=== PATIENT | female | born 1940 | race Caucasian/White ===

== ENCOUNTER 2021-09-18 11:56 | Inpatient (IN) | payer MEDICARE, OTHER ==
[~2021-09-18] VITALS: Ht 162.6 cm; Wt 77.2 kg
[~2021-09-18 11:56] MED LIST: ACET-2267 PO; ACETAMINOPHEN 325 MG TABLET PO PRN; ALBU1.25 INH; ALPRAZolam 0.25 MG (XANAX) TAB PO PRN; ASPI-1238 PO; ATOR40TA70 PO; BENZ200C51 PO; BISACODYL 10 MG SUPP (DULCOLAX) PR PRN; BUDE0.5A7 NEB; BUDE10.2 IH; BUPR150T9 PO; CALC-823 PO; CALCIUM CARBONATE 500 MG (TUMS) TAB.CHEW PO PRN; CLOP75TA28 PO; DIPH25CA48 PO; DOCUSATE SODIUM 100 MG (COLACE) CAP PO PRN; ESCI20TA39 PO; FAMO20TA5 PO; FERR325T18 PO; FLEET ENEMA ADULT 1 EA BTL PR PRN; FLUO20CA42 PO; FLUT1BLS3 IH; FLUT9.9S NS; FLUT9.9S NSEACH; FURO-124 PO; HYDR-3730 PO; HYDR25TA4 PO; IPRA3AMP31 IH; LACTULOSE SYRUP 10GM/15ML (ENULOSE) 30ML UDC PO PRN; LEVO1CAP PO; LIDO15CR TP; LOPERAMIDE 2 MG (IMODIUM) TABLET PO PRN; LOSA100T57 PO; MELATONIN 3 MG TABLET PO PRN; MONT-40 PO; MONT10TA21 PO; MULT-974 PO; OMEP40CA6 PO; ONDANSETRON 4 MG (ZOFRAN) ORAL DISSOLVE TAB PO PRN; POTA10CA43 PO; POTA10TA37 PO; RT-ALBUINH IH; diphenhydrAMINE 25 MG TAB (BENADRYL) PO PRN
[2021-09-18 12:00] VITALS: BP 143/67
[2021-09-18] MEDS: polyethylene glycoL POWDER 17 GM (MIRALAX) PACK PO SCH ×2 (12:09→20:33)
[2021-09-18] MEDS: DOCUSATE SODIUM 100 MG (COLACE) CAP PO SCH ×2 (12:09→20:30)
[2021-09-18] MEDS: SENNA W/DOCUSATE (SENOKOT S) TABLET PO SCH ×2 (12:09→20:30)
--- NOTE | 2021-09-18 12:47 | ST Dysphagia Evaluation ---
Speech Evaluation-General Medical Diagnosis Stroke Onset Date: Sep 18, 2021 Therapy Diagnosis Therapy Diagnosis: Suspected Oropharyngeal Dysphagia Precautions Precautions: Fall, Aspiration Precautions/Isolations: Standard Precautions Referral Referring Physician: Dr. Jackelin Mckeon Reason for Referral: Evaluation/Treatment Medical History Current History The patient is an 81 year old female with a past medical history of arthritis, COPD, GERD, HTN, CKD, hip replacement, and depression, who presented to the acute rehabilitation unit at [facility] following a left pontine stroke. Reviewed History: Yes Speech PLF/Current-Dysphagia Prior Level of Function The patient reported consumption of a regular consistency diet with thin liquids prior to her recent hospitalization. The patient denied s/s of suspected aspiration with her prior diet consistency and reported tolerance. Subjective The patient recently arrived to the acute rehabilitation unit and is seated upright in her recliner upon entrance to her room. The patient is alert, awake and greeted the clinician appropriately. The patient's is intermittently at bedside, entering and leaving the room to complete specific tasks. The patient is agreeable to participation in the clinical bedside swallowing evaluation. Since her hospitalization, the patient stated she does experience s/s of suspected aspiration with PO consistencies, specifically coughing following the swallow. The patient stated the coughing and throat clearing can occur following the swallow with thin liquids or solid consistencies. Per patient, "I just nibble on things and take one drink at a time. I use my tongue to stop the drink so it isn't very big." The patient reported she is currently receiving a regular diet with thin liquids and does not experience difficulty swallowing medication (pills). The patient stated while she is receiving a regular diet with thin liquids, she mostly attempts "smoothies." Upon admission, the prior RN contacted the assigned RN and reported a concern for aspiration. The patient is currently receiving 2L supplemental oxygen via nasal cannula. Per patient, she uses oxygen at night and intermittently throughout the day as needed during exertion. Cognitive Status Patient Orientation: Person, Place, Time, Situation, Normal For Age Oral Motor Skills Dentition: Natural Current Food Consistancy: Regular, Thin Liquids Ability to Follow Directions: Excellent Oral Expression Ability: No Impairment Voice Voice Phonatory-Based Quality: Normal Voice Pitch: Normal Voice Loudness: Normal Face Facial Symmetry: Asymmetrical (Right facial droop.) Oral-Facial Assessment Oral-Facial Dentition: Normal Labial Seal Description: Reduced ROM, Droops Right Puff Cheeks: Reduced Strength (Right.) Lingual Protrusion: Normal Lingual ROM: Normal Lingual Strength: Normal Volitional Dry Swallow: Yes Voluntary Cough: Yes Can Clear Throat Volitionally: Yes Productive Cough: Yes Productive Throat Clear: Yes Dysphagia Evaluation Consistencies Presented: Thin Liquid, Mechanical Soft, Lynndyl Thick Liquid, Pureed Pharyngeal Phase: Clears Throat Funct. Velo/Pharyngeal Symptom: Clears Throat Dietary Recommendations: Mechanical Soft (Dysphagia two.) Liquid Recommendations: Lynndyl Consistancy (Mildly-thick.) Recommendations: - Dysphagia two consistency diet with NECTAR-THICK (mildly) liquids, as tolerated. - Fully upright and alert for PO intake. - Meal set-up and feeding assistance, as needed (secondary to right-sided weakness). - Small, single bites and sips. - Frequent and excellent oral care to reduce the transfer of oral bacteria to t he lungs should aspiration of secretions occur. - Monitor for s/s of suspected aspiration with PO intake. If demonstrated, place the patient NPO and contact speech pathology. - Completion of a modified barium swallow evaluation to definitively rule out the presence of aspiration with PO consistencies (ordered, scheduled for , 09/20/21 at 1245). The results, recommendations and plan of care was discussed with the RN. The RN and the speech pathologist agree with the plan of care and the RN assists with all scheduling needs. Swallowing Precautions: Small Bites and Sips, Sitting 90 Degrees 30 Post Intake, Right Tongue Sweep Dysphagia Evaluation Summary The patient was presented with three teaspoons of water, eight straw sips of water, three teaspoons of nectar-thick liquid, five cup edge drinks of nectar- thick liquid, eight teaspoons of puree, and a bolus of soft solid. The clinician presented all consistencies by patient request (secondary to right sided weakness). The patient displayed difficulty drawing the material from the straw due to the weak right labial seal, however, was successful. Prolonged mastication and anterior to posterior transfer were appreciated. Anterior spillage or right pocketing of material was not present. The patient displayed a subtle and delayed throat clear following straw sips of thin liquid. The throat clearing behavior was eliminated with nectar-thick liquids and soft solids. The patient displayed a delayed throat clearing behavior following one of eight teaspoons of puree. The patient's vocal quality remained clear throughout the evaluation. To note, the patient stated she clears her throat "constantly" throughout the day. The throat clear behavior was present during periods of conversation, in isolation of PO trials. Speech Short Term Goals Short Term Goals Short Term Goals 1. The patient and staff will demonstrate safe swallowing practices and strategies with 90% accuracy. Speech Steam Box Hand Goals Fdc Goals 1. The patient will tolerate the least restricted diet without s/s of suspected aspiration with 90% accuracy. Speech-Plan Treatment Plan Speech Therapy Treatment Plan: Continue Plan of Care Treatment Duration: Oct 02, 2021 Frequency: 3 times per week (Three to five times per week.) Estimated Hrs Per Day: .5 hour per day Rehab Potential: Fair Pt/Family Agrees to Plan: Yes Safety Risks/Education Teaching Recipient: Patient Teaching Methods: Discussion Response to Teaching: Verbalize Understanding Education Topics Provided: Results, Recommendations, Safe Swallowing Practices Time Speech Therapy Time In: 11:53 Speech Therapy Time Out: 12:40 Total Billed Time: 47 Billed Treatment Time 1, HAI LEARY [facility] 12:47
--- NOTE | 2021-09-18 13:10 | PM&R Post Admission Assessment ---
PM&R HP Date of Visit: Sep 18, 2021 Time of Visit: 13:10 History of Present Illness CC: CVA HPI: 81 yr old clinic patient of Dr. Lamar. She presents from [facility] with a left pontine stroke with right sided weakness and dysarthria. She did have an exacerbation of COPD while she was at [facility]. She was previously on nebulizer treatments, steroids and oxygen. Also has a history of hypertension, CAD, and chronic kidney disease. Previously independent with ADLs, now moderate with transfers only walking 2-3 feet with a four wheeled walker. She will go home with her spouse at discharge. When I assessed her she was having wheezing and difficulty breathing so I completed a septic work-up including chest x-ray which revealed no infiltrates but restarted nebulized treatments and initiated oxygenation supplemental and will monitor patient closely in the meantime. Dr. Galvez will be consulted for elevated BNP. Past Vohyhuh-Alfpyr-Bgvigw Hx Past Med/Social Hx: Reviewed Nursing Past Med/Soc Hx, Reviewed and Corrections made Patient Social History Marrital Status: Employed/Student: retired Alcohol Use: Denies Use Smoking Status: Former Smoker Immunizations Up To Date Date of Pneumonia Vaccine: Aug 04, 2013 Date of Influenza Vaccine: May 04, 2021 Past Medical History Respiratory: COPD Cardiac: High Cholesterol, Hypertension Neurological: Stroke HIV/AIDS: No Female Reproductive Disorders: Denies Genitourinary: Bladder Infection Gastrointestinal: Gastroesophageal Reflux Musculoskeletal: Arthritis, Chronic Back Pain Loss of Vision: Bilateral Hearing Impairment: Denies Psychosocial: Depression Adverse Reaction to Blood Tellez: No PM&R Allergy/Meds/Data Review Allergies Coded Allergies: No Known Drug Allergies (Unverified , 11/08/15) Home Medications Scheduled Albuterol Sulfate (Albuterol Sulfate), 1.25 MG INH QID, (Reported) Aspirin (Aspirin EC), 81 MG PO DAILY, (Reported) Atorvastatin Calcium (Atorvastatin Calcium), 40 MG PO HS, (Reported) Budesonide (Pulmicort), 0.5 MG NEB BID, (Reported) Bupropion HCl (Wellbutrin Sr), 150 MG PO DAILY, (Reported) Clopidogrel Bisulfate (Clopidogrel), 75 MG PO DAILY, (Reported) Escitalopram Oxalate (Escitalopram Oxalate), 20 MG PO DAILY, (Reported) Famotidine (Famotidine), 20 MG PO BID, (Reported) Ferrous Sulfate (Ferrous Sulfate), 325 MG PO BID, (Reported) Fluticasone Propionate (Flonase Allergy Relief), 2 SPRAY NSEACH DAILY, ( Reported) Fluticasone/Umeclidin/Vilanter (Trelegy Ellipta 100-62.5-25), 1 EACH IH DAILY, (Reported) Hydrochlorothiazide (Hydrochlorothiazide), 25 MG PO DAILY, (Reported) Losartan Potassium (Losartan Potassium), 50 MG PO HS, (Reported) Montelukast Sodium (Montelukast Sodium), 10 MG PO DAILY, (Reported) Potassium Chloride (Potassium Chloride), 20 MEQ PO BID WITH MEALS, (Reported) Scheduled PRN Acetaminophen (Tylenol Extra Strength), 500 MG PO Q4H PRN for PAIN-MILD (1-4), (Reported) Albuterol Sulfate (Proair Hfa), 2 PUFF IH Q4H PRN for SHORTNESS OF BREATH, (Reported) Benzonatate (Benzonatate), 200 MG PO TID PRN for COUGH, (Reported) Ipratropium/Albuterol Sulfate (Iprat-Albut 0.5-3(2.5) mg/3 ml), 3 ML IH Q6H PRN for SHORTNESS OF BREATH, (Reported) Lidocaine (Anecream5), 1 APPLIC TP Q8H PRN for PAIN-BREAKTHROUGH, (Reported) Discontinued Medications Budesonide/Formoterol Fumarate (Symbicort 160-4.5 Mcg Inhaler), 2 PUFF IH BID, (Reported) Discontinued Reason: No Longer Taking Calcium Carbonate (Calcium), 500 MG PO DAILY, (Reported) Discontinued Reason: No Longer Taking Diphenhydramine HCl (Diphenhydramine HCl), 25 MG PO DAILY, (Reported) Discontinued Reason: No Longer Taking Fluoxetine HCl (Prozac), 20 MG PO BID, (Reported) Discontinued Reason: No Longer Taking Fluticasone Propionate (Flonase Allergy Relief), 2 SPRAYS NS DAILY, (Reported) Discontinued Reason: No Longer Taking Furosemide (Lasix), 20 MG PO DAILY, (Reported) Discontinued Reason: No Longer Taking Hydrocodone/Acetaminophen (Lortab 7.5-325 mg Tablet), 1 TAB PO EVERY 4-6 HRS PRN for PAIN Discontinued Reason: No Longer Taking Ipratropium/Albuterol Sulfate (Iprat-Albut 0.5-3(2.5) mg/3 ml), 3 ML IH Q4H PRN for SHORTNESS OF BREATH, (Reported) Discontinued Reason: No Longer Taking Levomefolate/Algal Oil (Deplin-Algal Oil 15 mg Capsule), 1 EACH PO DAILY PRN for PAIN, (Reported) Discontinued Reason: No Longer Taking Losartan Potassium (Losartan Potassium), 50 MG PO HS, (Reported) Discontinued Reason: No Longer Taking Montelukast Sodium (Singulair), 10 MG PO DAILY, (Reported) Discontinued Reason: No Longer Taking Multivitamin (Multi-Vitamin Daily), 1 EACH PO DAILY, (Reported) Discontinued Reason: No Longer Taking Omeprazole (Omeprazole), 40 MG PO BID, (Reported) Discontinued Reason: No Longer Taking Potassium Chloride (Potassium Chloride), 20 MEQ PO BID, (Reported) Discontinued Reason: No Longer Taking Current Medications Current Medications Reviewed Review of Systems Constitutional: see HPI, dizziness, malaise, weakness EENTM: no symptoms reported Respiratory: dyspnea on exertion, short of breath, wheezing Cardiovascular: no symptoms reported Gastrointestinal: no symptoms reported Genitourinary: no symptoms reported Musculoskeletal: back pain, joint pain Skin: no symptoms reported Psychiatric/Neurological: Anxiety, Emotional Problems All Other Systems Reviewed Negative Unless Noted: Yes Physical Exam Physical Exam Vital Signs Vital Signs - First Documented 09/18/21 12:00 Temp 36.8 Pulse 80 Resp 20 B/P (MAP) 143/67 (92) Pulse Ox 95 O2 Delivery Nasal Cannula O2 Flow Rate 2.00 Capillary Refill : Height, Weight, BMI Height: 5'5.00" Weight: 153lbs. 0.0oz. [id number]; 25.46 BMI Method: General Appearance: WD/WN, Anxious, Chronically ill, Mild Distress Eyes: Bilateral Eye Normal Inspection, Bilateral Eye PERRL HEENT: PERRL/EOMI, Normal ENT Inspection, Pharynx Normal Neck: Full Range of Motion, Normal Inspection, Non Tender, Supple, Carotid Bruit Respiratory: Chest Non Tender, No Respiratory Distress, Accessory Muscle Use, Crackles, Decreased Breath Sounds, Wheezing Cardiovascular: Regular Rate, Rhythm, No Edema, No Gallop, No JVD, No Murmur, Normal Peripheral Pulses Gastrointestinal: Normal Bowel Sounds, No Organomegaly, No Pulsatile Mass, Non Tender, Soft Back: Normal Inspection, No CVA Tenderness, No Vertebral Tenderness Extremity: Normal Capillary Refill, Normal Inspection, Normal Range of Motion, Non Tender, No Calf Tenderness, No Pedal Edema Neurologic/Psychiatric: Alert, Oriented x3, Normal Mood/Affect, plant scientist II-XII Norm as Tested, Abnormal Gait, Facial Droop (Right-sided), Motor Weakness (Right- sided) Skin: Normal Color, Warm/Dry Lymphatic: No Adenopathy PM&R Medical Assessment & Plan REHAB/MEDICAL ASSESSMENT AND PLAN: REHAB IMPAIRMENT GROUP: CVA ETIOLOGIC DIAGNOSIS: CVA The comorbidities that impact the patients function and/or functional outcome by: COPD requiring oxygen supplementation nebulized treatments for an acute exacerbation upon admission, elevated BNP, peripheral vascular disease, severe weakness REHAB PLAN: The patient is being admitted to our comprehensive inpatient rehabilitation facility and can tolerate the intensity of service consisting of at least: 180 minutes of therapy a day, 5 out of 7 days a week Rehab treatment will consist of: PT and OT will focus on regaining function with use of assistive devices in order to regain independence in order to return home with spouse The patient/family has a good understanding of our discharge process and will benefit from an interdisciplinary inpatient rehabilitation program. The patient has potential to make improvement and is in need of at least two of the following multidisciplinary therapies including but not limited to physical, occupational, speech, and prosthetics and orthotics. Additionally the patient will need services from respiratory, nutritional services, wound care, psychology, etc. (Customize this to each patient). Given the patients complex condition and risk of further medical complications, rehabilitation services cannot be safely or effectively provided at a lower level of care such as a retirement facility. BARRIERS TO DISCHARGE: Severe COPD with hypoxemia ESTIMATED LOS: 10 days DISPOSITION: Home with spouse RELEVANT CHANGES SINCE PREADMISSION SCREENING: I have compared the patients medical and functional status at the time of the preadmission screening and there are: No changes PROGNOSIS: Fair REHABILITATION GOALS: 1. PT and OT will focus on regaining function with use of assistive devices in order to regain independence in order to return home with spouse All the above goals were reviewed with the patient and he/she is in agreement. By signing this document, I acknowledge that I have personally performed a full physical examination on this patient within 24 hours of admission to this inpatient rehabilitation facility and have determined the patient to be able to tolerate the above course of treatment at an intensive level for a reasonable period of time. I will be completing a detailed individualized Plan of Care for this patient by day #4 of the patients stay based upon the Preadmission Screen, the Post-Admission Evaluation, and the therapy evaluations. Admission Dx/Comorbidities: (1) CVA (cerebral vascular accident) ICD Codes: I63.9 - Cerebral infarction, unspecified (2) Elevated brain natriuretic peptide (BNP) level Assessment & Plan: Her BNP level is mildly elevated. We are waiting to receive a copy of the echocardiogram report from the outside hospital. For the time being, I would just treat her hypertension. Her chest x-ray did not show any obvious evidence of pulmonary edema. ICD Codes: R79.89 - Other specified abnormal findings of blood chemistry (3) Chronic obstructive pulmonary disease Assessment & Plan: This is likely the cause of her chronic dyspnea. ICD Codes: J44.9 - Chronic obstructive pulmonary disease, unspecified (4) Primary hypertension Assessment & Plan: Resume previous antihypertensive medications. ICD Codes: I10 - Essential (primary) hypertension (5) Mixed hyperlipidemia Assessment & Plan: Continue statin medication. ICD Codes: E78.2 - Mixed hyperlipidemia Assessment/Plan Assessment and Plan Assess & Plan/Chief Complaint Assessment: CVA Right-sided facial droop Right-sided weakness Acute exacerbation of COPD Hypoxemia 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 Peripheral vascular disease Obesity BMI 29 Plan: Inpatient rehab protocol Cardiology consult Nebulizers Oxygen supplementation FLORES LUGO DO Sep 18, 2021 13:09
--- NOTE | 2021-09-18 13:52 | Physical Therapy Evaluation ---
PT Evaluation-General Medical Diagnosis Admission Date Sep 18, 2021 at 11:56 Medical Diagnosis: CVA Onset Date: Sep 13, 2021 Therapy Diagnosis Therapy Diagnosis: impaired mobility, strength, endurance, balance Height/Weight Height (Feet): 5 Height (Inches): 5.00 Weight (Pounds): 153 Weight (Ounces): 0.0 Precautions Precautions/Isolations: Aspiration, Fall Prevention, Standard Precautions, Pressure Ulcer Referral Physician: Jackelin Mckeon DO Reason for Referral: Evaluation/Treatment Medical History Pertinent Medical History: Arthritis, COPD, Fractures, HTN Additional Medical History CKD ,neuropathy, hip replacement, depression Reviewed History: Yes Social History Current Living Status: Spouse Entry Into Home: Ramp Prior Prior Level of Function SCALE: Activities may be completed with or without assistive devices. 6-Xftxkkrwvk-bxrrxjc completes the activity by him/herself with no assistance from a helper. 5-Set-up or Clean-up Assistance-helper sets up or cleans up; patient completes activity. [place] assists only prior to or following the activity. 4-Supervision or Touching Assistance-helper provides verbal cues and/or touching/steadying and/or contact guard assistance as patient completes activity. Assistance may be provided throughout the activity or intermittently. 3-Partial/Moderate Assistance-helper does LESS THAN HALF the effort. [place] lifts, holds or supports trunk or limbs, but provides less than half the effort. 2-Substantial/Maximal Assistance-helper does MORE THAN HALF the effort. Vass lifts or holds trunk or limbs and provides more than half the effort. 5-Lwzpdoely-xdpfbg does ALL the effort. Patient does none of the effort to complete the activity. Or, the assistance of 2 or more helpers is required for the patient to complete the activity. If activity was not attempted, code reason: 7-Patient Refused. 9-Not Applicable-not attempted and the patient did not perform the activity b efore the current illness, exacerbation or injury. 10-Not Attempted due to Environmental Limitations-(lack of equipment, weather restraints, etc.). 88-Not Attempted due to Medical Conditions or Safety Concerns. Bed Mobility: 6 Transfers (B,C,W/C): 6 Gait: 6 Indoor Mobility (Ambulation): Independent Prior Device Use: SPC PT Evaluation-Current Subjective Patient in recliner pre tx, agrees to PT, has no complaints of pain. Will be co-treating with OT for part of tx due to poor patient mobility, strength, endurance, balance, coordinate UE and LE during activity, safety and reduce risk of falls. Pt/Family Goals to be independent at home Objective Patient Orientation: Person, Place, Situation ROM/Strength ROM Lower Extremities WNL Strength Lower Extremities LLE (hip flexion 3+/5, knee flexion 4-/5, knee extension 4-/5, dorsiflexion 3/5), RLE (hip flexion 3/5, knee flexion 3+/5, knee extension 3+/5, dorsiflexion 2/5) Sensory Hearing: Functional Sensation Right Lower Extremit: Intact Sensation Left Lower Extremity: Intact Transfers Roll Left & Right (QC): 3 Sit to Lying (QC): 3 Lying to Sitting/Side of Bed(Q: 3 Sit to Stand (QC): 3 Chair/Ytq-tw-Kootc Xfer(QC): 2 Toilet Transfer (QC): 2 Car Transfer (QC): 2 Patient performs rolling with mod assist, supine <-> sit mod assist, transfers max assist, car transfer max assist. Patient needs cues for positioning and safety. At the end of tx patient needed to use the toilet and was dependent for pants. Gait Does the Patient Walk?: Yes Mode of Locomotion: Wheelchair Anticipated Mode of Locomotion: Both Walk 10 feet (QC): 88 Walk 50 ft with 2 Turns(QC): 88 Walk 150 ft (QC): 88 Walking 10ft/uneven surface-QC: 88 Distance: 3' Gait Assistive Device: Parallel Bars Comments/Gait Description Patient can ambulate 3' in the parallel bars with mod assist, needs some assist with placing her right foot, she has trouble advancing her right foot, has foot drop on the right side Wheelchair Training Does the Pt Use a Wheelchair?: Yes Distance: 120'x2 Wheel 50 ft with 2 turns (QC): 3 Wheel 150 ft (QC): 88 Type of Wheelchair: Manual Patient can propel a manual WC 120' with min assist, she uses her left arm and leg Stairs 1 Step (curb) (QC): 88 4 Steps (QC): 88 12 Steps (QC): 88 Balance Sitting Static: Fair Sitting Dynamic: Fair Standing Static: Poor Standing Dynamic: Poor Picking up an Object (QC): 88 Treatment PT performed bed mobility and transfers, ambulation, WC mobility, toilet transfer, OT performed toileting, UE positioning and safety during activity, assist with balance and safety during standing and weight shifting. Patient also performed sitting weight shifting onto right arm and standing weight shifting from leg to leg in the parallel bars. Assessment/Needs Patient in recliner post tx with nurse call, phone, tray, all needs met. Patient has impaired mobility, strength, endurance, balance. She needs significant assist with sit to stand and transfers. Rehab Potential: Fair PT Short Term Goals Short Term Goals Time Frame: Sep 25, 2021 Roll Left & Right: 3 (Fer) Sit to lyin (Fer) Lying to sitting on side of be: 3 (Uriah) Sit to stand: 3 (Fer) Chair/dca-ff-ugeau transfer: 3 (modA) Walk 10 feet: 3 (Fer) PT Nut Blanker Operator Goals Nut Blanker Operator Goals PT Correction Goals Time Frame: Oct 09, 2021 Roll Left & Right (QC): 4 Sit to Lying (QC): 4 Lying-Sitting on Side/Bed(QC): 4 Sit to Stand (QC): 4 Chair/Vrz-ek-Ebnzd Xfer(QC): 3 Toilet Transfer (QC): 3 Car Transfer (QC): 3 Does the Patient Walk: Yes Walk 10 feet (QC): 3 Walk 50ft with 2 Turns (QC): 3 Walk 150 ft (QC): 88 Walking 10ft on Uneven Surface: 3 1 Step (curb) (QC): 3 4 Steps (QC): 88 12 Steps (QC): 88 Picking up an Object (QC): 3 Wheel 50 feet with 2 turns (QC: 4 Wheel 150 feet: 4 PT Plan Problem List Problem List: Activity Tolerance, Functional Strength, Safety, Balance, Gait, Transfer, Bed Mobility, ROM Treatment/Plan Treatment Plan: Continue Plan of Care Treatment Plan: Bed Mobility, Education, Functional Activity Nik, Functional Strength, Group Therapy, Gait, Safety, Therapeutic Exercise, Transfers Treatment Duration: Oct 09, 2021 Frequency: At least 5 of 7 days/Wk (IRF) Estimated Hrs Per Day: 1.5 hours per day Patient and/or Family Agrees t: Yes Safety Risks/Education Patient Education: Gait Training, Transfer Techniques, Correct Positioning, W/C Management, Safety Issues Teaching Recipient: Patient Teaching Methods: Demonstration, Discussion Response to Teaching: Reinforcement Needed Discharge Recommendations Plan Patient will perform bed mobility and transfer training, balance and endurance training, functional strengthening, stair training, gait training, and education, to improve functional mobility and independence at home. Therapy Discharge Recommendati: Scheduled Assistance, Home & Family, Post Acute PT Time/GCodes Time In: 1240 Time Out: 1400 Total Billed Treatment Time: 70 Total Billed Treatment 1 visit EVM 10' FA 60' PT eval from [id number], OT eval from [id number], co-treat [id number] FRANKY HOFF PT Sep 18, 2021 13:52
--- NOTE | 2021-09-18 13:54 | Occupational Therapy Eval ---
OT Evaluation-General/PLF Medical Diagnosis Admission Date Sep 18, 2021 at 11:56 Medical Diagnosis: CVA Onset Date: Sep 13, 2021 Therapy Diagnosis Therapy Diagnosis: reduced adl status, balance, cognition, rom, strength, coordination Height/Weight Height (Feet): 5 Height (Inches): 5.00 Weight (Pounds): 153 Weight (Ounces): 0.0 Precautions Precautions/Isolations: Aspiration, Fall Prevention, Standard Precautions, Pressure Ulcer Referral Physician: Linda Referral Reason: Evaluation/Treatment Medical History Pertinent Medical History: Arthritis, COPD, GERD, HTN Additional Medical History CKD ,neuropathy, hip replacement, depression Current History Pt presents to ARU following CVA ([place]). Pt reports living with her spouse in a single story home. She was indep with adls but required extra time to complete. Spouse performs all IADLs except pt completes the laundry. She uses a cane at baseline. Spouse had a recent THR ~8 weeks ago and will only be able to provide SBA. Reviewed History: Yes Social History Home: Single Level Current Living Status: Spouse Entry Into Home: Ramp ADL-Prior Level of Function SCALE: Activities may be completed with or without assistive devices. 0-Mfmsajbbqg-ucoaccb completes the activity by him/herself with no assistance from a helper. 5-Set-up or Clean-up Assistance-helper sets up or cleans up; patient completes activity. [place] assists only prior to or following the activity. 4-Supervision or Touching Assistance-helper provides verbal cues and/or touching/steadying and/or contact guard assistance as patient completes activity. Assistance may be provided throughout the activity or intermittently. 3-Partial/Moderate Assistance-helper does LESS THAN HALF the effort. [place] lifts, holds or supports trunk or limbs, but provides less than half the effort. 2-Substantial/Maximal Assistance-helper does MORE THAN HALF the effort. [place] lifts or holds trunk or limbs and provides more than half the effort. 6-Lnlqhbpny-hovmeh does ALL the effort. Patient does none of the effort to complete the activity. Or, the assistance of 2 or more helpers is required for the patient to complete the activity. If activity was not attempted, code reason: 7-Patient Refused. 9-Not Applicable-not attempted and the patient did not perform the activity before the current illness, exacerbation or injury. 10-Not Attempted due to Environmental Limitations-(lack of equipment, weather restraints, etc.). 88-Not Attempted due to Medical Conditions or Safety Concerns. Self Care: Independent Functional Cognition: Unknown DME/Equipment: Bath Chair, Shower OT Current Status Subjective Denies pain. Agreeable to co-treat with PT due to need of 2 skilled clinicians to progress indep with mobility and adls. Appearance Pt left sitting in chair, spouse in the room. Current Glasses/Contacts: Yes Hearing Aids: No Dentures/Partials: No Hand Dominance: Right Upper Extremity ROM Impaired RUE: Shoulder: ~45 degrees AROM, ~90 degrees with assist of LUE, ~120 degrees PROM Elbow: ~20-100 degrees Wrist: WFL Finger opposition: Impaired, cues to look and attend to what she is doing L shoulder impaired: ~140 degrees shoulder flexion ADL-Treatment Eating (QC): 3 Oral Hygiene (QC): 3 Shower/Bathe Self (QC): 7 Upper Body Dressing (QC): 7 Lower Body Dressing (QC): 1 On/Off Footwear (QC): 1 Toileting Hygiene (QC): 1 Pt seated in chair at therapy arrival. Reports that she required assist x2-3 to get dressed this am. Dependent to don bilateral socks. Extra effort/time to perform cross over method. Cues for one handed technique. Pt with significant wheezing/SOB with exertion. Extra time to recover. Oxygen remains >92%. Mod a to stand, Max A to pivot with therapist standing in front and blocking R knee due to unpredictable buckling. Assist x2 to stand and perform clothing management pre/post toileting. Oral care performed at w/c level. R hand utilized as indep stabilizer during task post cues/education. Pt brushed teeth with use of L hand. Education on incorporating RUE into functional tasks as much as possible. Pt would require assist to grasp, manipulate and bring toothbrush to mouth if performed with dominant hand. Other Treatments Pt participated in standing activity in parallel bars. Focus on weight shifting/bearing through LE's. Assist to position and grasp bar with RUE. R knee blocked by PT due to buckling. Pt able to take a few steps with significant amount of assistance. Assist to transition RLE. Foot drop also notable in R foot. While seated EOM, pt performed functional reaching and crossing midline with LUE with goal to promote increased weight bearing through RUE. Fair sitting balance on edge of mat. Education OT Patient Education: Correct positioning, Disease process, Energy conservation, Modified ADL techniques, Purpose of tx/functional activities, Reviewed precautions, Rehab process, Safety issues, Transfer techniques, W/C management Teaching Recipient: Patient Teaching Methods: Demonstration, Discussion Response to Teaching: Verbalize Understanding, Reinforcement Needed OT Short Term Goals Short Term Goals Time Frame: Sep 28, 2021 Eatin Oral hygiene: 4 Toileting hygiene: 2 Shower/bathe self: 2 Upper body dressin Lower body dressin Putting on/taking off footwear: 2 OT Clinical Academic Allergist Goals Group Home Goals Time Frame: Oct 16, 2021 Eating (QC): 5 Oral Hygiene (QC): 5 Toileting Hygiene (QC): 3 (min) Shower/Bathe Self (QC): 3 (min) Upper Body Dressing (QC): 4 Lower Body Dressing (QC): 3 (min) On/Off Footwear (QC): 3 (min) 1=Demonstrate adherence to instructed precautions during ADL tasks. 2=Patient will verbalize/demonstrate understanding of assistive devices/modifications for ADL. 3=Patient will improve strength/tolerance for activity to enable patient to perform ADL's. OT Education/Plan Problem List/Assessment Assessment: Decreased Activ Tolerance, Decreased Safety Aware, Decreased UE Strength, Dependent Transfers, Impaired Bed Mobility, Impaired Cognition, Impaired Coordination, Impaired Funct Balance, Impaired I ADL's, Impaired Self- Care Skills, Restricted Funct UE ROM Discharge Recommendations Plan/Recommendations: Continue POC Therapy Discharge Recommendati: Post Acute OT (anticipate HH pending progress) Treatment Plan/Plan of Care Treatment,Training & Education: Yes Patient would benefit from OT for education, treatment and training to promote independence in ADL's, mobility, safety and/or upper extremity function for ADL's. Plan of Care: ADL Retraining, Functional Mobility, Group Exercise/Act as Ind, UE Funct Exercise/Act, UE Neuromus Re-Ed/Coord, W/C Management Training Treatment Duration: Oct 16, 2021 Frequency: At least 5 of 7 days/Wk (IRF) Estimated Hrs Per Day: 1.5 hours per day Rehab Potential: Fair Time/GCodes Start Time: 12:50 Stop Time: 14:00 Total Time Billed (hr/min): 70 Billed Treatment Time 1 visit EVH (10 min) ADL (20 min) FA x3 (40 min) Fe Card OT Sep 18, 2021 13:54
[2021-09-18] MEDS: RT-ALBUTEROL SULF 2.5 MG/3 ML PRE-MIX VIAL INH SCH ×2 (14:21→19:08)
[2021-09-18 14:25] LABS: BASOPHILS % (AUTO) 0 % (0-10); EOSINOPHILS % (AUTO) 0 % (0-10); HEMATOCRIT 45 % (35-52); HEMOGLOBIN 14.1 g/dL (11.5-16.0); LYMPHOCYTES # (AUTO) 0.3 10^3/uL (1.0-4.0); LYMPHOCYTES % (AUTO) 2 % (12-44); MEAN CORPUSCULAR HEMOGLOBIN 29 pg (25-34); MEAN CORPUSCULAR HGB CONC 31 g/dL (32-36); MEAN CORPUSCULAR VOLUME 94 fL (80-99); MEAN PLATELET VOLUME 9.7 fL (9.0-12.2); MONOCYTES # (AUTO) 0.4 10^3/uL (0.0-1.0); MONOCYTES % (AUTO) 3 % (0-12); NEUTROPHILS # (AUTO) 11.1 10^3/uL (1.8-7.8); NEUTROPHILS % (AUTO) 93 % (42-75); PLATELET COUNT 305 10^3/uL (130-400); WHITE BLOOD COUNT 11.9 10^3/uL (4.3-11.0)
[2021-09-18 14:29] LABS: ABG BASE EXCESS 2.7 MMOL/L (-2.5-2.5); ABG OXYGEN SATURATION 90 % (94-100); ABG PCO2 42 MMHG (35-45); ABG PH 7.42 (7.37-7.43); ABG PO2 53 MMHG (79-93); ABG TCO2 28.2 MMOL/L (21.0-31.0)
[2021-09-18 14:30] LABS: ALLENS TEST YES-POS; INSPIRED O2 RA; PATIENT TEMP 36.8; VENTILATOR NO
[2021-09-18 14:36] LABS: ALBUMIN 3.9 GM/DL (3.2-4.5)
[2021-09-18 14:37] LABS: POTASSIUM 4.3 MMOL/L (3.6-5.0)
[2021-09-18 14:38] LABS: CALCIUM 9.1 MG/DL (8.5-10.1)
[2021-09-18 14:39] LABS: TOTAL PROTEIN 6.9 GM/DL (6.4-8.2)
[2021-09-18 14:41] LABS: BILIRUBIN,TOTAL 0.4 MG/DL (0.1-1.0)
[2021-09-18 14:43] LABS: CREATININE SERUM 0.8 MG/DL (0.60-1.30)
--- NOTE | 2021-09-18 15:17 | Diagnostic Imaging Report ---
EXAMINATION: Portable erect AP chest at 2:26 p.m. INDICATION: Cough. COMPARISON: There are no prior studies available for comparison. FINDINGS: The heart size is at the upper limits of normal. There is a small area of increased density near the apex of the heart. I suspect this is secondary to minimal scar formation as opposed to a parenchymal nodule. If previous exams are available, they would be helpful for comparison. If there are no prior studies, then CT of the chest would be recommended for further evaluation of this finding. The lungs are clear. There is no evidence for failure, pneumonia, or for a pleural effusion. There is a roughly 10 cm air-fluid level overlying the lower thoracic spine. I suspect this is a large hiatal hernia. The mediastinum is not widened. The osseous structures are intact. IMPRESSION: 1. There is no acute cardiopulmonary abnormality identified. 2. The small area of increased density near the apex of the heart may well be due to chronic pulmonary disease as opposed to a small parenchymal nodule. Recommendations as above. 3. There does appear to be a sizable hiatal hernia. Dictated by: Dictated on workstation # [id number]
[2021-09-18 15:27] LABS: ATYPICAL LYMPHOCYTES 2 %; BAND NEUTROPHILS 1 %; LYMPHOCYTES % (MANUAL) 3 %; MONOCYTES % (MANUAL) 4 %; NEUTROPHILS % (MANUAL) 90 %; RBC MORPH NORMAL
[2021-09-18] MEDS ORDERED: RT-ALBUTEROL/IPRATROPIUM 3 ML (DUONEB) VIAL IH PRN (16:45)
[2021-09-18] MEDS ORDERED: LIDOCAINE TP PRN (16:45)
[2021-09-18] MEDS ORDERED: NON-FORMULARY MEDICATION 1 EA EA (Benzonatate 200 MG) PO PRN (16:45)
[2021-09-18] MEDS ORDERED: BENZONATATE 100 MG (TESSALON) CAPSULE PO PRN (17:15)
[2021-09-18] MEDS ORDERED: LIDOCAINE 4% CREAM 5 GM (LMX) TOP PRN (17:15)
[2021-09-18] MEDS: KCL 20 MEQ TAB (K-DUR) PO SCH (17:22)
[2021-09-18] MEDS ORDERED: LIDOCAINE TOPICAL 4% 50 ML BTL TP PRN (17:30)
[2021-09-18] MEDS ORDERED: NON-FORMULARY MEDICATION 1 EA EA (Potassium Chloride 20 MEQ) PO SCH (18:00)
--- NOTE | 2021-09-18 18:53 | Consultation-Cardiology ---
HPI-Cardiology Cardiology Consultation: Date of Consultation 09/18/2021 Date of Admission 09/18/2021 Attending Physician Jackelin Mckeon DO Admitting Physician Marco A Lamar DO Consulting Physician MITCHELL AMEZQUITA JR, MD HPI: Time Seen by a Provider: 18:48 Chief Complaint: Reason for consultation: Elevated BNP level. I had the pleasure of seeing Lu on the inpatient rehabilitation unit at [facility] in [place], [place] this evening. She was recently admitted to an outside hospital with right-sided weakness. She was diagnosed with an acute cerebrovascular accident. After her acute stay, she was transferred to our inpatient rehabilitation facility. During her admission blood work, a BNP level was measured and found to be mildly elevated. As such, a cardiology consultation was requested. The patient states she has chronic dyspnea on exertion which she relates is due to her underlying chronic obstructive pulmonary disease although she never smoked. She does report asthma as a child. She denies any history of coronary artery disease. She denies chest discomfor t, paroxysmal nocturnal dyspnea, orthopnea, palpitations, lightheadedness, or syncope. She does have chronic, intermittent ankle edema which is worse when she has been sitting in a chair for a long time. Certain portions of this document may have been dictated utilizing voice recognition technology. Inherent to this technology, typographical and grammatical errors may exist. As much as I am diligent to identify and correct these mistakes, some errors may remain in the document. Review of Systems-Cardiology Review of Systems Other comments Review of 10 organ systems is as per the history of present illness, otherwise negative. YNJ-Ubefxi-Oqnejb Hx Patient Social History Smoking Status: Never a Smoker Have you traveled recently?: No Alcohol Use?: No Pt feels they are or have been: No Immunizations Up To Date Date of Pneumonia Vaccine: Aug 04, 2013 Date of Influenza Vaccine: May 04, 2021 Past Medical History PMH As described under Assessment. Family Medical History Family Medical History: The patient does not know of any family history of premature coronary artery disease in first-degree relatives. Allergies and Home Medications Allergies Coded Allergies: No Known Drug Allergies (Unverified , 11/08/15) Patient Home Medication List Home Medication List Reviewed: Yes Acetaminophen (Tylenol Extra Strength) 500 Mg Tablet, 500 MG PO Q4H PRN for PAIN-MILD (1-4), (Reported) Entered as Reported by: SAGAR TREVIÑO on 11/08/151109 Last Action: Held Albuterol Sulfate (Proair Hfa) 1 Puff Puff, 2 PUFF IH Q4H PRN for SHORTNESS OF BREATH, (Reported) Entered as Reported by: MILAGRO GRANADO on 09/18/211039 Last Action: Held Albuterol Sulfate (Albuterol Sulfate) 1.25 Mg/3 Ml Vial.neb, 1.25 MG INH QID, (Reported) Entered as Reported by: MILAGRO GRANADO on 09/18/211039 Last Action: Held Aspirin (Aspirin EC) 81 Mg Tablet.dr, 81 MG PO DAILY, (Reported) Entered as Reported by: MILAGRO GRANADO on 09/18/211039 Last Action: Continued Atorvastatin Calcium (Atorvastatin Calcium) 40 Mg Tablet, 40 MG PO HS, (Reported) Entered as Reported by: MILAGRO GRANADO on 09/18/211039 Last Action: Continued Benzonatate (Benzonatate) 200 Mg Capsule, 200 MG PO TID PRN for COUGH, (Reported) Entered as Reported by: MILAGRO GRANADO on 09/18/211039 Last Action: Converted Budesonide (Pulmicort) 0.5 Mg/2 Ml Ampul.neb, 0.5 MG NEB BID, (Reported) Entered as Reported by: MILAGRO GRANADO on 09/18/211039 Last Action: Continued Bupropion HCl (Wellbutrin Sr) 150 Mg Tablet.er, 150 MG PO DAILY, (Reported) Entered as Reported by: SAGAR TREVIÑO on 11/08/151109 Last Action: Continued Clopidogrel Bisulfate (Clopidogrel) 75 Mg Tablet, 75 MG PO DAILY, (Reported) Entered as Reported by: MILAGRO GRANADO on 09/18/211039 Last Action: Continued Escitalopram Oxalate (Escitalopram Oxalate) 20 Mg Tablet, 20 MG PO DAILY, (Reported) Entered as Reported by: MILAGRO GRANADO on 09/18/211039 Last Action: Converted Famotidine (Famotidine) 20 Mg Tablet, 20 MG PO BID, (Reported) Entered as Reported by: MILAGRO GRANADO on 09/18/211039 Last Action: Continued Ferrous Sulfate (Ferrous Sulfate) 325 Mg Tablet, 325 MG PO BID, (Reported) Entered as Reported by: MILAGOR GRANADO on 09/18/211039 Last Action: Continued Fluticasone Propionate (Flonase Allergy Relief) 9.9 Ml [place].susp, 2 SPRAY NSEA CH DAILY, (Reported) Entered as Reported by: MILAGRO GRANADO on 09/18/211039 Last Action: Converted Fluticasone/Umeclidin/Vilanter (Trelegy Ellipta 100-62.5-25) 1 Each Blst.w.dev, 1 EACH IH DAILY, (Reported) Entered as Reported by: MILAGRO GRANADO on 09/18/211039 Last Action: Converted Hydrochlorothiazide (Hydrochlorothiazide) 25 Mg Tablet, 25 MG PO DAILY, (Reported) Entered as Reported by: MILAGRO GRANADO on 09/18/211039 Last Action: Continued Ipratropium/Albuterol Sulfate (Iprat-Albut 0.5-3(2.5) mg/3 ml) 3 Ml Ampul.neb, 3 ML IH Q6H PRN for SHORTNESS OF BREATH, (Reported) Entered as Reported by: MILAGRO GRANADO on 09/18/211039 Last Action: Continued Lidocaine (Anecream5) 15 Gm Cream..g., 1 APPLIC TP Q8H PRN for PAIN- BREAKTHROUGH, (Reported) Entered as Reported by: MILAGRO GRANADO on 09/18/211039 Last Action: Converted Losartan Potassium (Losartan Potassium) 100 Mg Tablet, 50 MG PO HS, (Reported) Entered as Reported by: MILAGRO GRANADO on 09/18/211039 Last Action: Continued Montelukast Sodium (Montelukast Sodium) 10 Mg Tablet, 10 MG PO DAILY, (Reported) Entered as Reported by: MILAGRO GRANADO on 09/18/211039 Last Action: Continued Potassium Chloride (Potassium Chloride) 10 Meq Tab.er.prt, 20 MEQ PO BID WITH MEALS, (Reported) Entered as Reported by: MILAGRO GRANADO on 09/18/211039 Last Action: Converted Discontinued Medications Budesonide/Formoterol Fumarate (Symbicort 160-4.5 Mcg Inhaler) 10.2 Gm Hfa.aer.ad, 2 PUFF IH BID, (Reported) Discontinued Reason: No Longer Taking Entered as Reported by: SAGAR TREVIÑO on 11/08/151109 Last Action: Discontinued Calcium Carbonate (Calcium) 500 Mg Tablet, 500 MG PO DAILY, (Reported) Discontinued Reason: No Longer Taking Entered as Reported by: SAGAR TREVIÑO on 11/08/151109 Last Action: Discontinued Diphenhydramine HCl (Diphenhydramine HCl) 25 Mg Capsule, 25 MG PO DAILY, (Reported) Discontinued Reason: No Longer Taking Entered as Reported by: SAGAR TREVIÑO on 11/08/151109 Last Action: Discontinued Fluoxetine HCl (Prozac) 20 Mg Capsule, 20 MG PO BID, (Reported) Discontinued Reason: No Longer Taking Entered as Reported by: SAGAR TREVIÑO on 11/08/151109 Last Action: Discontinued Fluticasone Propionate (Flonase Allergy Relief) 9.9 Ml [place].susp, 2 SPRAYS NS DAILY, (Reported) Discontinued Reason: No Longer Taking Entered as Reported by: SAGAR TREVIÑO on 11/08/151109 Last Action: Discontinued Furosemide (Lasix) 40 Mg Tablet, 20 MG PO DAILY, (Reported) Discontinued Reason: No Longer Taking Entered as Reported by: SAGAR TREVIÑO on 11/08/151109 Last Action: Discontinued Hydrocodone/Acetaminophen (Lortab 7.5-325 mg Tablet) 1 Each Tablet, 1 TAB PO EVERY 4-6 HRS PRN for PAIN Discontinued Reason: No Longer Taking Prescribed by: CLAUDIA JORGENSEN on 11/15/15 0919 Last Action: Discontinued Ipratropium/Albuterol Sulfate (Iprat-Albut 0.5-3(2.5) mg/3 ml) 3 Ml Ampul.neb, 3 ML IH Q4H PRN for SHORTNESS OF BREATH, (Reported) Discontinued Reason: No Longer Taking Entered as Reported by: SAGAR TREVIÑO on 11/08/151109 Last Action: Discontinued Levomefolate/Algal Oil (Deplin-Algal Oil 15 mg Capsule) 1 Each Capsule, 1 EACH PO DAILY PRN for PAIN, (Reported) Discontinued Reason: No Longer Taking Entered as Reported by: SAGAR TREVIÑO on 11/08/151109 Last Action: Discontinued Losartan Potassium (Losartan Potassium) 100 Mg Tablet, 50 MG PO HS, (Reported) Discontinued Reason: No Longer Taking Entered as Reported by: SAGAR TREVIÑO on 11/08/151109 Last Action: Discontinued Montelukast Sodium (Singulair) 10 Mg Tablet, 10 MG PO DAILY, (Reported) Discontinued Reason: No Longer Taking Entered as Reported by: SAGAR TREVIÑO on 11/08/151109 Last Action: Discontinued Multivitamin (Multi-Vitamin Daily) 1 Each Tablet, 1 EACH PO DAILY, (Reported) Discontinued Reason: No Longer Taking Entered as Reported by: SAGAR TREVIÑO on 11/08/151109 Last Action: Discontinued Omeprazole (Omeprazole) 40 Mg Capsule.dr, 40 MG PO BID, (Reported) Discontinued Reason: No Longer Taking Entered as Reported by: SAGAR TREVIÑO on 11/08/151109 Last Action: Discontinued Potassium Chloride (Potassium Chloride) 10 Meq Capsule.er, 20 MEQ PO BID, (Reported) Discontinued Reason: No Longer Taking Entered as Reported by: SAGAR TREVIÑO on 11/08/151109 Last Action: Discontinued Exam Vital Signs Vital Signs Date Time Temp Pulse Resp B/P (MAP) Pulse Ox O2 Delivery O2 Flow Rate FiO2 09/18/21 14:27 92 Nasal Cannula 2.00 09/18/21 12:00 36.8 80 20 143/67 (92) Physical Exam General: Alert. No acute distress. Well nourished and appears stated age. Eye: Extraocular movements are intact. Conjunctivae are clear. There are no xanthelasma. HENT: Normocephalic. Atraumatic. Carotid pulsations 2/2 without bruits. Mild right facial droop. Neck: Jugular venous pressure does not appear elevated. No thyromegaly appreciated. Respiratory: Lungs have diffuse inspiratory wheezes. Respirations are non- labored. Breath sounds are equal. Symmetrical chest wall expansion. Cardiovascular: Normal rate. Regular rhythm. No murmur. No gallop. Point of maximal impulse is not appear displaced. Good pulses equal in all extremities. 1+ bilateral pretibial edema. Gastrointestinal: Soft. Normal bowel sounds. Skin: Skin turgor is normal. There is no pallor. Musculoskeletal: No kyphosis or scoliosis appreciated. Neurologic: Alert and oriented to person, place, time. Cranial nerves 3-12 appear grossly intact other than slight facial droop. The patient has decreased strength in the right arm and right leg but normal on the left. Psychiatric: Cooperative. Appropriate mood & affect. Labs Laboratory Tests Test 09/18/21 14:18 09/18/21 14:19 Range/Units White Blood Count 11.9 H 4.3-11.0 10^3/uL Red Blood Count 4.81 3.80-5.11 10^6/uL Hemoglobin 14.1 11.5-16.0 g/dL Hematocrit 45 35-52 % Mean Corpuscular Volume 94 80-99 fL Mean Corpuscular Hemoglobin 29 25-34 pg Mean Corpuscular Hemoglobin Concent 31 L 32-36 g/dL Red Cell Distribution Width 12.7 10.0-14.5 % Platelet Count 305 130-400 10^3/uL Mean Platelet Volume 9.7 9.0-12.2 fL Immature Granulocyte % (Auto) 1 % Neutrophils (%) (Auto) 93 H 42-75 % Lymphocytes (%) (Auto) 2 L 12-44 % Monocytes (%) (Auto) 3 0-12 % Eosinophils (%) (Auto) 0 0-10 % Basophils (%) (Auto) 0 0-10 % Neutrophils # (Auto) 11.1 H 1.8-7.8 10^3/uL Lymphocytes # (Auto) 0.3 L 1.0-4.0 10^3/uL Monocytes # (Auto) 0.4 0.0-1.0 10^3/uL Eosinophils # (Auto) 0.0 0.0-0.3 10^3/uL Basophils # (Auto) 0.0 0.0-0.1 10^3/uL Immature Granulocyte # (Auto) 0.2 H 0.0-0.1 10^3/uL Neutrophils % (Manual) 90 % Lymphocytes % (Manual) 3 % Monocytes % (Manual) 4 % Band Neutrophils 1 % Atypical Lymphocytes 2 % Blood Morphology Comment NORMAL Sodium Level 139 135-145 MMOL/L Potassium Level 4.3 3.6-5.0 MMOL/L Chloride Level 102 98-107 MMOL/L Carbon Dioxide Level 28 21-32 MMOL/L Anion Gap 9 5-14 MMOL/L Blood Urea Nitrogen 28 H 7-18 MG/DL Creatinine 0.80 0.60-1.30 MG/DL Estimat Glomerular Filtration Rate 74 BUN/Creatinine Ratio 35 Glucose Level 101 70-105 MG/DL Calcium Level 9.1 8.5-10.1 MG/DL Corrected Calcium 9.2 8.5-10.1 MG/DL Total Bilirubin 0.4 0.1-1.0 MG/DL Aspartate Amino Transf (AST/SGOT) 23 5-34 U/L Alanine Aminotransferase (ALT/SGPT) 23 0-55 U/L Alkaline Phosphatase 63 40-136 U/L B-Type Natriuretic Peptide 150.3 H <100.0 PG/ML Total Protein 6.9 6.4-8.2 GM/DL Albumin 3.9 3.2-4.5 GM/DL Procalcitonin 0.02 <0.10 NG/ML Blood Gas Puncture Site R RAD Blood Gas Patient Temperature 36.8 Arterial Blood pH 7.42 7.37-7.43 Arterial Blood Partial Pressure CO2 42 35-45 MMHG Arterial Blood Partial Pressure O2 53 L 79-93 MMHG Arterial Blood HCO3 27 23-27 MMOL/L Arterial Blood Total CO2 28.2 21.0-31.0 MMOL/L Arterial Blood Oxygen Saturation 90 L 94-100 % Arterial Blood Base Excess 2.7 H -2.5-2.5 MMOL/L Caden Test YES-POS Blood Gas Ventilator Setting NO Blood Gas Inspired Oxygen RA ECG Impression ECG Comment Sinus rhythm with left bundle branch block. Diagnosis/Problems Diagnosis/Problems (1) Elevated brain natriuretic peptide (BNP) level Assessment & Plan: Her BNP level is mildly elevated. We are waiting to receive a copy of the echocardiogram report from the outside hospital. For the time being, I would just treat her hypertension. Her chest x-ray did not show any obvious evidence of pulmonary edema. (2) Chronic obstructive pulmonary disease Assessment & Plan: This is likely the cause of her chronic dyspnea. (3) Primary hypertension Assessment & Plan: Resume previous antihypertensive medications. (4) Mixed hyperlipidemia Assessment & Plan: Continue statin medication. MITCHELL AMEZQUITA JR, MD Sep 18, 2021 18:53
[2021-09-18 20:00] VITALS: BP 161/74
[2021-09-18] MEDS: FERROUS SULF 325 MG (IRON) TAB PO SCH (20:30)
[2021-09-18] MEDS: FAMOTIDINE 20 MG (PEPCID) TABLET PO SCH (20:30)
[2021-09-18] MEDS: LOSARTAN 100 MG (COZAAR) TABLET PO SCH (20:30)
[2021-09-18] MEDS: RT--FLUTICASONE/SALMETEROL 232-14 (AIRDUO RespiCLICK) IH SCH (21:35)
[2021-09-18] MEDS: RT-BUDESONIDE NEBS 0.5 MG/2ML (PULMICORT) AMP INH SCH (21:36)
[2021-09-19] MEDS ORDERED: CATHETER FLUSH 10 ML SYR IV PRN (00:15)
[2021-09-19 05:41] LABS: BASOPHILS % (AUTO) 0 % (0-10); EOSINOPHILS % (AUTO) 0 % (0-10); HEMATOCRIT 42 % (35-52); HEMOGLOBIN 13.1 g/dL (11.5-16.0); LYMPHOCYTES % (AUTO) 9 % (12-44); MEAN CORPUSCULAR HEMOGLOBIN 30 pg (25-34); MEAN CORPUSCULAR HGB CONC 32 g/dL (32-36); MEAN CORPUSCULAR VOLUME 94 fL (80-99); MEAN PLATELET VOLUME 9.5 fL (9.0-12.2); MONOCYTES # (AUTO) 1.1 10^3/uL (0.0-1.0); MONOCYTES % (AUTO) 10 % (0-12); NEUTROPHILS # (AUTO) 8.3 10^3/uL (1.8-7.8); NEUTROPHILS % (AUTO) 79 % (42-75); PLATELET COUNT 232 10^3/uL (130-400); WHITE BLOOD COUNT 10.4 10^3/uL (4.3-11.0)
[2021-09-19] MEDS: CATHETER FLUSH 10 ML SYR IV SCH ×3 (05:53→20:18)
[2021-09-19 06:16] LABS: ALBUMIN 3.3 GM/DL (3.2-4.5); BILIRUBIN,TOTAL 0.4 MG/DL (0.1-1.0); CALCIUM 8.6 MG/DL (8.5-10.1); CREATININE SERUM 0.86 MG/DL (0.60-1.30)
--- NOTE | 2021-09-19 07:00 | PM&R Progress Note ---
Subjective HPI/CC On Admission Date Seen by Provider: Sep 19, 2021 Time Seen by Provider: 09:00 Subjective/Events-last exam 09/19/2021: Pt is doing pretty well Having a lot of loose stools so we will hold laxatives Transferring fair [facility]ocardiogram from [facility] in chart for Dr. 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 Dysphasia tolerating the mechanical soft and nectar thick liquids Review of Systems General: Fatigue, Malaise Pulmonary: Dyspnea, Cough Neurological: Weakness, Incoordination, Change in speech Objective Exam Vital Signs Vital Signs Date Time Temp Pulse Resp B/P (MAP) Pulse Ox O2 Delivery O2 Flow Rate FiO2 09/19/21 21:09 96 Nasal Cannula 2.00 09/19/21 20:02 36.5 75 18 118/58 (78) Capillary Refill : General Appearance: No Apparent Distress, WD/WN, Anxious, Chronically ill HEENT: PERRL/EOMI, Normal ENT Inspection, Pharynx Normal Neck: Full Range of Motion, Normal Inspection, Non Tender, Supple, Carotid Bruit Respiratory: Chest Non Tender, Lungs Clear, Normal Breath Sounds, No Accessory Muscle Use, No Respiratory Distress, Accessory Muscle Use Cardiovascular: Regular Rate, Rhythm, No Edema, No Gallop, No JVD, No Murmur, Normal Peripheral Pulses Gastrointestinal: Normal Bowel Sounds, No Organomegaly, No Pulsatile Mass, Non Tender, Soft Back: Normal Inspection, No CVA Tenderness, No Vertebral Tenderness Extremity: Normal Capillary Refill, Normal Inspection, Normal Range of Motion, Non Tender, No Calf Tenderness, No Pedal Edema Neurologic/Psychiatric: Alert, Oriented x3, Normal Mood/Affect, telex operator II-XII Norm as Tested, Abnormal Gait, Facial Droop (Right-sided), Motor Weakness (Right- sided) Skin: Normal Color, Warm/Dry Lymphatic: No Adenopathy Results/Procedures Lab Laboratory Tests 09/19/21 05:33 Patient resulted labs reviewed. FIM Transfers Therapy Code Descriptions/Definitions Functional [place] Measure: 0=Not Assessed/NA 4=Minimal Assistance 1=Total Assistance 5=Supervision or Setup 2=Maximal Assistance 6=Modified [place] 3=Moderate Assistance 7=Complete IndependenceSCALE: Activities may be completed with or without assistive devices. 1-Pzqtniqkyy-mgxyoph completes the activity by him/herself with no assistance from a helper. 5-Set-up or Clean-up Assistance-helper sets up or cleans up; patient completes activity. [place] assists only prior to or following the activity. 4-Supervision or Touching Assistance-helper provides verbal cues and/or touching/steadying and/or contact guard assistance as patient completes act ivity. Assistance may be provided throughout the activity or intermittently. 3-Partial/Moderate Assistance-helper does LESS THAN HALF the effort. [place] lifts, holds or supports trunk or limbs, but provides less than half the effort. 2-Substantial/Maximal Assistance-helper does MORE THAN HALF the effort. [place] lifts or holds trunk or limbs and provides more than half the effort. 7-Dnezpsjjk-kphxfr does ALL the effort. Patient does none of the effort to complete the activity. Or, the assistance of 2 or more helpers is required for the patient to complete the activity. If activity was not attempted, code reason: 7-Patient Refused. 9-Not Applicable-not attempted and the patient did not perform the activity before the current illness, exacerbation or injury. 10-Not Attempted due to Environmental Limitations-(lack of equipment, weather restraints, etc.). 88-Not Attempted due to Medical Conditions or Safety Concerns. Roll Left to Right (QC): 3 Sit to Lying (QC): 3 Sit to Stand (QC): 3 Chair/Oty-bq-Sylcv Xfer(QC): 2 Car Transfer (QC): 2 Gait Training Does the Patient Walk?: Yes Walk 10 feet (QC): 88 Walk 50 ft with 2 Turns(QC): 88 Walk 150 ft (QC): 88 Walking 10ft/uneven surface-QC: 88 Gait Assistive Device: Parallel Bars Wheelchair Training Does the Pt Use a Wheelchair?: Yes Distance: 120'x2 Wheel 50 ft with 2 turns (QC): 3 Wheel 150 ft (QC): 88 Type of Wheelchair: Manual Stair Training 1 Step (curb) (QC): 88 4 Steps (QC): 88 12 Steps (QC): 88 Balance Picking up an Object (QC): 88 ADL-Treatment Eating (QC): 3 Oral Hygiene (QC): 3 Shower/Bathe Self (QC): 7 Upper Body Dressing (QC): 7 Lower Body Dressing (QC): 1 On/Off Footwear (QC): 1 Toileting Hygiene (QC): 1 Assessment/Plan Assessment and Plan Assess & Plan/Chief Complaint Assessment: CVA Right-sided facial droop Right-sided weakness Acute exacerbation of COPD Hypoxemia 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 Peripheral vascular disease Obesity BMI 29 Plan: Inpatient rehab protocol Cardiology consult Nebulizers Oxygen supplementation 09/19/2021: Oxygen supplementation Nebulizers Supportive care (1) CVA (cerebral vascular accident) (2) Elevated brain natriuretic peptide (BNP) level Assessment & Plan: Her BNP level is mildly elevated. We are waiting to receive a copy of the echocardiogram report from the outside hospital. For the time being, I would just treat her hypertension. Her chest x-ray did not show any obvious evidence of pulmonary edema. (3) Chronic obstructive pulmonary disease Assessment & Plan: This is likely the cause of her chronic dyspnea. (4) Primary hypertension Assessment & Plan: Resume previous antihypertensive medications. (5) Mixed hyperlipidemia Assessment & Plan: Continue statin medication. FLORES LUGO DO Sep 19, 2021 07:00
[2021-09-19] MEDS: RT-ALBUTEROL SULF 2.5 MG/3 ML PRE-MIX VIAL INH SCH ×4 (07:04→21:09)
[2021-09-19] MEDS: RT-BUDESONIDE NEBS 0.5 MG/2ML (PULMICORT) AMP INH SCH ×2 (07:04→21:09)
[2021-09-19] MEDS: RT--FLUTICASONE/SALMETEROL 232-14 (AIRDUO RespiCLICK) IH SCH (07:04)
[2021-09-19] MEDS: UMECLIDINIUM BROMIDE (INCRUSE ELLIPTA) 7'S IH SCH (07:04)
--- NOTE | 2021-09-19 07:14 | Individualized Plan of Care ---
Individualized Plan of Care Rehab Nursing IPOC Order Admission Date Sep 18, 2021 at 11:56 Current Orders Orders Admission Order(Inpt,Obs,Sdc) (09/18/21 08:53) Vital Signs: Per Unit Policy ( (09/18/21 08:53) Nolan Smith (09/18/21 08:53) Sequential Compression Device (09/18/21 08:53) Quality Review Trainer-Inpt Rehab Con (09/18/21 08:53) Rehab Nursing Orders-Ipoc (09/18/21 08:53) Physical Therapy Rehab Orders (09/18/21 08:53) Occupational Therapy Rehab Ord (09/18/21 08:53) Speech Therapy Rehab Orders (09/18/21 08:53) Cbc With Automated Diff (09/19/21 06:00) Comprehensive Metabolic Panel (09/19/21 06:00) Precautions (Aru) (09/18/21 08:53) Weekly Weight WEEK (09/18/21 08:53) Rehab-Intensity Of Therapy (09/18/21 08:53) Initiate Admission Nursing Pro .admission (09/18/21 08:53) Alprazolam Tablet (Xanax Tablet) (09/18/21 09:00) Calcium Carbonate Chew Tablet (Antacid C (09/18/21 09:00) Diphenhydramine Tablet (Benadryl Tablet) (09/18/21 09:00) Docusate Sodium Capsule (Colace Capsule) (09/18/21 09:00) Docusate Sodium Capsule (Colace Capsule) (09/18/21 09:00) Bisacodyl Suppository (Dulcolax Supposit (09/18/21 09:00) Lactulose Oral Solution (Enulose Oral So (09/18/21 09:00) Na Phos/Na Biphos Enema (Fleet Enema Tank (09/18/21 09:00) Guaifenesin/Codeine Syrup (Robitussin Ac (09/18/21 09:00) Loperamide Tablet (Imodium Tablet) (09/18/21 09:00) Melatonin Tablet (Melatonin Tablet) (09/18/21 09:00) Polyethylene Glycol Powder Pkt (Miralax (09/18/21 09:00) Ondansetron Oral Dissolve Tab (Zofran (09/18/21 09:00) Senna S Tablet (Senokot S Tablet) (09/18/21 09:00) Acetaminophen Tablet/Caplet (Tylenol T (09/18/21 09:00) Code/Resuscitation (09/18/21 08:53) Sequential Compression Device ONCE (09/18/21 08:53) Initiate Admission Nursing Pro .admission (09/18/21 08:53) Admission Arrival Bed Request (09/18/21 11:51) Follow-Up Appointment (09/18/21 12:02) Modified Barium Swallow (09/18/21 12:14) Patient Visit (09/18/21 ) Dysphagia Therapy (09/18/21 ) Dysphagia Evaluation Std (09/18/21 ) Modified Barium Swallow (09/20/21 12:45) Dys2 Mechanically Altered (09/18/21 Lunch) Albuterol Pre-Mix Nebs (Rt) (Proventil (09/18/21 13:15) Svn Small Volume Nebulizer (09/18/21 13:07) Chest 1 View, Ap/Pa Only (09/18/21 13:07) Cbc With Automated Diff (09/18/21 13:07) Comprehensive Metabolic Panel (09/18/21 13:07) Procalcitonin (Pct) (09/18/21 13:07) Arterial Blood Gas (09/18/21 14:19) Arterial Blood Draw - Obtain (09/18/21 13:07) Bnp Gaurav (09/18/21 13:07) Modified Barium Swallow (09/20/21 12:14) Manual Differential (09/18/21 14:18) Oxygen-Administer 07,19 (09/18/21 14:34) Oxygen Delivery Set Up (09/18/21 14:34) Arterial Blood Draw - Obtain (09/18/21 ) Patient Visit (09/18/21 ) Pt Eval Moderate Complexity (09/18/21 ) Functional Activities, Ea 15 (09/18/21 ) Iv Heplock-Insert (Order) (09/18/21 16:38) Consult Cardiology (09/18/21 16:38) Ekg Tracing (09/18/21 16:38) Aspirin Enteric Coated Tablet (Ecotrin T (09/19/21 09:00) Atorvastatin Tablet (Lipitor Tablet) (09/18/21 21:00) Budesonide Inhalation Solution (Pulmicor (09/18/21 21:00) Bupropion Sr 12 Hr Tablet (Wellbutrin Sr (09/19/21 09:00) Clopidogrel Tablet (Plavix Tablet) (09/19/21 09:00) Famotidine Tablet (Pepcid Tablet) (09/18/21 21:00) Ferrous Sulfate Tablet (Feosol Tablet) (09/18/21 21:00) Hydrochlorothiazide Cap/Tablet (Hctz Cap (09/19/21 09:00) Albuterol/Ipra Inhalation Soln (Duoneb I (09/18/21 16:45) Losartan Tablet (Cozaar Tablet) (09/18/21 21:00) Montelukast Tablet (Singulair Tablet) (09/19/21 09:00) (Nf) Benzonatate (09/18/21 16:45) (Nf) Escitalopram Oxalate (09/19/21 09:00) (Nf) Fluticasone Propionate (Flonase All (09/19/21 09:00) (Nf) Fluticasone/Umeclidin/Vilanter (Zhou (09/19/21 09:00) (Nf) Lidocaine (Anecream5) (09/18/21 16:45) (Nf) Potassium Chloride (09/18/21 18:00) Svn Small Volume Nebulizer (09/18/21 16:39) Potassium Chloride (Tablet) (K Dur Table (09/18/21 18:00) Fluticasone Nasal [place] (Flonase Nasal S (09/19/21 09:00) Benzonatate Capsule (Tessalon Perles) (09/18/21 17:15) Citalopram Tablet (Celexa Tablet) (09/19/21 09:00) Umeclidinium [place] Inhaler (Incruse El (09/19/21 08:00) Fluticasone/Salmeterol 232-14 (Airduo Re (09/19/21 08:00) Lidocaine 4% Topical (Xylocaine Topical (09/18/21 17:30) Sodium Chloride Flush (Catheter Flush Sy (09/19/21 00:15) Sodium Chloride Flush (Catheter Flush Sy (09/19/21 06:00) Patient Visit (09/19/21 ) Speech Sound Lang Comp (09/19/21 ) Treat. Speech/Lang/Voice (09/19/21 ) Patient Visit (09/19/21 ) Functional Activities, Ea 15 (09/19/21 ) Spironolactone Tablet (Aldactone Tablet) (09/20/21 09:00) Spironolactone Tablet (Aldactone Tablet) (09/19/21 16:30) Basic Metabolic Panel (09/20/21 05:00) Rehab Nursing Orders: Ongoing Assess. of Cognitive Status, Ongoing Assess. of Function Status, Bladder Management, Bladder Scan, Bladder Training, Bowel Management, Bowel Training, Disease Management & Educaiton, DVT Prophylaxis, Fall Prevention, Fluid/Electrolyte/Nutrition Mgmt, Infection Prevention, Medication Management & Education, Management of Risks & Complications, Management of Skin Intergrity, Nutrition Management, Pain Management, Patient/Family Support, Safety Management, Swallow Precautions Intensity of Therapy to be met Patient to be seen: Min.3h per day/5 of 7d PT IPOC Problem List: Activity Tolerance, Functional Strength, Safety, Balance, Gait, Transfer, Bed Mobility, ROM Treatment Plan: Continue Plan of Care Bed Mobility, Education, Functional Activity Nik, Functional Strength, Group Therapy, Gait, Safety, Therapeutic Exercise, Transfers Treatment Duration: Oct 09, 2021 Frequency: At least 5 of 7 days/Wk (IRF) Estimated Hrs Per Day: 1.5 hours per day OT IPOC Problems: Decreased Activ Tolerance, Decreased Safety Aware, Decreased UE Strength, Dependent Transfers, Impaired Bed Mobility, Impaired Cognition, Impaired Coordination, Impaired Funct Balance, Impaired I ADL's, Impaired Self- Care Skills, Restricted Funct UE ROM OT Treatment, Training and Edu: Yes Plan of Care: ADL Retraining, Functional Mobility, Group Exercise/Act as Ind, UE Funct Exercise/Act, UE Neuromus Re-Ed/Coord, W/C Management Training Treatment Duration: Oct 16, 2021 Frequency: At least 5 of 7 days/Wk (IRF) Estimated Hrs Per Day: 1.[address] IPOC Speech Therapy Treatment Plan: Continue Plan of Care Treatment Duration: Oct 02, 2021 Frequency: 3 times per week (Three to five times per week.) Estimated Hrs Per Day: .5 hour per day Quality Review Trainer/Case Mgmt Quality Review Trainer/Case Managemen: Discharge Planning Dietitian/Pet Walker Dietitian/Pet Walker to monitor nutritional status and make changes and/or recommendations as needed and work with speech pathology on dietary upgrades as the occur. Physician IPOC Medical Issues being managed closely and that require the 24 hour availability of a physician: Recent CVA with significant residual with dysphagia and aspiration risk with hypoxia and new oxygen supplementation requirement will be at high risk for decompensation and respiratory compromise Medical Issues: Bowel/Bladder Function, DVT Prophylaxis, Falls Precautions, Fluid/Electrolyte/Nutrition Balance, Infection Protection, Pain Management, Swallowing Precautions Brief Synthesis of Preadmission Screen, Post-Admission Evaluation, and Therapy Evaluations: PT and OT will focus on regaining of function with use of assistive devices to regain enough independence to return home speech therapy will work on swallowing dysphagia and aspiration risk Medical Prognosis: Good Anticipated Length of Stay: 14 days FLORES LUGO DO Sep 19, 2021 07:14
[2021-09-19 07:19] VITALS: BP 166/77
[2021-09-19] MEDS: FERROUS SULF 325 MG (IRON) TAB PO SCH ×2 (07:56→20:16)
[2021-09-19] MEDS: KCL 20 MEQ TAB (K-DUR) PO SCH ×2 (07:57→17:45)
[2021-09-19] MEDS: MONTELUKAST 10 MG (SINGULAIR) TAB PO SCH (07:57)
[2021-09-19] MEDS: DOCUSATE SODIUM 100 MG (COLACE) CAP PO SCH ×2 (07:57→20:48)
[2021-09-19] MEDS: ASPIRIN E.C. 81 MG (ECOTRIN) TAB PO SCH (07:57)
[2021-09-19] MEDS: CLOPIDOGREL 75 MG (PLAVIX) TABLET PO SCH (07:57)
[2021-09-19] MEDS: FLUTICASONE NASAL SPRAY (FLONASE) 16 GM BTL NS SCH (08:00)
[2021-09-19] MEDS ORDERED: NON-FORMULARY MEDICATION 1 EA EA (Escitalopram Oxalate 20 MG) PO SCH (09:00)
[2021-09-19] MEDS ORDERED: NON-FORMULARY MEDICATION 1 EA EA (Fluticasone/Umeclidin/Vilanter (Trelegy Ellipta 100-62.5 IH SCH (09:00)
[2021-09-19] MEDS ORDERED: NON-FORMULARY MEDICATION 1 EA EA (Fluticasone Propionate (Flonase Allergy Relief) 2 SPRAY) NSEACH SCH (09:00)
--- NOTE | 2021-09-19 09:38 | ST Cognitive Linguistic Eval ---
Speech Evaluation-General Medical Diagnosis Stroke Onset Date: Sep 18, 2021 Therapy Diagnosis Therapy Diagnosis: Mild Cognitive Linguistic Impairment, Moderate Dysarthria Precautions Precautions: Fall, Aspiration Precautions/Isolations: Standard Precautions Referral Referring Physician: Dr. Jackelin Mckeon Reason for Referral: Evaluation/Treatment Medical History Pertinent Medical History: Arthritis, COPD, GERD, HTN Current History The patient is an 81 year old female with a past medical history of arthritis, COPD, GERD, HTN, CKD, hip replacement, and depression, who presented to the acute rehabilitation unit at [facility] following a left pontine stroke. Reviewed History: Yes Social History Current Living Status: Spouse Speech PLF-Current Status Prior Level of Function The patient denied the presence of dysarthria prior to hospitalization. Additionally, the patient does not report a prior or recent concern with her language or cognition. Subjective The patient was seated upright in her recliner upon entrance by the clinician. The patient greeted the clinician appropriately and was agreeable to participation in the cognitive linguistic assessment. Language Eval: Auditory Comprehends Simple Yes/No Ques: Functional Indent/Objects Multiple Concepcion: Functional Ident/Pics in Multiple Concepcion: Functional Follows 1-Step Commands: Functional Follows Complex Directions: Mild Follows General Conversations: Functional Language Eval: Verbal Language Completes Spontaneous Greeting: Functional Produces Auto, Serial Info: Functional Imitates Simple Words/Phrases: Functional Word Finding: Functional Requests Basic Needs: Functional States Basic Personal Info: Functional Language Evaluation: Reading Follows Simple Written Direct: Functional Cognitive Patient Orientation The patient was independently oriented to self, location, month, day of week, date, and year. 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 Objective Formal/Standardized Tests [facility] Mental Status ([facility] [place]) Results The patient demonstrated a result of +23/26 on the UMS correlating to a normal neurocognitive function. Oral Motor/Speech Production The patient displayed moderate dysarthria, most consistent with a flaccid-type, characterized by imprecise articulation. The imprecise articulation is due to the visualized right facial droop and labial weakness. The patient remains 100% intelligible in known and unknown contexts. Apraxia of speech was not present. Impression The patient demonstrated cognitive linguistic skills within normal limits. The patient demonstrated an error with subtraction of two digits and the repetition of four digits in reverse. The patient was unable to complete clock drawing due to right handed weakness. Speech Patient Assess Expression of Ideas/Wants: Exhibits (3) Understanding Verbal Content: Usually Understands (3) Brief Interview-Mental Status: Yes Repetition of Three Words: Three (3) Temporal Orientation: Year: Correct (3) Temporal Orientation: Month: Accurate within 5 days(2) Temporal Orientation: Day: Correct (1) Recall : Wear to say "Sock": Yes, no cue required (2) Recall : Color: Yes, no cue required (2) Recall : Bed: Yes,after cueing (1) Memory/Recall Ability: Current season, That he or she is in a hsp/hsp unit Speech Short Term Goals Short Term Goals Short Term Goals 1. The patient and staff will demonstrate safe swallowing practices and strategies with 90% accuracy. 2. The patient will demonstrate and recall intelligibility strategies with 90% accuracy with mild clinician cueing. Speech Longterm Goals Filer Finish Goals 1. The patient will tolerate the least restricted diet without s/s of suspected aspiration with 90% accuracy. 2. The patient will demonstrate increased cognitive linguistic skills for safe return to the least restrictive environment. Speech-Plan Treatment Plan Speech Therapy Treatment Plan: Concurrent Therapy Treatment Duration: Oct 02, 2021 Frequency: 3 times per week (Three to five times per week.) Estimated Hrs Per Day: .5 hour per day Rehab Potential: Fair Safety Risks/Education Teaching Recipient: Patient Teaching Methods: Discussion Response to Teaching: Verbalize Understanding Education Topics Provided: Plan of Care, Goals of Speech Pathology Time Speech Therapy Time In: 08:30 Speech Therapy Time Out: 09:00 Total Billed Time: 30 Billed Treatment Time 1, DEB DEE ELIZABETH ST Sep 19, 2021 09:38
--- NOTE | 2021-09-19 09:42 | Physical Therapy Daily Note ---
PT Daily Note-Current Subjective Pt sitting in recliner upon arrival. Pt agrees to PT/OT co-treat. Pain Location: No Pain Reported Mental Status Patient Orientation: Person, Place Attachments: Oxygen (2L), IV Transfers SCALE: Activities may be completed with or without assistive devices. 0-Kbwimbdvpc-sfbbnnv completes the activity by him/herself with no assistance from a helper. 5-Set-up or Clean-up Assistance-helper sets up or cleans up; patient completes activity. [place] assists only prior to or following the activity. 4-Supervision or Touching Assistance-helper provides verbal cues and/or touching/steadying and/or contact guard assistance as patient completes activity. Assistance may be provided throughout the activity or intermittently. 3-Partial/Moderate Assistance-helper does LESS THAN HALF the effort. [place] lifts, holds or supports trunk or limbs, but provides less than half the effort. 2-Substantial/Maximal Assistance-helper does MORE THAN HALF the effort. [place] lifts or holds trunk or limbs and provides more than half the effort. 6-Jjtfhhsin-drckun does ALL the effort. Patient does none of the effort to complete the activity. Or, the assistance of 2 or more helpers is required for the patient to complete the activity. If activity was not attempted, code reason: 7-Patient Refused. 9-Not Applicable-not attempted and the patient did not perform the activity before the current illness, exacerbation or injury. 10-Not Attempted due to Environmental Limitations-(lack of equipment, weather restraints, etc.). 88-Not Attempted due to Medical Conditions or Safety Concerns. Sit to Stand (QC): 2 Mod A x2 for transfers Weight Bearing Full Weight Bearing Full Weight Bearing Treatments Skill of 2 clinicians are needed where a Value Engineer could not perform tasks due to poor patient mobility, strength, endurance, balance, coordinate UE and LE during activity, safety and reduce risk of falls. Therapists TF from recliner to shower chair at Mod A x2 then pt brushes teeth and showers with assistance. Pt is assisted with drying and dressing (see OT note for ADLs) before TF back to recliner at Mod A x2. All needs met, call light in hand. Assessment Current Status: Fair Progress Pt fatigues easily and needs assistance kristopher. with tasks using R UE & LE. PT Short Term Goals Short Term Goals Time Frame: Sep 25, 2021 Roll Left & Right: 3 (Fer) Sit to lyin (Fer) Lying to sitting on side of be: 3 (Uriah) Sit to stand: 3 (Fer) Chair/nuw-bd-fuvsr transfer: 3 (modA) Walk 10 feet: 3 (Fer) PT Long-Term Goals Long-Term Goals PT Slicing Machine Operator Goals Time Frame: Oct 09, 2021 Roll Left & Right (QC): 4 Sit to Lying (QC): 4 Lying-Sitting on Side/Bed(QC): 4 Sit to Stand (QC): 4 Chair/Saa-xx-Bgdek Xfer(QC): 3 Toilet Transfer (QC): 3 Car Transfer (QC): 3 Does the Patient Walk: Yes Walk 10 feet (QC): 3 Walk 50ft with 2 Turns (QC): 3 Walk 150 ft (QC): 88 Walking 10ft on Uneven Surface: 3 1 Step (curb) (QC): 3 4 Steps (QC): 88 12 Steps (QC): 88 Picking up an Object (QC): 3 Wheel 50 feet with 2 turns (QC: 4 Wheel 150 feet: 4 PT Plan Problem List Problem List: Activity Tolerance, Functional Strength, Safety, Transfer Treatment/Plan Treatment Plan: Continue Plan of Care Treatment Plan: Bed Mobility, Education, Functional Activity Nik, Functional Strength, Group Therapy, Gait, Safety, Therapeutic Exercise, Transfers Treatment Duration: Oct 09, 2021 Frequency: At least 5 of 7 days/Wk (IRF) Estimated Hrs Per Day: 1.5 hours per day Patient and/or Family Agrees t: Yes Safety Risks/Education Patient Education: Transfer Techniques, Correct Positioning Teaching Recipient: Patient Teaching Methods: Discussion Response to Teaching: Verbalize Understanding Time/GCodes Time In: 915 Time Out: 1015 Total Billed Treatment Time: 60 Total Billed Treatment Co-treat w/OT for 60m 1, FA x4 (60m) ROBBIN SALAZAR PTA Sep 19, 2021 09:42
[2021-09-19] MEDS: polyethylene glycoL POWDER 17 GM (MIRALAX) PACK PO SCH ×2 (09:56→20:48)
[2021-09-19] MEDS: SENNA W/DOCUSATE (SENOKOT S) TABLET PO SCH ×2 (09:57→20:48)
--- NOTE | 2021-09-19 10:24 | Occupational Ther Daily Note ---
OT Current Status-Daily Note Subjective Pt alert, sitting in recliner. Pt agrees to therapy. Pt states that one of her toes hurt, but does feel better than it used too. Co-treat with PT ([id number]), skills of 2 clinicians required to decrease fall risk, increase functional mobility/transfers, B UE/LE AROM and functional tasks. PT focusing on tra nsfers/mobility and B LE AROM while OT focusing on ADLs, B UE AROM and functional tasks. Mental Status/Objective Patient Orientation: Person, Place, Time, Situation Attachments: IV, Oxygen (2L) ADL-Treatment Pt agrees to shower. Mod A x2 for all transfers and lower body dressing. Pt transferred to shower chair with cutout to complete shower with mod A, assist given for buttocks, lower legs/feet and L UE. Pt sat at sink and completed oral care by self after set up using L UE. Set up for eating. Mod A for upper body dressing. Dependent for lower body dressing and footwear. Per nrsg, pt dependent for toileting. After therapy, pt sitting in recliner with call light/phone in reach. All needs met in room. Therapy Code Descriptions/Definitions Functional [place] Measure: 0=Not Assessed/NA 4=Minimal Assistance 1=Total Assistance 5=Supervision or Setup 2=Maximal Assistance 6=Modified [place] 3=Moderate Assistance 7=Complete IndependenceSCALE: Activities may be completed with or without assistive devices. 6-Refuicqgnc-redzqfx completes the activity by him/herself with no assistance from a helper. 5-Set-up or Clean-up Assistance-helper sets up or cleans up; patient completes activity. [place] assists only prior to or following the activity. 4-Supervision or Touching Assistance-helper provides verbal cues and/or touching/steadying and/or contact guard assistance as patient completes activity. Assistance may be provided throughout the activity or intermittently. 3-Partial/Moderate Assistance-helper does LESS THAN HALF the effort. [place] lifts, holds or supports trunk or limbs, but provides less than half the effort. 2-Substantial/Maximal Assistance-helper does MORE THAN HALF the effort. [place] l ifts or holds trunk or limbs and provides more than half the effort. 6-Papofuehg-tigbdx does ALL the effort. Patient does none of the effort to complete the activity. Or, the assistance of 2 or more helpers is required for the patient to complete the activity. If activity was not attempted, code reason: 7-Patient Refused. 9-Not Applicable-not attempted and the patient did not perform the activity before the current illness, exacerbation or injury. 10-Not Attempted due to Environmental Limitations-(lack of equipment, weather restraints, etc.). 88-Not Attempted due to Medical Conditions or Safety Concerns. Eating (QC): 5 Oral Hygiene (QC): 5 Shower/Bathe Self (QC): 2 (modA) Upper Body Dressing (QC): 3 (mod A) Lower Body Dressing (QC): 1 On/Off Footwear: 1 Toileting Hygiene (QC): 1 Toilet Transfer (QC): 1 OT Short Term Goals Short Term Goals Time Frame: Sep 28, 2021 Eatin Oral hygiene: 4 Toileting hygiene: 2 Shower/bathe self: 2 Upper body dressin Lower body dressin Putting on/taking off footwear: 2 OT Machine Hoop Maker Goals Machine Hoop Maker Goals Time Frame: Oct 16, 2021 Eating (QC): 5 Oral Hygiene (QC): 5 Toileting Hygiene (QC): 3 (min) Shower/Bathe Self (QC): 3 (min) Upper Body Dressing (QC): 4 Lower Body Dressing (QC): 3 (min) On/Off Footwear (QC): 3 (min) 1=Demonstrate adherence to instructed precautions during ADL tasks. 2=Patient will verbalize/demonstrate understanding of assistive devices/modifications for ADL. 3=Patient will improve strength/tolerance for activity to enable patient to perform ADL's. OT Education/Plan Problem List/Assessment Assessment: Decreased Activ Tolerance, Decreased UE Strength, Dependent Transfers, Impaired Bed Mobility, Impaired Funct Balance, Impaired Self-Care Skills, Restricted Funct UE ROM Discharge Recommendations Plan/Recommendations: Continue POC Treatment Plan/Plan of Care Patient would benefit from OT for education, treatment and training to promote independence in ADL's, mobility, safety and/or upper extremity function for ADL's. Plan of Care: ADL Retraining, Functional Mobility, Group Exercise/Act as Ind, UE Funct Exercise/Act, UE Neuromus Re-Ed/Coord, W/C Management Training Treatment Duration: Oct 16, 2021 Frequency: At least 5 of 7 days/Wk (IRF) Estimated Hrs Per Day: 1.5 hours per day Rehab Potential: Fair Time/GCodes Start Time: 09:15 Stop Time: 10:15 Total Time Billed (hr/min): 60 Billed Treatment Time 1 visit-ADL (60 min) co-treat with PT [id number] JUSTIN ROGERS Sep 19, 2021 10:24
[2021-09-19] MEDS: buPROPion SR 150 MG (WELLBUTRIN SR) TAB PO SCH (10:43)
--- NOTE | 2021-09-19 14:32 | Therapy Group Daily Note ---
Therapy Daily Group Note Patient Education Topic Other List Below (environmental safety) Exercises LE Seated Exercise, UE Exercise Session Ratio (pt:therapist): 3:1 Goal of Session: Education on ARU Expectations, Home Safety Strategies, UE/LE Strengthing Goal Met for this Session: Yes Pt Benefit of Group: Contributions to Others, F/U Use of Strategies @Home, Increased Functional Safety, Increased Functional Strength, Improved Cognition, Recognition of Peers, Socialization Other/Notes Pt transported via w/c to [facility] for OT/PT group. Group consisted of introductions (name,place living, positive things that came from COVID pandemic), socialization, B UE/LE seated exercise and educational topics about ARU, environmental/home safety. Pt able to introduce self appropriately and actively listening to peers. Discussion about grocery flower picker or delivery in community. Environmental safety Bingo completed with word scramble to work on cognition and problem solving skills. Pt using good dynamic sitting balance during reaching and grasping throughout activities. After session, pt lying in bed with call light/phone in reach. All needs met in room. Start Time: 13:00 Stop Time: 14:00 Total Billed Treatment Time: 60 Total Billed Treatment 1-GRP JUSTIN ROGERS Sep 19, 2021 14:32
[2021-09-19] MEDS ORDERED: SPIRONOLACTONE 25 MG (ALDACTONE) TAB PO NR (16:30)
--- NOTE | 2021-09-19 16:31 | Cardiology Progress Note ---
Progress Note-Cardiology Events since last exam Date Seen by Provider: Sep 19, 2021 Time Seen by Provider: 16:28 Events since last exam I am following her due to elevated BNP level. She states as though her breathing is slightly better today but still fairly short of breath. She just feels weak and tired all over. She denies chest pain, palpitations, or syncope. She has mild ankle edema. Certain portions of this document may have been dictated utilizing voice recognition technology. Inherent to this technology, typographical and grammatical errors may exist. As much as I am diligent to identify and correct these mistakes, some errors may remain in the document. Vitals Last set of Vitals Signs Vital Signs 09/19/21 09/19/21 07:19 15:09 Temp 36.2 Pulse 66 Resp 20 B/P (MAP) 166/77 (106) Pulse Ox 97 O2 Delivery Nasal Cannula O2 Flow Rate 2.00 Labs Labs Laboratory Tests 09/19/21 05:33 Exam Vital Signs Vital Signs Date Time Temp Pulse Resp B/P (MAP) Pulse Ox O2 Delivery O2 Flow Rate FiO2 09/19/21 15:09 97 Nasal Cannula 2.00 09/19/21 07:19 36.2 66 20 166/77 (106) Physical Exam General: Alert. No acute distress. Eye: No xanthelasma. HENT: Normocephalic. Neck: Jugular venous pressure does not appear elevated. Respiratory: Lungs have diffuse scattered inspiratory wheezes, slightly improved from yesterday. Respirations are non-labored. Breath sounds are equal. Symmetrical chest wall expansion. Cardiovascular: Normal rate. Regular rhythm. 2/6 systolic ejection murmur. No gallop. Trace bilateral pretibial edema. Gastrointestinal: Soft. Normal bowel sounds. Skin: Warm. Dry. Neurologic: Alert and oriented to person, place, time. Cranial nerves 3-11 grossly intact. Psychiatric: Cooperative. Appropriate mood & affect. Labs Laboratory Tests Test 09/19/21 05:33 Range/Units White Blood Count 10.4 4.3-11.0 10^3/uL Red Blood Count 4.40 3.80-5.11 10^6/uL Hemoglobin 13.1 11.5-16.0 g/dL Hematocrit 42 35-52 % Mean Corpuscular Volume 94 80-99 fL Mean Corpuscular Hemoglobin 30 25-34 pg Mean Corpuscular Hemoglobin Concent 32 32-36 g/dL Red Cell Distribution Width 12.5 10.0-14.5 % Platelet Count 232 130-400 10^3/uL Mean Platelet Volume 9.5 9.0-12.2 fL Immature Granulocyte % (Auto) 1 % Neutrophils (%) (Auto) 79 H 42-75 % Lymphocytes (%) (Auto) 9 L 12-44 % Monocytes (%) (Auto) 10 0-12 % Eosinophils (%) (Auto) 0 0-10 % Basophils (%) (Auto) 0 0-10 % Neutrophils # (Auto) 8.3 H 1.8-7.8 10^3/uL Lymphocytes # (Auto) 1.0 1.0-4.0 10^3/uL Monocytes # (Auto) 1.1 H 0.0-1.0 10^3/uL Eosinophils # (Auto) 0.0 0.0-0.3 10^3/uL Basophils # (Auto) 0.0 0.0-0.1 10^3/uL Immature Granulocyte # (Auto) 0.1 0.0-0.1 10^3/uL Sodium Level 140 135-145 MMOL/L Potassium Level 4.0 3.6-5.0 MMOL/L Chloride Level 104 98-107 MMOL/L Carbon Dioxide Level 27 21-32 MMOL/L Anion Gap 9 5-14 MMOL/L Blood Urea Nitrogen 27 H 7-18 MG/DL Creatinine 0.86 0.60-1.30 MG/DL Estimat Glomerular Filtration Rate 68 BUN/Creatinine Ratio 31 Glucose Level 86 70-105 MG/DL Calcium Level 8.6 8.5-10.1 MG/DL Corrected Calcium 9.2 8.5-10.1 MG/DL Total Bilirubin 0.4 0.1-1.0 MG/DL Aspartate Amino Transf (AST/SGOT) 24 5-34 U/L Alanine Aminotransferase (ALT/SGPT) 22 0-55 U/L Alkaline Phosphatase 58 40-136 U/L Total Protein 6.0 L 6.4-8.2 GM/DL Albumin 3.3 3.2-4.5 GM/DL Diagnosis/Problems Diagnosis/Problems (1) Chronic systolic heart failure Status: Chronic Assessment & Plan: She may have some slight component of chronic heart failure with reduced ejection fraction contributing to her shortness of breath. She is on losartan. I will add spironolactone. I do not think she is a good candidate for beta-jcarlos due to her severe obstructive airways disease with ongoing wheezing. (2) Cardiomyopathy Assessment & Plan: Exact etiology unclear and I do not know if this is a new finding in this patient. She was placed on valsartan at the outside facility. As above, I will add spironolactone. Her ejection fraction is above the cutoff for recommending a prophylactic defibrillator. She will need to have her guideline directed medical therapy maximized following discharge. (3) Elevated brain natriuretic peptide (BNP) level Assessment & Plan: Her BNP level is mildly elevated. Her echocardiogram from the outside facility shows moderate left ventricular systolic dysfunction with an estimated ejection fraction of 40-45% with no significant valvular disease. Her pulmonary artery pressure was 30-35 mmHg. This echo was performed on 09/16. However, her chest x-ray from our hospital does not show any significant pulmonary edema. We will proceed as above. (4) Primary hypertension Assessment & Plan: Her blood pressures are intermittently elevated. I will be adding spironolactone as above. If her blood pressure remains elevated, then I would maximize her losartan as opposed to adding other agents. (5) Mixed hyperlipidemia Assessment & Plan: Continue statin medication. (6) Chronic obstructive pulmonary disease Assessment & Plan: I suspect this is the primary cause of her chronic dyspnea. MITCHELL AMEZQUITA JR, MD Sep 19, 2021 16:31
[2021-09-19 20:02] VITALS: BP 118/58
[2021-09-19] MEDS: FAMOTIDINE 20 MG (PEPCID) TABLET PO SCH (20:16)
[2021-09-19] MEDS: LOSARTAN 100 MG (COZAAR) TABLET PO SCH (20:16)
[2021-09-20] MEDS: CATHETER FLUSH 10 ML SYR IV SCH ×3 (06:13→20:37)
[2021-09-20 06:26] LABS: POTASSIUM 4.1 MMOL/L (3.6-5.0)
[2021-09-20 06:27] LABS: CALCIUM 8.4 MG/DL (8.5-10.1)
[2021-09-20 06:32] LABS: CREATININE SERUM 0.76 MG/DL (0.60-1.30)
--- NOTE | 2021-09-20 07:20 | Occupational Ther Daily Note ---
OT Current Status-Daily Note Subjective Pt alert, sitting in recliner. Pt agrees to therapy. No c/o pain. Mental Status/Objective Patient Orientation: Person, Place, Time, Situation Attachments: IV ADL-Treatment Pt stated that she had already toileted prior to BURRELL entering room. Pt requests to use hospital gown today due to decreased mobility and dependent toilet transfers. Pt set up with eating, increased time to eat due to swallowing difficulties. Mod A for SPT. Sitting at sink to complete oral care verbal cues for one handed technique. Therapy Code Descriptions/Definitions Functional [place] Measure: 0=Not Assessed/NA 4=Minimal Assistance 1=Total Assistance 5=Supervision or Setup 2=Maximal Assistance 6=Modified [place] 3=Moderate Assistance 7=Complete IndependenceSCALE: Activities may be completed with or without assistive devices. 2-Jerxtbjdeu-sbwiwrs completes the activity by him/herself with no assistance from a helper. 5-Set-up or Clean-up Assistance-helper sets up or cleans up; patient completes activity. [place] assists only prior to or following the activity. 4-Supervision or Touching Assistance-helper provides verbal cues and/or touching/steadying and/or contact guard assistance as patient completes activity. Assistance may be provided throughout the activity or intermittently. 3-Partial/Moderate Assistance-helper does LESS THAN HALF the effort. [place] lifts, holds or supports trunk or limbs, but provides less than half the effort. 2-Substantial/Maximal Assistance-helper does MORE THAN HALF the effort. [place] lifts or holds trunk or limbs and provides more than half the effort. 2-Ewfxkfjyf-sxzchj does ALL the effort. Patient does none of the effort to complete the activity. Or, the assistance of 2 or more helpers is required for the patient to complete the activity. If activity was not attempted, code reason: 7-Patient Refused. 9-Not Applicable-not attempted and the patient did not perform the activity before the current illness, exacerbation or injury. 10-Not Attempted due to Environmental Limitations-(lack of equipment, weather restraints, etc.). 88-Not Attempted due to Medical Conditions or Safety Concerns. Eating (QC): 5 Oral Hygiene (QC): 4 Other Treatment Pt demonstrates fair R elbow flex/ext and finger flex/ext. Good R shldr elevation/depression. After therapy, pt sitting in recliner with call light/phone in reach. All needs met in room. OT Short Term Goals Short Term Goals Time Frame: Sep 28, 2021 Eatin Oral hygiene: 4 Toileting hygiene: 2 Shower/bathe self: 2 Upper body dressin Lower body dressin Putting on/taking off footwear: 2 OT Alf Goals Alf Goals Time Frame: Oct 16, 2021 Eating (QC): 5 Oral Hygiene (QC): 5 Toileting Hygiene (QC): 3 (min) Shower/Bathe Self (QC): 3 (min) Upper Body Dressing (QC): 4 Lower Body Dressing (QC): 3 (min) On/Off Footwear (QC): 3 (min) 1=Demonstrate adherence to instructed precautions during ADL tasks. 2=Patient will verbalize/demonstrate understanding of assistive devic es/modifications for ADL. 3=Patient will improve strength/tolerance for activity to enable patient to perform ADL's. OT Education/Plan Problem List/Assessment Assessment: Decreased Activ Tolerance, Decreased UE Strength, Impaired Self- Care Skills, Restricted Funct UE ROM Discharge Recommendations Plan/Recommendations: Continue POC Treatment Plan/Plan of Care Patient would benefit from OT for education, treatment and training to promote independence in ADL's, mobility, safety and/or upper extremity function for ADL's. Plan of Care: ADL Retraining, Functional Mobility, Group Exercise/Act as Ind, UE Funct Exercise/Act, UE Neuromus Re-Ed/Coord, W/C Management Training Treatment Duration: Oct 16, 2021 Frequency: At least 5 of 7 days/Wk (IRF) Estimated Hrs Per Day: 1.5 hours per day Rehab Potential: Fair Time/GCodes Start Time: 07:00 Stop Time: 08:00 Total Time Billed (hr/min): 60 Billed Treatment Time 1 visit-ADL 3 (45 min) NM 1 (15 min) JUSTIN ROGERS Sep 20, 2021 07:20
[2021-09-20] MEDS: UMECLIDINIUM BROMIDE (INCRUSE ELLIPTA) 7'S IH SCH (07:26)
[2021-09-20] MEDS: RT-BUDESONIDE NEBS 0.5 MG/2ML (PULMICORT) AMP INH SCH ×2 (07:26→18:59)
[2021-09-20] MEDS: RT--FLUTICASONE/SALMETEROL 232-14 (AIRDUO RespiCLICK) IH SCH ×2 (07:26→19:02)
[2021-09-20] MEDS: RT-ALBUTEROL SULF 2.5 MG/3 ML PRE-MIX VIAL INH SCH ×4 (07:26→18:54)
[2021-09-20 08:00] VITALS: BP 137/66
[2021-09-20] MEDS: KCL 20 MEQ TAB (K-DUR) PO SCH ×2 (08:13→18:25)
[2021-09-20] MEDS: FERROUS SULF 325 MG (IRON) TAB PO SCH ×2 (08:13→20:36)
[2021-09-20] MEDS: ASPIRIN E.C. 81 MG (ECOTRIN) TAB PO SCH (08:13)
[2021-09-20] MEDS: SPIRONOLACTONE 25 MG (ALDACTONE) TAB PO SCH (08:13)
[2021-09-20] MEDS: CLOPIDOGREL 75 MG (PLAVIX) TABLET PO SCH (08:13)
[2021-09-20] MEDS: MONTELUKAST 10 MG (SINGULAIR) TAB PO SCH (08:13)
[2021-09-20] MEDS: buPROPion SR 150 MG (WELLBUTRIN SR) TAB PO SCH (08:13)
[2021-09-20] MEDS: FLUTICASONE NASAL SPRAY (FLONASE) 16 GM BTL NS SCH (08:14)
--- NOTE | 2021-09-20 09:53 | Physical Therapy Daily Note ---
PT Daily Note-Current Subjective Patient in recliner pre tx, agrees to PT, has no pain, states she is very tired. Appearance Patient in recliner post tx with nurse call, phone, tray, all needs met. Mental Status Patient Orientation: Person, Place, Situation Transfers SCALE: Activities may be completed with or without assistive devices. 8-Mcucpnqnar-mevhkrh completes the activity by him/herself with no assistance from a helper. 5-Set-up or Clean-up Assistance-helper sets up or cleans up; patient completes activity. [place] assists only prior to or following the activity. 4-Supervision or Touching Assistance-helper provides verbal cues and/or touching/steadying and/or contact guard assistance as patient completes activity. Assistance may be provided throughout the activity or intermittently. 3-Partial/Moderate Assistance-helper does LESS THAN HALF the effort. [place] lifts, holds or supports trunk or limbs, but provides less than half the effort. 2-Substantial/Maximal Assistance-helper does MORE THAN HALF the effort. [place] lifts or holds trunk or limbs and provides more than half the effort. 5-Iknivxbxz-oqqwit does ALL the effort. Patient does none of the effort to complete the activity. Or, the assistance of 2 or more helpers is required for the patient to complete the activity. If activity was not attempted, code reason: 7-Patient Refused. 9-Not Applicable-not attempted and the patient did not perform the activity before the current illness, exacerbation or injury. 10-Not Attempted due to Environmental Limitations-(lack of equipment, weather restraints, etc.). 88-Not Attempted due to Medical Conditions or Safety Concerns. Sit to Stand (QC): 3 Chair/Lwd-wx-Ryfje Xfer(QC): 3 mod assist for sit to stand and transfers, cues for hand placement and positioning Weight Bearing Full Weight Bearing Full Weight Bearing Gait Training Distance: 5'x3 Wheelchair Training Does the Pt Use a Wheelchair?: Yes Wheel 50 ft with 2 turns (QC): 3 Type of Wheelchair: Manual 120'x2, min assist, using left arm and leg Exercises Seated Therapy Exercises: Ankle pumps, Long arc quads, Hip flexion, Hip abd/add (using ball and RTB) Seated Reps: 20 Patient also stood in the parallel bars, static standing for about 3 minutes Treatments transfers, ambulation, WC mobility, LE strengthening Assessment Current Status: Fair Progress improved transfers PT Short Term Goals Short Term Goals Time Frame: Sep 25, 2021 Roll Left & Right: 3 (Fer) Sit to lyin (Fer) Lying to sitting on side of be: 3 (Uriah) Sit to stand: 3 (Fer) Chair/vei-sd-ftklu transfer: 3 (modA) Walk 10 feet: 3 (Fer) PT Mcc Goals Firmware Engineer Goals PT Firmware Engineer Goals Time Frame: Oct 09, 2021 Roll Left & Right (QC): 4 Sit to Lying (QC): 4 Lying-Sitting on Side/Bed(QC): 4 Sit to Stand (QC): 4 Chair/Czx-jd-Otidm Xfer(QC): 3 Toilet Transfer (QC): 3 Car Transfer (QC): 3 Does the Patient Walk: Yes Walk 10 feet (QC): 3 Walk 50ft with 2 Turns (QC): 3 Walk 150 ft (QC): 88 Walking 10ft on Uneven Surface: 3 1 Step (curb) (QC): 3 4 Steps (QC): 88 12 Steps (QC): 88 Picking up an Object (QC): 3 Wheel 50 feet with 2 turns (QC: 4 Wheel 150 feet: 4 PT Plan Problem List Problem List: Activity Tolerance, Functional Strength, Safety, Balance, Gait, Transfer, Bed Mobility, ROM Treatment/Plan Treatment Plan: Continue Plan of Care Treatment Plan: Bed Mobility, Education, Functional Activity Nik, Functional Strength, Group Therapy, Gait, Safety, Therapeutic Exercise, Transfers Treatment Duration: Oct 09, 2021 Frequency: At least 5 of 7 days/Wk (IRF) Estimated Hrs Per Day: 1.5 hours per day Patient and/or Family Agrees t: Yes Safety Risks/Education Patient Education: Gait Training, Transfer Techniques, Correct Positioning, W/C Management, Safety Issues Teaching Recipient: Patient Teaching Methods: Demonstration, Discussion Response to Teaching: Reinforcement Needed Time/GCodes Time In: 0900 Time Out: 1000 Total Billed Treatment Time: 60 Total Billed Treatment 1 visit EX 15' FA 45' FRANKY HOFF PT Sep 20, 2021 09:53
[2021-09-20] MEDS: polyethylene glycoL POWDER 17 GM (MIRALAX) PACK PO SCH ×2 (09:54→20:38)
[2021-09-20] MEDS: SENNA W/DOCUSATE (SENOKOT S) TABLET PO SCH ×2 (09:55→20:37)
[2021-09-20] MEDS: DOCUSATE SODIUM 100 MG (COLACE) CAP PO SCH ×2 (09:55→20:38)
--- NOTE | 2021-09-20 12:19 | Occupational Ther Daily Note ---
OT Current Status-Daily Note Subjective Pt alert, sitting in recliner. Pt agrees to therapy. Pt c/o fatigue. Mental Status/Objective Patient Orientation: Person, Place, Time, Situation Attachments: IV, Oxygen ADL-Treatment Therapy Code Descriptions/Definitions Functional [place] Measure: 0=Not Assessed/NA 4=Minimal Assistance 1=Total Assistance 5=Supervision or Setup 2=Maximal Assistance 6=Modified [place] 3=Moderate Assistance 7=Complete IndependenceSCALE: Activities may be completed with or without assistive devices. 9-Ktayqyhyxr-fcscddk completes the activity by him/herself with no assistance from a helper. 5-Set-up or Clean-up Assistance-helper sets up or cleans up; patient completes activity. [place] assists only prior to or following the activity. 4-Supervision or Touching Assistance-helper provides verbal cues and/or touching/steadying and/or contact guard assistance as patient completes activity. Assistance may be provided throughout the activity or intermittently. 3-Partial/Moderate Assistance-helper does LESS THAN HALF the effort. [place] lifts, holds or supports trunk or limbs, but provides less than half the effort. 2-Substantial/Maximal Assistance-helper does MORE THAN HALF the effort. Lizella lifts or holds trunk or limbs and provides more than half the effort. 4-Mlfagjtmj-btyohh does ALL the effort. Patient does none of the effort to complete the activity. Or, the assistance of 2 or more helpers is required for the patient to complete the activity. If activity was not attempted, code reason: 7-Patient Refused. 9-Not Applicable-not attempted and the patient did not perform the activity before the current illness, exacerbation or injury. 10-Not Attempted due to Environmental Limitations-(lack of equipment, weather restraints, etc.). 88-Not Attempted due to Medical Conditions or Safety Concerns. Other Treatment Pt assisted with positioning self back in chair. Using dowel clemente, pt able to complete shldr pro/ret 10x and shldr int/ext rot 10x. Pt is demonstrating progress with AROM of R UE and is gaining strength with movement. After therapy, pt sitting in recliner with call light/phone in reach. All needs met in room. OT Short Term Goals Short Term Goals Time Frame: Sep 28, 2021 Eatin Oral hygiene: 4 Toileting hygiene: 2 Shower/bathe self: 2 Upper body dressin Lower body dressin Putting on/taking off footwear: 2 OT Group Home Goals Real Estate Closer Goals Time Frame: Oct 16, 2021 Eating (QC): 5 Oral Hygiene (QC): 5 Toileting Hygiene (QC): 3 (min) Shower/Bathe Self (QC): 3 (min) Upper Body Dressing (QC): 4 Lower Body Dressing (QC): 3 (min) On/Off Footwear (QC): 3 (min) 1=Demonstrate adherence to instructed precautions during ADL tasks. 2=Patient will verbalize/demonstrate understanding of assistive devices/modifications for ADL. 3=Patient will improve strength/tolerance for activity to enable patient to perform ADL's. OT Education/Plan Problem List/Assessment Assessment: Decreased Activ Tolerance, Decreased UE Strength, Impaired Self- Care Skills, Restricted Funct UE ROM Discharge Recommendations Plan/Recommendations: Continue POC Treatment Plan/Plan of Care Patient would benefit from OT for education, treatment and training to promote independence in ADL's, mobility, safety and/or upper extremity function for ADL's. Plan of Care: ADL Retraining, Functional Mobility, Group Exercise/Act as Ind, UE Funct Exercise/Act, UE Neuromus Re-Ed/Coord, W/C Management Training Treatment Duration: Oct 16, 2021 Frequency: At least 5 of 7 days/Wk (IRF) Estimated Hrs Per Day: 1.5 hours per day Rehab Potential: Fair Time/GCodes Start Time: 11:45 Stop Time: 12:00 Total Time Billed (hr/min): 15 Billed Treatment Time 1 visit-NM 1 (15 min) JUSTIN ROGERS Sep 20, 2021 12:19
--- NOTE | 2021-09-20 12:43 | Cardiology Progress Note ---
Progress Note-Cardiology Events since last exam Date Seen by Provider: Sep 20, 2021 Time Seen by Provider: 12:42 Events since last exam I am following her due to newly discovered cardiomyopathy without overt heart failure. She states her breathing feels better today. She denies chest pain, palpitations, or syncope. She has persistent, mild ankle edema. She states that if she needs to see her otm consultant following discharge, she would prefer to go to [place] because that is closer to her home. Certain portions of this document may have been dictated utilizing voice recognition technology. Inherent to this technology, typographical and grammatical errors may exist. As much as I am diligent to identify and correct these mistakes, some errors may remain in the document. Vitals Last set of Vitals Signs Vital Signs 09/20/21 09/20/21 08:00 09:00 Temp 36.2 Pulse 72 Resp 14 B/P (MAP) 137/66 (89) Pulse Ox 94 O2 Delivery Nasal Cannula O2 Flow Rate 3.00 Labs Labs Laboratory Tests 09/20/21 05:10 Exam Vital Signs Vital Signs Date Time Temp Pulse Resp B/P (MAP) Pulse Ox O2 Delivery O2 Flow Rate FiO2 09/20/21 09:00 Nasal Cannula 3.00 09/20/21 08:00 36.2 72 14 137/66 (89) 94 Physical Exam General: Alert. No acute distress. Eye: No xanthelasma. HENT: Normocephalic. Neck: Jugular venous pressure does not appear elevated. Respiratory: Lungs have diffuse inspiratory wheezes, slightly improved from previous days. Respirations are non-labored. Breath sounds are equal. Symmetrical chest wall expansion. Cardiovascular: Normal rate. Regular rhythm. Distant S1/S2. No murmur. No gallop. 1+ bilateral pretibial edema. Gastrointestinal: Soft. Normal bowel sounds. Skin: Warm. Dry. Neurologic: Alert and oriented to person, place, time. Cranial nerves 3-11 grossly intact. Psychiatric: Cooperative. Appropriate mood & affect. Labs Laboratory Tests Test 09/20/21 05:10 Range/Units Sodium Level 136 135-145 MMOL/L Potassium Level 4.1 3.6-5.0 MMOL/L Chloride Level 102 98-107 MMOL/L Carbon Dioxide Level 26 21-32 MMOL/L Anion Gap 8 5-14 MMOL/L Blood Urea Nitrogen 24 H 7-18 MG/DL Creatinine 0.76 0.60-1.30 MG/DL Estimat Glomerular Filtration Rate 79 BUN/Creatinine Ratio 32 Glucose Level 76 70-105 MG/DL Calcium Level 8.4 L 8.5-10.1 MG/DL Diagnosis/Problems Diagnosis/Problems (1) Chronic systolic heart failure Status: Chronic Assessment & Plan: She may have some slight component of chronic heart failure with reduced ejection fraction contributing to her shortness of breath. She is on losartan I added spironolactone. I do not think she is a good candidate for beta-jcarlos due to her severe obstructive airways disease with ongoing wheezing. She would like to follow-up with someone in [place] since this is closer to her home. I asked her to check with friends and family to see if they have any recommendations for a specific otm consultant. (2) Cardiomyopathy Assessment & Plan: She had an echocardiogram at an outside hospital that showed mild to moderate left ventricular systolic dysfunction with an ejection fraction of 40-45%. Exact etiology unclear and I do not know if this is a new finding in this patient. She was placed on losartan at the outside facility. As above, I added spironolactone. Her ejection fraction is above the cutoff for recommending a prophylactic defibrillator. She will need to have her guideline directed medical therapy maximized following discharge. (3) Primary hypertension Assessment & Plan: Her blood pressure improved since adding spironolactone. If her blood pressure remains elevated, then I would maximize her losartan as opposed to adding other agents. (4) Mixed hyperlipidemia Assessment & Plan: Continue statin medication. (5) Elevated brain natriuretic peptide (BNP) level Assessment & Plan: Her BNP level wasmildly elevated. Her echocardiogram from the outside facility showed mild-moderate left ventricular systolic dysfunction with an estimated ejection fraction of 40-45% with no significant valvular disease. Her pulmonary artery pressure was 30-35 mmHg. This echo was performed on 09/16. However, her chest x-ray from our hospital does not show any significant pulmonary edema. We will proceed as above. (6) Chronic obstructive pulmonary disease Assessment & Plan: I suspect this is the primary cause of her chronic dyspnea. MITCHELL AMEZQUITA JR, MD Sep 20, 2021 12:43
--- NOTE | 2021-09-20 13:40 | ST Mod Barium Swallow ---
Speech Evaluation-General Medical Diagnosis Stroke Onset Date: Sep 13, 2021 Therapy Diagnosis Therapy Diagnosis: Mild Oropharyngeal Dysphagia Precautions Precautions: Fall, Aspiration Precautions/Isolations: Standard Precautions Referral Referring Physician: Dr. Jackelin Mckeon Reason for Referral: Evaluation/Treatment Medical History Pertinent Medical History: Arthritis, COPD, Fractures, HTN Current History The patient is an 81 year old female with a past medical history of arthritis, COPD, GERD, HTN, CKD, hip replacement, and depression, who presented to the acute rehabilitation unit at [facility] following a left pontine stroke. Reviewed History: Yes Social History Current Living Status: Spouse Speech Mod Barium Swallow Prior Level of Function The patient reported consumption of a regular consistency diet with thin liquids prior to her recent hospitalization. The patient denied s/s of suspected aspi ration with her prior diet consistency and reported tolerance. Since her hospitalization, the patient stated she does experience s/s of suspected aspiration with PO consistencies, specifically coughing following the swallow. The patient stated the coughing and throat clearing can occur following the swallow with thin liquids or solid consistencies. Per patient, "I just nibble on things and take one drink at a time. I use my tongue to stop the drink so it isn't very big." The patient reported she is currently receiving a regular diet with thin liquids and does not experience difficulty swallowing medication (pills). The patient stated while she is receiving a regular diet with thin liquids, she mostly attempts "smoothies." Upon admission, the prior RN contacted the assigned RN and reported a concern for aspiration. Following the clinical bedside swallowing evaluation, the clinician recommended a dysphagia two consistency diet with nectar-thick liquids due to s/s of suspected aspiration with thin liquids during the assessment. Additionally, a modified barium swallow assessment was recommended to definitively rule out aspiration with thin liquids. Oral Motor Skills Dentition Natural Dentures: Full Lingual Protrusion: Normal Lingual ROM: Normal Lingual Strength: Normal Volitional Dry Swallow: Yes Voluntary Cough: Yes Textures-Lateral View Lateral View Food Presentation: Thin Liquid via Spoon, Thin Liquid via Straw, Coin Liquid via Spoon, Honey Liquid via Spoon, Pureed Solids, Mechanial Soft Solids Oral Phase Labial Closure: Right Side Bolus Formation Pooling L/R: No Impairment (WFL) Bolus Formation Placement: Mild Impairment Mastication Rotary Chew: Moderate Impairment A/P Lingual Propulsion: Mild Impairment Lingual Movement: No Impairment (WFL) Oral Phase Residue: Mild Impairment The patient was able to remove the bolus from the teaspoon and the straw efficiently, as the utensil was placed on the strong left labial side. Anterior bolus loss was not experienced with any consistency tested. Mildly prolonged mastication time was present with solid consistencies, however, complete bolus formation was achieved. Increased anterior to posterior transfer time of the bolus was appreciated. Premature spillage of thin liquid was present to the pyriform sinuses. Mild oral residue remained following the swallow. Pharyngeal Phase Swallow Response: Mild Impairment Base of Tongue: Mild Impairment Epiglottic Movement: No Impairment (WFL) Laryngeal Elevation: No Impairment (WFL) Vallecular Residue: Moderate Pharyngeal Wall Residue: No Impairment (WFL) Piriform Sinus Residue: No Impairment (WFL) Laryngeal Penetration: None Aspiration Observations: None The patient demonstrated onset of the pharyngeal swallow as bolus material reached the pyriform sinuses with thin liquids and the laryngeal surface of the epiglottis with nectar-thick liquids and honey-thick liquids. Adequate hyo- laryngeal elevation and excursion and laryngeal elevation were present resulting in complete epiglottic inversion. No laryngeal penetration or aspiration occurred with thin liquid, nectar-thick liquid, honey-thick liquid, puree, or solid consistencies prior to, during, or following the swallow. Mildly decreased base of tongue retraction was present. Intact pharyngeal contractions were present. Moderate vallecular residue remained following the swallow with puree consistencies. The residual material was cleared with a subsequent bolus. Adequate and complete clearance to the cricopharyngeal region was visualized. Performed-A/P View Not Applicable/Performed Summary/Impressions Oral Phase Impression: Mild Impairment The patient demonstrated a mild oropharyngeal swallowing impairment characterized by reduced lingual and labial coordination, a mildly delayed onset of the pharyngeal swallow, and decreased base of tongue retraction. Laryngeal penetration or aspiration did not occur prior to, during, or following the swallow with any consistency tested. Recommendations: - Dysphagia three consistency diet with thin liquids, as tolerated. - Fully upright and alert for PO intake. - Present food/liquid to the strong left side. - Assess the right buccal cavities for pocketing following PO intake. - Small, single bites and sips. - Crush medication and place in puree for administration. - Monitor for s/s of suspected aspiration with PO intake. If demonstrated, place the patient NPO and contact speech pathology. - Speech pathology to provide dysphagia services three to five times weekly or as appropriate. The results and recommendations were provided to the patient and the patient's immediately following the evaluation. The patient verbalized comprehension and denied questions. The patient's asked if the patient could have a cookie and the patient asked if she could have a piece of chocolate. The clinician agreed to the items stating the items needed to be in small bites, only, and the patient would need to alternate the consistencies on a 1:1 ratio. Speech Short Term Goals Short Term Goals Short Term Goals 1. The patient and staff will demonstrate safe swallowing practices and strategies with 90% accuracy. 2. The patient will demonstrate and recall intelligibility strategies with 90% accuracy with mild clinician cueing. Speech Medical Administrative Assistant Goals Senior Care Goals 1. The patient will tolerate the least restricted diet without s/s of suspected aspiration with 90% accuracy. 2. The patient will demonstrate increased cognitive linguistic skills for safe return to the least restrictive environment. Speech-Plan Treatment Plan Speech Therapy Treatment Plan: Continue Plan of Care Treatment Duration: Oct 09, 2021 Frequency: 3 times per week (Three to five times per week.) Estimated Hrs Per Day: .5 hour per day Rehab Potential: Fair Safety Risks/Education Teaching Recipient: Patient, Family Teaching Methods: Discussion Response to Teaching: Verbalize Understanding, Reinforcement Needed Education Topics Provided: Results and recommendations of MBS, Safe Swallowing Strategies Time Speech Therapy Time In: 12:45 Speech Therapy Time Out: 13:15 Total Billed Time: 30 Billed Treatment Time 1, MOD, DYST SAGAR Torres Sep 20, 2021 13:40
--- NOTE | 2021-09-20 14:05 | Physical Therapy Daily Note ---
PT Daily Note-Current Subjective Patient in recliner pre tx, agrees to PT, has no complaints of pain. Appearance Patient in recliner post tx with nurse call, phone, tray, all needs met. Mental Status Patient Orientation: Person, Place, Situation Attachments: Oxygen Transfers SCALE: Activities may be completed with or without assistive devices. 9-Fzgppvlonj-gfbfpnb completes the activity by him/herself with no assistance from a helper. 5-Set-up or Clean-up Assistance-helper sets up or cleans up; patient completes activity. [place] assists only prior to or following the activity. 4-Supervision or Touching Assistance-helper provides verbal cues and/or touching/steadying and/or contact guard assistance as patient completes activity. Assistance may be provided throughout the activity or intermittently. 3-Partial/Moderate Assistance-helper does LESS THAN HALF the effort. [place] lifts, holds or supports trunk or limbs, but provides less than half the effort. 2-Substantial/Maximal Assistance-helper does MORE THAN HALF the effort. [place] lifts or holds trunk or limbs and provides more than half the effort. 9-Xonoxvpfy-rulkaq does ALL the effort. Patient does none of the effort to complete the activity. Or, the assistance of 2 or more helpers is required for the patient to complete the activity. If activity was not attempted, code reason: 7-Patient Refused. 9-Not Applicable-not attempted and the patient did not perform the activity before the current illness, exacerbation or injury. 10-Not Attempted due to Environmental Limitations-(lack of equipment, weather restraints, etc.). 88-Not Attempted due to Medical Conditions or Safety Concerns. Weight Bearing Full Weight Bearing Full Weight Bearing Exercises Supine Ex: Ankle pumps, Quad Set, Glut sets, Heel Slides, Short Arc Quads, Straight leg raise, Hip abd/add Supine Reps: 20 (done in recliner with legs elevated like she was laying down) Treatments LE strengthening Assessment Current Status: Fair Progress some assist needed during ex on right leg PT Short Term Goals Short Term Goals Time Frame: Sep 25, 2021 Roll Left & Right: 3 (Fer) Sit to lyin (Fer) Lying to sitting on side of be: 3 (Uriah) Sit to stand: 3 (Fer) Chair/gna-qi-aygsy transfer: 3 (modA) Walk 10 feet: 3 (Fer) PT Correction Goals Correction Goals PT Correction Goals Time Frame: Oct 09, 2021 Roll Left & Right (QC): 4 Sit to Lying (QC): 4 Lying-Sitting on Side/Bed(QC): 4 Sit to Stand (QC): 4 Chair/Rlp-td-Spclx Xfer(QC): 3 Toilet Transfer (QC): 3 Car Transfer (QC): 3 Does the Patient Walk: Yes Walk 10 feet (QC): 3 Walk 50ft with 2 Turns (QC): 3 Walk 150 ft (QC): 88 Walking 10ft on Uneven Surface: 3 1 Step (curb) (QC): 3 4 Steps (QC): 88 12 Steps (QC): 88 Picking up an Object (QC): 3 Wheel 50 feet with 2 turns (QC: 4 Wheel 150 feet: 4 PT Plan Problem List Problem List: Activity Tolerance, Functional Strength, Safety, Balance, Gait, Transfer, Bed Mobility, ROM Treatment/Plan Treatment Plan: Continue Plan of Care Treatment Plan: Bed Mobility, Education, Functional Activity Nik, Functional Strength, Group Therapy, Gait, Safety, Therapeutic Exercise, Transfers Treatment Duration: Oct 09, 2021 Frequency: At least 5 of 7 days/Wk (IRF) Estimated Hrs Per Day: 1.5 hours per day Patient and/or Family Agrees t: Yes Safety Risks/Education Patient Education: Correct Positioning, Safety Issues Teaching Recipient: Patient Teaching Methods: Demonstration, Discussion Response to Teaching: Reinforcement Needed Time/GCodes Time In: 1345 Time Out: 1400 Total Billed Treatment Time: 15 Total Billed Treatment 1 visit EX FRANKY BALLARD PT Sep 20, 2021 14:05
--- NOTE | 2021-09-20 14:06 | Diagnostic Imaging Report ---
EXAMINATION: Modified barium swallow. INDICATION: Dysphagia. This study was performed in the presence of the Speech PathologistKeily. There are no prior exams available for comparison. FINDINGS: The patient was given barium in different substances to swallow. This included pudding, honey, nectar, thin barium through a straw, and barium on a cracker. The patient was able to swallow all of the materials without difficulty. There was no evidence for aspiration or penetration. IMPRESSION: The swallowing mechanism is within normal limits. There is no evidence for aspiration or penetration. Dictated by: Dictated on workstation # [id number]
[2021-09-20] MEDS: methylPREDNISolone 40 MG/ML (Solu-MEDROL) VIAL IV SCH ×2 (14:16→20:36)
[2021-09-20] MEDS: LACTOBACILLUS ACIDOPHILUS (PROBIOTIC) CAPSULE PO SCH ×2 (14:16→18:25)
[2021-09-20 20:14] VITALS: BP 122/68
[2021-09-20] MEDS: FAMOTIDINE 20 MG (PEPCID) TABLET PO SCH (20:37)
[2021-09-20] MEDS: LOSARTAN 100 MG (COZAAR) TABLET PO SCH (20:37)
--- NOTE | 2021-09-21 06:09 | PM&R Progress Note ---
Subjective HPI/CC On Admission Date Seen by Provider: Sep 21, 2021 Time Seen by Provider: 12:00 Subjective/Events-last exam 09/21/2021: This is a combined late entry note mistakenly missed creating note from 09/20/2021 so this will include 09/20 and 09/21 Patient was seen on 09/20/2021 and noted wheezing so initiated Solu-Medrol and nebulizer treatments Pt is doing a lot better Small amount of steroids given IV, has really cleared her lungs up Maintain on oxygen of 3L Checked meds and labs Feels like she is progressing 09/19/2021: Pt is doing pretty well Having a lot of loose stools so we will hold laxatives Transferring fair Echocardiogram from [facility] in chart for Dr. 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 Dysphasia tolerating the mechanical soft and nectar thick liquids Review of Systems General: Fatigue Pulmonary: Dyspnea Objective Exam Vital Signs Vital Signs Date Time Temp Pulse Resp B/P (MAP) Pulse Ox O2 Delivery O2 Flow Rate FiO2 09/21/21 20:11 Nasal Cannula 2.00 09/21/21 20:00 36.4 81 20 123/75 (91) 97 Capillary Refill : General Appearance: No Apparent Distress, WD/WN, Anxious, Chronically ill HEENT: PERRL/EOMI, Normal ENT Inspection, Pharynx Normal Neck: Full Range of Motion, Normal Inspection, Non Tender, Supple, Carotid Bruit Respiratory: Chest Non Tender, Lungs Clear, Normal Breath Sounds, No Accessory Muscle Use, No Respiratory Distress, Accessory Muscle Use Cardiovascular: Regular Rate, Rhythm, No Edema, No Gallop, No JVD, No Murmur, Normal Peripheral Pulses Gastrointestinal: Normal Bowel Sounds, No Organomegaly, No Pulsatile Mass, Non Tender, Soft Back: Normal Inspection, No CVA Tenderness, No Vertebral Tenderness Extremity: Normal Capillary Refill, Normal Inspection, Normal Range of Motion, Non Tender, No Calf Tenderness, No Pedal Edema Neurologic/Psychiatric: Alert, Oriented x3, Normal Mood/Affect, publishing editor II-XII Norm as Tested, Abnormal Gait, Facial Droop (Right-sided), Motor Weakness (Right- sided) Skin: Normal Color, Warm/Dry Lymphatic: No Adenopathy Results/Procedures Lab Patient resulted labs reviewed. FIM Transfers Therapy Code Descriptions/Definitions Functional [place] Measure: 0=Not Assessed/NA 4=Minimal Assistance 1=Total Assistance 5=Supervision or Setup 2=Maximal Assistance 6=Modified [place] 3=Moderate Assistance 7=Complete IndependenceSCALE: Activities may be completed with or without assistive devices. 1-Ofraxleboa-jpsxqjf completes the activity by him/herself with no assistance from a helper. 5-Set-up or Clean-up Assistance-helper sets up or cleans up; patient completes activity. [place] assists only prior to or following the activity. 4-Supervision or Touching Assistance-helper provides verbal cues and/or touching/steadying and/or contact guard assistance as patient completes activity. Assistance may be provided throughout the activity or intermittently. 3-Partial/Moderate Assistance-helper does LESS THAN HALF the effort. [place] lifts, holds or supports trunk or limbs, but provides less than half the effort. 2-Substantial/Maximal Assistance-helper does MORE THAN HALF the effort. [place] lifts or holds trunk or limbs and provides more than half the effort. 8-Mdcxqiqdt-ebtnru does ALL the effort. Patient does none of the effort to complete the activity. Or, the assistance of 2 or more helpers is required for the patient to complete the activity. If activity was not attempted, code reason: 7-Patient Refused. 9-Not Applicable-not attempted and the patient did not perform the activity before the current illness, exacerbation or injury. 10-Not Attempted due to Environmental Limitations-(lack of equipment, weather restraints, etc.). 88-Not Attempted due to Medical Conditions or Safety Concerns. Roll Left to Right (QC): 3 Sit to Lying (QC): 3 Sit to Stand (QC): 3 Chair/Gih-ju-Odssh Xfer(QC): 3 Car Transfer (QC): 2 Gait Training Does the Patient Walk?: Yes Distance: 5'x3 Walk 10 feet (QC): 88 Walk 50 ft with 2 Turns(QC): 88 Walk 150 ft (QC): 88 Walking 10ft/uneven surface-QC: 88 Gait Assistive Device: Parallel Bars Wheelchair Training Does the Pt Use a Wheelchair?: Yes Distance: 120'x2 Wheel 50 ft with 2 turns (QC): 3 Wheel 150 ft (QC): 88 Type of Wheelchair: Manual Stair Training 1 Step (curb) (QC): 88 4 Steps (QC): 88 12 Steps (QC): 88 Balance Picking up an Object (QC): 88 ADL-Treatment Eating (QC): 5 Oral Hygiene (QC): 4 Shower/Bathe Self (QC): 2 (modA) Upper Body Dressing (QC): 3 (mod A) Lower Body Dressing (QC): 1 On/Off Footwear (QC): 1 Toileting Hygiene (QC): 1 Toilet Transfer (QC): 1 Assessment/Plan Assessment and Plan Assess & Plan/Chief Complaint Assessment: CVA Right-sided facial droop Right-sided weakness Acute exacerbation of COPD placed on IV steroids on 09/20/2021 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 Peripheral vascular disease Obesity BMI 29 Plan: Inpatient rehab protocol Cardiology consult Nebulizers Oxygen supplementation 09/19/2021: Oxygen supplementation Nebulizers Supportive care 09/20/2021, 09/21/2021: Place patient on IV steroids 40 mg IV every 12 hours Patient much improved Continue breathing treatments (1) Chronic systolic heart failure Status: Chronic Assessment & Plan: She may have some slight component of chronic heart failure with reduced ejection fraction contributing to her shortness of breath. She is on losartan I added spironolactone. I do not think she is a good candidate for beta-jcarlos due to her severe obstructive airways disease with ongoing wheezing. She would like to follow-up with someone in [place] since this is closer to her home. I asked her to check with friends and family to see if they have any recommendations for a specific transport medic. (2) Cardiomyopathy Assessment & Plan: She had an echocardiogram at an outside hospital that showed mild to moderate left ventricular systolic dysfunction with an ejection fraction of 40-45%. Exact etiology unclear and I do not know if this is a new finding in this patient. She was placed on losartan at the outside facility. As above, I added spironolactone. Her ejection fraction is above the cutoff for recommending a prophylactic defibrillator. She will need to have her guideline directed medical therapy maximized following discharge. (3) Primary hypertension Assessment & Plan: Her blood pressure improved since adding spironolactone. If her blood pressure remains elevated, then I would maximize her losartan as opposed to adding other agents. (4) Mixed hyperlipidemia Assessment & Plan: Continue statin medication. (5) Elevated brain natriuretic peptide (BNP) level Assessment & Plan: Her BNP level wasmildly elevated. Her echocardiogram from the outside facility showed mild-moderate left ventricular systolic dysfunction with an estimated ejection fraction of 40-45% with no significant valvular disease. Her pulmonary artery pressure was 30-35 mmHg. This echo was performed on 09/16. However, her chest x-ray from our hospital does not show any significant pulmonary edema. We will proceed as above. (6) Chronic obstructive pulmonary disease Assessment & Plan: I suspect this is the primary cause of her chronic dyspnea. FLORES LUGO DO Sep 21, 2021 06:09
[2021-09-21] MEDS: CATHETER FLUSH 10 ML SYR IV SCH ×3 (06:23→20:06)
[2021-09-21 07:17] VITALS: BP 165/79
[2021-09-21] MEDS: RT-ALBUTEROL SULF 2.5 MG/3 ML PRE-MIX VIAL INH SCH ×3 (07:27→19:39)
[2021-09-21] MEDS: RT-BUDESONIDE NEBS 0.5 MG/2ML (PULMICORT) AMP INH SCH (07:27)
[2021-09-21] MEDS: UMECLIDINIUM BROMIDE (INCRUSE ELLIPTA) 7'S IH SCH (07:28)
[2021-09-21] MEDS: RT--FLUTICASONE/SALMETEROL 232-14 (AIRDUO RespiCLICK) IH SCH ×2 (07:28→19:40)
[2021-09-21] MEDS: KCL 20 MEQ TAB (K-DUR) PO SCH ×2 (08:29→17:24)
[2021-09-21] MEDS: buPROPion SR 150 MG (WELLBUTRIN SR) TAB PO SCH (08:29)
[2021-09-21] MEDS: LACTOBACILLUS ACIDOPHILUS (PROBIOTIC) CAPSULE PO SCH ×3 (08:29→17:24)
[2021-09-21] MEDS: CLOPIDOGREL 75 MG (PLAVIX) TABLET PO SCH (08:29)
[2021-09-21] MEDS: FERROUS SULF 325 MG (IRON) TAB PO SCH ×2 (08:29→20:06)
[2021-09-21] MEDS: ASPIRIN E.C. 81 MG (ECOTRIN) TAB PO SCH (08:29)
[2021-09-21] MEDS: SPIRONOLACTONE 25 MG (ALDACTONE) TAB PO SCH (08:29)
[2021-09-21] MEDS: MONTELUKAST 10 MG (SINGULAIR) TAB PO SCH (08:30)
[2021-09-21] MEDS: methylPREDNISolone 40 MG/ML (Solu-MEDROL) VIAL IV SCH ×2 (08:31→20:06)
[2021-09-21] MEDS: polyethylene glycoL POWDER 17 GM (MIRALAX) PACK PO SCH ×2 (08:31→19:53)
[2021-09-21] MEDS: FLUTICASONE NASAL SPRAY (FLONASE) 16 GM BTL NS SCH (08:31)
[2021-09-21] MEDS: DOCUSATE SODIUM 100 MG (COLACE) CAP PO SCH ×2 (08:32→19:53)
[2021-09-21] MEDS: SENNA W/DOCUSATE (SENOKOT S) TABLET PO SCH ×2 (08:32→19:54)
--- NOTE | 2021-09-21 08:39 | Occupational Ther Daily Note ---
OT Current Status-Daily Note Subjective Pt alert, sitting in recliner. Pt agrees to therapy. No c/o pain. Pt is progressing with all skills and B UE AROM. Mental Status/Objective Patient Orientation: Person, Place, Time, Situation Attachments: IV, Oxygen (Respiratory took off O2 during day, monitored O2 levels throughout treatment initially stayed at 90 and above. When fatigued O2 in high 80's, O2 placed.) ADL-Treatment Pt agrees to shower. Pt set up for meal. Pt improving on functional transfers, mod to min A. Mod A to transfer from w/c to shower bench. Pt able to bath all areas in sitting except buttocks then pt leans toward L side for assist to cleanse. Sitting at sink, pt completes oral care independently. Min A for transfer to toilet. Completes hygiene by self with SBA for safety. Assist x2 to manipulate clothing. Pt able to complete donning shirt with set up, assist to doff over head. Dependent with lower body and footwear. Therapy Code Descriptions/Definitions Functional [place] Measure: 0=Not Assessed/NA 4=Minimal Assistance 1=Total Assistance 5=Supervision or Setup 2=Maximal Assistance 6=Modified [place] 3=Moderate Assistance 7=Complete IndependenceSCALE: Activities may be completed with or without assistive devices. 5-Oagbjsmfdd-liuohej completes the activity by him/herself with no assistance from a helper. 5-Set-up or Clean-up Assistance-helper sets up or cleans up; patient completes activity. [place] assists only prior to or following the activity. 4-Supervision or Touching Assistance-helper provides verbal cues and/or touching/steadying and/or contact guard assistance as patient completes activity. Assistance may be provided throughout the activity or intermittently. 3-Partial/Moderate Assistance-helper does LESS THAN HALF the effort. [place] lifts, holds or supports trunk or limbs, but provides less than half the effort. 2-Substantial/Maximal Assistance-helper does MORE THAN HALF the effort. [place] lifts or holds trunk or limbs and provides more than half the effort. 0-Qriwhzgtp-gjrpjg does ALL the effort. Patient does none of the effort to complete the activity. Or, the assistance of 2 or more helpers is required for the patient to complete the activity. If activity was not attempted, code reason: 7-Patient Refused. 9-Not Applicable-not attempted and the patient did not perform the activity before the current illness, exacerbation or injury. 10-Not Attempted due to Environmental Limitations-(lack of equipment, weather restraints, etc.). 88-Not Attempted due to Medical Conditions or Safety Concerns. Eating (QC): 5 Oral Hygiene (QC): 6 Shower/Bathe Self (QC): 3 Upper Body Dressing (QC): 3 Lower Body Dressing (QC): 1 On/Off Footwear: 1 Toileting Hygiene (QC): 1 Toilet Transfer (QC): 3 Other Treatment Max A for bed mobility. Pt given hand/wrist stretches to decrease tone in R hand. Pt demonstrated understanding and completed 20x's. After therapy, pt lying in bed with call light/phone in reach. Nrsg present in room. OT Short Term Goals Short Term Goals Time Frame: Sep 28, 2021 Eatin Oral hygiene: 4 Toileting hygiene: 2 Shower/bathe self: 2 Upper body dressin Lower body dressin Putting on/taking off footwear: 2 OT Nursing Home Goals Bookkeeper Receptionist Goals Time Frame: Oct 16, 2021 Eating (QC): 5 Oral Hygiene (QC): 5 Toileting Hygiene (QC): 3 (min) Shower/Bathe Self (QC): 3 (min) Upper Body Dressing (QC): 4 Lower Body Dressing (QC): 3 (min) On/Off Footwear (QC): 3 (min) 1=Demonstrate adherence to instructed precautions during ADL tasks. 2=Patient will verbalize/demonstrate understanding of assistive devices/modifications for ADL. 3=Patient will improve strength/tolerance for activity to enable patient to perform ADL's. OT Education/Plan Problem List/Assessment Assessment: Decreased Activ Tolerance, Decreased UE Strength, Impaired Bed Mobility, Impaired Funct Balance, Impaired Self-Care Skills, Restricted Funct UE ROM Discharge Recommendations Plan/Recommendations: Continue POC Treatment Plan/Plan of Care Patient would benefit from OT for education, treatment and training to promote independence in ADL's, mobility, safety and/or upper extremity function for ADL's. Plan of Care: ADL Retraining, Functional Mobility, Group Exercise/Act as Ind, UE Funct Exercise/Act, UE Neuromus Re-Ed/Coord, W/C Management Training Treatment Duration: Oct 16, 2021 Frequency: At least 5 of 7 days/Wk (IRF) Estimated Hrs Per Day: 1.5 hours per day Rehab Potential: Fair Time/GCodes Start Time: 07:30 Stop Time: 08:45 Total Time Billed (hr/min): 75 Billed Treatment Time 1 visit-ADL 5 (75 min) JUSTIN ROGERS Sep 21, 2021 08:39
--- NOTE | 2021-09-21 09:17 | Speech Therapy Daily Note ---
Speech Daily Progress Note Subjective Date Seen by Provider: Sep 21, 2021 Time Seen by Provider: 08:45 The patient was seated upright in bed, awake and alert upon entrance. The patient greeted the clinician and was agreeable to participation in the dysphagia treatment session. Objective The patient and the clinician reviewed the recent modified barium swallow results and discussed the recommendations provided by the clinician. The patient denied additional questions for the clinician and confirmed comprehension of the material. The patient denied the presence of overt s/s of suspected aspiration with her previous dinner or breakfast. Per patient, "I clear my throat all the time so I don't feel that is it." The patient does display a habitual throat clear, displaying the behavior throughout the discussion and treatment session. The recommendations provided included: - Dysphagia three consistency diet with thin liquids, as tolerated. - Fully upright and alert for PO intake. - Small bites and sips, only. - Present food/liquid to the strong, left side. - Assess the right buccal areas for pocketing following PO intake. - Crush medication, as necessary, and place in puree for administration. - Monitor for s/s of suspected aspiration with PO intake. If demonstrated, contact speech pathology. Assessment Assessment Current Status: Good Progress Treatment Plan Continue Plan of Care Speech Short Term Goals Short Term Goals Short Term Goals 1. The patient and staff will demonstrate safe swallowing practices and strategies with 90% accuracy. 2. The patient will demonstrate and recall intelligibility strategies with 90% accuracy with mild clinician cueing. Speech Assault Amphibious Vehicle Officer Goals Assault Amphibious Vehicle Officer Goals 1. The patient will tolerate the least restricted diet without s/s of suspected aspiration with 90% accuracy. 2. The patient will demonstrate increased cognitive linguistic skills for safe return to the least restrictive environment. Speech-Plan Treatment Plan Speech Therapy Treatment Plan: Continue Plan of Care Treatment Duration: Oct 09, 2021 Frequency: 3 times per week (Three to five times per week.) Estimated Hrs Per Day: .5 hour per day Rehab Potential: Fair Safety Risks/Education Teaching Recipient: Patient Teaching Methods: Demonstration, Discussion Response to Teaching: Verbalize Understanding, Reinforcement Needed Education Topics Provided: Results and Recommendations, Swallowing Strategies Time Speech Therapy Time In: 08:45 Speech Therapy Time Out: 09:00 Total Billed Time: 15 Billed Treatment Time 1, HAI SAGAR Torres Sep 21, 2021 09:17
--- NOTE | 2021-09-21 10:00 | Physical Therapy Daily Note ---
PT Daily Note-Current Subjective Patient in bed pre tx, agrees to PT, has no complaints of pain. Appearance Patient in bed post tx with nurse call phone, tray, all needs met. Mental Status Patient Orientation: Person, Place, Situation Attachments: Oxygen Transfers SCALE: Activities may be completed with or without assistive devices. 2-Xeunhgfhjd-riynsrq completes the activity by him/herself with no assistance from a helper. 5-Set-up or Clean-up Assistance-helper sets up or cleans up; patient completes activity. [place] assists only prior to or following the activity. 4-Supervision or Touching Assistance-helper provides verbal cues and/or touching/steadying and/or contact guard assistance as patient completes activity. Assistance may be provided throughout the activity or intermittently. 3-Partial/Moderate Assistance-helper does LESS THAN HALF the effort. [place] lifts, holds or supports trunk or limbs, but provides less than half the effort. 2-Substantial/Maximal Assistance-helper does MORE THAN HALF the effort. [place] lifts or holds trunk or limbs and provides more than half the effort. 1-Hipqpnihn-uxjyvj does ALL the effort. Patient does none of the effort to complete the activity. Or, the assistance of 2 or more helpers is required for the patient to complete the activity. If activity was not attempted, code reason: 7-Patient Refused. 9-Not Applicable-not attempted and the patient did not perform the activity before the current illness, exacerbation or injury. 10-Not Attempted due to Environmental Limitations-(lack of equipment, weather restraints, etc.). 88-Not Attempted due to Medical Conditions or Safety Concerns. Roll Left & Right (QC): 3 Sit to Lying (QC): 3 Lying to Sitting/Side of Bed(Q: 3 Sit to Stand (QC): 3 Chair/Gul-gj-Hchpk Xfer(QC): 3 still mod assist for sit to stand and transfers but this has improved Weight Bearing Full Weight Bearing Full Weight Bearing Wheelchair Training Does the Pt Use a Wheelchair?: Yes Wheel 50 ft with 2 turns (QC): 3 Wheel 150 ft (QC): 3 Type of Wheelchair: Manual 150'x2 min assist, uses left arm and leg Exercises sit to charging plug placer parallel bars 3 sets of 5 NuStep Minutes: 15 NuStep Workload: 4 Treatments bed mobility and transfers, WC mobility, LE strengthening Assessment Current Status: Fair Progress slow progress but LE strength improving PT Short Term Goals Short Term Goals Time Frame: Sep 25, 2021 Roll Left & Right: 3 (Fer) Sit to lyin (Fer) Lying to sitting on side of be: 3 (Uriah) Sit to stand: 3 (Fer) Chair/qvv-wn-hpsup transfer: 3 (modA) Walk 10 feet: 3 (Fer) PT Usp Goals Usp Goals PT Usp Goals Time Frame: Oct 09, 2021 Roll Left & Right (QC): 4 Sit to Lying (QC): 4 Lying-Sitting on Side/Bed(QC): 4 Sit to Stand (QC): 4 Chair/Ojo-hd-Iwklj Xfer(QC): 3 Toilet Transfer (QC): 3 Car Transfer (QC): 3 Does the Patient Walk: Yes Walk 10 feet (QC): 3 Walk 50ft with 2 Turns (QC): 3 Walk 150 ft (QC): 88 Walking 10ft on Uneven Surface: 3 1 Step (curb) (QC): 3 4 Steps (QC): 88 12 Steps (QC): 88 Picking up an Object (QC): 3 Wheel 50 feet with 2 turns (QC: 4 Wheel 150 feet: 4 PT Plan Problem List Problem List: Activity Tolerance, Functional Strength, Safety, Balance, Gait, Transfer, Bed Mobility, ROM Treatment/Plan Treatment Plan: Continue Plan of Care Treatment Plan: Bed Mobility, Education, Functional Activity Nik, Functional Strength, Group Therapy, Gait, Safety, Therapeutic Exercise, Transfers Treatment Duration: Oct 09, 2021 Frequency: At least 5 of 7 days/Wk (IRF) Estimated Hrs Per Day: 1.5 hours per day Patient and/or Family Agrees t: Yes Safety Risks/Education Patient Education: Transfer Techniques, Correct Positioning, W/C Management, Safety Issues Teaching Recipient: Patient Teaching Methods: Demonstration, Discussion Response to Teaching: Reinforcement Needed Time/GCodes Time In: 0900 Time Out: 1000 Total Billed Treatment Time: 60 Total Billed Treatment 1 visit EX 30' FA 30' FRANKY HOFF PT Sep 21, 2021 10:00
[2021-09-21 10:18] VITALS: BP 165/79
--- NOTE | 2021-09-21 11:52 | Physical Therapy Daily Note ---
PT Daily Note-Current Subjective Patient on commode pre tx, she is done. Agrees to PT, has no complaints of pain. Appearance Patient in recliner post tx with nurse call, phone, tray, all needs met. Mental Status Patient Orientation: Person, Place, Situation Attachments: Oxygen Transfers SCALE: Activities may be completed with or without assistive devices. 4-Qcgwxoyyyc-jtdknxa completes the activity by him/herself with no assistance from a helper. 5-Set-up or Clean-up Assistance-helper sets up or cleans up; patient completes activity. [place] assists only prior to or following the activity. 4-Supervision or Touching Assistance-helper provides verbal cues and/or touching/steadying and/or contact guard assistance as patient completes acti vity. Assistance may be provided throughout the activity or intermittently. 3-Partial/Moderate Assistance-helper does LESS THAN HALF the effort. [place] lifts, holds or supports trunk or limbs, but provides less than half the effort. 2-Substantial/Maximal Assistance-helper does MORE THAN HALF the effort. [place] lifts or holds trunk or limbs and provides more than half the effort. 5-Oddhxaeqi-aqyolx does ALL the effort. Patient does none of the effort to complete the activity. Or, the assistance of 2 or more helpers is required for the patient to complete the activity. If activity was not attempted, code reason: 7-Patient Refused. 9-Not Applicable-not attempted and the patient did not perform the activity before the current illness, exacerbation or injury. 10-Not Attempted due to Environmental Limitations-(lack of equipment, weather restraints, etc.). 88-Not Attempted due to Medical Conditions or Safety Concerns. Sit to Stand (QC): 3 Chair/Ftw-iu-Lvswc Xfer(QC): 3 PT tech assisted with cleaning and pulling pants up after PT stands patient up with mod assist and then mod assist transfer to recliner. Weight Bearing Full Weight Bearing Full Weight Bearing Exercises Seated Therapy Exercises: Ankle pumps, Long arc quads, Hip flexion Seated Reps: 20 Treatments transfers, toileting, LE strengthening Assessment Current Status: Fair Progress slowly improving standing and transfers PT Short Term Goals Short Term Goals Time Frame: Sep 25, 2021 Roll Left & Right: 3 (Fer) Sit to lyin (Fer) Lying to sitting on side of be: 3 (Uriah) Sit to stand: 3 (Fer) Chair/jml-mk-avqgr transfer: 3 (modA) Walk 10 feet: 3 (Fer) PT Senior Care Goals Senior Care Goals PT Senior Care Goals Time Frame: Oct 09, 2021 Roll Left & Right (QC): 4 Sit to Lying (QC): 4 Lying-Sitting on Side/Bed(QC): 4 Sit to Stand (QC): 4 Chair/Eul-wp-Qnqff Xfer(QC): 3 Toilet Transfer (QC): 3 Car Transfer (QC): 3 Does the Patient Walk: Yes Walk 10 feet (QC): 3 Walk 50ft with 2 Turns (QC): 3 Walk 150 ft (QC): 88 Walking 10ft on Uneven Surface: 3 1 Step (curb) (QC): 3 4 Steps (QC): 88 12 Steps (QC): 88 Picking up an Object (QC): 3 Wheel 50 feet with 2 turns (QC: 4 Wheel 150 feet: 4 PT Plan Problem List Problem List: Activity Tolerance, Functional Strength, Safety, Balance, Gait, Transfer, Bed Mobility, ROM Treatment/Plan Treatment Plan: Continue Plan of Care Treatment Plan: Bed Mobility, Education, Functional Activity Nik, Functional Strength, Group Therapy, Gait, Safety, Therapeutic Exercise, Transfers Treatment Duration: Oct 09, 2021 Frequency: At least 5 of 7 days/Wk (IRF) Estimated Hrs Per Day: 1.5 hours per day Patient and/or Family Agrees t: Yes Safety Risks/Education Patient Education: Transfer Techniques, Correct Positioning, Safety Issues Teaching Recipient: Patient Teaching Methods: Demonstration, Discussion Response to Teaching: Reinforcement Needed Time/GCodes Time In: 1130 Time Out: 1145 Total Billed Treatment Time: 15 Total Billed Treatment 1 visit EX FRANKY BALLARD PT Sep 21, 2021 11:52
--- NOTE | 2021-09-21 12:10 | Speech Therapy Daily Note ---
Speech Daily Progress Note Subjective Date Seen by Provider: Sep 21, 2021 Time Seen by Provider: 10:00 The patient was lying in bed, alert and awake upon entrance. The patient greeted the clinician and was agreeable to participation in the cognitive linguistic treatment session. Objective - Oral Motor Exercises: The clinician discussed and introduced oral motor exercises to the patient. The patient demonstrated the oral motor exercises with high accuracy and direct clinician modeling. The two exercises performed with five repetitions of each were: 1.) Alternating pucker and retraction 2.) Cheek puff against resistance Assessment Assessment Current Status: Fair Progress Treatment Plan Continue Plan of Care Speech Short Term Goals Short Term Goals Short Term Goals 1. The patient and staff will demonstrate safe swallowing practices and strategies with 90% accuracy. 2. The patient will demonstrate and recall intelligibility strategies with 90% accuracy with mild clinician cueing. Speech Prison Goals Prison Goals 1. The patient will tolerate the least restricted diet without s/s of suspected aspiration with 90% accuracy. 2. The patient will demonstrate increased cognitive linguistic skills for safe return to the least restrictive environment. Speech-Plan Treatment Plan Speech Therapy Treatment Plan: Continue Plan of Care Treatment Duration: Oct 09, 2021 Frequency: 3 times per week (Three to five times per week.) Estimated Hrs Per Day: .5 hour per day Rehab Potential: Fair Safety Risks/Education Teaching Recipient: Patient Teaching Methods: Demonstration, Discussion Response to Teaching: Verbalize Understanding, Return Demonstration, Reinforcement Needed Education Topics Provided: Oral Motor Exercises Time Speech Therapy Time In: 10:00 Speech Therapy Time Out: 10:15 Total Billed Time: 15 Billed Treatment Time Patrizia OLVINDEBI SAGAR RANDOLPH Sep 21, 2021 12:10
[2021-09-21 20:00] VITALS: BP 123/75
[2021-09-21] MEDS: LOSARTAN 100 MG (COZAAR) TABLET PO SCH (20:06)
[2021-09-21] MEDS: FAMOTIDINE 20 MG (PEPCID) TABLET PO SCH (20:06)
[2021-09-22] MEDS: CATHETER FLUSH 10 ML SYR IV SCH ×3 (05:26→21:30)
--- NOTE | 2021-09-22 06:41 | PM&R Progress Note ---
Subjective HPI/CC On Admission Date Seen by Provider: Sep 22, 2021 Time Seen by Provider: 12:30 Subjective/Events-last exam 09/22/2021: Patient doing well Wheezes only subtle at the end expiratory phase Feels like she is breathing better No falls No pain Regaining function pretty well 09/21/2021: This is a combined late entry note mistakenly missed creating note from 09/20/2021 so this will include 09/20 and 09/21 Patient was seen on 09/20/2021 and noted wheezing so initiated Solu-Medrol and nebulizer treatments Pt is doing a lot better Small amount of steroids given IV, has really cleared her lungs up Maintain on oxygen of 3L Checked meds and labs Feels like she is progressing 09/19/2021: Pt is doing pretty well Having a lot of loose stools so we will hold laxatives Transferring fair Echocardiogram from [facility] in chart for Dr. 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 Dysphasia tolerating the mechanical soft and nectar thick liquids Review of Systems General: Fatigue Objective Exam Vital Signs Vital Signs Date Time Temp Pulse Resp B/P (MAP) Pulse Ox O2 Delivery O2 Flow Rate FiO2 09/22/21 22:12 97 Nasal Cannula 2.00 09/22/21 20:00 36.4 77 18 127/72 (90) Capillary Refill : General Appearance: No Apparent Distress, WD/WN, Anxious, Chronically ill HEENT: PERRL/EOMI, Normal ENT Inspection, Pharynx Normal Neck: Full Range of Motion, Normal Inspection, Non Tender, Supple, Carotid Bruit Respiratory: Chest Non Tender, Lungs Clear, Normal Breath Sounds, No Accessory Muscle Use, No Respiratory Distress, Accessory Muscle Use Cardiovascular: Regular Rate, Rhythm, No Edema, No Gallop, No JVD, No Murmur, Normal Peripheral Pulses Gastrointestinal: Normal Bowel Sounds, No Organomegaly, No Pulsatile Mass, Non Tender, Soft Back: Normal Inspection, No CVA Tenderness, No Vertebral Tenderness Extremity: Normal Capillary Refill, Normal Inspection, Normal Range of Motion, Non Tender, No Calf Tenderness, No Pedal Edema Neurologic/Psychiatric: Alert, Oriented x3, Normal Mood/Affect, 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 FIM Transfers Therapy Code Descriptions/Definitions Functional Rich Measure: 0=Not Assessed/NA 4=Minimal Assistance 1=Total Assistance 5=Supervision or Setup 2=Maximal Assistance 6=Modified Rich 3=Moderate Assistance 7=Complete IndependenceSCALE: Activities may be completed with or without assistive devices. 7-Vkmlpnooyx-amulajv completes the activity by him/herself with no assistance from a helper. 5-Set-up or Clean-up Assistance-helper sets up or cleans up; patient completes activity. [place] assists only prior to or following the activity. 4-Supervision or Touching Assistance-helper provides verbal cues and/or touching/steadying and/or contact guard assistance as patient completes activity. Assistance may be provided throughout the activity or intermittently. 3-Partial/Moderate Assistance-helper does LESS THAN HALF the effort. [place] lifts, holds or supports trunk or limbs, but provides less than half the effort. 2-Substantial/Maximal Assistance-helper does MORE THAN HALF the effort. [place] lifts or holds trunk or limbs and provides more than half the effort. 1-Rcmoqhcsi-tagtin does ALL the effort. Patient does none of the effort to complete the activity. Or, the assistance of 2 or more helpers is required for the patient to complete the activity. If activity was not attempted, code reason: 7-Patient Refused. 9-Not Applicable-not attempted and the patient did not perform the activity before the current illness, exacerbation or injury. 10-Not Attempted due to Environmental Limitations-(lack of equipment, weather restraints, etc.). 88-Not Attempted due to Medical Conditions or Safety Concerns. Roll Left to Right (QC): 3 Sit to Lying (QC): 3 Sit to Stand (QC): 3 Chair/Bdk-pi-Iikrp Xfer(QC): 3 Car Transfer (QC): 2 Gait Training Does the Patient Walk?: Yes Distance: 5'x3 Walk 10 feet (QC): 88 Walk 50 ft with 2 Turns(QC): 88 Walk 150 ft (QC): 88 Walking 10ft/uneven surface-QC: 88 Gait Assistive Device: Parallel Bars Wheelchair Training Does the Pt Use a Wheelchair?: Yes Distance: 120'x2 Wheel 50 ft with 2 turns (QC): 3 Wheel 150 ft (QC): 3 Type of Wheelchair: Manual Stair Training 1 Step (curb) (QC): 88 4 Steps (QC): 88 12 Steps (QC): 88 Balance Picking up an Object (QC): 88 ADL-Treatment Eating (QC): 5 Oral Hygiene (QC): 6 Shower/Bathe Self (QC): 3 Upper Body Dressing (QC): 3 Lower Body Dressing (QC): 1 On/Off Footwear (QC): 1 Toileting Hygiene (QC): 1 Toilet Transfer (QC): 3 Assessment/Plan Assessment and Plan Assess & Plan/Chief Complaint Assessment: CVA Right-sided facial droop Right-sided weakness Acute exacerbation of COPD placed on IV steroids on 09/20/2021 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 Peripheral vascular disease Obesity BMI 29 Plan: Inpatient rehab protocol Cardiology consult Nebulizers Oxygen supplementation 09/19/2021: Oxygen supplementation Nebulizers Supportive care 09/20/2021, 09/21/2021: Place patient on IV steroids 40 mg IV every 12 hours Patient much improved Continue breathing treatments 09/22/2021: Continue IV steroids Monitor closely (1) Chronic systolic heart failure Status: Chronic Assessment & Plan: She may have some slight component of chronic heart failure with reduced ejection fraction contributing to her shortness of breath. She is on losartan I added spironolactone. I do not think she is a good candidate for beta-jcarlos due to her severe obstructive airways disease with ongoing wheezing. She would like to follow-up with someone in [place] since this is closer to her home. I asked her to check with friends and family to see if they have any recommendations for a specific banquet chef. (2) Cardiomyopathy Assessment & Plan: She had an echocardiogram at an outside hospital that showed mild to moderate left ventricular systolic dysfunction with an ejection fraction of 40-45%. Exact etiology unclear and I do not know if this is a new finding in this patient. She was placed on losartan at the outside facility. As above, I added spironolactone. Her ejection fraction is above the cutoff for recommendin g a prophylactic defibrillator. She will need to have her guideline directed medical therapy maximized following discharge. (3) Primary hypertension Assessment & Plan: Her blood pressure improved since adding spironolactone. If her blood pressure remains elevated, then I would maximize her losartan as opposed to adding other agents. (4) Mixed hyperlipidemia Assessment & Plan: Continue statin medication. (5) Elevated brain natriuretic peptide (BNP) level Assessment & Plan: Her BNP level wasmildly elevated. Her echocardiogram from the outside facility showed mild-moderate left ventricular systolic dysfunction with an estimated ejection fraction of 40-45% with no significant valvular disease. Her pulmonary artery pressure was 30-35 mmHg. This echo was performed on 09/16. However, her chest x-ray from our hospital does not show any significant pulmonary edema. We will proceed as above. (6) Chronic obstructive pulmonary disease Assessment & Plan: I suspect this is the primary cause of her chronic dyspnea. FLORES LUGO DO Sep 22, 2021 06:41
[2021-09-22] MEDS: RT--FLUTICASONE/SALMETEROL 232-14 (AIRDUO RespiCLICK) IH SCH ×2 (07:25→22:11)
[2021-09-22] MEDS: RT-ALBUTEROL SULF 2.5 MG/3 ML PRE-MIX VIAL INH SCH ×2 (07:25→22:10)
[2021-09-22 07:46] VITALS: BP 131/74
[2021-09-22] MEDS: ASPIRIN E.C. 81 MG (ECOTRIN) TAB PO SCH (08:36)
[2021-09-22] MEDS: LACTOBACILLUS ACIDOPHILUS (PROBIOTIC) CAPSULE PO SCH ×3 (08:36→18:32)
[2021-09-22] MEDS: SPIRONOLACTONE 25 MG (ALDACTONE) TAB PO SCH (08:37)
[2021-09-22] MEDS: buPROPion SR 150 MG (WELLBUTRIN SR) TAB PO SCH (08:37)
[2021-09-22] MEDS: FLUTICASONE NASAL SPRAY (FLONASE) 16 GM BTL NS SCH (08:37)
[2021-09-22] MEDS: methylPREDNISolone 40 MG/ML (Solu-MEDROL) VIAL IV SCH ×2 (08:37→20:36)
[2021-09-22] MEDS: KCL 20 MEQ TAB (K-DUR) PO SCH ×2 (08:37→18:33)
[2021-09-22] MEDS: CLOPIDOGREL 75 MG (PLAVIX) TABLET PO SCH (08:37)
[2021-09-22] MEDS: FERROUS SULF 325 MG (IRON) TAB PO SCH ×2 (08:37→20:36)
[2021-09-22] MEDS: MONTELUKAST 10 MG (SINGULAIR) TAB PO SCH (08:37)
[2021-09-22] MEDS: polyethylene glycoL POWDER 17 GM (MIRALAX) PACK PO SCH ×2 (08:44→21:00)
[2021-09-22] MEDS: SENNA W/DOCUSATE (SENOKOT S) TABLET PO SCH ×2 (08:44→21:00)
[2021-09-22] MEDS: DOCUSATE SODIUM 100 MG (COLACE) CAP PO SCH ×2 (08:44→21:00)
[2021-09-22] MEDS: guaiFENesin/CODEINE (ROBITUSSIN AC) 10ML UDC PO PRN ×2 (09:00→20:56)
--- NOTE | 2021-09-22 11:48 | Physical Therapy Daily Note ---
PT Daily Note-Current Subjective Pt. sitting up in recliner states she feels she vaughn be getting a little better but its very slow. pt. admits she may have some fear while trying to move her feet when trying to walk, Pain Location: No Pain Reported Mental Status Patient Orientation: Normal For Age Transfers SCALE: Activities may be completed with or without assistive devices. 7-Njdpovufvk-amfdmzl completes the activity by him/herself with no assistance from a helper. 5-Set-up or Clean-up Assistance-helper sets up or cleans up; patient completes activity. [place] assists only prior to or following the activity. 4-Supervision or Touching Assistance-helper provides verbal cues and/or touching/steadying and/or contact guard assistance as patient completes activity. Assistance may be provided throughout the activity or intermittently. 3-Partial/Moderate Assistance-helper does LESS THAN HALF the effort. [place] lifts, holds or supports trunk or limbs, but provides less than half the effort. 2-Substantial/Maximal Assistance-helper does MORE THAN HALF the effort. [place] lifts or holds trunk or limbs and provides more than half the effort. 6-Pqdnroecb-gghbaf does ALL the effort. Patient does none of the effort to complete the activity. Or, the assistance of 2 or more helpers is required for the patient to complete the activity. If activity was not attempted, code reason: 7-Patient Refused. 9-Not Applicable-not attempted and the patient did not perform the activity before the current illness, exacerbation or injury. 10-Not Attempted due to Environmental Limitations-(lack of equipment, weather restraints, etc.). 88-Not Attempted due to Medical Conditions or Safety Concerns. Sit to Stand (QC): 3 Weight Bearing Full Weight Bearing Full Weight Bearing Exercises Seated Therapy Exercises: Ankle pumps, Sit to stand (x4), Long arc quads, Hip flexion, Hip abd/add Seated Reps: 15 Treatments seated LE ex as above, sit to stand x 4 from recliner with min to mod assist, pt. being guided and instructed through all for wt shift and KEE , pt stood with tactile cues for knee extension and did wt shifting left and right as well as brief walk in place actually lifting RLE /foot off floor momentarily several times, back in chair after Rx with wt shift left ad right hip to hip , call bryant at hand and pillows placed for comfort. Assessment Current Status: Good Progress PT Short Term Goals Short Term Goals Time Frame: Sep 25, 2021 Roll Left & Right: 3 (Fer) Sit to lyin (Fer) Lying to sitting on side of be: 3 (Uriah) Sit to stand: 3 (Fer) Chair/gyj-rc-tkisq transfer: 3 (modA) Walk 10 feet: 3 (Fer) PT Care Home Goals Care Home Goals PT Care Home Goals Time Frame: Oct 09, 2021 Roll Left & Right (QC): 4 Sit to Lying (QC): 4 Lying-Sitting on Side/Bed(QC): 4 Sit to Stand (QC): 4 Chair/Zqc-gi-Nbhcj Xfer(QC): 3 Toilet Transfer (QC): 3 Car Transfer (QC): 3 Does the Patient Walk: Yes Walk 10 feet (QC): 3 Walk 50ft with 2 Turns (QC): 3 Walk 150 ft (QC): 88 Walking 10ft on Uneven Surface: 3 1 Step (curb) (QC): 3 4 Steps (QC): 88 12 Steps (QC): 88 Picking up an Object (QC): 3 Wheel 50 feet with 2 turns (QC: 4 Wheel 150 feet: 4 PT Plan Treatment/Plan Treatment Plan: Continue Plan of Care Treatment Plan: Bed Mobility, Education, Functional Activity Nik, Functional Strength, Group Therapy, Gait, Safety, Therapeutic Exercise, Transfers Treatment Duration: Oct 09, 2021 Frequency: At least 5 of 7 days/Wk (IRF) Estimated Hrs Per Day: 1.5 hours per day Patient and/or Family Agrees t: Yes Safety Risks/Education Patient Education: Transfer Techniques, Reviewed Precautions, Correct Positi oning, Safety Issues Teaching Recipient: Patient Teaching Methods: Demonstration, Discussion Response to Teaching: Verbalize Understanding, Return Demonstration, Reinforcement Needed Time/GCodes Time In: 1115 Time Out: 1135 Total Billed Treatment Time: 20 Total Billed Treatment 1,FA20m RORY RICHARDSON CEO NA Sep 22, 2021 11:48
[2021-09-22] MEDS: LORATADINE (CLARITIN) 10 MG TAB PO SCH ×2 (13:51→20:36)
[2021-09-22 20:00] VITALS: BP 127/72
[2021-09-22] MEDS: LOSARTAN 100 MG (COZAAR) TABLET PO SCH (20:36)
[2021-09-22] MEDS: FAMOTIDINE 20 MG (PEPCID) TABLET PO SCH (20:36)
[2021-09-23] MEDS: CATHETER FLUSH 10 ML SYR IV SCH ×3 (06:45→20:36)
[2021-09-23 07:30] VITALS: BP 112/58
--- NOTE | 2021-09-23 07:49 | PM&R Progress Note ---
Subjective HPI/CC On Admission Date Seen by Provider: Sep 23, 2021 Time Seen by Provider: 12:15 Subjective/Events-last exam 09/23/2021: Patient doing well Wheezing still present IV steroids will be changed tomorrow Check meds and labs No falls 09/22/2021: Patient doing well Wheezes only subtle at the end expiratory phase Feels like she is breathing better No falls No pain Regaining function pretty well 09/21/2021: This is a combined late entry note mistakenly missed creating note from 09/20/2021 so this will include 09/20 and 09/21 Patient was seen on 09/20/2021 and noted wheezing so initiated Solu-Medrol and nebulizer treatments Pt is doing a lot better Small amount of steroids given IV, has really cleared her lungs up Maintain on oxygen of 3L Checked meds and labs Feels like she is progressing 09/19/2021: Pt is doing pretty well Having a lot of loose stools so we will hold laxatives Transferring fair Echocardiogram from [facility] in chart for Dr. 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 Dysphasia tolerating the mechanical soft and nectar thick liquids Review of Systems General: Fatigue, Malaise Objective Exam Vital Signs Vital Signs Date Time Temp Pulse Resp B/P (MAP) Pulse Ox O2 Delivery O2 Flow Rate FiO2 09/23/21 08:38 Nasal Cannula 2.00 09/23/21 08:00 97 09/23/21 07:30 36.2 68 16 112/58 (76) Capillary Refill : General Appearance: No Apparent Distress, WD/WN, Anxious, Chronically ill HEENT: PERRL/EOMI, Normal ENT Inspection, Pharynx Normal Neck: Full Range of Motion, Normal Inspection, Non Tender, Supple, Carotid Bruit Respiratory: Chest Non Tender, Lungs Clear, Normal Breath Sounds, No Accessory Muscle Use, No Respiratory Distress, Accessory Muscle Use Cardiovascular: Regular Rate, Rhythm, No Edema, No Gallop, No JVD, No Murmur, Normal Peripheral Pulses Gastrointestinal: Normal Bowel Sounds, No Organomegaly, No Pulsatile Mass, Non Tender, Soft Back: Normal Inspection, No CVA Tenderness, No Vertebral Tenderness Extremity: Normal Capillary Refill, Normal Inspection, Normal Range of Motion, Non Tender, No Calf Tenderness, No Pedal Edema Neurologic/Psychiatric: Alert, Oriented x3, Normal 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 FIM Transfers Therapy Code Descriptions/Definitions Functional [place] Measure: 0=Not Assessed/NA 4=Minimal Assistance 1=Total Assistance 5=Supervision or Setup 2=Maximal Assistance 6=Modified [place] 3=Moderate Assistance 7=Complete IndependenceSCALE: Activities may be completed with or without assistive devices. 8-Usbjmpcjch-lwyjqqg completes the activity by him/herself with no assistance from a helper. 5-Set-up or Clean-up Assistance-helper sets up or cleans up; patient completes activity. [place] assists only prior to or following the activity. 4-Supervision or Touching Assistance-helper provides verbal cues and/or touching/steadying and/or contact guard assistance as patient completes activity. Assistance may be provided throughout the activity or intermittently. 3-Partial/Moderate Assistance-helper does LESS THAN HALF the effort. [place] lifts, holds or supports trunk or limbs, but provides less than half the effort. 2-Substantial/Maximal Assistance-helper does MORE THAN HALF the effort. [place] lifts or holds trunk or limbs and provides more than half the effort. 6-Apvhhcebi-mekbgn does ALL the effort. Patient does none of the effort to complete the activity. Or, the assistance of 2 or more helpers is required for the patient to complete the activity. If activity was not attempted, code reason: 7-Patient Refused. 9-Not Applicable-not attempted and the patient did not perform the activity before the current illness, exacerbation or injury. 10-Not Attempted due to Environmental Limitations-(lack of equipment, weather restraints, etc.). 88-Not Attempted due to Medical Conditions or Safety Concerns. Roll Left to Right (QC): 3 Sit to Lying (QC): 3 Sit to Stand (QC): 3 Chair/Qkh-lz-Mlkwv Xfer(QC): 3 Car Transfer (QC): 2 Gait Training Does the Patient Walk?: Yes Distance: 5'x3 Walk 10 feet (QC): 88 Walk 50 ft with 2 Turns(QC): 88 Walk 150 ft (QC): 88 Walking 10ft/uneven surface-QC: 88 Gait Assistive Device: Parallel Bars Wheelchair Training Does the Pt Use a Wheelchair?: Yes Distance: 120'x2 Wheel 50 ft with 2 turns (QC): 3 Wheel 150 ft (QC): 3 Type of Wheelchair: Manual Stair Training 1 Step (curb) (QC): 88 4 Steps (QC): 88 12 Steps (QC): 88 Balance Picking up an Object (QC): 88 ADL-Treatment Eating (QC): 5 Oral Hygiene (QC): 6 Shower/Bathe Self (QC): 3 Upper Body Dressing (QC): 3 Lower Body Dressing (QC): 1 On/Off Footwear (QC): 1 Toileting Hygiene (QC): 1 Toilet Transfer (QC): 3 Assessment/Plan Assessment and Plan Assess & Plan/Chief Complaint Assessment: CVA Right-sided facial droop Right-sided weakness Acute exacerbation of COPD placed on IV steroids on 09/20/2021 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 Peripheral vascular disease Obesity BMI 29 Plan: Inpatient rehab protocol Cardiology consult Nebulizers Oxygen supplementation 09/19/2021: Oxygen supplementation Nebulizers Supportive care 09/20/2021, 09/21/2021: Place patient on IV steroids 40 mg IV every 12 hours Patient much improved Continue breathing treatments 09/22/2021: Continue IV steroids Monitor closely 09/23/2021: Supportive care (1) Chronic systolic heart failure Status: Chronic Assessment & Plan: She may have some slight component of chronic heart failure with reduced ejection fraction contributing to her shortness of breath. She is on losartan I added spironolactone. I do not think she is a good candidate for beta-jcarlos due to her severe obstructive airways disease with ongoing wheezing. She would like to follow-up with someone in [place] since this is closer to her home. I asked her to check with friends and family to see if they have any recommendations for a specific neighborhood planner. (2) Cardiomyopathy Assessment & Plan: She had an echocardiogram at an outside hospital that showed mild to moderate left ventricular systolic dysfunction with an ejection fraction of 40-45%. Exact etiology unclear and I do not know if this is a new finding in this patient. She was placed on losartan at the outside facility. As above, I added spironolactone. Her ejection fraction is above the cutoff for recommending a prophylactic defibrillator. She will need to have her guideline directed medical therapy maximized following discharge. (3) Primary hypertension Assessment & Plan: Her blood pressure improved since adding spironolactone. If her blood pressure remains elevated, then I would maximize her losartan as opposed to adding other agents. (4) Mixed hyperlipidemia Assessment & Plan: Continue statin medication. (5) Elevated brain natriuretic peptide (BNP) level Assessment & Plan: Her BNP level wasmildly elevated. Her echocardiogram from the outside facility showed mild-moderate left ventricular systolic dysfunction with an estimated ejection fraction of 40-45% with no significant valvular disease. Her pulmonary artery pressure was 30-35 mmHg. This echo was performed on 09/16. However, her chest x-ray from our hospital does not show any significant pulmonary edema. We will proceed as above. (6) Chronic obstructive pulmonary disease Assessment & Plan: I suspect this is the primary cause of her chronic dyspnea. FLORES LUGO DO Sep 23, 2021 07:49
[2021-09-23] MEDS: RT-ALBUTEROL SULF 2.5 MG/3 ML PRE-MIX VIAL INH SCH ×2 (07:57→20:26)
[2021-09-23] MEDS: RT--FLUTICASONE/SALMETEROL 232-14 (AIRDUO RespiCLICK) IH SCH ×2 (08:01→20:26)
[2021-09-23] MEDS: LACTOBACILLUS ACIDOPHILUS (PROBIOTIC) CAPSULE PO SCH ×3 (09:06→19:28)
[2021-09-23] MEDS: LORATADINE (CLARITIN) 10 MG TAB PO SCH ×2 (09:06→20:05)
[2021-09-23] MEDS: methylPREDNISolone 40 MG/ML (Solu-MEDROL) VIAL IV SCH (09:06)
[2021-09-23] MEDS: MONTELUKAST 10 MG (SINGULAIR) TAB PO SCH (09:06)
[2021-09-23] MEDS: SPIRONOLACTONE 25 MG (ALDACTONE) TAB PO SCH (09:07)
[2021-09-23] MEDS: FERROUS SULF 325 MG (IRON) TAB PO SCH ×2 (09:07→20:05)
[2021-09-23] MEDS: KCL 20 MEQ TAB (K-DUR) PO SCH ×2 (09:07→19:29)
[2021-09-23] MEDS: ASPIRIN E.C. 81 MG (ECOTRIN) TAB PO SCH (09:07)
[2021-09-23] MEDS: CLOPIDOGREL 75 MG (PLAVIX) TABLET PO SCH (09:07)
[2021-09-23] MEDS: buPROPion SR 150 MG (WELLBUTRIN SR) TAB PO SCH (09:07)
[2021-09-23] MEDS: FLUTICASONE NASAL SPRAY (FLONASE) 16 GM BTL NS SCH (09:08)
[2021-09-23] MEDS: DOCUSATE SODIUM 100 MG (COLACE) CAP PO SCH ×2 (13:10→20:35)
[2021-09-23] MEDS: polyethylene glycoL POWDER 17 GM (MIRALAX) PACK PO SCH ×2 (13:10→20:35)
[2021-09-23] MEDS: SENNA W/DOCUSATE (SENOKOT S) TABLET PO SCH ×2 (13:11→20:35)
[2021-09-23 20:04] VITALS: BP 124/65
[2021-09-23] MEDS: FAMOTIDINE 20 MG (PEPCID) TABLET PO SCH (20:05)
[2021-09-23] MEDS: guaiFENesin/CODEINE (ROBITUSSIN AC) 10ML UDC PO PRN (20:05)
[2021-09-23] MEDS: LOSARTAN 100 MG (COZAAR) TABLET PO SCH (20:05)
--- NOTE | 2021-09-24 05:28 | PM&R Progress Note ---
Subjective HPI/CC On Admission Date Seen by Provider: Sep 24, 2021 Time Seen by Provider: 11:00 Subjective/Events-last exam 09/24/2021: Pt is doing a lot better Transferring better Overall feels like she is improving Lungs are less wheezy Changed her off IV steroids and on Prednisone 09/23/2021: Patient doing well Wheezing still present IV steroids will be changed tomorrow Check meds and labs No falls 09/22/2021: Patient doing well Wheezes only subtle at the end expiratory phase Feels like she is breathing better No falls No pain Regaining function pretty well 09/21/2021: This is a combined late entry note mistakenly missed creating note from 09/20/2021 so this will include 09/20 and 09/21 Patient was seen on 09/20/2021 and noted wheezing so initiated Solu-Medrol and nebulizer treatments Pt is doing a lot better Small amount of steroids given IV, has really cleared her lungs up Maintain on oxygen of 3L Checked meds and labs Feels like she is progressing 09/19/2021: Pt is doing pretty well Having a lot of loose stools so we will hold laxatives Transferring fair Echocardiogram from [facility] in chart for Dr. 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 Dysphasia tolerating the mechanical soft and nectar thick liquids Review of Systems General: Fatigue, Malaise Neurological: Weakness, Incoordination Objective Exam Vital Signs Vital Signs Date Time Temp Pulse Resp B/P (MAP) Pulse Ox O2 Delivery O2 Flow Rate FiO2 09/24/21 21:00 Nasal Cannula 2.00 09/24/21 20:43 36.0 98 20 118/63 (81) 97 09/24/21 14:20 28 Capillary Refill : General Appearance: No Apparent Distress, WD/WN, Anxious, Chronically ill HEENT: PERRL/EOMI, Normal ENT Inspection, Pharynx Normal Neck: Full Range of Motion, Normal Inspection, Non Tender, Supple, Carotid Bruit Respiratory: Chest Non Tender, Lungs Clear, Normal Breath Sounds, No Accessory Muscle Use, No Respiratory Distress, Accessory Muscle Use Cardiovascular: Regular Rate, Rhythm, No Edema, No Gallop, No JVD, No Murmur, Normal Peripheral Pulses Gastrointestinal: Normal Bowel Sounds, No Organomegaly, No Pulsatile Mass, Non Tender, Soft Back: Normal Inspection, No CVA Tenderness, No Vertebral Tenderness Extremity: Normal Capillary Refill, Normal Inspection, Normal Range of Motion, Non Tender, No Calf Tenderness, No Pedal Edema Neurologic/Psychiatric: Alert, Oriented x3, Normal Mood/Affect, pretzel twister II-XII Norm as Tested, Abnormal Gait, Facial Droop (Right-sided), Motor Weakness (Right- sided) Skin: Normal Color, Warm/Dry Lymphatic: No Adenopathy Results/Procedures Lab Laboratory Tests 09/24/21 05:45 Patient resulted labs reviewed. FIM Transfers Therapy Code Descriptions/Definitions Functional [place] Measure: 0=Not Assessed/NA 4=Minimal Assistance 1=Total Assistance 5=Supervision or Setup 2=Maximal Assistance 6=Modified [place] 3=Moderate Assistance 7=Complete IndependenceSCALE: Activities may be completed with or without assistive devices. 7-Kvznjckdww-sgqchqq completes the activity by him/herself with no assistance from a helper. 5-Set-up or Clean-up Assistance-helper sets up or cleans up; patient completes activity. [place] assists only prior to or following the activity. 4-Supervision or Touching Assistance-helper provides verbal cues and/or touching/steadying and/or contact guard assistance as patient completes activity. Assistance may be provided throughout the activity or intermittently. 3-Partial/Moderate Assistance-helper does LESS THAN HALF the effort. [place] lifts, holds or supports trunk or limbs, but provides less than half the effort. 2-Substantial/Maximal Assistance-helper does MORE THAN HALF the effort. [place] lifts or holds trunk or limbs and provides more than half the effort. 6-Xtndpssed-yodrcv does ALL the effort. Patient does none of the effort to complete the activity. Or, the assistance of 2 or more helpers is required for the patient to complete the activity. If activity was not attempted, code reason: 7-Patient Refused. 9-Not Applicable-not attempted and the patient did not perform the activity before the current illness, exacerbation or injury. 10-Not Attempted due to Environmental Limitations-(lack of equipment, weather restraints, etc.). 88-Not Attempted due to Medical Conditions or Safety Concerns. Roll Left to Right (QC): 3 Sit to Lying (QC): 3 Sit to Stand (QC): 3 Chair/Apj-vw-Mgjvp Xfer(QC): 3 Car Transfer (QC): 2 Gait Training Does the Patient Walk?: Yes Distance: 5'x3 Walk 10 feet (QC): 88 Walk 50 ft with 2 Turns(QC): 88 Walk 150 ft (QC): 88 Walking 10ft/uneven surface-QC: 88 Gait Assistive Device: Parallel Bars Wheelchair Training Does the Pt Use a Wheelchair?: Yes Distance: 120'x2 Wheel 50 ft with 2 turns (QC): 3 Wheel 150 ft (QC): 3 Type of Wheelchair: Manual Stair Training 1 Step (curb) (QC): 88 4 Steps (QC): 88 12 Steps (QC): 88 Balance Picking up an Object (QC): 88 ADL-Treatment Eating (QC): 5 Oral Hygiene (QC): 6 Shower/Bathe Self (QC): 3 Upper Body Dressing (QC): 3 Lower Body Dressing (QC): 1 On/Off Footwear (QC): 1 Toileting Hygiene (QC): 1 Toilet Transfer (QC): 3 Assessment/Plan Assessment and Plan Assess & Plan/Chief Complaint Assessment: CVA Right-sided facial droop Right-sided weakness Acute exacerbation of COPD placed on IV steroids on 09/20/2021 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 Peripheral vascular disease Obesity BMI 29 Plan: Inpatient rehab protocol Cardiology consult Nebulizers Oxygen supplementation 09/19/2021: Oxygen supplementation Nebulizers Supportive care 09/20/2021, 09/21/2021: Place patient on IV steroids 40 mg IV every 12 hours Patient much improved Continue breathing treatments 09/22/2021: Continue IV steroids Monitor closely 09/23/2021: Supportive care 09/24/2021: Improved lungs Continue therapy (1) Chronic systolic heart failure Status: Chronic Assessment & Plan: She may have some slight component of chronic heart failure with reduced ejection fraction contributing to her shortness of breath. She is on losartan I added spironolactone. I do not think she is a good candidate for beta-jcarlos due to her severe obstructive airways disease with ongoing wheezing. She would like to follow-up with someone in [place] since this is closer to her home. I asked her to check with friends and family to see if they have any recommendations for a specific esl teacher. (2) Cardiomyopathy Assessment & Plan: She had an echocardiogram at an outside hospital that showed mild to moderate left ventricular systolic dysfunction with an ejection fraction of 40-45%. Exact etiology unclear and I do not know if this is a new finding in this patient. She was placed on losartan at the outside facility. As above, I added spironolactone. Her ejection fraction is above the cutoff for recommending a prophylactic defibrillator. She will need to have her guideline directed medical therapy maximized following discharge. (3) Primary hypertension Assessment & Plan: Her blood pressure improved since adding spironolactone. If her blood pressure remains elevated, then I would maximize her losartan as opposed to adding other agents. (4) Mixed hyperlipidemia Assessment & Plan: Continue statin medication. (5) Elevated brain natriuretic peptide (BNP) level Assessment & Plan: Her BNP level wasmildly elevated. Her echocardiogram from the outside facility showed mild-moderate left ventricular systolic dysfunction with an estimated ejection fraction of 40-45% with no significant valvular disease. Her pulmonary artery pressure was 30-35 mmHg. This echo was performed on 09/16. However, her chest x-ray from our hospital does not show any s ignificant pulmonary edema. We will proceed as above. (6) Chronic obstructive pulmonary disease Assessment & Plan: I suspect this is the primary cause of her chronic dyspnea. FLORES LUGO DO Sep 24, 2021 05:28
[2021-09-24 05:58] LABS: BASOPHILS # (AUTO) 0.1 10^3/uL (0.0-0.1); BASOPHILS % (AUTO) 0 % (0-10); EOSINOPHILS % (AUTO) 0 % (0-10); HEMATOCRIT 42 % (35-52); HEMOGLOBIN 13.4 g/dL (11.5-16.0); LYMPHOCYTES # (AUTO) 1.5 10^3/uL (1.0-4.0); LYMPHOCYTES % (AUTO) 10 % (12-44); MEAN CORPUSCULAR HEMOGLOBIN 30 pg (25-34); MEAN CORPUSCULAR HGB CONC 32 g/dL (32-36); MEAN CORPUSCULAR VOLUME 94 fL (80-99); MEAN PLATELET VOLUME 9.8 fL (9.0-12.2); MONOCYTES # (AUTO) 1.4 10^3/uL (0.0-1.0); MONOCYTES % (AUTO) 9 % (0-12); NEUTROPHILS # (AUTO) 12.2 10^3/uL (1.8-7.8); NEUTROPHILS % (AUTO) 76 % (42-75); PLATELET COUNT 277 10^3/uL (130-400)
[2021-09-24 06:10] LABS: ALBUMIN 3.3 GM/DL (3.2-4.5)
[2021-09-24 06:11] LABS: POTASSIUM 4.8 MMOL/L (3.6-5.0)
[2021-09-24 06:12] LABS: CALCIUM 9.2 MG/DL (8.5-10.1)
[2021-09-24 06:13] LABS: TOTAL PROTEIN 5.9 GM/DL (6.4-8.2)
[2021-09-24 06:15] LABS: BILIRUBIN,TOTAL 0.6 MG/DL (0.1-1.0)
[2021-09-24 06:16] LABS: CREATININE SERUM 0.91 MG/DL (0.60-1.30)
[2021-09-24 06:25] LABS: BAND NEUTROPHILS 5 %; LYMPHOCYTES % (MANUAL) 13 %; METAMYELOCYTES % 1 %; MONOCYTES % (MANUAL) 9 %; NEUTROPHILS % (MANUAL) 72 %; RBC MORPH NORMAL
[2021-09-24] MEDS: predniSONE 20 MG TAB PO SCH (06:27)
[2021-09-24] MEDS: CATHETER FLUSH 10 ML SYR IV SCH ×3 (06:28→20:24)
[2021-09-24] MEDS: CLOPIDOGREL 75 MG (PLAVIX) TABLET PO SCH (08:14)
[2021-09-24] MEDS: buPROPion SR 150 MG (WELLBUTRIN SR) TAB PO SCH (08:14)
[2021-09-24] MEDS: KCL 20 MEQ TAB (K-DUR) PO SCH ×2 (08:14→17:18)
[2021-09-24] MEDS: FERROUS SULF 325 MG (IRON) TAB PO SCH ×2 (08:14→20:24)
[2021-09-24] MEDS: MONTELUKAST 10 MG (SINGULAIR) TAB PO SCH (08:14)
[2021-09-24] MEDS: LORATADINE (CLARITIN) 10 MG TAB PO SCH ×2 (08:14→20:24)
[2021-09-24] MEDS: ASPIRIN E.C. 81 MG (ECOTRIN) TAB PO SCH (08:14)
[2021-09-24] MEDS: LACTOBACILLUS ACIDOPHILUS (PROBIOTIC) CAPSULE PO SCH ×3 (08:14→17:18)
[2021-09-24] MEDS: SPIRONOLACTONE 25 MG (ALDACTONE) TAB PO SCH (08:14)
[2021-09-24] MEDS: SENNA W/DOCUSATE (SENOKOT S) TABLET PO SCH ×2 (08:16→21:20)
[2021-09-24] MEDS: polyethylene glycoL POWDER 17 GM (MIRALAX) PACK PO SCH ×2 (08:16→21:20)
[2021-09-24] MEDS: DOCUSATE SODIUM 100 MG (COLACE) CAP PO SCH ×2 (08:16→21:20)
[2021-09-24] MEDS: FLUTICASONE NASAL SPRAY (FLONASE) 16 GM BTL NS SCH (08:18)
[2021-09-24 08:21] VITALS: BP 111/61
--- NOTE | 2021-09-24 08:44 | Occupational Ther Daily Note ---
OT Current Status-Daily Note Subjective Pt alert, sitting on BSC. Pt agrees to therapy. No c/o pain. Mental Status/Objective Patient Orientation: Person, Place, Time, Situation Attachments: IV ADL-Treatment Pt agrees to shower. After set up, pt able to eat meal. Does attempt to use R UE to feed self. Increased AROM throughout R UE. Mod A for sit to stand. Min A to transfer using FWW from BSC to w/c, cleansed self. Pt completed oral care independently sitting at sink. Min A for shower transfer. Set up for shower, c ompletes shower sitting on shower bench to reach all areas. Pt requests to use toilet. Min A for toilet transfer. Assist to manipulate clothing, pt cleanses self. Min A for upper body dressing. Max A for lower body dressing. Pt able to doff socks by self, assist to don. After therapy, pt sitting in recliner with call light/phone in reach. All needs met in room. Therapy Code Descriptions/Definitions Functional [place] Measure: 0=Not Assessed/NA 4=Minimal Assistance 1=Total Assistance 5=Supervision or Setup 2=Maximal Assistance 6=Modified [place] 3=Moderate Assistance 7=Complete IndependenceSCALE: Activities may be completed with or without assistive devices. 3-Ykmjueyqus-wwbxxew completes the activity by him/herself with no assistance from a helper. 5-Set-up or Clean-up Assistance-helper sets up or cleans up; patient completes activity. [place] assists only prior to or following the activity. 4-Supervision or Touching Assistance-helper provides verbal cues and/or touching/steadying and/or contact guard assistance as patient completes activity. Assistance may be provided throughout the activity or intermittently. 3-Partial/Moderate Assistance-helper does LESS THAN HALF the effort. [place] lifts, holds or supports trunk or limbs, but provides less than half the effort. 2-Substantial/Maximal Assistance-helper does MORE THAN HALF the effort. [place] lifts or holds trunk or limbs and provides more than half the effort. 3-Pwdukunvu-yvdhgg does ALL the effort. Patient does none of the effort to complete the activity. Or, the assistance of 2 or more helpers is required for the patient to complete the activity. If activity was not attempted, code reason: 7-Patient Refused. 9-Not Applicable-not attempted and the patient did not perform the activity before the current illness, exacerbation or injury. 10-Not Attempted due to Environmental Limitations-(lack of equipment, weather restraints, etc.). 88-Not Attempted due to Medical Conditions or Safety Concerns. Eating (QC): 5 Oral Hygiene (QC): 6 Shower/Bathe Self (QC): 5 Upper Body Dressing (QC): 3 Lower Body Dressing (QC): 2 On/Off Footwear: 3 Toileting Hygiene (QC): 3 Toilet Transfer (QC): 3 OT Short Term Goals Short Term Goals Time Frame: Sep 28, 2021 Eatin Oral hygiene: 4 Toileting hygiene: 2 Shower/bathe self: 2 Upper body dressin Lower body dressin Putting on/taking off footwear: 2 OT Halfway Goals Replenisher Goals Time Frame: Oct 16, 2021 Eating (QC): 5 Oral Hygiene (QC): 5 Toileting Hygiene (QC): 3 (min) Shower/Bathe Self (QC): 3 (min) Upper Body Dressing (QC): 4 Lower Body Dressing (QC): 3 (min) On/Off Footwear (QC): 3 (min) 1=Demonstrate adherence to instructed precautions during ADL tasks. 2=Patient will verbalize/demonstrate understanding of assistive devices/modifications for ADL. 3=Patient will improve strength/tolerance for activity to enable patient to perform ADL's. OT Education/Plan Problem List/Assessment Assessment: Decreased UE Strength, Impaired Funct Balance, Impaired Self-Care Skills, Restricted Funct UE ROM Discharge Recommendations Plan/Recommendations: Continue POC Treatment Plan/Plan of Care Patient would benefit from OT for education, treatment and training to promote independence in ADL's, mobility, safety and/or upper extremity function for ADL's. Plan of Care: ADL Retraining, Functional Mobility, Group Exercise/Act as Ind, UE Funct Exercise/Act, UE Neuromus Re-Ed/Coord, W/C Management Training Treatment Duration: Oct 16, 2021 Frequency: At least 5 of 7 days/Wk (IRF) Estimated Hrs Per Day: 1.5 hours per day Rehab Potential: Fair Time/GCodes Start Time: 07:30 Stop Time: 08:45 Total Time Billed (hr/min): 75 Billed Treatment Time 1 visit-ADL 5 (75 min) JUSTIN ROGERS Sep 24, 2021 08:44
[2021-09-24] MEDS: RT-ALBUTEROL SULF 2.5 MG/3 ML PRE-MIX VIAL INH SCH ×2 (10:52→21:29)
[2021-09-24] MEDS: RT--FLUTICASONE/SALMETEROL 232-14 (AIRDUO RespiCLICK) IH SCH ×2 (10:52→21:29)
--- NOTE | 2021-09-24 10:54 | Physical Therapy Daily Note ---
PT Daily Note-Current Subjective Patient in recliner pre tx, agrees to PT, has no complaints of pain. Appearance Patient in recliner post tx with nurse call, phone, tray, all needs met. Mental Status Patient Orientation: Person, Place, Situation Attachments: Oxygen Transfers SCALE: Activities may be completed with or without assistive devices. 9-Rzwqdarsxl-fccgqoa completes the activity by him/herself with no assistance from a helper. 5-Set-up or Clean-up Assistance-helper sets up or cleans up; patient completes activity. [place] assists only prior to or following the activity. 4-Supervision or Touching Assistance-helper provides verbal cues and/or touching/steadying and/or contact guard assistance as patient completes activity. Assistance may be provided throughout the activity or intermittently. 3-Partial/Moderate Assistance-helper does LESS THAN HALF the effort. [place] lifts, holds or supports trunk or limbs, but provides less than half the effort. 2-Substantial/Maximal Assistance-helper does MORE THAN HALF the effort. [place] lifts or holds trunk or limbs and provides more than half the effort. 0-Rgariuxjg-pxmrly does ALL the effort. Patient does none of the effort to complete the activity. Or, the assistance of 2 or more helpers is required for the patient to complete the activity. If activity was not attempted, code reason: 7-Patient Refused. 9-Not Applicable-not attempted and the patient did not perform the activity before the current illness, exacerbation or injury. 10-Not Attempted due to Environmental Limitations-(lack of equipment, weather restraints, etc.). 88-Not Attempted due to Medical Conditions or Safety Concerns. Sit to Stand (QC): 3 Chair/Hgo-pi-Dyxce Xfer(QC): 4 Patient needs min assist to stand from lower surfaces, just CGA for transfers but she does need cues for positioning and safety especially if she is transferring to her right side. Weight Bearing Full Weight Bearing Full Weight Bearing Gait Training Distance: 20'x3 Walk 10 feet (QC): 4 Gait Persons Needed: 1 Gait Assistive Device: FWW WC follow, slow ambulation, has some difficulty advancing her right foot, little to no foot clearance on either side. Wheelchair Training Does the Pt Use a Wheelchair?: Yes Wheel 50 ft with 2 turns (QC): 3 Wheel 150 ft (QC): 3 Type of Wheelchair: Manual 150'x2, uses left arm and leg Exercises NuStep Minutes: 10 NuStep Workload: 4 Treatments transfers, ambulation, functional strengthening Assessment Current Status: Fair Progress improving ambulation and transfers, patient needs frequent and significant rest breaks PT Short Term Goals Short Term Goals Time Frame: Sep 25, 2021 Roll Left & Right: 3 (Fer) Sit to lyin (Fer) Lying to sitting on side of be: 3 ([place]) Sit to stand: 3 (Fer) Chair/xzp-hr-rawta transfer: 3 (modA) Walk 10 feet: 3 (Fer) PT Wrap [place] Goals Long-Term Goals PT Wrap [place] Goals Time Frame: Oct 09, 2021 Roll Left & Right (QC): 4 Sit to Lying (QC): 4 Lying-Sitting on Side/Bed(QC): 4 Sit to Stand (QC): 4 Chair/Xhf-ue-Mbusa Xfer(QC): 3 Toilet Transfer (QC): 3 Car Transfer (QC): 3 Does the Patient Walk: Yes Walk 10 feet (QC): 3 Walk 50ft with 2 Turns (QC): 3 Walk 150 ft (QC): 88 Walking 10ft on Uneven Surface: 3 1 Step (curb) (QC): 3 4 Steps (QC): 88 12 Steps (QC): 88 Picking up an Object (QC): 3 Wheel 50 feet with 2 turns (QC: 4 Wheel 150 feet: 4 PT Plan Problem List Problem List: Activity Tolerance, Functional Strength, Safety, Balance, Gait, Transfer, Bed Mobility, ROM Treatment/Plan Treatment Plan: Continue Plan of Care Treatment Plan: Bed Mobility, Education, Functional Activity Nik, Functional Strength, Group Therapy, Gait, Safety, Therapeutic Exercise, Transfers Treatment Duration: Oct 09, 2021 Frequency: At least 5 of 7 days/Wk (IRF) Estimated Hrs Per Day: 1.5 hours per day Patient and/or Family Agrees t: Yes Safety Risks/Education Patient Education: Gait Training, Transfer Techniques, Correct Positioning, Safety Issues Teaching Recipient: Patient Teaching Methods: Demonstration, Discussion Response to Teaching: Reinforcement Needed Time/GCodes Time In: 1000 Time Out: 1100 Total Billed Treatment Time: 60 Total Billed Treatment 1 visit EX 10' FA 50' FRANKY HOFF PT Sep 24, 2021 10:54
--- NOTE | 2021-09-24 11:17 | Speech Therapy Daily Note ---
Speech Daily Progress Note Subjective Date Seen by Provider: Sep 24, 2021 Time Seen by Provider: 09:15 The patient was seated upright in her recliner, awake and alert upon entrance. The patient greeted the clinician and is agreeable to participation in the dysphagia treatment session. Objective The patient denied the presence of s/s of suspected aspiration with any items she consumed throughout the previous two weekend dates. The patient stated she continues to cough and clear her throat but the behavior does not correlate to PO intake and tends to "be to bring up some of this mucus." The patient reports a return of her appetite and states she is eating "good." The patient consumes water via straw, puree, and a soft soft throughout the treatment session on this date. The patient presented the items to the strong, left side and displayed slightly prolonged, yet appropriate bolus manipulation, mastication, and formation. Overt s/s of suspected aspiration were not demonstrated with thin liquid or puree. The patient consumed one srinivasa cracker coated with puree. On the last piece of softened srinivasa cracker (five), the patient demonstrated a rigorous cough following the swallow. Per patient, "I think a little bite got away." The patient returned to baseline respirations and swallowing strategies were extensively reviewed by the clinician. Additional s/s of suspected aspiration were not demonstrated with the soft solid consistency. The patient verbalized comprehension of the strategies and denied additional questions or concerns at this time. Assessment Assessment Current Status: Good Progress Treatment Plan Continue Plan of Care Speech Short Term Goals Short Term Goals Short Term Goals 1. The patient and staff will demonstrate safe swallowing practices and strategies with 90% accuracy. 2. The patient will demonstrate and recall intelligibility strategies with 90% accuracy with mild clinician cueing. Speech Senior Living Goals Director Of Patient Financial Services Goals 1. The patient will tolerate the least restricted diet without s/s of suspected aspiration with 90% accuracy. 2. The patient will demonstrate increased cognitive linguistic skills for safe return to the least restrictive environment. Speech-Plan Treatment Plan Speech Therapy Treatment Plan: Continue Plan of Care Treatment Duration: Oct 09, 2021 Frequency: 3 times per week (Three to five times per week.) Estimated Hrs Per Day: .5 hour per day Rehab Potential: Fair Safety Risks/Education Teaching Recipient: Patient Teaching Methods: Discussion Response to Teaching: Verbalize Understanding, Return Demonstration Education Topics Provided: Safe Swallowing Strategies Time Speech Therapy Time In: 09:15 Speech Therapy Time Out: 09:45 Total Billed Time: 30 Billed Treatment Time 1, SAGAR Paz Sep 24, 2021 11:17
--- NOTE | 2021-09-24 13:43 | Speech Therapy Daily Note ---
Speech Daily Progress Note Subjective Date Seen by Provider: Sep 24, 2021 Time Seen by Provider: 13:00 The patient was seated upright in her recliner upon entrance. The patient greeted the clinician and was agreeable to participation in the speech therapy treatment session. Objective - Orientation: The patient was independently oriented to self, location, month, day of week, date, and year. - Functional Recall: The patient was able to recall physical therapy session on this date and was excited to share her progress with the clinician. Additio jase, the patient was able to recall the swallowing strategies provided throughout the prior session with mild clinician verbal cueing. The patient finished her lunch throughout the session, consuming pears and iced tea via straw. No overt s/s of suspected aspiration were demonstrated with either consistency and the patient's vocal quality remained clear following the swallow. Assessment Assessment Current Status: Good Progress Treatment Plan Continue Plan of Care Speech Short Term Goals Short Term Goals Short Term Goals 1. The patient and staff will demonstrate safe swallowing practices and strategies with 90% accuracy. 2. The patient will demonstrate and recall intelligibility strategies with 90% accuracy with mild clinician cueing. Speech [facility]entiary Goals Reservation Clerk Goals 1. The patient will tolerate the least restricted diet without s/s of suspected aspiration with 90% accuracy. 2. The patient will demonstrate increased cognitive linguistic skills for safe return to the least restrictive environment. Speech-Plan Treatment Plan Speech Therapy Treatment Plan: Continue Plan of Care Treatment Duration: Oct 09, 2021 Frequency: 3 times per week (Three to five times per week.) Estimated Hrs Per Day: .5 hour per day Rehab Potential: Fair Safety Risks/Education Teaching Recipient: Patient Teaching Methods: Discussion Response to Teaching: Verbalize Understanding Education Topics Provided: Swallowing Strategies Time Speech Therapy Time In: 13:00 Speech Therapy Time Out: 13:30 Total Billed Time: 30 Billed Treatment Time 1 DEB Latrice SAGAR RANDOLPH Sep 24, 2021 13:42
[2021-09-24 14:20] VITALS: BP 111/61
[2021-09-24] MEDS: guaiFENesin/CODEINE (ROBITUSSIN AC) 10ML UDC PO PRN (20:24)
[2021-09-24] MEDS: LOSARTAN 100 MG (COZAAR) TABLET PO SCH (20:24)
[2021-09-24] MEDS: FAMOTIDINE 20 MG (PEPCID) TABLET PO SCH (20:24)
[2021-09-24 20:43] VITALS: BP 118/63
--- NOTE | 2021-09-25 05:55 | PM&R Progress Note ---
Subjective HPI/CC On Admission Date Seen by Provider: Sep 25, 2021 Time Seen by Provider: 08:30 Subjective/Events-last exam 09/25/2021: Pt is doing well Down to one person assist No pain is reported No falls Checked meds and labs Lungs are now clear today 09/24/2021: Pt is doing a lot better Transferring better Overall feels like she is improving Lungs are less wheezy Changed her off IV steroids and on Prednisone 09/23/2021: Patient doing well Wheezing still present IV steroids will be changed tomorrow Check meds and labs No falls 09/22/2021: Patient doing well Wheezes only subtle at the end expiratory phase Feels like she is breathing better No falls No pain Regaining function pretty well 09/21/2021: This is a combined late entry note mistakenly missed creating note from 09/20/2021 so this will include 09/20 and 09/21 Patient was seen on 09/20/2021 and noted wheezing so initiated Solu-Medrol and nebulizer treatments Pt is doing a lot better Small amount of steroids given IV, has really cleared her lungs up Maintain on oxygen of 3L Checked meds and labs Feels like she is progressing 09/19/2021: Pt is doing pretty well Having a lot of loose stools so we will hold laxatives Transferring fair Echocardiogram from [facility] in chart for Dr. 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 Dysphasia tolerating the mechanical soft and nectar thick liquids Review of Systems General: Fatigue, Malaise Neurological: Weakness, Incoordination, Change in speech Objective Exam Vital Signs Vital Signs Date Time Temp Pulse Resp B/P (MAP) Pulse Ox O2 Delivery O2 Flow Rate FiO2 09/25/21 21:10 98 Nasal Cannula 2.00 09/25/21 20:00 36.3 76 16 114/62 (79) 09/24/21 14:20 28 Capillary Refill : General Appearance: No Apparent Distress, WD/WN, Anxious, Chronically ill HEENT: PERRL/EOMI, Normal ENT Inspection, Pharynx Normal Neck: Full Range of Motion, Normal Inspection, Non Tender, Supple, Carotid Bruit Respiratory: Chest Non Tender, Lungs Clear, Normal Breath Sounds, No Accessory Muscle Use, No Respiratory Distress, Accessory Muscle Use Cardiovascular: Regular Rate, Rhythm, No Edema, No Gallop, No JVD, No Murmur, Normal Peripheral Pulses Gastrointestinal: Normal Bowel Sounds, No Organomegaly, No Pulsatile Mass, Non Tender, Soft Back: Normal Inspection, No CVA Tenderness, No Vertebral Tenderness Extremity: Normal Capillary Refill, Normal Inspection, Normal Range of Motion, Non Tender, No Calf Tenderness, No Pedal Edema Neurologic/Psychiatric: Alert, Oriented x3, Normal Mood/Affect, accounts payable specialist II-XII Norm as Tested, Abnormal Gait, Facial Droop (Right-sided), Motor Weakness (Right- sided) Skin: Normal Color, Warm/Dry Lymphatic: No Adenopathy Results/Procedures Lab Patient resulted labs reviewed. FIM Transfers Therapy Code Descriptions/Definitions Functional [place] Measure: 0=Not Assessed/NA 4=Minimal Assistance 1=Total Assistance 5=Supervision or Setup 2=Maximal Assistance 6=Modified [place] 3=Moderate Assistance 7=Complete IndependenceSCALE: Activities may be completed with or without assistive devices. 6-Fuzyjprujo-ogaaujy completes the activity by him/herself with no assistance from a helper. 5-Set-up or Clean-up Assistance-helper sets up or cleans up; patient completes activity. [place] assists only prior to or following the activity. 4-Supervision or Touching Assistance-helper provides verbal cues and/or touching/steadying and/or contact guard assistance as patient completes activity. Assistance may be provided throughout the activity or intermittently. 3-Partial/Moderate Assistance-helper does LESS THAN HALF the effort. [place] lifts, holds or supports trunk or limbs, but provides less than half the effort. 2-Substantial/Maximal Assistance-helper does MORE THAN HALF the effort. [place] lifts or holds trunk or limbs and provides more than half the effort. 1-Fcwsxaepv-qonjog does ALL the effort. Patient does none of the effort to complete the activity. Or, the assistance of 2 or more helpers is required for the patient to complete the activity. If activity was not attempted, code reason: 7-Patient Refused. 9-Not Applicable-not attempted and the patient did not perform the activity before the current illness, exacerbation or injury. 10-Not Attempted due to Environmental Limitations-(lack of equipment, weather restraints, etc.). 88-Not Attempted due to Medical Conditions or Safety Concerns. Roll Left to Right (QC): 3 Sit to Lying (QC): 3 Sit to Stand (QC): 3 Chair/Nqm-ke-Ngajc Xfer(QC): 4 Car Transfer (QC): 2 Gait Training Does the Patient Walk?: Yes Distance: 20'x3 Walk 10 feet (QC): 4 Walk 50 ft with 2 Turns(QC): 88 Walk 150 ft (QC): 88 Walking 10ft/uneven surface-QC: 88 Gait Persons Needed: 1 Gait Assistive Device: FWW Wheelchair Training Does the Pt Use a Wheelchair?: Yes Distance: 120'x2 Wheel 50 ft with 2 turns (QC): 3 Wheel 150 ft (QC): 3 Type of Wheelchair: Manual Stair Training 1 Step (curb) (QC): 88 4 Steps (QC): 88 12 Steps (QC): 88 Balance Picking up an Object (QC): 88 ADL-Treatment Eating (QC): 5 Oral Hygiene (QC): 6 Shower/Bathe Self (QC): 5 Upper Body Dressing (QC): 3 Lower Body Dressing (QC): 2 On/Off Footwear (QC): 3 Toileting Hygiene (QC): 3 Toilet Transfer (QC): 3 Assessment/Plan Assessment and Plan Assess & Plan/Chief Complaint Assessment: CVA Right-sided facial droop Right-sided weakness Acute exacerbation of COPD placed on IV steroids on 09/20/2021 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 Peripheral vascular disease Obesity BMI 29 Plan: Inpatient rehab protocol Cardiology consult Nebulizers Oxygen supplementation 09/19/2021: Oxygen supplementation Nebulizers Supportive care 09/20/2021, 09/21/2021: Place patient on IV steroids 40 mg IV every 12 hours Patient much improved Continue breathing treatments 09/22/2021: Continue IV steroids Monitor closely 09/23/2021: Supportive care 09/24/2021: Improved lungs Continue therapy 09/23/2021: Wean off prednisone Supportive care (1) Chronic systolic heart failure Status: Chronic Assessment & Plan: She may have some slight component of chronic heart failure with reduced ejection fraction contributing to her shortness of breath. She is on losartan I added spironolactone. I do not think she is a good candidate for beta-jcarlos due to her severe obstructive airways disease with ongoing wheezing. She would like to follow-up with someone in [place] since this is closer to her home. I asked her to check with friends and family to see if they have any recommendations for a specific bullet swaging machine operator. (2) Cardiomyopathy Assessment & Plan: She had an echocardiogram at an outside hospital that showed mild to moderate left ventricular systolic dysfunction with an ejection fraction of 40-45%. Exact etiology unclear and I do not know if this is a new finding in this patient. She was placed on losartan at the outside facility. As above, I added spironolactone. Her ejection fraction is above the cutoff for recommending a prophylactic defibrillator. She will need to have her guideline directed medical therapy maximized following discharge. (3) Primary hypertension Assessment & Plan: Her blood pressure improved since adding spironolactone. If her blood pressure remains elevated, then I would maximize her losartan as opposed to adding other agents. (4) Mixed hyperlipidemia Assessment & Plan: Continue statin medication. (5) Elevated brain natriuretic peptide (BNP) level Assessment & Plan: Her BNP level wasmildly elevated. Her echocardiogram from the outside facility showed mild-moderate left ventricular systolic dysfunction with an estimated ejection fraction of 40-45% with no significant valvular disease. Her pulmonary artery pressure was 30-35 mmHg. This echo was performed on 09/16. However, her chest x-ray from our hospital does not show any significant pulmonary edema. We will proceed as above. (6) Chronic obstructive pulmonary disease Assessment & Plan: I suspect this is the primary cause of her chronic dyspnea. FLORES LUGO DO Sep 25, 2021 05:55
[2021-09-25] MEDS: predniSONE 20 MG TAB PO SCH (06:11)
[2021-09-25] MEDS: CATHETER FLUSH 10 ML SYR IV SCH ×3 (06:11→21:32)
[2021-09-25] MEDS: RT-ALBUTEROL SULF 2.5 MG/3 ML PRE-MIX VIAL INH SCH ×2 (07:21→21:09)
[2021-09-25] MEDS: RT--FLUTICASONE/SALMETEROL 232-14 (AIRDUO RespiCLICK) IH SCH ×2 (07:21→21:09)
--- NOTE | 2021-09-25 09:03 | Occupational Ther Daily Note ---
OT Current Status-Daily Note Subjective Pt alert, sitting in recliner. Pt agrees to therapy. No c/o pain. Mental Status/Objective Patient Orientation: Person, Place, Time, Situation Attachments: IV, Oxygen (2L) ADL-Treatment Declines shower and changing clothing today. Set up for eating, assist to open banana. CGA to transfer using FWW from surface to surface. Assist to manipulate clothing for toileting then is able to sit and cleanse self. Sitting at sink, pt able to complete grooming and oral care independently. Pt able to doff/don socks with B UE using figure 4 tech. Therapy Code Descriptions/Definitions Functional [place] Measure: 0=Not Assessed/NA 4=Minimal Assistance 1=Total Assistance 5=Supervision or Setup 2=Maximal Assistance 6=Modified [place] 3=Moderate Assistance 7=Complete IndependenceSCALE: Activities may be completed with or without assistive devices. 8-Enapggxmdu-xlpvkfz completes the activity by him/herself with no assistance from a helper. 5-Set-up or Clean-up Assistance-helper sets up or cleans up; patient completes activity. [place] assists only prior to or following the activity. 4-Supervision or Touching Assistance-helper provides verbal cues and/or touching/steadying and/or contact guard assistance as patient completes activity. Assistance may be provided throughout the activity or intermittently. 3-Partial/Moderate Assistance-helper does LESS THAN HALF the effort. [place] lifts, holds or supports trunk or limbs, but provides less than half the effort. 2-Substantial/Maximal Assistance-helper does MORE THAN HALF the effort. [place] lifts or holds trunk or limbs and provides more than half the effort. 9-Bjqdlrgwo-xtopyu does ALL the effort. Patient does none of the effort to complete the activity. Or, the assistance of 2 or more helpers is required for the patient to complete the activity. If activity was not attempted, code reason: 7-Patient Refused. 9-Not Applicable-not attempted and the patient did not perform the activity before the current illness, exacerbation or injury. 10-Not Attempted due to Environmental Limitations-(lack of equipment, weather restraints, etc.). 88-Not Attempted due to Medical Conditions or Safety Concerns. Eating (QC): 5 Oral Hygiene (QC): 6 On/Off Footwear: 5 Toileting Hygiene (QC): 3 Toilet Transfer (QC): 4 Other Treatment When positioned on incline, pt was able to write first name in cursive legibly. Pt then completed resistive peg board by pulling pegs out with R hand and placing them into container. Pt grasped cones and place them on opposite side of table with a horizontal shldr abd/add movement. Pt given light resistance therapy sponge to work on strengthening roads supervisor of R hand and instructed to extend fingers/hand/wrist 10x's after roads supervisor exercises to decrease flexor pattern. Pt then was able to complete wrist extension 8x's before fatiguing. After session, pt sitting in recliner with call light/phone in reach. All needs met in room. OT Short Term Goals Short Term Goals Time Frame: Sep 28, 2021 Eatin Oral hygiene: 4 Toileting hygiene: 2 Shower/bathe self: 2 Upper body dressin Lower body dressin Putting on/taking off footwear: 2 OT Story Editor Goals Story Editor Goals Time Frame: Oct 16, 2021 Eating (QC): 5 Oral Hygiene (QC): 5 Toileting Hygiene (QC): 3 (min) Shower/Bathe Self (QC): 3 (min) Upper Body Dressing (QC): 4 Lower Body Dressing (QC): 3 (min) On/Off Footwear (QC): 3 (min) 1=Demonstrate adherence to instructed precautions during ADL tasks. 2=Patient will verbalize/demonstrate understanding of assistive devices/modifications for ADL. 3=Patient will improve strength/tolerance for activity to enable patient to perform ADL's. OT Education/Plan Problem List/Assessment Assessment: Decreased Activ Tolerance, Decreased UE Strength, Impaired Funct Balance, Impaired Self-Care Skills, Restricted Funct UE ROM Discharge Recommendations Plan/Recommendations: Continue POC Treatment Plan/Plan of Care Patient would benefit from OT for education, treatment and training to promote independence in ADL's, mobility, safety and/or upper extremity function for ADL's. Plan of Care: ADL Retraining, Functional Mobility, Group Exercise/Act as Ind, UE Funct Exercise/Act, UE Neuromus Re-Ed/Coord, W/C Management Training Treatment Duration: Oct 16, 2021 Frequency: At least 5 of 7 days/Wk (IRF) Estimated Hrs Per Day: 1.5 hours per day Rehab Potential: Fair Time/GCodes Start Time: 07:45 Stop Time: 09:00 Total Time Billed (hr/min): 75 Billed Treatment Time 1 visit-ADL 3 (40 min) NM 2 (35 min) JUSTIN ROGERS Sep 25, 2021 09:03
[2021-09-25] MEDS: MONTELUKAST 10 MG (SINGULAIR) TAB PO SCH (10:21)
[2021-09-25] MEDS: buPROPion SR 150 MG (WELLBUTRIN SR) TAB PO SCH (10:22)
[2021-09-25] MEDS: CLOPIDOGREL 75 MG (PLAVIX) TABLET PO SCH (10:22)
[2021-09-25] MEDS: SPIRONOLACTONE 25 MG (ALDACTONE) TAB PO SCH (10:22)
[2021-09-25] MEDS: ASPIRIN E.C. 81 MG (ECOTRIN) TAB PO SCH (10:22)
[2021-09-25] MEDS: KCL 20 MEQ TAB (K-DUR) PO SCH ×2 (10:23→17:23)
[2021-09-25] MEDS: FERROUS SULF 325 MG (IRON) TAB PO SCH ×2 (10:23→21:32)
[2021-09-25] MEDS: LACTOBACILLUS ACIDOPHILUS (PROBIOTIC) CAPSULE PO SCH ×3 (10:23→17:19)
--- NOTE | 2021-09-25 10:23 | Speech Therapy Daily Note ---
Speech Daily Progress Note Subjective Date Seen by Provider: Sep 25, 2021 Time Seen by Provider: 09:15 The patient was seated upright in her recliner, awake and alert upon entrance to her room by the clinician. The patient greeted the clinician appropriately and was agreeable to participation in the cognitive linguistic and dysphagia skilled treatment session. The patient denied s/s of suspected aspiration with her morning meal. Objective - Orientation: The patient was independently oriented to self, location, month, day of week, date, and year. - Functional Recall: The patient was able to recall swallowing strategies with mild verbal cueing from the clinician. - External Memory Strategies: External memory strategies were reviewed, specifically the patient's use of her calendar and pill box in her home setting. At this time, the patient appears to have excellent external memory strategies in place post discharge. - Oral Motor Exercises: Oral motor exercises were continued with high accuracy and direct clinician modeling on his date. The patient was provided with a handout of the exercises and encouraged to practice throughout her downtime. Assessment Assessment Current Status: Good Progress Treatment Plan Continue Plan of Care Speech Short Term Goals Short Term Goals Short Term Goals 1. The patient and staff will demonstrate safe swallowing practices and strategies with 90% accuracy. 2. The patient will demonstrate and recall intelligibility strategies with 90% accuracy with mild clinician cueing. Speech Snf Goals Snf Goals 1. The patient will tolerate the least restricted diet without s/s of suspected aspiration with 90% accuracy. 2. The patient will demonstrate increased cognitive linguistic skills for safe return to the least restrictive environment. Speech-Plan Treatment Plan Speech Therapy Treatment Plan: Continue Plan of Care Treatment Duration: Oct 09, 2021 Frequency: 3 times per week (Three to five times per week.) Estimated Hrs Per Day: .5 hour per day Rehab Potential: Fair Pt/Family Agrees to Plan: Yes Safety Risks/Education Teaching Recipient: Patient Teaching Methods: Demonstration, Handout, Discussion Response to Teaching: Verbalize Understanding, Return Demonstration, Reinforcement Needed Education Topics Provided: Oral Motor Exercises, Safe Swallowing Strategies Time Speech Therapy Time In: 09:15 Speech Therapy Time Out: 09:45 Total Billed Time: 30 Billed Treatment Time HAI Acharya SLTS No LOY, ELIZABETH ST Sep 25, 2021 10:23
[2021-09-25] MEDS: LORATADINE (CLARITIN) 10 MG TAB PO SCH ×2 (10:24→21:32)
[2021-09-25] MEDS: SENNA W/DOCUSATE (SENOKOT S) TABLET PO SCH ×2 (10:27→21:31)
[2021-09-25] MEDS: DOCUSATE SODIUM 100 MG (COLACE) CAP PO SCH ×2 (10:27→21:33)
[2021-09-25] MEDS: polyethylene glycoL POWDER 17 GM (MIRALAX) PACK PO SCH ×2 (10:27→21:33)
[2021-09-25] MEDS: FLUTICASONE NASAL SPRAY (FLONASE) 16 GM BTL NS SCH (10:27)
[2021-09-25 10:30] VITALS: BP 123/66
--- NOTE | 2021-09-25 10:56 | Physical Therapy Daily Note ---
PT Daily Note-Current Subjective Patient in recliner pre tx, agrees to PT, has no complaints of pain. Appearance Patient in recliner post tx with nurse call, phone, tray, all needs met. Patient states she is very tired from therapy. Mental Status Patient Orientation: Person, Place, Situation Attachments: Oxygen Transfers SCALE: Activities may be completed with or without assistive devices. 4-Sxifeeynzr-buenjue completes the activity by him/herself with no assistance from a helper. 5-Set-up or Clean-up Assistance-helper sets up or cleans up; patient completes activity. [place] assists only prior to or following the activity. 4-Supervision or Touching Assistance-helper provides verbal cues and/or touching/steadying and/or contact guard assistance as patient completes activity. Assistance may be provided throughout the activity or intermittently. 3-Partial/Moderate Assistance-helper does LESS THAN HALF the effort. [place] lifts, holds or supports trunk or limbs, but provides less than half the effort. 2-Substantial/Maximal Assistance-helper does MORE THAN HALF the effort. [place] lifts or holds trunk or limbs and provides more than half the effort. 9-Giixyupfh-okpdkc does ALL the effort. Patient does none of the effort to complete the activity. Or, the assistance of 2 or more helpers is required for the patient to complete the activity. If activity was not attempted, code reason: 7-Patient Refused. 9-Not Applicable-not attempted and the patient did not perform the activity before the current illness, exacerbation or injury. 10-Not Attempted due to Environmental Limitations-(lack of equipment, weather restraints, etc.). 88-Not Attempted due to Medical Conditions or Safety Concerns. Sit to Stand (QC): 4 Chair/Vwv-ha-Etnah Xfer(QC): 4 Patient is CGA with transfers but she needs cues for safety and positioning when turning to transfer to the left side. Weight Bearing Full Weight Bearing Full Weight Bearing Gait Training Distance: 20'x2 Walk 10 feet (QC): 4 Gait Persons Needed: 1 Gait Assistive Device: FWW better quality steps, slightly better foot clearance Wheelchair Training Does the Pt Use a Wheelchair?: Yes Wheel 50 ft with 2 turns (QC): 3 Wheel 150 ft (QC): 3 Type of Wheelchair: Manual 150'x2, uses left arm and leg Exercises Seated Therapy Exercises: Ankle pumps, Hip flexion, Hip abd/add (with ball and RTB) Seated Reps: 20 LAQ alternating for 5 min NuStep Minutes: 15 NuStep Workload: 4 Treatments transfers, ambulation, functional strengthening Assessment Current Status: Fair Progress slowly improving functional mobility. Needs frequent rest breaks due to fatigue. PT Short Term Goals Short Term Goals Time Frame: Sep 25, 2021 Roll Left & Right: 3 (Fer) Sit to lyin (Fer) Lying to sitting on side of be: 3 (Uriah) Sit to stand: 3 (Fer) Chair/euw-zs-ovrig transfer: 3 (modA) Walk 10 feet: 3 (Fer) PT Heel Shaver Goals Senior Living Goals PT Senior Living Goals Time Frame: Oct 09, 2021 Roll Left & Right (QC): 4 Sit to Lying (QC): 4 Lying-Sitting on Side/Bed(QC): 4 Sit to Stand (QC): 4 Chair/Aso-ux-Cwole Xfer(QC): 3 Toilet Transfer (QC): 3 Car Transfer (QC): 3 Does the Patient Walk: Yes Walk 10 feet (QC): 3 Walk 50ft with 2 Turns (QC): 3 Walk 150 ft (QC): 88 Walking 10ft on Uneven Surface: 3 1 Step (curb) (QC): 3 4 Steps (QC): 88 12 Steps (QC): 88 Picking up an Object (QC): 3 Wheel 50 feet with 2 turns (QC: 4 Wheel 150 feet: 4 PT Plan Problem List Problem List: Activity Tolerance, Functional Strength, Safety, Balance, Gait, Transfer, Bed Mobility, ROM Treatment/Plan Treatment Plan: Continue Plan of Care Treatment Plan: Bed Mobility, Education, Functional Activity Nik, Functional Strength, Group Therapy, Gait, Safety, Therapeutic Exercise, Transfers Treatment Duration: Oct 09, 2021 Frequency: At least 5 of 7 days/Wk (IRF) Estimated Hrs Per Day: 1.5 hours per day Patient and/or Family Agrees t: Yes Safety Risks/Education Patient Education: Gait Training, Transfer Techniques, Correct Positioning, W/C Management, Safety Issues Teaching Recipient: Patient Teaching Methods: Demonstration, Discussion Response to Teaching: Reinforcement Needed Time/GCodes Time In: 0945 Time Out: 1100 Total Billed Treatment Time: 75 Total Billed Treatment 1 visit EX 30' FA 45' FRANKY HOFF PT Sep 25, 2021 10:56
[2021-09-25] MEDS: guaiFENesin/CODEINE (ROBITUSSIN AC) 10ML UDC PO PRN (11:02)
--- NOTE | 2021-09-25 13:49 | Occupational Ther Daily Note ---
OT Current Status-Daily Note Subjective Pt alert, sitting in w/c. Pt agrees to therapy. No c/o pain at this time. Pt discussing meds with nrsg when BURRELL entered room. Mental Status/Objective Patient Orientation: Person, Place, Time, Situation ADL-Treatment Therapy Code Descriptions/Definitions Functional [place] Measure: 0=Not Assessed/NA 4=Minimal Assistance 1=Total Assistance 5=Supervision or Setup 2=Maximal Assistance 6=Modified [place] 3=Moderate Assistance 7=Complete IndependenceSCALE: Activities may be completed with or without assistive devices. 4-Ambzqkiynb-rytfmxv completes the activity by him/herself with no assistance from a helper. 5-Set-up or Clean-up Assistance-helper sets up or cleans up; patient completes activity. [place] assists only prior to or following the activity. 4-Supervision or Touching Assistance-helper provides verbal cues and/or touching/steadying and/or contact guard assistance as patient completes activity. Assistance may be provided throughout the activity or intermittently. 3-Partial/Moderate Assistance-helper does LESS THAN HALF the effort. [place] lifts, holds or supports trunk or limbs, but provides less than half the effort. 2-Substantial/Maximal Assistance-helper does MORE THAN HALF the effort. [place] lifts or holds trunk or limbs and provides more than half the effort. 0-Atpvctytu-jjcnoi does ALL the effort. Patient does none of the effort to complete the activity. Or, the assistance of 2 or more helpers is required for the patient to complete the activity. If activity was not attempted, code reason: 7-Patient Refused. 9-Not Applicable-not attempted and the patient did not perform the activity before the current illness, exacerbation or injury. 10-Not Attempted due to Environmental Limitations-(lack of equipment, weather restraints, etc.). 88-Not Attempted due to Medical Conditions or Safety Concerns. Other Treatment Pt completed B UE exercises using 3# hand wts to increase B UE strength and activity tolerance. Skilled instruction for correct technique. Bicep curls(2 sets 15 reps), punches(2 sets 15 reps), full shldr abd/add(2 sets 10 reps), shldr shrugs(2 sets 15 reps). After session, pt sitting in recliner with call light/phone in reach. All needs met in room. OT Short Term Goals Short Term Goals Time Frame: Sep 28, 2021 Eatin Oral hygiene: 4 Toileting hygiene: 2 Shower/bathe self: 2 Upper body dressin Lower body dressin Putting on/taking off footwear: 2 OT Linoleum Printer Goals Linoleum Printer Goals Time Frame: Oct 16, 2021 Eating (QC): 5 Oral Hygiene (QC): 5 Toileting Hygiene (QC): 3 (min) Shower/Bathe Self (QC): 3 (min) Upper Body Dressing (QC): 4 Lower Body Dressing (QC): 3 (min) On/Off Footwear (QC): 3 (min) 1=Demonstrate adherence to instructed precautions during ADL tasks. 2=Patient will verbalize/demonstrate understanding of assistive devices/modifications for ADL. 3=Patient will improve strength/tolerance for activity to enable patient to perform ADL's. OT Education/Plan Problem List/Assessment Assessment: Decreased Activ Tolerance, Decreased UE Strength Discharge Recommendations Plan/Recommendations: Continue POC Treatment Plan/Plan of Care Patient would benefit from OT for education, treatment and training to promote independence in ADL's, mobility, safety and/or upper extremity function for ADL's. Plan of Care: ADL Retraining, Functional Mobility, Group Exercise/Act as Ind, UE Funct Exercise/Act, UE Neuromus Re-Ed/Coord, W/C Management Training Treatment Duration: Oct 16, 2021 Frequency: At least 5 of 7 days/Wk (IRF) Estimated Hrs Per Day: 1.5 hours per day Rehab Potential: Fair Time/GCodes Start Time: 13:00 Stop Time: 13:30 Total Time Billed (hr/min): 30 Billed Treatment Time 1 visit-EX 2 (30 min) JUSTIN ROGERS Sep 25, 2021 13:49
[2021-09-25 20:00] VITALS: BP 114/62
[2021-09-25] MEDS: FAMOTIDINE 20 MG (PEPCID) TABLET PO SCH (21:31)
[2021-09-25] MEDS: LOSARTAN 100 MG (COZAAR) TABLET PO SCH (21:32)
[2021-09-26] MEDS ORDERED: predniSONE 20 MG TAB PO SCH (07:00)
--- NOTE | 2021-09-26 07:19 | PM&R Progress Note ---
Subjective HPI/CC On Admission Date Seen by Provider: Sep 26, 2021 Time Seen by Provider: 12:45 Subjective/Events-last exam 09/26/2021: Pt is doing dramatically better Walking a little bit with assistance now Right sided weakness is improved Able to feed herself with the right hand 09/25/2021: Pt is doing well Down to one person assist No pain is reported No falls Checked meds and labs Lungs are now clear today 09/24/2021: Pt is doing a lot better Transferring better Overall feels like she is improving Lungs are less wheezy Changed her off IV steroids and on Prednisone 09/23/2021: Patient doing well Wheezing still present IV steroids will be changed tomorrow Check meds and labs No falls 09/22/2021: Patient doing well Wheezes only subtle at the end expiratory phase Feels like she is breathing better No falls No pain Regaining function pretty well 09/21/2021: This is a combined late entry note mistakenly missed creating note from 09/20/2021 so this will include 09/20 and 09/21 Patient was seen on 09/20/2021 and noted wheezing so initiated Solu-Medrol and nebulizer treatments Pt is doing a lot better Small amount of steroids given IV, has really cleared her lungs up Maintain on oxygen of 3L Checked meds and labs Feels like she is progressing 09/19/2021: Pt is doing pretty well Having a lot of loose stools so we will hold laxatives Transferring fair Echocardiogram from [facility] in chart for Dr. 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 Dysphasia tolerating the mechanical soft and nectar thick liquids Review of Systems General: Fatigue, Malaise Neurological: Weakness, Incoordination Objective Exam Vital Signs Vital Signs Date Time Temp Pulse Resp B/P (MAP) Pulse Ox O2 Delivery O2 Flow Rate FiO2 09/27/21 02:21 36.6 77 98 28 09/26/21 22:02 Nasal Cannula 2.00 09/26/21 20:23 18 124/63 (83) Capillary Refill : General Appearance: No Apparent Distress, WD/WN, Anxious, Chronically ill HEENT: PERRL/EOMI, Normal ENT Inspection, Pharynx Normal Neck: Full Range of Motion, Normal Inspection, Non Tender, Supple, Carotid Bruit Respiratory: Chest Non Tender, Lungs Clear, Normal Breath Sounds, No Accessory Muscle Use, No Respiratory Distress, Accessory Muscle Use Cardiovascular: Regular Rate, Rhythm, No Edema, No Gallop, No JVD, No Murmur, Normal Peripheral Pulses Gastrointestinal: Normal Bowel Sounds, No Organomegaly, No Pulsatile Mass, Non Tender, Soft Back: Normal Inspection, No CVA Tenderness, No Vertebral Tenderness Extremity: Normal Capillary Refill, Normal Inspection, Normal Range of Motion, Non Tender, No Calf Tenderness, No Pedal Edema Neurologic/Psychiatric: Alert, Oriented x3, Normal Mood/Affect, sonar watchstander II-XII Norm as Tested, Abnormal Gait, Facial Droop (Right-sided), Motor Weakness (Right- sided) Skin: Normal Color, Warm/Dry Lymphatic: No Adenopathy Results/Procedures Lab Patient resulted labs reviewed. FIM Transfers Therapy Code Descriptions/Definitions Functional [place] Measure: 0=Not Assessed/NA 4=Minimal Assistance 1=Total Assistance 5=Supervision or Setup 2=Maximal Assistance 6=Modified [place] 3=Moderate Assistance 7=Complete IndependenceSCALE: Activities may be completed with or without assistive devices. 8-Tuyagshyki-vdwcjda completes the activity by him/herself with no assistance from a helper. 5-Set-up or Clean-up Assistance-helper sets up or cleans up; patient completes activity. [place] assists only prior to or following the activity. 4-Supervision or Touching Assistance-helper provides verbal cues and/or touching/steadying and/or contact guard assistance as patient completes activity. Assistance may be provided throughout the activity or intermittently. 3-Partial/Moderate Assistance-helper does LESS THAN HALF the effort. [place] lifts, holds or supports trunk or limbs, but provides less than half the effort. 2-Substantial/Maximal Assistance-helper does MORE THAN HALF the effort. [place] lifts or holds trunk or limbs and provides more than half the effort. 7-Hljbzlvrl-conrek does ALL the effort. Patient does none of the effort to complete the activity. Or, the assistance of 2 or more helpers is required for the patient to complete the activity. If activity was not attempted, code reason: 7-Patient Refused. 9-Not Applicable-not attempted and the patient did not perform the activity before the current illness, exacerbation or injury. 10-Not Attempted due to Environmental Limitations-(lack of equipment, weather restraints, etc.). 88-Not Attempted due to Medical Conditions or Safety Concerns. Roll Left to Right (QC): 3 Sit to Lying (QC): 3 Sit to Stand (QC): 4 Chair/Bvm-gk-Dpfym Xfer(QC): 4 Car Transfer (QC): 2 Gait Training Does the Patient Walk?: Yes Distance: 20'x2 Walk 10 feet (QC): 4 Walk 50 ft with 2 Turns(QC): 88 Walk 150 ft (QC): 88 Walking 10ft/uneven surface-QC: 88 Gait Persons Needed: 1 Gait Assistive Device: FWW Wheelchair Training Does the Pt Use a Wheelchair?: Yes Distance: 120'x2 Wheel 50 ft with 2 turns (QC): 3 Wheel 150 ft (QC): 3 Type of Wheelchair: Manual Stair Training 1 Step (curb) (QC): 88 4 Steps (QC): 88 12 Steps (QC): 88 Balance Picking up an Object (QC): 88 ADL-Treatment Eating (QC): 5 Oral Hygiene (QC): 6 Shower/Bathe Self (QC): 5 Upper Body Dressing (QC): 3 Lower Body Dressing (QC): 2 On/Off Footwear (QC): 5 Toileting Hygiene (QC): 3 Toilet Transfer (QC): 4 Assessment/Plan Assessment and Plan Assess & Plan/Chief Complaint Assessment: CVA Right-sided facial droop Right-sided weakness Acute exacerbation of COPD placed on IV steroids on 09/20/2021 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 Peripheral vascular disease Obesity BMI 29 Plan: Inpatient rehab protocol Cardiology consult Nebulizers Oxygen supplementation 09/19/2021: Oxygen supplementation Nebulizers Supportive care 09/20/2021, 09/21/2021: Place patient on IV steroids 40 mg IV every 12 hours Patient much improved Continue breathing treatments 09/22/2021: Continue IV steroids Monitor closely 09/23/2021: Supportive care 09/24/2021: Improved lungs Continue therapy 09/25/2021: Wean off prednisone Supportive care 09/26/2021: Wean down off prednisone Dramatic improvement now walking with assistance (1) Chronic systolic heart failure Status: Chronic Assessment & Plan: She may have some slight component of chronic heart failure with reduced ejection fraction contributing to her shortness of breath. She is on losartan I added spironolactone. I do not think she is a good candidate for beta-jcarlos due to her severe obstructive airways disease with ongoing wheezing. She would like to follow-up with someone in [place] since this is closer to her home. I asked her to check with friends and family to see if they have any recommendations for a specific global account manager. (2) Cardiomyopathy Assessment & Plan: She had an echocardiogram at an outside hospital that showed mild to moderate left ventricular systolic dysfunction with an ejection fraction of 40-45%. Exact etiology unclear and I do not know if this is a new finding in this patient. She was placed on losartan at the outside facility. As above, I added spironolactone. Her ejection fraction is above the cutoff for recommending a prophylactic defibrillator. She will need to have her guideline directed medical therapy maximized following discharge. (3) Primary hypertension Assessment & Plan: Her blood pressure improved since adding spironolactone. If her blood pressure remains elevated, then I would maximize her losartan as opposed to adding other agents. (4) Mixed hyperlipidemia Assessment & Plan: Continue statin medication. (5) Elevated brain natriuretic peptide (BNP) level Assessment & Plan: Her BNP level wasmildly elevated. Her echocardiogram from the outside facility showed mild-moderate left ventricular systolic dysfunction with an estimated ejection fraction of 40-45% with no significant valvular disease. Her pulmonary artery pressure was 30-35 mmHg. This echo was performed on 09/16. However, her chest x-ray from our hospital does not show any significant pulmonary edema. We will proceed as above. (6) Chronic obstructive pulmonary disease Assessment & Plan: I suspect this is the primary cause of her chronic dyspnea. FLORES LUGO DO Sep 26, 2021 07:19
--- NOTE | 2021-09-26 07:39 | Occupational Ther Daily Note ---
OT Current Status-Daily Note Subjective Pt sleeping in bed. Pt woke easily to name. Pt agrees to therapy. No c/o pain at this time. Mental Status/Objective Patient Orientation: Person, Place, Time, Situation Attachments: Oxygen (2L) ADL-Treatment Min A for supine to EOB. CGA using FWW to transfer from bed to BSC. Mod A to manipulate clothing, cleanses self sitting on toilet. After washing hands, pt able to eat meal when set up. Pt agrees to shower. Sitting on shower bench, pt completes shower independently sitting entire shower. Set up for upper body dressing, eating. Independent for oral care. Due to time constraints, assist given for lower body dressing and footwear. After session, pt sitting in recliner with call light/phone in reach. All needs met in room. Pt is utilizing R UE more during functional tasks. Therapy Code Descriptions/Definitions Functional [place] Measure: 0=Not Assessed/NA 4=Minimal Assistance 1=Total Assistance 5=Supervision or Setup 2=Maximal Assistance 6=Modified [place] 3=Moderate Assistance 7=Complete IndependenceSCALE: Activities may be completed with or without assistive devices. 0-Pgfbgntvcn-thvozoi completes the activity by him/herself with no assistance from a helper. 5-Set-up or Clean-up Assistance-helper sets up or cleans up; patient completes activity. [place] assists only prior to or following the activity. 4-Supervision or Touching Assistance-helper provides verbal cues and/or touching/steadying and/or contact guard assistance as patient completes activity. Assistance may be provided throughout the activity or intermittently. 3-Partial/Moderate Assistance-helper does LESS THAN HALF the effort. [place] lifts, holds or supports trunk or limbs, but provides less than half the effort. 2-Substantial/Maximal Assistance-helper does MORE THAN HALF the effort. [place] lifts or holds trunk or limbs and provides more than half the effort. 7-Qflwuuzpe-tlbeih does ALL the effort. Patient does none of the effort to complete the activity. Or, the assistance of 2 or more helpers is required for the patient to complete the activity. If activity was not attempted, code reason: 7-Patient Refused. 9-Not Applicable-not attempted and the patient did not perform the activity before the current illness, exacerbation or injury. 10-Not Attempted due to Environmental Limitations-(lack of equipment, weather restraints, etc.). 88-Not Attempted due to Medical Conditions or Safety Concerns. Eating (QC): 5 Oral Hygiene (QC): 6 Shower/Bathe Self (QC): 5 Upper Body Dressing (QC): 5 Toileting Hygiene (QC): 3 (mod A) OT Short Term Goals Short Term Goals Time Frame: Sep 28, 2021 Eatin Oral hygiene: 4 Toileting hygiene: 2 Shower/bathe self: 2 Upper body dressin Lower body dressin Putting on/taking off footwear: 2 OT Halfway Goals Plant Pathologist Goals Time Frame: Oct 16, 2021 Eating (QC): 5 Oral Hygiene (QC): 5 Toileting Hygiene (QC): 3 (min) Shower/Bathe Self (QC): 3 (min) Upper Body Dressing (QC): 4 Lower Body Dressing (QC): 3 (min) On/Off Footwear (QC): 3 (min) 1=Demonstrate adherence to instructed precautions during ADL tasks. 2=Patient will verbalize/demonstrate understanding of assistive devices/modifications for ADL. 3=Patient will improve strength/tolerance for activity to enable patient to perform ADL's. OT Education/Plan Problem List/Assessment Assessment: Decreased Activ Tolerance, Decreased UE Strength, Impaired Bed Mobility, Impaired Funct Balance, Impaired Self-Care Skills, Restricted Funct UE ROM Discharge Recommendations Plan/Recommendations: Continue POC Treatment Plan/Plan of Care Patient would benefit from OT for education, treatment and training to promote independence in ADL's, mobility, safety and/or upper extremity function for ADL's. Plan of Care: ADL Retraining, Functional Mobility, Group Exercise/Act as Ind, UE Funct Exercise/Act, UE Neuromus Re-Ed/Coord, W/C Management Training Treatment Duration: Oct 16, 2021 Frequency: At least 5 of 7 days/Wk (IRF) Estimated Hrs Per Day: 1.5 hours per day Rehab Potential: Fair Time/GCodes Start Time: 07:15 Stop Time: 08:30 Total Time Billed (hr/min): 75 Billed Treatment Time 1 visit-ADL 5 (75 min) JUSTIN ROGERS Sep 26, 2021 07:39
[2021-09-26 08:00] VITALS: BP 106/57
[2021-09-26] MEDS: MONTELUKAST 10 MG (SINGULAIR) TAB PO SCH (08:44)
[2021-09-26] MEDS: FERROUS SULF 325 MG (IRON) TAB PO SCH ×2 (08:44→20:16)
[2021-09-26] MEDS: buPROPion SR 150 MG (WELLBUTRIN SR) TAB PO SCH (08:44)
[2021-09-26] MEDS: LACTOBACILLUS ACIDOPHILUS (PROBIOTIC) CAPSULE PO SCH ×3 (08:44→17:34)
[2021-09-26] MEDS: ASPIRIN E.C. 81 MG (ECOTRIN) TAB PO SCH (08:44)
[2021-09-26] MEDS: CLOPIDOGREL 75 MG (PLAVIX) TABLET PO SCH (08:45)
[2021-09-26] MEDS: KCL 20 MEQ TAB (K-DUR) PO SCH ×2 (08:45→17:34)
[2021-09-26] MEDS: SPIRONOLACTONE 25 MG (ALDACTONE) TAB PO SCH (08:45)
[2021-09-26] MEDS: LORATADINE (CLARITIN) 10 MG TAB PO SCH ×2 (08:45→20:16)
[2021-09-26] MEDS: FLUTICASONE NASAL SPRAY (FLONASE) 16 GM BTL NS SCH (08:47)
[2021-09-26] MEDS: DOCUSATE SODIUM 100 MG (COLACE) CAP PO SCH ×2 (08:47→20:21)
[2021-09-26] MEDS: SENNA W/DOCUSATE (SENOKOT S) TABLET PO SCH ×2 (08:48→20:21)
[2021-09-26] MEDS: polyethylene glycoL POWDER 17 GM (MIRALAX) PACK PO SCH ×2 (08:48→20:21)
--- NOTE | 2021-09-26 09:59 | Physical Therapy Daily Note ---
PT Daily Note-Current Subjective Pt. agrees to Rx. Comments that she is tired but willing to work. Pain Location: No Pain Reported Mental Status Patient Orientation: Normal For Age Attachments: Oxygen (2L) Transfers SCALE: Activities may be completed with or without assistive devices. 7-Ouiodvfyfw-jayhqzh completes the activity by him/herself with no assistance from a helper. 5-Set-up or Clean-up Assistance-helper sets up or cleans up; patient completes activity. [place] assists only prior to or following the activity. 4-Supervision or Touching Assistance-helper provides verbal cues and/or touching/steadying and/or contact guard assistance as patient completes activity. Assistance may be provided throughout the activity or intermittently. 3-Partial/Moderate Assistance-helper does LESS THAN HALF the effort. [place] lifts, holds or supports trunk or limbs, but provides less than half the effort. 2-Substantial/Maximal Assistance-helper does MORE THAN HALF the effort. [place] lifts or holds trunk or limbs and provides more than half the effort. 0-Ahkhcqgyv-rpkdsz does ALL the effort. Patient does none of the effort to complete the activity. Or, the assistance of 2 or more helpers is required for the patient to complete the activity. If activity was not attempted, code reason: 7-Patient Refused. 9-Not Applicable-not attempted and the patient did not perform the activity before the current illness, exacerbation or injury. 10-Not Attempted due to Environmental Limitations-(lack of equipment, weather restraints, etc.). 88-Not Attempted due to Medical Conditions or Safety Concerns. Sit to Stand (QC): 4 Chair/Rlo-hs-Bybrf Xfer(QC): 4 Weight Bearing Full Weight Bearing Full Weight Bearing Gait Training Does the Patient Walk?: Yes Walk 10 feet (QC): 4 Gait Persons Needed: 1 Gait Assistive Device: FWW Pt. ambulated 15ft, 20ft, 25 ft FWW CGA , assist for O2 ad VCs for extension and stability of R knee as well as equal step length and gaze and focus. Pt. fatigued and requested rest breaks. Wheelchair Training Does the Pt Use a Wheelchair?: Yes Type of Wheelchair: Manual pt. needed mod assist to propel and turn the w/c this date. Pt. was able to brake the w/c after some instruction Exercises Supine Ex: Bridging, Ankle pumps, Quad Set, Glut sets, Heel Slides, Short Arc Quads, Scooting (up), Straight leg raise (asssited right), Hip abd/add Supine Reps: 15 Seated Therapy Exercises: Ankle pumps, Sit to stand, Long arc quads, Hip fl exion Seated Reps: 10 Treatments TRFs, Therex, gait , w/c mob as above Assessment Current Status: Good Progress progress noted in TRFs sit to stand , gait stability and dist, PT Short Term Goals Short Term Goals Time Frame: Sep 25, 2021 Roll Left & Right: 3 (Fer) Sit to lyin (Fer) Lying to sitting on side of be: 3 (Uriah) Sit to stand: 3 (Fer) Chair/tyo-om-etffm transfer: 3 (modA) Walk 10 feet: 3 (Fer) PT Netezza Developer Goals Netezza Developer Goals PT Detention Goals Time Frame: Oct 09, 2021 Roll Left & Right (QC): 4 Sit to Lying (QC): 4 Lying-Sitting on Side/Bed(QC): 4 Sit to Stand (QC): 4 Chair/Fqh-yy-Youlv Xfer(QC): 3 Toilet Transfer (QC): 3 Car Transfer (QC): 3 Does the Patient Walk: Yes Walk 10 feet (QC): 3 Walk 50ft with 2 Turns (QC): 3 Walk 150 ft (QC): 88 Walking 10ft on Uneven Surface: 3 1 Step (curb) (QC): 3 4 Steps (QC): 88 12 Steps (QC): 88 Picking up an Object (QC): 3 Wheel 50 feet with 2 turns (QC: 4 Wheel 150 feet: 4 PT Plan Treatment/Plan Treatment Plan: Continue Plan of Care Treatment Plan: Bed Mobility, Education, Functional Activity Nik, Functional Strength, Group Therapy, Gait, Safety, Therapeutic Exercise, Transfers Treatment Duration: Oct 09, 2021 Frequency: At least 5 of 7 days/Wk (IRF) Estimated Hrs Per Day: 1.5 hours per day Patient and/or Family Agrees t: Yes Safety Risks/Education Patient Education: Gait Training, Transfer Techniques, Correct Positioning, W/C Management, Disease Process, Safety Issues Teaching Recipient: Patient Teaching Methods: Demonstration, Discussion Response to Teaching: Verbalize Understanding, Return Demonstration, Reinforcement Needed Time/GCodes Time In: 900 Time Out: 1000 Total Billed Treatment Time: 60 Total Billed Treatment 1,EX35m,GT25m RORY RICHARDSON LEATHER CLEANER Sep 26, 2021 09:58
[2021-09-26] MEDS: RT--FLUTICASONE/SALMETEROL 232-14 (AIRDUO RespiCLICK) IH SCH (10:32)
[2021-09-26] MEDS: UMECLIDINIUM BROMIDE (INCRUSE ELLIPTA) 7'S IH SCH (10:32)
[2021-09-26] MEDS: RT-ALBUTEROL SULF 2.5 MG/3 ML PRE-MIX VIAL INH SCH ×2 (10:32→22:02)
--- NOTE | 2021-09-26 10:45 | Speech Therapy Daily Note ---
Speech Daily Progress Note Subjective Date Seen by Provider: Sep 26, 2021 Time Seen by Provider: 10:00 The patient was seated upright in her recliner upon entrance to her room by the clinician. The patient greeted the clinician appropriately and was agreeable to participation in the cognitive linguistic and dysphagia treatment session. Objective - Orientation: The patient remains independently oriented to self, location, city, month, day of week, date, and year. - The clinician and patient reviewed her current diet consistency of dysphagia three with thin liquids, as well as, the recommended safe swallowing strategies (fully upright and alert for PO intake, small bites and sips, present food/liquid to the strong left labial side, monitor for s/s of suspected aspiration with PO intake). The patient verbalized comprehension of the recommendations and denied difficulty or the presence of s/s of suspected aspiration with her most recent intake. - The patient's RN visited with the clinician regarding the patient's ability to upgrade to a regular consistency diet. The patient displayed safe mastication, bolus formation and transfer with a regular consistency during her most recent MBS. The patient requested the dysphagia three diet consistency as she was more comfortable with the consistency at this time. The clinician does approve an upgrade to a regular consistency if tolerance continues to be displayed and the patient requests a regular consistency. The information was shared with the RN and the patient. The patient agrees with the current plan of care. - Functional Recall: The patient was able to recall safety protocols of walker use, including pushing up from the chair prior to reaching for the walker, standing up straight, and reaching behind for the chair prior to being seated. The patient discussed concerns with the patient and requested the clinician share the concerns at the upcoming plan of care meeting. Per patient, she is uncomfortable and does not want others inside her home following discharge (home health, etc.). Additionally, the patient is concerned with possible charges and financial responsibility of her care following discharge stating, "I don't want anything extra or anyone taking care of me." The clinician was provided permission to share the patient's concerns at the plan of care meeting on this date. Assessment Assessment Current Status: Fair Progress Treatment Plan Continue Plan of Care Speech Short Term Goals Short Term Goals Short Term Goals 1. The patient and staff will demonstrate safe swallowing practices and strategies with 90% accuracy. 2. The patient will demonstrate and recall intelligibility strategies with 90% accuracy with mild clinician cueing. Speech Fpc Goals Integrated Marketing Manager Goals 1. The patient will tolerate the least restricted diet without s/s of suspected aspiration with 90% accuracy. 2. The patient will demonstrate increased cognitive linguistic skills for safe return to the least restrictive environment. Speech-Plan Treatment Plan Speech Therapy Treatment Plan: Continue Plan of Care Treatment Duration: Oct 09, 2021 Frequency: 3 times per week (Three to five times per week.) Estimated Hrs Per Day: .5 hour per day Rehab Potential: Fair Safety Risks/Education Teaching Recipient: Patient Teaching Methods: Discussion Response to Teaching: Verbalize Understanding Education Topics Provided: Diet Consistency Recommendations, Safe Swallowing Strategies Time Speech Therapy Time In: 10:00 Speech Therapy Time Out: 10:30 Total Billed Time: 30 Billed Treatment Time DBE Acharya DYST No LOY, [facility] ST Sep 26, 2021 10:45
--- NOTE | 2021-09-26 12:00 | Physical Therapy Daily Note ---
PT Daily Note-Current Subjective Pt. asleep in recliner upon entering room. Agrees to Rx, requests to go to [facility], [place] Pain Location: No Pain Reported Transfers SCALE: Activities may be completed with or without assistive devices. 7-Paifoakyys-bqsouvs completes the activity by him/herself with no assistance from a helper. 5-Set-up or Clean-up Assistance-helper sets up or cleans up; patient completes activity. [place] assists only prior to or following the activity. 4-Supervision or Touching Assistance-helper provides verbal cues and/or touching/steadying and/or contact guard assistance as patient completes activity. Assistance may be provided throughout the activity or intermittently. 3-Partial/Moderate Assistance-helper does LESS THAN HALF the effort. [place] lif ts, holds or supports trunk or limbs, but provides less than half the effort. 2-Substantial/Maximal Assistance-helper does MORE THAN HALF the effort. [place] lifts or holds trunk or limbs and provides more than half the effort. 0-Hjbxvurqi-dvwkdw does ALL the effort. Patient does none of the effort to complete the activity. Or, the assistance of 2 or more helpers is required for the patient to complete the activity. If activity was not attempted, code reason: 7-Patient Refused. 9-Not Applicable-not attempted and the patient did not perform the activity before the current illness, exacerbation or injury. 10-Not Attempted due to Environmental Limitations-(lack of equipment, weather restraints, etc.). 88-Not Attempted due to Medical Conditions or Safety Concerns. sit to stands and SPTs CGA. Weight Bearing Full Weight Bearing Full Weight Bearing Gait Training side stepping left and right min to CGA Exercises Seated Therapy Exercises: Ankle pumps, Sit to stand, Long arc quads, Hip flexion, Hip abd/add Seated Reps: 20 Standing: Heel/toe raises, Marching Standing Reps: 12 Treatments above described as well as heel taps forward standing wit FWW on right x 10, SPT chair to BSC and back, CGA and VCs for good extension and stability with right knee. needed assist pants up down and cleaning assist Assessment Current Status: Good Progress PT Short Term Goals Short Term Goals Time Frame: Sep 25, 2021 Roll Left & Right: 3 (Fer) Sit to lyin (Fer) Lying to sitting on side of be: 3 ([place]) Sit to stand: 3 (Fer) Chair/liu-xd-ixniu transfer: 3 (modA) Walk 10 feet: 3 (Fer) PT Slasher Goals Care Home Goals PT Slasher Goals Time Frame: Oct 09, 2021 Roll Left & Right (QC): 4 Sit to Lying (QC): 4 Lying-Sitting on Side/Bed(QC): 4 Sit to Stand (QC): 4 Chair/Wwi-zk-Tlidj Xfer(QC): 3 Toilet Transfer (QC): 3 Car Transfer (QC): 3 Does the Patient Walk: Yes Walk 10 feet (QC): 3 Walk 50ft with 2 Turns (QC): 3 Walk 150 ft (QC): 88 Walking 10ft on Uneven Surface: 3 1 Step (curb) (QC): 3 4 Steps (QC): 88 12 Steps (QC): 88 Picking up an Object (QC): 3 Wheel 50 feet with 2 turns (QC: 4 Wheel 150 feet: 4 PT Plan Treatment/Plan Treatment Plan: Continue Plan of Care Treatment Plan: Bed Mobility, Education, Functional Activity Nik, Functional Strength, Group Therapy, Gait, Safety, Therapeutic Exercise, Transfers Treatment Duration: Oct 09, 2021 Frequency: At least 5 of 7 days/Wk (IRF) Estimated Hrs Per Day: 1.5 hours per day Patient and/or Family Agrees t: Yes Safety Risks/Education Patient Education: Transfer Techniques, Correct Positioning, Safety Issues Teaching Recipient: Patient Teaching Methods: Demonstration, Discussion Response to Teaching: Verbalize Understanding, Return Demonstration, Reinforcement Needed Time/GCodes Time In: 1130 Time Out: 1150 Total Billed Treatment Time: 20 Total Billed Treatment 1,EX20m RORY RICHARDSON SENIOR ADMINISTRATIVE ASSOCIATE Sep 26, 2021 12:00
[2021-09-26] MEDS: FAMOTIDINE 20 MG (PEPCID) TABLET PO SCH (20:16)
[2021-09-26] MEDS: LOSARTAN 100 MG (COZAAR) TABLET PO SCH (20:16)
[2021-09-26] MEDS: guaiFENesin/CODEINE (ROBITUSSIN AC) 10ML UDC PO PRN (20:16)
[2021-09-26 20:23] VITALS: BP 124/63
[2021-09-27 02:21] VITALS: BP 124/63
[2021-09-27] MEDS ORDERED: predniSONE 20 MG TAB PO SCH (07:00)
[2021-09-27] MEDS: RT-ALBUTEROL SULF 2.5 MG/3 ML PRE-MIX VIAL INH SCH ×2 (07:01→20:44)
[2021-09-27] MEDS: RT--FLUTICASONE/SALMETEROL 232-14 (AIRDUO RespiCLICK) IH SCH ×2 (07:02→20:44)
[2021-09-27] MEDS: UMECLIDINIUM BROMIDE (INCRUSE ELLIPTA) 7'S IH SCH (07:02)
--- NOTE | 2021-09-27 07:25 | PM&R Progress Note ---
Subjective HPI/CC On Admission Date Seen by Provider: Sep 27, 2021 Time Seen by Provider: 12:15 Subjective/Events-last exam 09/27/2021: Patient doing well Able to walk more with assistance Right-sided weakness is much improved Able to eat and drink 09/26/2021: Pt is doing dramatically better Walking a little bit with assistance now Right sided weakness is improved Able to feed herself with the right hand 09/25/2021: Pt is doing well Down to one person assist No pain is reported No falls Checked meds and labs Lungs are now clear today 09/24/2021: Pt is doing a lot better Transferring better Overall feels like she is improving Lungs are less wheezy Changed her off IV steroids and on Prednisone 09/23/2021: Patient doing well Wheezing still present IV steroids will be changed tomorrow Check meds and labs No falls 09/22/2021: Patient doing well Wheezes only subtle at the end expiratory phase Feels like she is breathing better No falls No pain Regaining function pretty well 09/21/2021: This is a combined late entry note mistakenly missed creating note from 09/20/2021 so this will include 09/20 and 09/21 Patient was seen on 09/20/2021 and noted wheezing so initiated Solu-Medrol and nebulizer treatments Pt is doing a lot better Small amount of steroids given IV, has really cleared her lungs up Maintain on oxygen of 3L Checked meds and labs Feels like she is progressing 09/19/2021: Pt is doing pretty well Having a lot of loose stools so we will hold laxatives Transferring fair Echocardiogram from [facility] in chart for Dr. 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 Dysphasia tolerating the mechanical soft and nectar thick liquids Review of Systems General: Fatigue, Malaise Pulmonary: Cough Objective Exam Vital Signs Vital Signs Date Time Temp Pulse Resp B/P (MAP) Pulse Ox O2 Delivery O2 Flow Rate FiO2 09/27/21 20:45 98 Nasal Cannula 2.00 09/27/21 19:53 35.9 81 16 100/65 (77) 09/27/21 02:21 28 Capillary Refill : General Appearance: No Apparent Distress, WD/WN, Anxious, Chronically ill HEENT: PERRL/EOMI, Normal ENT Inspection, Pharynx Normal Neck: Full Range of Motion, Normal Inspection, Non Tender, Supple, Carotid Bruit Respiratory: Chest Non Tender, Lungs Clear, Normal Breath Sounds, No Accessory Muscle Use, No Respiratory Distress, Accessory Muscle Use Cardiovascular: Regular Rate, Rhythm, No Edema, No Gallop, No JVD, No Murmur, Normal Peripheral Pulses Gastrointestinal: Normal Bowel Sounds, No Organomegaly, No Pulsatile Mass, Non Tender, Soft Back: Normal Inspection, No CVA Tenderness, No Vertebral Tenderness Extremity: Normal Capillary Refill, Normal Inspection, Normal Range of Motion, Non Tender, No Calf Tenderness, No Pedal Edema Neurologic/Psychiatric: Alert, Oriented x3, Normal Mood/Affect, 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 FIM Transfers Therapy Code Descriptions/Definitions Functional [place]comb Measure: 0=Not Assessed/NA 4=Minimal Assistance 1=Total Assistance 5=Supervision or Setup 2=Maximal Assistance 6=Modified [place]comb 3=Moderate Assistance 7=Complete IndependenceSCALE: Activities may be completed with or without assistive devices. 9-Umkkfitxqy-brwasko completes the activity by him/herself with no assistance from a helper. 5-Set-up or Clean-up Assistance-helper sets up or cleans up; patient completes activity. [place] assists only prior to or following the activity. 4-Supervision or Touching Assistance-helper provides verbal cues and/or touching/steadying and/or contact guard assistance as patient completes activity. Assistance may be provided throughout the activity or intermittently. 3-Partial/Moderate Assistance-helper does LESS THAN HALF the effort. [place] lifts, holds or supports trunk or limbs, but provides less than half the effort. 2-Substantial/Maximal Assistance-helper does MORE THAN HALF the effort. [place] lifts or holds trunk or limbs and provides more than half the effort. 0-Ppuosevvq-upkfnv does ALL the effort. Patient does none of the effort to complete the activity. Or, the assistance of 2 or more helpers is required for the patient to complete the activity. If activity was not attempted, code reason: 7-Patient Refused. 9-Not Applicable-not attempted and the patient did not perform the activity before the current illness, exacerbation or injury. 10-Not Attempted due to Environmental Limitations-(lack of equipment, weather restraints, etc.). 88-Not Attempted due to Medical Conditions or Safety Concerns. Roll Left to Right (QC): 3 Sit to Lying (QC): 3 Sit to Stand (QC): 4 Chair/Rpu-ge-Dtxmn Xfer(QC): 4 Car Transfer (QC): 2 Gait Training Does the Patient Walk?: Yes Distance: 20'x2 Walk 10 feet (QC): 4 Walk 50 ft with 2 Turns(QC): 88 Walk 150 ft (QC): 88 Walking 10ft/uneven surface-QC: 88 Gait Persons Needed: 1 Gait Assistive Device: FWW Wheelchair Training Does the Pt Use a Wheelchair?: Yes Distance: 120'x2 Wheel 50 ft with 2 turns (QC): 3 Wheel 150 ft (QC): 3 Type of Wheelchair: Manual Stair Training 1 Step (curb) (QC): 88 4 Steps (QC): 88 12 Steps (QC): 88 Balance Picking up an Object (QC): 88 ADL-Treatment Eating (QC): 5 Oral Hygiene (QC): 6 Shower/Bathe Self (QC): 5 Upper Body Dressing (QC): 5 Lower Body Dressing (QC): 2 On/Off Footwear (QC): 5 Toileting Hygiene (QC): 3 (mod A) Toilet Transfer (QC): 4 Assessment/Plan Assessment and Plan Assess & Plan/Chief Complaint Assessment: CVA Right-sided facial droop Right-sided weakness Acute exacerbation of COPD placed on IV steroids on 09/20/2021 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 Peripheral vascular disease Obesity BMI 29 Plan: Inpatient rehab protocol Cardiology consult Nebulizers Oxygen supplementation 09/19/2021: Oxygen supplementation Nebulizers Supportive care 09/20/2021, 09/21/2021: Place patient on IV steroids 40 mg IV every 12 hours Patient much improved Continue breathing treatments 09/22/2021: Continue IV steroids Monitor closely 09/23/2021: Supportive care 09/24/2021: Improved lungs Continue therapy 09/25/2021: Wean off prednisone Supportive care 09/26/2021: Wean down off prednisone Dramatic improvement now walking with assistance 09/27/2021: Wean down steroids Continue breathing treatments (1) Chronic systolic heart failure Status: Chronic Assessment & Plan: She may have some slight component of chronic heart failure with reduced ejection fraction contributing to her shortness of breath. She is on losartan I added spironolactone. I do not think she is a good candidate for beta-jcarlos due to her severe obstructive airways disease with ongoing wheezing. She would like to follow-up with someone in [place] since this is closer to her home. I asked her to check with friends and family to see if they have any recommendations for a specific electrical tester battery. (2) Cardiomyopathy Assessment & Plan: She had an echocardiogram at an outside hospital that showed mild to moderate left ventricular systolic dysfunction with an ejection fraction of 40-45%. Exact etiology unclear and I do not know if this is a new finding in this patient. She was placed on losartan at the outside facility. As above, I added spironolactone. Her ejection fraction is above the cutoff for recommending a prophylactic defibrillator. She will need to have her guideline directed medical therapy maximized following discharge. (3) Primary hypertension Assessment & Plan: Her blood pressure improved since adding spironolactone. If her blood pressure remains elevated, then I would maximize her losartan as opposed to adding other agents. (4) Mixed hyperlipidemia Assessment & Plan: Continue statin medication. (5) Elevated brain natriuretic peptide (BNP) level Assessment & Plan: Her BNP level wasmildly elevated. Her echocardiogram from the outside facility showed mild-moderate left ventricular systolic dysfunction with an estimated ejection fraction of 40-45% with no significant valvular disea se. Her pulmonary artery pressure was 30-35 mmHg. This echo was performed on 09/16. However, her chest x-ray from our hospital does not show any significant pulmonary edema. We will proceed as above. (6) Chronic obstructive pulmonary disease Assessment & Plan: I suspect this is the primary cause of her chronic dyspnea. FLORES LUGO DO Sep 27, 2021 07:25
[2021-09-27 07:40] VITALS: BP 104/56
[2021-09-27] MEDS: CLOPIDOGREL 75 MG (PLAVIX) TABLET PO SCH (08:27)
[2021-09-27] MEDS: FERROUS SULF 325 MG (IRON) TAB PO SCH ×2 (08:27→20:34)
[2021-09-27] MEDS: buPROPion SR 150 MG (WELLBUTRIN SR) TAB PO SCH (08:27)
[2021-09-27] MEDS: LORATADINE (CLARITIN) 10 MG TAB PO SCH ×2 (08:27→20:34)
[2021-09-27] MEDS: ASPIRIN E.C. 81 MG (ECOTRIN) TAB PO SCH (08:27)
[2021-09-27] MEDS: LACTOBACILLUS ACIDOPHILUS (PROBIOTIC) CAPSULE PO SCH ×3 (08:27→17:29)
[2021-09-27] MEDS: MONTELUKAST 10 MG (SINGULAIR) TAB PO SCH (08:27)
[2021-09-27] MEDS: SPIRONOLACTONE 25 MG (ALDACTONE) TAB PO SCH (08:28)
[2021-09-27] MEDS: polyethylene glycoL POWDER 17 GM (MIRALAX) PACK PO SCH ×2 (08:28→20:40)
[2021-09-27] MEDS: SENNA W/DOCUSATE (SENOKOT S) TABLET PO SCH ×2 (08:28→20:40)
[2021-09-27] MEDS: DOCUSATE SODIUM 100 MG (COLACE) CAP PO SCH ×2 (08:28→20:39)
[2021-09-27] MEDS: KCL 20 MEQ TAB (K-DUR) PO SCH ×2 (08:28→17:29)
--- NOTE | 2021-09-27 08:30 | Occupational Ther Daily Note ---
OT Current Status-Daily Note Subjective Pt alert, sitting in recliner. Pt agrees to therapy. No c/o pain. Mental Status/Objective Patient Orientation: Person, Place, Time, Situation ADL-Treatment Pt continues to demonstrate good progress. Pt independent with meals. Using R UE to assist with opening containers/packages. SBA for SPT using FWW. Sitting at sink, completes oral care. SBA for toilet transfer and manipulating clothing using grabbars for stabilization. Sitting on toilet to complete hygiene. After set up, pt able to don/doff upper body clothing and footwear. After set up, pt able to don/doff lower body clothing with SBA for safety. Therapy Code Descriptions/Definitions Functional Frontier Measure: 0=Not Assessed/NA 4=Minimal Assistance 1=Total Assistance 5=Supervision or Setup 2=Maximal Assistance 6=Modified [place] 3=Moderate Assistance 7=Complete IndependenceSCALE: Activities may be completed with or without assistive devices. 1-Rqyfcimycv-yukdokn completes the activity by him/herself with no assistance from a helper. 5-Set-up or Clean-up Assistance-helper sets up or cleans up; patient completes activity. [place] assists only prior to or following the activity. 4-Supervision or Touching Assistance-helper provides verbal cues and/or touching/steadying and/or contact guard assistance as patient completes activity. Assistance may be provided throughout the activity or intermittently. 3-Partial/Moderate Assistance-helper does LESS THAN HALF the effort. [place] lifts, holds or supports trunk or limbs, but provides less than half the effort. 2-Substantial/Maximal Assistance-helper does MORE THAN HALF the effort. [place] lifts or holds trunk or limbs and provides more than half the effort. 1-Gqrgjxumo-gngego does ALL the effort. Patient does none of the effort to complete the activity. Or, the assistance of 2 or more helpers is required for the patient to complete the activity. If activity was not attempted, code reason: 7-Patient Refused. 9-Not Applicable-not attempted and the patient did not perform the activity before the current illness, exacerbation or injury. 10-Not Attempted due to Environmental Limitations-(lack of equipment, weather restraints, etc.). 88-Not Attempted due to Medical Conditions or Safety Concerns. Eating (QC): 6 Oral Hygiene (QC): 6 Upper Body Dressing (QC): 5 Lower Body Dressing (QC): 4 On/Off Footwear: 5 Toileting Hygiene (QC): 4 Toilet Transfer (QC): 4 Other Treatment Pt demonstrates increase AROM with R UE. Pt still fatigues quickly during exercises while initially demonstrating increase in degrees of motion throughout R UE. After session, pt sitting in recliner with call light/phone in reach. All needs met in room. OT Short Term Goals Short Term Goals Time Frame: Sep 28, 2021 Eatin Oral hygiene: 4 Toileting hygiene: 2 Shower/bathe self: 2 Upper body dressin Lower body dressin Putting on/taking off footwear: 2 OT Transaction Coordinator Goals Transaction Coordinator Goals Time Frame: Oct 16, 2021 Eating (QC): 5 Oral Hygiene (QC): 5 Toileting Hygiene (QC): 3 (min) Shower/Bathe Self (QC): 3 (min) Upper Body Dressing (QC): 4 Lower Body Dressing (QC): 3 (min) On/Off Footwear (QC): 3 (min) 1=Demonstrate adherence to instructed precautions during ADL tasks. 2=Patient will verbalize/demonstrate understanding of assistive dev ices/modifications for ADL. 3=Patient will improve strength/tolerance for activity to enable patient to perform ADL's. OT Education/Plan Problem List/Assessment Assessment: Decreased Activ Tolerance, Decreased UE Strength, Impaired Self- Care Skills, Restricted Funct UE ROM Discharge Recommendations Plan/Recommendations: Continue POC Treatment Plan/Plan of Care Patient would benefit from OT for education, treatment and training to promote independence in ADL's, mobility, safety and/or upper extremity function for ADL's. Plan of Care: ADL Retraining, Functional Mobility, Group Exercise/Act as Ind, UE Funct Exercise/Act, UE Neuromus Re-Ed/Coord, W/C Management Training Treatment Duration: Oct 16, 2021 Frequency: At least 5 of 7 days/Wk (IRF) Estimated Hrs Per Day: 1.5 hours per day Rehab Potential: Fair Time/GCodes Start Time: 07:00 Stop Time: 08:30 Total Time Billed (hr/min): 90 Billed Treatment Time 1 visit-ADL 5 (75 min) NM 1 (15 min) JUSTIN ROGERS Sep 27, 2021 08:30
[2021-09-27] MEDS: FLUTICASONE NASAL SPRAY (FLONASE) 16 GM BTL NS SCH (08:31)
--- NOTE | 2021-09-27 09:53 | Physical Therapy Daily Note ---
PT Daily Note-Current Subjective Patient in recliner pre tx, agrees to PT, has no complaints of pain. Appearance Patient in recliner post tx with nurse call, phone, tray, all needs met. Mental Status Patient Orientation: Person, Place, Situation patient no longer has O2 nasal canula Transfers SCALE: Activities may be completed with or without assistive devices. 7-Uzwkrxlhrq-reawdzz completes the activity by him/herself with no assistance from a helper. 5-Set-up or Clean-up Assistance-helper sets up or cleans up; patient completes activity. [place] assists only prior to or following the activity. 4-Supervision or Touching Assistance-helper provides verbal cues and/or touching/steadying and/or contact guard assistance as patient completes activity. Assistance may be provided throughout the activity or intermittently. 3-Partial/Moderate Assistance-helper does LESS THAN HALF the effort. [place] lifts, holds or supports trunk or limbs, but provides less than half the effort. 2-Substantial/Maximal Assistance-helper does MORE THAN HALF the effort. [place] lifts or holds trunk or limbs and provides more than half the effort. 1-Ltpltaggk-mucvco does ALL the effort. Patient does none of the effort to complete the activity. Or, the assistance of 2 or more helpers is required for the patient to complete the activity. If activity was not attempted, code reason: 7-Patient Refused. 9-Not Applicable-not attempted and the patient did not perform the activity before the current illness, exacerbation or injury. 10-Not Attempted due to Environmental Limitations-(lack of equipment, weather restraints, etc.). 88-Not Attempted due to Medical Conditions or Safety Concerns. Sit to Stand (QC): 4 Chair/Etb-px-Tybxd Xfer(QC): 4 CGA Weight Bearing Full Weight Bearing Full Weight Bearing Gait Training Distance: 20'x3 Walk 10 feet (QC): 4 Gait Persons Needed: 1 Gait Assistive Device: FWW CGA, slow ambulation, improving steps with right leg Wheelchair Training Does the Pt Use a Wheelchair?: Yes Wheel 50 ft with 2 turns (QC): 3 Wheel 150 ft (QC): 3 Type of Wheelchair: Manual 150'x2, needs assist because she drifts to the right side, needs occasional rest break, very slow Exercises NuStep Minutes: 15 NuStep Workload: 4 Treatments transfers, ambulation, WC mobility, LE strengthening Assessment Current Status: Fair Progress Patient is making slow progress but ambulation is improving. Patient didn't have O2 today so she needed more frequent rest breaks and fatigued faster. PT Short Term Goals Short Term Goals Time Frame: Sep 25, 2021 Roll Left & Right: 3 (Fer) Sit to lyin (Fer) Lying to sitting on side of be: 3 ([place]) Sit to stand: 3 (Fer) Chair/ccu-jh-aquhp transfer: 3 (modA) Walk 10 feet: 3 (Fer) PT Mri Special Procedures Technologist Goals Senior Living Goals PT Mri Special Procedures Technologist Goals Time Frame: Oct 09, 2021 Roll Left & Right (QC): 4 Sit to Lying (QC): 4 Lying-Sitting on Side/Bed(QC): 4 Sit to Stand (QC): 4 Chair/Etd-vg-Akant Xfer(QC): 3 Toilet Transfer (QC): 3 Car Transfer (QC): 3 Does the Patient Walk: Yes Walk 10 feet (QC): 3 Walk 50ft with 2 Turns (QC): 3 Walk 150 ft (QC): 88 Walking 10ft on Uneven Surface: 3 1 Step (curb) (QC): 3 4 Steps (QC): 88 12 Steps (QC): 88 Picking up an Object (QC): 3 Wheel 50 feet with 2 turns (QC: 4 Wheel 150 feet: 4 PT Plan Problem List Problem List: Activity Tolerance, Functional Strength, Safety, Balance, Gait, Transfer, Bed Mobility, ROM Treatment/Plan Treatment Plan: Continue Plan of Care Treatment Plan: Bed Mobility, Education, Functional Activity Nik, Functional Strength, Group Therapy, Gait, Safety, Therapeutic Exercise, Transfers Treatment Duration: Oct 09, 2021 Frequency: At least 5 of 7 days/Wk (IRF) Estimated Hrs Per Day: 1.5 hours per day Patient and/or Family Agrees t: Yes Safety Risks/Education Patient Education: Gait Training, Transfer Techniques, Correct Positioning, W/C Management, Safety Issues Teaching Recipient: Patient Teaching Methods: Demonstration, Discussion Response to Teaching: Reinforcement Needed Time/GCodes Time In: 0900 Time Out: 1000 Total Billed Treatment Time: 60 Total Billed Treatment 1 visit EX 15' FA 45' FRANKY HOFF PT Sep 27, 2021 09:53
--- NOTE | 2021-09-27 13:54 | Physical Therapy Daily Note ---
PT Daily Note-Current Subjective Patient in recliner pre tx, agrees to PT, has no complaints of pain. Appearance Patient in recliner post tx with nurse call, phone, tray, all needs met. Mental Status Patient Orientation: Person, Place, Situation Transfers SCALE: Activities may be completed with or without assistive devices. 3-Isnktkueoz-clijwqv completes the activity by him/herself with no assistance from a helper. 5-Set-up or Clean-up Assistance-helper sets up or cleans up; patient completes activity. [place] assists only prior to or following the activity. 4-Supervision or Touching Assistance-helper provides verbal cues and/or yesenia shannan/steadying and/or contact guard assistance as patient completes activity. Assistance may be provided throughout the activity or intermittently. 3-Partial/Moderate Assistance-helper does LESS THAN HALF the effort. [place] lifts, holds or supports trunk or limbs, but provides less than half the effort. 2-Substantial/Maximal Assistance-helper does MORE THAN HALF the effort. [place] lifts or holds trunk or limbs and provides more than half the effort. 7-Eefxtacgf-sdzptd does ALL the effort. Patient does none of the effort to complete the activity. Or, the assistance of 2 or more helpers is required for the patient to complete the activity. If activity was not attempted, code reason: 7-Patient Refused. 9-Not Applicable-not attempted and the patient did not perform the activity before the current illness, exacerbation or injury. 10-Not Attempted due to Environmental Limitations-(lack of equipment, weather restraints, etc.). 88-Not Attempted due to Medical Conditions or Safety Concerns. Sit to Stand (QC): 4 Chair/Ecw-ly-Dvfvx Xfer(QC): 4 Weight Bearing Full Weight Bearing Full Weight Bearing Gait Training Distance: 30'x2, 20' Walk 10 feet (QC): 4 Gait Persons Needed: 1 Gait Assistive Device: FWW improving ambulation, better step through on the right side Treatments transfers, ambulation Assessment Current Status: Fair Progress improving endurance and LE strength PT Short Term Goals Short Term Goals Time Frame: Sep 25, 2021 Roll Left & Right: 3 (Fer) Sit to lyin (Fer) Lying to sitting on side of be: 3 ([place]) Sit to stand: 3 (Fer) Chair/arl-yw-sijdm transfer: 3 (modA) Walk 10 feet: 3 (Fer) PT Half-Way Goals Education Nurse Goals PT Education Nurse Goals Time Frame: Oct 09, 2021 Roll Left & Right (QC): 4 Sit to Lying (QC): 4 Lying-Sitting on Side/Bed(QC): 4 Sit to Stand (QC): 4 Chair/Anv-tx-Qtcqn Xfer(QC): 3 Toilet Transfer (QC): 3 Car Transfer (QC): 3 Does the Patient Walk: Yes Walk 10 feet (QC): 3 Walk 50ft with 2 Turns (QC): 3 Walk 150 ft (QC): 88 Walking 10ft on Uneven Surface: 3 1 Step (curb) (QC): 3 4 Steps (QC): 88 12 Steps (QC): 88 Picking up an Object (QC): 3 Wheel 50 feet with 2 turns (QC: 4 Wheel 150 feet: 4 PT Plan Problem List Problem List: Activity Tolerance, Functional Strength, Safety, Balance, Gait, Transfer, Bed Mobility, ROM Treatment/Plan Treatment Plan: Continue Plan of Care Treatment Plan: Bed Mobility, Education, Functional Activity Nik, Functional Strength, Group Therapy, Gait, Safety, Therapeutic Exercise, Transfers Treatment Duration: Oct 09, 2021 Frequency: At least 5 of 7 days/Wk (IRF) Estimated Hrs Per Day: 1.5 hours per day Patient and/or Family Agrees t: Yes Safety Risks/Education Patient Education: Gait Training, Transfer Techniques, Correct Positioning, Safety Issues Teaching Recipient: Patient Teaching Methods: Demonstration, Discussion Response to Teaching: Reinforcement Needed Time/GCodes Time In: 1330 Time Out: 1400 Total Billed Treatment Time: 30 Total Billed Treatment 1 visit FA 30' FRANKY HOFF PT Sep 27, 2021 13:54
[2021-09-27 19:53] VITALS: BP 100/65
[2021-09-27] MEDS: LOSARTAN 100 MG (COZAAR) TABLET PO SCH (20:34)
[2021-09-27] MEDS: guaiFENesin/CODEINE (ROBITUSSIN AC) 10ML UDC PO PRN (20:34)
[2021-09-27] MEDS: FAMOTIDINE 20 MG (PEPCID) TABLET PO SCH (20:34)
--- NOTE | 2021-09-28 06:34 | PM&R Progress Note ---
Subjective HPI/CC On Admission Date Seen by Provider: Sep 28, 2021 Time Seen by Provider: 11:30 Subjective/Events-last exam 09/28/2021: Patient much improved No more dysphagia but she does eat a modified diet and she eats slowly No pain is reported Lungs are clear Completed prednisone 09/27/2021: Patient doing well Able to walk more with assistance Right-sided weakness is much improved Able to eat and drink 09/26/2021: Pt is doing dramatically better Walking a little bit with assistance now Right sided weakness is improved Able to feed herself with the right hand 09/25/2021: Pt is doing well Down to one person assist No pain is reported No falls Checked meds and labs Lungs are now clear today 09/24/2021: Pt is doing a lot better Transferring better Overall feels like she is improving Lungs are less wheezy Changed her off IV steroids and on Prednisone 09/23/2021: Patient doing well Wheezing still present IV steroids will be changed tomorrow Check meds and labs No falls 09/22/2021: Patient doing well Wheezes only subtle at the end expiratory phase Feels like she is breathing better No falls No pain Regaining function pretty well 09/21/2021: This is a combined late entry note mistakenly missed creating note from 09/20/2021 so this will include 09/20 and 09/21 Patient was seen on 09/20/2021 and noted wheezing so initiated Solu-Medrol and nebulizer treatments Pt is doing a lot better Small amount of steroids given IV, has really cleared her lungs up Maintain on oxygen of 3L Checked meds and labs Feels like she is progressing 09/19/2021: Pt is doing pretty well Having a lot of loose stools so we will hold laxatives Transferring fair E[facility]ocardiogram from [facility] in chart for Dr. 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 Dysphasia tolerating the mechanical soft and nectar thick liquids Review of Systems General: Fatigue, Malaise Objective Exam Vital Signs Vital Signs Date Time Temp Pulse Resp B/P (MAP) Pulse Ox O2 Delivery O2 Flow Rate FiO2 09/28/21 21:58 97 Nasal Cannula 2.00 09/28/21 20:00 36.2 105 16 102/50 (67) 09/27/21 02:21 28 Capillary Refill : General Appearance: No Apparent Distress, WD/WN, Anxious, Chronically ill HEENT: PERRL/EOMI, Normal ENT Inspection, Pharynx Normal Neck: Full Range of Motion, Normal Inspection, Non Tender, Supple, Carotid Bruit Respiratory: Chest Non Tender, Lungs Clear, Normal Breath Sounds, No Accessory Muscle Use, No Respiratory Distress, Accessory Muscle Use Cardiovascular: Regular Rate, Rhythm, No Edema, No Gallop, No JVD, No Murmur, Normal Peripheral Pulses Gastrointestinal: Normal Bowel Sounds, No Organomegaly, No Pulsatile Mass, Non Tender, Soft Back: Normal Inspection, No CVA Tenderness, No Vertebral Tenderness Extremity: Normal Capillary Refill, Normal Inspection, Normal Range of Motion, Non Tender, No Calf Tenderness, No Pedal Edema Neurologic/Psychiatric: Alert, Oriented x3, Normal Mood/Affect, medical detail representative II-XII Norm as Tested, Abnormal Gait, Facial Droop (Right-sided), Motor Weakness (Right- sided) Skin: Normal Color, Warm/Dry Lymphatic: No Adenopathy Results/Procedures Lab Patient resulted labs reviewed. FIM Transfers Therapy Code Descriptions/Definitions Functional [place] Measure: 0=Not Assessed/NA 4=Minimal Assistance 1=Total Assistance 5=Supervision or Setup 2=Maximal Assistance 6=Modified [place] 3=Moderate Assistance 7=Complete IndependenceSCALE: Activities may be completed with or without assistive devices. 8-Ykhskndagd-zneciff completes the activity by him/herself with no assistance from a helper. 5-Set-up or Clean-up Assistance-helper sets up or cleans up; patient completes activity. [place] assists only prior to or following the activity. 4-Supervision or Touching Assistance-helper provides verbal cues and/or touching/steadying and/or contact guard assistance as patient completes activity. Assistance may be provided throughout the activity or intermittently. 3-Partial/Moderate Assistance-helper does LESS THAN HALF the effort. [place] lifts, holds or supports trunk or limbs, but provides less than half the effort. 2-Substantial/Maximal Assistance-helper does MORE THAN HALF the effort. [place] lifts or holds trunk or limbs and provides more than half the effort. 2-Ehgrmmkfw-bhwuih does ALL the effort. Patient does none of the effort to complete the activity. Or, the assistance of 2 or more helpers is required for the patient to complete the activity. If activity was not attempted, code reason: 7-Patient Refused. 9-Not Applicable-not attempted and the patient did not perform the activity before the current illness, exacerbation or injury. 10-Not Attempted due to Environmental Limitations-(lack of equipment, weather restraints, etc.). 88-Not Attempted due to Medical Conditions or Safety Concerns. Roll Left to Right (QC): 3 Sit to Lying (QC): 3 Sit to Stand (QC): 4 Chair/Jhu-wu-Tknjo Xfer(QC): 4 Car Transfer (QC): 2 Gait Training Does the Patient Walk?: Yes Distance: 30'x2, 20' Walk 10 feet (QC): 4 Walk 50 ft with 2 Turns(QC): 88 Walk 150 ft (QC): 88 Walking 10ft/uneven surface-QC: 88 Gait Persons Needed: 1 Gait Assistive Device: FWW Wheelchair Training Does the Pt Use a Wheelchair?: Yes Distance: 120'x2 Wheel 50 ft with 2 turns (QC): 3 Wheel 150 ft (QC): 3 Type of Wheelchair: Manual Stair Training 1 Step (curb) (QC): 88 4 Steps (QC): 88 12 Steps (QC): 88 Balance Picking up an Object (QC): 88 ADL-Treatment Eating (QC): 6 Oral Hygiene (QC): 6 Shower/Bathe Self (QC): 5 Upper Body Dressing (QC): 5 Lower Body Dressing (QC): 4 On/Off Footwear (QC): 5 Toileting Hygiene (QC): 4 Toilet Transfer (QC): 4 Assessment/Plan Assessment and Plan Assess & Plan/Chief Complaint Assessment: CVA Right-sided facial droop Right-sided weakness Acute exacerbation of COPD placed on IV steroids on 09/20/2021 now completed treatment 09/28/2021 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 Peripheral vascular disease Obesity BMI 29 Plan: Inpatient rehab protocol Cardiology consult Nebulizers Oxygen supplementation 09/19/2021: Oxygen supplementation Nebulizers Supportive care 09/20/2021, 09/21/2021: Place patient on IV steroids 40 mg IV every 12 hours Patient much improved Continue breathing treatments 09/22/2021: Continue IV steroids Monitor closely 09/23/2021: Supportive care 09/24/2021: Improved lungs Continue therapy 09/25/2021: Wean off prednisone Supportive care 09/26/2021: Wean down off prednisone Dramatic improvement now walking with assistance 09/27/2021: Wean down steroids Continue breathing treatments 09/28/2021: Discontinue steroids (1) Chronic systolic heart failure Status: Chronic Assessment & Plan: She may have some slight component of chronic heart failure with reduced ejection fraction contributing to her shortness of breath. She is on losartan I added spironolactone. I do not think she is a good candidate for beta-jcarlos due to her severe obstructive airways disease with ongoing wheezing. She would like to follow-up with someone in [place] since this is closer to her home. 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 (2) Cardiomyopathy Assessment & Plan: She had an echocardiogram at an outside hospital that showed mild to moderate left ventricular systolic dysfunction with an ejection fraction of 40-45%. Exact etiology unclear and I do not know if this is a new finding in this patient. She was placed on losartan at the outside facility. As above, I added spironolactone. Her ejection fraction is above the cutoff for recommending a prophylactic defibrillator. She will need to have her guideline directed medical therapy maximized following discharge. (3) Primary hypertension Assessment & Plan: Her blood pressure improved since adding spironolactone. If her blood pressure remains elevated, then I would maximize her losartan as opposed to adding other agents. (4) Mixed hyperlipidemia Assessment & Plan: Continue statin medication. (5) Elevated brain natriuretic peptide (BNP) level Assessment & Plan: Her BNP level wasmildly elevated. Her echocardiogram from the outside facility showed mild-moderate left ventricular systolic dysfunction with an estimated ejection fraction of 40-45% with no significant valvular disease. Her pulmonary artery pressure was 30-35 mmHg. This echo was performed on 09/16. However, her chest x-ray from our hospital does not show any significant pulmonary edema. We will proceed as above. (6) Chronic obstructive pulmonary disease Assessment & Plan: I suspect this is the primary cause of her chronic dyspnea. FLORES LUGO DO Sep 28, 2021 06:34
[2021-09-28] MEDS: predniSONE 20 MG TAB PO SCH (06:39)
[2021-09-28] MEDS: UMECLIDINIUM BROMIDE (INCRUSE ELLIPTA) 7'S IH SCH (06:59)
[2021-09-28] MEDS: RT-ALBUTEROL SULF 2.5 MG/3 ML PRE-MIX VIAL INH SCH ×2 (06:59→21:58)
[2021-09-28 07:00] VITALS: BP 116/55
[2021-09-28] MEDS: RT--FLUTICASONE/SALMETEROL 232-14 (AIRDUO RespiCLICK) IH SCH ×2 (07:00→21:58)
--- NOTE | 2021-09-28 07:28 | Occupational Ther Daily Note ---
OT Current Status-Daily Note Subjective Pt alert, sitting in recliner. Pt agrees to therapy. No c/o pain. Pt utilizing R UE for functional tasks. Mental Status/Objective Patient Orientation: Person, Place, Time, Situation ADL-Treatment Pt agrees to shower. Pt independent with eating. Pt ambulated into shower with CGA using FWW. CGA to transfer into shower. Set up to complete shower while sitting on shower bench using grabbars and HH shower. After set up, pt able to complete upper body dressing and footwear. Pt threads clothing over feet then SBA while stabilizing with FWW to hike pants over hips. Independent with oral care. SBA to hike pants during toileting, independent with hygiene while sitting on toilet. After therapy, pt sitting in recliner with call light/phone in reach. All needs met in room. Therapy Code Descriptions/Definitions Functional [place] Measure: 0=Not Assessed/NA 4=Minimal Assistance 1=Total Assistance 5=Supervision or Setup 2=Maximal Assistance 6=Modified [place] 3=Moderate Assistance 7=Complete IndependenceSCALE: Activities may be completed with or without assistive devices. 0-Htuufxgjco-xovunpc completes the activity by him/herself with no assistance from a helper. 5-Set-up or Clean-up Assistance-helper sets up or cleans up; patient completes activity. [place] assists only prior to or following the activity. 4-Supervision or Touching Assistance-helper provides verbal cues and/or touching/steadying and/or contact guard assistance as patient completes activity. Assistance may be provided throughout the activity or intermittently. 3-Partial/Moderate Assistance-helper does LESS THAN HALF the effort. [place] lifts, holds or supports trunk or limbs, but provides less than half the effort. 2-Substantial/Maximal Assistance-helper does MORE THAN HALF the effort. [place] lifts or holds trunk or limbs and provides more than half the effort. 4-Mpuovuuht-iyfpxd does ALL the effort. Patient does none of the effort to complete the activity. Or, the assistance of 2 or more helpers is required for the patient to complete the activity. If activity was not attempted, code reason: 7-Patient Refused. 9-Not Applicable-not attempted and the patient did not perform the activity before the current illness, exacerbation or injury. 10-Not Attempted due to Environmental Limitations-(lack of equipment, weather restraints, etc.). 88-Not Attempted due to Medical Conditions or Safety Concerns. Eating (QC): 6 Oral Hygiene (QC): 6 Shower/Bathe Self (QC): 5 Upper Body Dressing (QC): 5 Lower Body Dressing (QC): 4 On/Off Footwear: 5 Toileting Hygiene (QC): 4 Toilet Transfer (QC): 4 OT Short Term Goals Short Term Goals Time Frame: Sep 28, 2021 Eatin Oral hygiene: 4 Toileting hygiene: 2 Shower/bathe self: 2 Upper body dressin Lower body dressin Putting on/taking off footwear: 2 OT Fci Goals Fci Goals Time Frame: Oct 16, 2021 Eating (QC): 5 Oral Hygiene (QC): 5 Toileting Hygiene (QC): 3 (min) Shower/Bathe Self (QC): 3 (min) Upper Body Dressing (QC): 4 Lower Body Dressing (QC): 3 (min) On/Off Footwear (QC): 3 (min) 1=Demonstrate adherence to instructed precautions during ADL tasks. 2=Patient will verbalize/demonstrate understanding of assistive devices/modifications for ADL. 3=Patient will improve strength/tolerance for activity to enable patient to perform ADL's. OT Education/Plan Problem List/Assessment Assessment: Decreased Activ Tolerance, Decreased UE Strength, Impaired Self- Care Skills, Restricted Funct UE ROM Discharge Recommendations Plan/Recommendations: Continue POC Treatment Plan/Plan of Care Patient would benefit from OT for education, treatment and training to promote independence in ADL's, mobility, safety and/or upper extremity function for ADL's. Plan of Care: ADL Retraining, Functional Mobility, Group Exercise/Act as Ind, UE Funct Exercise/Act, UE Neuromus Re-Ed/Coord, W/C Management Training Treatment Duration: Oct 16, 2021 Frequency: At least 5 of 7 days/Wk (IRF) Estimated Hrs Per Day: 1.5 hours per day Rehab Potential: Fair Time/GCodes Start Time: 07:15 Stop Time: 08:30 Total Time Billed (hr/min): 75 Billed Treatment Time 1 visit-ADL 5 (75 min) JUSTIN ROGERS Sep 28, 2021 07:28
[2021-09-28] MEDS: MONTELUKAST 10 MG (SINGULAIR) TAB PO SCH (08:13)
[2021-09-28] MEDS: buPROPion SR 150 MG (WELLBUTRIN SR) TAB PO SCH (08:13)
[2021-09-28] MEDS: CLOPIDOGREL 75 MG (PLAVIX) TABLET PO SCH (08:13)
[2021-09-28] MEDS: ASPIRIN E.C. 81 MG (ECOTRIN) TAB PO SCH (08:13)
[2021-09-28] MEDS: LORATADINE (CLARITIN) 10 MG TAB PO SCH ×2 (08:13→23:54)
[2021-09-28] MEDS: SPIRONOLACTONE 25 MG (ALDACTONE) TAB PO SCH (08:14)
[2021-09-28] MEDS: FLUTICASONE NASAL SPRAY (FLONASE) 16 GM BTL NS SCH (08:14)
[2021-09-28] MEDS: KCL 20 MEQ TAB (K-DUR) PO SCH ×2 (08:15→17:58)
[2021-09-28] MEDS: LACTOBACILLUS ACIDOPHILUS (PROBIOTIC) CAPSULE PO SCH ×3 (08:15→17:59)
[2021-09-28] MEDS: FERROUS SULF 325 MG (IRON) TAB PO SCH ×2 (08:15→23:53)
[2021-09-28] MEDS: DOCUSATE SODIUM 100 MG (COLACE) CAP PO SCH (08:20)
[2021-09-28] MEDS: SENNA W/DOCUSATE (SENOKOT S) TABLET PO SCH ×2 (08:21→23:56)
[2021-09-28] MEDS: polyethylene glycoL POWDER 17 GM (MIRALAX) PACK PO SCH (08:21)
--- NOTE | 2021-09-28 10:56 | Physical Therapy Daily Note ---
PT Daily Note-Current Subjective Pt. agrees to Rx, feels she is improving. c/o cramps in left hamstring during supine therex Pain Numeric Pain Scale: 4 Location: Left Location Body Site: Thigh (hamstring) Pain Description: Squeezing Mental Status Patient Orientation: Normal For Age O2 sats > 94% during entire Rx session Transfers SCALE: Activities may be completed with or without assistive devices. 0-Rhacffcigk-tqxyrak completes the activity by him/herself with no assistance from a helper. 5-Set-up or Clean-up Assistance-helper sets up or cleans up; patient completes activity. [place] assists only prior to or following the activity. 4-Supervision or Touching Assistance-helper provides verbal cues and/or touching/steadying and/or contact guard assistance as patient completes activity. Assistance may be provided throughout the activity or intermittently. 3-Partial/Moderate Assistance-helper does LESS THAN HALF the effort. [place] lifts, holds or supports trunk or limbs, but provides less than half the effort. 2-Substantial/Maximal Assistance-helper does MORE THAN HALF the effort. [place] lifts or holds trunk or limbs and provides more than half the effort. 3-Hdpkigbyi-enldzs does ALL the effort. Patient does none of the effort to complete the activity. Or, the assistance of 2 or more helpers is required for the patient to complete the activity. If activity was not attempted, code reason: 7-Patient Refused. 9-Not Applicable-not attempted and the patient did not perform the activity before the current illness, exacerbation or injury. 10-Not Attempted due to Environmental Limitations-(lack of equipment, weather restraints, etc.). 88-Not Attempted due to Medical Conditions or Safety Concerns. Roll Left & Right (QC): 6 Sit to Lying (QC): 6 Lying to Sitting/Side of Bed(Q: 6 Sit to Stand (QC): 6 Chair/Iab-xf-Zmeyi Xfer(QC): 4 Toilet Transfer (QC): 4 Weight Bearing Full Weight Bearing Full Weight Bearing Gait Training Does the Patient Walk?: Yes Walk 10 feet (QC): 4 Walk 50 ft with 2 Turns(QC): 4 Gait Persons Needed: 1 Gait Assistive Device: FWW gait training 50 ft, 30 ft x 3 FWW CGA no LOB but needs guided around objects on her right and reminders to look up Wheelchair Training Does the Pt Use a Wheelchair?: Yes Wheel 50 ft with 2 turns (QC): 6 Wheel 150 ft (QC): 6 Type of Wheelchair: Manual nudged in to objects on her right several times and needed guided around them Exercises Supine Ex: Bridging, Ankle pumps, Quad Set, Rolling, Glut sets, Lower trunk rotation, Heel Slides, Short Arc Quads, Scooting, Straight leg raise, Hip abd/add Supine Reps: 20 Seated Therapy Exercises: Ankle pumps, Sit to stand, Long arc quads, Hip flexion Seated Reps: 20 Treatments TRFs, gait, w/c mob, toilet TRF, therex Assessment Current Status: Good Progress sats >94% during Rx PT Short Term Goals Short Term Goals Time Frame: Sep 25, 2021 Roll Left & Right: 3 (Fer) Sit to lyin (Fer) Lying to sitting on side of be: 3 ([place]) Sit to stand: 3 (Fer) Chair/igy-wu-agoep transfer: 3 (modA) Walk 10 feet: 3 (Fer) PT In Home Aide Goals In Home Aide Goals PT Usp Goals Time Frame: Oct 09, 2021 Roll Left & Right (QC): 4 Sit to Lying (QC): 4 Lying-Sitting on Side/Bed(QC): 4 Sit to Stand (QC): 4 Chair/Iok-mk-Scife Xfer(QC): 3 Toilet Transfer (QC): 3 Car Transfer (QC): 3 Does the Patient Walk: Yes Walk 10 feet (QC): 3 Walk 50ft with 2 Turns (QC): 3 Walk 150 ft (QC): 88 Walking 10ft on Uneven Surface: 3 1 Step (curb) (QC): 3 4 Steps (QC): 88 12 Steps (QC): 88 Picking up an Object (QC): 3 Wheel 50 feet with 2 turns (QC: 4 Wheel 150 feet: 4 PT Plan Treatment/Plan Treatment Plan: Continue Plan of Care Treatment Plan: Bed Mobility, Education, Functional Activity Nik, Functional Strength, Group Therapy, Gait, Safety, Therapeutic Exercise, Transfers Treatment Duration: Oct 09, 2021 Frequency: At least 5 of 7 days/Wk (IRF) Estimated Hrs Per Day: 1.5 hours per day Patient and/or Family Agrees t: Yes Safety Risks/Education Patient Education: Gait Training, Transfer Techniques, Correct Positioning, W/C Management, Safety Issues Teaching Recipient: Patient Teaching Methods: Demonstration, Discussion Response to Teaching: Verbalize Understanding, Return Demonstration, Reinforcement Needed Time/GCodes Time In: 100 Time Out: 1100 Total Billed Treatment Time: 60 Total Billed Treatment 1,GT25m,EX20m,WC15m RORY RICHARDSON JIG MILL OPERATOR Sep 28, 2021 10:56
--- NOTE | 2021-09-28 11:42 | Speech Therapy Daily Note ---
Speech Daily Progress Note Subjective Time Seen by Provider: 09:35 The pt was sitting up in recliner. Agreeable and cooperative. She reports no difficulties with eating/drinking. Objective RN provided meds; pt took all at once except for potassium pill. Pt tolerated small pills with no difficulty. Cough x1 following potassium pill. Pt indicates she prefers the soft food and does not want to upgrade to regular diet. OMEs and pharyngeal exercises completed 10x5. Pt completed previously provided exercises with no cues. Pharyngeal exercises completed x10. Pt rates her speech at a 5 with 10 being PLOF; she c/o feeling that her speech is slurred. Assessment Assessment Current Status: Good Progress Treatment Plan Continue Plan of Care Speech Short Term Goals Short Term Goals Short Term Goals 1. The patient and staff will demonstrate safe swallowing practices and strategies with 90% accuracy. 2. The patient will demonstrate and recall intelligibility strategies with 90% accuracy with mild clinician cueing. Speech Residential Goals Credit Collections Analyst Goals 1. The patient will tolerate the least restricted diet without s/s of suspected aspiration with 90% accuracy. 2. The patient will demonstrate increased cognitive linguistic skills for safe return to the least restrictive environment. Speech-Plan Treatment Plan Speech Therapy Treatment Plan: Continue Plan of Care Treatment Duration: Oct 09, 2021 Frequency: 3 times per week (Three to five times per week.) Estimated Hrs Per Day: .5 hour per day Rehab Potential: Fair Time Speech Therapy Time In: 09:35 Speech Therapy Time Out: 10:05 Billed Treatment Time 30 mins KATELIN MCCARTHY Sep 28, 2021 11:42
--- NOTE | 2021-09-28 14:34 | Physical Therapy Daily Note ---
PT Daily Note-Current Subjective Pt. agrees to Rx. States she is a little tired this after noon but wants to try walking further. Requests bathroom after Rx. Pain Location: No Pain Reported Mental Status Patient Orientation: Normal For Age Transfers SCALE: Activities may be completed with or without assistive devices. 8-Yfjuyeqkqz-lfhvvdb completes the activity by him/herself with no assistance from a helper. 5-Set-up or Clean-up Assistance-helper sets up or cleans up; patient completes activity. [place] assists only prior to or following the activity. 4-Supervision or Touching Assistance-helper provides verbal cues and/or touching/steadying and/or contact guard assistance as patient completes activity. Assistance may be provided throughout the activity or intermittently. 3-Partial/Moderate Assistance-helper does LESS THAN HALF the effort. [place] lif ts, holds or supports trunk or limbs, but provides less than half the effort. 2-Substantial/Maximal Assistance-helper does MORE THAN HALF the effort. [place] lifts or holds trunk or limbs and provides more than half the effort. 5-Oaiddhoal-mnciqd does ALL the effort. Patient does none of the effort to complete the activity. Or, the assistance of 2 or more helpers is required for the patient to complete the activity. If activity was not attempted, code reason: 7-Patient Refused. 9-Not Applicable-not attempted and the patient did not perform the activity before the current illness, exacerbation or injury. 10-Not Attempted due to Environmental Limitations-(lack of equipment, weather restraints, etc.). 88-Not Attempted due to Medical Conditions or Safety Concerns. all TRFs CGA Weight Bearing Full Weight Bearing Full Weight Bearing Gait Training Gait Assistive Device: FWW 70 ft x 2 FWW, cuing for alignment and gaze forward to goal. Pt. needs some cuing to avoid objects at her right in her path. Pt. gives full effort, very cooperative, progress noted in all aspects of funct Exercises Seated Therapy Exercises: Ankle pumps, Sit to stand, Long arc quads, Hip flexi on Seated Reps: 12 Treatments after rx on toilet pt. managed pants down as well as managing the pad in her brief which was wet and changed it indep Assessment Current Status: Good Progress fatigued this aftern PT Short Term Goals Short Term Goals Time Frame: Sep 25, 2021 Roll Left & Right: 3 (Fer) Sit to lyin (Fer) Lying to sitting on side of be: 3 ([place]) Sit to stand: 3 (Fer) Chair/bmz-wp-xbgms transfer: 3 (modA) Walk 10 feet: 3 (Fer) PT Plasma Center Technician Goals Plasma Center Technician Goals PT Fpc Goals Time Frame: Oct 09, 2021 Roll Left & Right (QC): 4 Sit to Lying (QC): 4 Lying-Sitting on Side/Bed(QC): 4 Sit to Stand (QC): 4 Chair/Qum-ri-Czfqo Xfer(QC): 3 Toilet Transfer (QC): 3 Car Transfer (QC): 3 Does the Patient Walk: Yes Walk 10 feet (QC): 3 Walk 50ft with 2 Turns (QC): 3 Walk 150 ft (QC): 88 Walking 10ft on Uneven Surface: 3 1 Step (curb) (QC): 3 4 Steps (QC): 88 12 Steps (QC): 88 Picking up an Object (QC): 3 Wheel 50 feet with 2 turns (QC: 4 Wheel 150 feet: 4 PT Plan Treatment/Plan Treatment Plan: Continue Plan of Care Treatment Plan: Bed Mobility, Education, Functional Activity Nik, Functional Strength, Group Therapy, Gait, Safety, Therapeutic Exercise, Transfers Treatment Duration: Oct 09, 2021 Frequency: At least 5 of 7 days/Wk (IRF) Estimated Hrs Per Day: 1.5 hours per day Patient and/or Family Agrees t: Yes Safety Risks/Education Patient Education: Gait Training, Transfer Techniques, Correct Positioning, Safety Issues Teaching Recipient: Patient Teaching Methods: Demonstration, Discussion Response to Teaching: Verbalize Understanding, Return Demonstration, Reinforcement Needed Time/GCodes Time In: 1400 Time Out: 1430 Total Billed Treatment Time: 30 Total Billed Treatment 1,EX10m,GT20m RORY RICHARDSON HEATER HELPER FORGE Sep 28, 2021 14:34
[2021-09-28 20:00] VITALS: BP 102/50
[2021-09-28] MEDS: FAMOTIDINE 20 MG (PEPCID) TABLET PO SCH (23:53)
[2021-09-28] MEDS: LOSARTAN 100 MG (COZAAR) TABLET PO SCH (23:54)
[2021-09-28] MEDS: guaiFENesin/CODEINE (ROBITUSSIN AC) 10ML UDC PO PRN (23:56)
[2021-09-29] MEDS: DOCUSATE SODIUM 100 MG (COLACE) CAP PO SCH ×3 (00:22→22:40)
[2021-09-29] MEDS: polyethylene glycoL POWDER 17 GM (MIRALAX) PACK PO SCH ×2 (00:23→08:12)
[2021-09-29] MEDS: RT-ALBUTEROL SULF 2.5 MG/3 ML PRE-MIX VIAL INH SCH ×2 (06:54→22:46)
[2021-09-29] MEDS: UMECLIDINIUM BROMIDE (INCRUSE ELLIPTA) 7'S IH SCH (06:56)
[2021-09-29] MEDS: RT--FLUTICASONE/SALMETEROL 232-14 (AIRDUO RespiCLICK) IH SCH ×2 (06:56→22:46)
[2021-09-29] MEDS: predniSONE 20 MG TAB PO SCH (07:35)
--- NOTE | 2021-09-29 07:41 | PM&R Progress Note ---
Subjective HPI/CC On Admission Date Seen by Provider: Sep 29, 2021 Time Seen by Provider: 12:00 Subjective/Events-last exam 09/29/2021: Patient doing well No concerns Transferring well Eating very slowly and doing well without aspiration Lungs remain clear 09/28/2021: Patient much improved No more dysphagia but she does eat a modified diet and she eats slowly No pain is reported Lungs are clear Completed prednisone 09/27/2021: Patient doing well Able to walk more with assistance Right-sided weakness is much improved Able to eat and drink 09/26/2021: Pt is doing dramatically better Walking a little bit with assistance now Right sided weakness is improved Able to feed herself with the right hand 09/25/2021: Pt is doing well Down to one person assist No pain is reported No falls Checked meds and labs Lungs are now clear today 09/24/2021: Pt is doing a lot better Transferring better Overall feels like she is improving Lungs are less wheezy Changed her off IV steroids and on Prednisone 09/23/2021: Patient doing well Wheezing still present IV steroids will be changed tomorrow Check meds and labs No falls 09/22/2021: Patient doing well Wheezes only subtle at the end expiratory phase Feels like she is breathing better No falls No pain Regaining function pretty well 09/21/2021: This is a combined late entry note mistakenly missed creating note from 09/20/2021 so this will include 09/20 and 09/21 Patient was seen on 09/20/2021 and noted wheezing so initiated Solu-Medrol and nebulizer treatments Pt is doing a lot better Small amount of steroids given IV, has really cleared her lungs up Maintain on oxygen of 3L Checked meds and labs Feels like she is progressing 09/19/2021: Pt is doing pretty well Having a lot of loose stools so we will hold laxatives Transferring fair Echocardiogram from [facility] in chart for Dr. 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 Dysphasia tolerating the mechanical soft and nectar thick liquids Review of Systems General: Fatigue, Malaise HEENT: Dysphasia Neurological: Weakness, Incoordination Objective Exam Vital Signs Vital Signs Date Time Temp Pulse Resp B/P (MAP) Pulse Ox O2 Delivery O2 Flow Rate FiO2 09/30/21 07:01 35.9 77 98 09/30/21 07:01 Nasal Cannula 2.00 09/29/21 20:00 18 128/65 (86) 09/27/21 02:21 28 Capillary Refill : General Appearance: No Apparent Distress, WD/WN, Anxious, Chronically ill HEENT: PERRL/EOMI, Normal ENT Inspection, Pharynx Normal Neck: Full Range of Motion, Normal Inspection, Non Tender, Supple, Carotid Bruit Respiratory: Chest Non Tender, Lungs Clear, Normal Breath Sounds, No Accessory Muscle Use, No Respiratory Distress, Accessory Muscle Use Cardiovascular: Regular Rate, Rhythm, No Edema, No Gallop, No JVD, No Murmur, Normal Peripheral Pulses Gastrointestinal: Normal Bowel Sounds, No Organomegaly, No Pulsatile Mass, Non Tender, Soft Back: Normal Inspection, No CVA Tenderness, No Vertebral Tenderness Extremity: Normal Capillary Refill, Normal Inspection, Normal Range of Motion, Non Tender, No Calf Tenderness, No Pedal Edema Neurologic/Psychiatric: Alert, Oriented x3, Normal Mood/Affect, finishing supervisor plastic sheets II-XII Norm as Tested, Abnormal Gait, Facial Droop (Right-sided), Motor Weakness (Right- sided) Skin: Normal Color, Warm/Dry Lymphatic: No Adenopathy Results/Procedures Lab Patient resulted labs reviewed. FIM Transfers Therapy Code Descriptions/Definitions Functional [place] Measure: 0=Not Assessed/NA 4=Minimal Assistance 1=Total Assistance 5=Supervision or Setup 2=Maximal Assistance 6=Modified [place] 3=Moderate Assistance 7=Complete IndependenceSCALE: Activities may be completed with or without assistive devices. 3-Bhrrmeslao-naazdcj completes the activity by him/herself with no assistance from a helper. 5-Set-up or Clean-up Assistance-helper sets up or cleans up; patient completes activity. [place] assists only prior to or following the activity. 4-Supervision or Touching Assistance-helper provides verbal cues and/or touching/steadying and/or contact guard assistance as patient completes activity. Assistance may be provided throughout the activity or intermittently. 3-Partial/Moderate Assistance-helper does LESS THAN HALF the effort. [place] lifts, holds or supports trunk or limbs, but provides less than half the effort. 2-Substantial/Maximal Assistance-helper does MORE THAN HALF the effort. [place] lifts or holds trunk or limbs and provides more than half the effort. 3-Fayrfbdak-hejuld does ALL the effort. Patient does none of the effort to complete the activity. Or, the assistance of 2 or more helpers is required for the patient to complete the activity. If activity was not attempted, code reason: 7-Patient Refused. 9-Not Applicable-not attempted and the patient did not perform the activity before the current illness, exacerbation or injury. 10-Not Attempted due to Environmental Limitations-(lack of equipment, weather restraints, etc.). 88-Not Attempted due to Medical Conditions or Safety Concerns. Roll Left to Right (QC): 6 Sit to Lying (QC): 6 Sit to Stand (QC): 6 Chair/Qyl-ea-Lxcup Xfer(QC): 4 Car Transfer (QC): 2 Gait Training Does the Patient Walk?: Yes Distance: 30'x2, 20' Walk 10 feet (QC): 4 Walk 50 ft with 2 Turns(QC): 4 Walk 150 ft (QC): 88 Walking 10ft/uneven surface-QC: 88 Gait Persons Needed: 1 Gait Assistive Device: FWW Wheelchair Training Does the Pt Use a Wheelchair?: Yes Distance: 120'x2 Wheel 50 ft with 2 turns (QC): 6 Wheel 150 ft (QC): 6 Type of Wheelchair: Manual Stair Training 1 Step (curb) (QC): 88 4 Steps (QC): 88 12 Steps (QC): 88 Balance Picking up an Object (QC): 88 ADL-Treatment Eating (QC): 6 Oral Hygiene (QC): 6 Shower/Bathe Self (QC): 5 Upper Body Dressing (QC): 5 Lower Body Dressing (QC): 4 On/Off Footwear (QC): 5 Toileting Hygiene (QC): 4 Toilet Transfer (QC): 4 Assessment/Plan Assessment and Plan Assess & Plan/Chief Complaint Assessment: CVA Right-sided facial droop Right-sided weakness Acute exacerbation of COPD placed on IV steroids on 09/20/2021 now completed treatment 09/28/2021 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 Peripheral vascular disease Obesity BMI 29 Plan: Inpatient rehab protocol Cardiology consult Nebulizers Oxygen supplementation 09/19/2021: Oxygen supplementation Nebulizers Supportive care 09/20/2021, 09/21/2021: Place patient on IV steroids 40 mg IV every 12 hours Patient much improved Continue breathing treatments 09/22/2021: Continue IV steroids Monitor closely 09/23/2021: Supportive care 09/24/2021: Improved lungs Continue therapy 09/25/2021: Wean off prednisone Supportive care 09/26/2021: Wean down off prednisone Dramatic improvement now walking with assistance 09/27/2021: Wean down steroids Continue breathing treatments 09/28/2021: Discontinue steroids 09/29/2021: Discontinue steroids yesterday Monitor closely (1) Chronic systolic heart failure Status: Chronic Assessment & Plan: She may have some slight component of chronic heart failure with reduced ejection fraction contributing to her shortness of breath. She is on losartan I added spironolactone. I do not think she is a good candidate for beta-jcarlos due to her severe obstructive airways disease with ongoing wheezing. She would like to follow-up with someone in [place] since this is closer to her home. I asked her to check with friends and family to see if they have any recommendations for a specific electronic organ mechanic. (2) Cardiomyopathy Assessment & Plan: She had an echocardiogram at an outside hospital that showed mild to moderate left ventricular systolic dysfunction with an ejection fraction of 40-45%. Exact etiology unclear and I do not know if this is a new finding in this patient. She was placed on losartan at the outside facility. As above, I added spironolactone. Her ejection fraction is above the cutoff for recommending a prophylactic defibrillator. She will need to have her guideline directed medical therapy maximized following discharge. (3) Primary hypertension Assessment & Plan: Her blood pressure improved since adding spironolactone. If her blood pressure remains elevated, then I would maximize her losartan as opposed to adding other agents. (4) Mixed hyperlipidemia Assessment & Plan: Continue statin medication. (5) Elevated brain natriuretic peptide (BNP) level Assessment & Plan: Her BNP level wasmildly elevated. Her echocardiogram from the outside facility showed mild-moderate left ventricular systolic dysfunction with an estimated ejection fraction of 40-45% with no significant valvular disease. Her pulmonary artery pressure was 30-35 mmHg. This echo was performed on 09/16. However, her chest x-ray from our hospital does not show any significant pulmonary edema. We will proceed as above. (6) Chronic obstructive pulmonary disease Assessment & Plan: I suspect this is the primary cause of her chronic dyspnea. FLORES LUGO DO Sep 29, 2021 07:41
[2021-09-29 08:07] VITALS: BP 119/59
[2021-09-29] MEDS: MONTELUKAST 10 MG (SINGULAIR) TAB PO SCH (08:10)
[2021-09-29] MEDS: buPROPion SR 150 MG (WELLBUTRIN SR) TAB PO SCH (08:10)
[2021-09-29] MEDS: KCL 20 MEQ TAB (K-DUR) PO SCH ×2 (08:10→17:10)
[2021-09-29] MEDS: LORATADINE (CLARITIN) 10 MG TAB PO SCH ×2 (08:10→22:40)
[2021-09-29] MEDS: CLOPIDOGREL 75 MG (PLAVIX) TABLET PO SCH (08:10)
[2021-09-29] MEDS: LACTOBACILLUS ACIDOPHILUS (PROBIOTIC) CAPSULE PO SCH ×3 (08:10→17:10)
[2021-09-29] MEDS: ASPIRIN E.C. 81 MG (ECOTRIN) TAB PO SCH (08:10)
[2021-09-29] MEDS: FERROUS SULF 325 MG (IRON) TAB PO SCH ×2 (08:10→22:40)
[2021-09-29] MEDS: SPIRONOLACTONE 25 MG (ALDACTONE) TAB PO SCH (08:11)
[2021-09-29] MEDS: FLUTICASONE NASAL SPRAY (FLONASE) 16 GM BTL NS SCH (08:12)
[2021-09-29] MEDS: SENNA W/DOCUSATE (SENOKOT S) TABLET PO SCH (08:12)
--- NOTE | 2021-09-29 11:06 | Physical Therapy Daily Note ---
PT Daily Note-Current Subjective Pt agreeable. Pt denies pain. Pt reports (R) LE "is the weakest". Pt c/o SOA as limiting factor during gait training. Mental Status Patient Orientation: Person, Place, Situation Attachments: Oxygen O2 2L/min per portable O2 during gait training. O2 per nasal canula post treatment. Transfers SCALE: Activities may be completed with or without assistive devices. 1-Oavmtypxgw-jlvaerb completes the activity by him/herself with no assistance from a helper. 5-Set-up or Clean-up Assistance-helper sets up or cleans up; patient completes activity. [place] assists only prior to or following the activity. 4-Supervision or Touching Assistance-helper provides verbal cues and/or touching/steadying and/or contact guard assistance as patient completes activity. Assistance may be provided throughout the activity or intermittently. 3-Partial/Moderate Assistance-helper does LESS THAN HALF the effort. [place] lifts, holds or supports trunk or limbs, but provides less than half the effort. 2-Substantial/Maximal Assistance-helper does MORE THAN HALF the effort. [place] lifts or holds trunk or limbs and provides more than half the effort. 9-Aqxxjfsbq-xrvcqe does ALL the effort. Patient does none of the effort to complete the activity. Or, the assistance of 2 or more helpers is required for the patient to complete the activity. If activity was not attempted, code reason: 7-Patient Refused. 9-Not Applicable-not attempted and the patient did not perform the activity before the current illness, exacerbation or injury. 10-Not Attempted due to Environmental Limitations-(lack of equipment, weather restraints, etc.). 88-Not Attempted due to Medical Conditions or Safety Concerns. Pt CGA for sit to stand, legs against chair for standing balance, unable to stand (I) without holding onto something. Weight Bearing Full Weight Bearing Full Weight Bearing Gait Training Gait Assistive Device: Walker Standard Pt amb with CGA, O2 2L/min, FWW 2 x 55ft. Pt required rest break due to SOA. O2 sats 99%, with HR 104bpm Exercises Seated Therapy Exercises: Ankle pumps, Long arc quads, Hip flexion, Hip abd/add Seated Reps: 15 Treatments Performed sit to stand x 5 reps from chair. Pt requires hand on chair at all times for balance. Assessment Current Status: Good Progress Pt cathie well with rest breaks. Pt fatigues very easily. Unsteady balance. Pt would benifit from continued therapy to restore safe mobility. Call light in lap, all needs met. O2 insitu. PT Short Term Goals Short Term Goals Time Frame: Sep 25, 2021 Roll Left & Right: 3 (Fer) Sit to lyin (Fer) Lying to sitting on side of be: 3 (Uriah) Sit to stand: 3 (Fer) Chair/rss-pu-durfr transfer: 3 (modA) Walk 10 feet: 3 (Fer) PT Advertising Specialist Goals Advertising Specialist Goals PT Advertising Specialist Goals Time Frame: Oct 09, 2021 Roll Left & Right (QC): 4 Sit to Lying (QC): 4 Lying-Sitting on Side/Bed(QC): 4 Sit to Stand (QC): 4 Chair/Bjj-oy-Zpjjf Xfer(QC): 3 Toilet Transfer (QC): 3 Car Transfer (QC): 3 Does the Patient Walk: Yes Walk 10 feet (QC): 3 Walk 50ft with 2 Turns (QC): 3 Walk 150 ft (QC): 88 Walking 10ft on Uneven Surface: 3 1 Step (curb) (QC): 3 4 Steps (QC): 88 12 Steps (QC): 88 Picking up an Object (QC): 3 Wheel 50 feet with 2 turns (QC: 4 Wheel 150 feet: 4 PT Plan Treatment/Plan Treatment Plan: Continue Plan of Care Treatment Plan: Bed Mobility, Education, Functional Activity Nik, Functional Strength, Group Therapy, Gait, Safety, Therapeutic Exercise, Transfers Treatment Duration: Oct 09, 2021 Frequency: At least 5 of 7 days/Wk (IRF) Estimated Hrs Per Day: 1.5 hours per day Patient and/or Family Agrees t: Yes Time/GCodes Time In: 1035 Time Out: 1100 Total Billed Treatment Time: 25 Total Billed Treatment 1, gait 15', ther ex 10' ANISHA AGUILAR CPTA Sep 29, 2021 11:06
[2021-09-29 20:00] VITALS: BP 128/65
[2021-09-29] MEDS: FAMOTIDINE 20 MG (PEPCID) TABLET PO SCH (22:38)
[2021-09-29] MEDS: LOSARTAN 100 MG (COZAAR) TABLET PO SCH (22:39)
[2021-09-30 07:01] VITALS: BP 128/65
[2021-09-30] MEDS: RT-ALBUTEROL SULF 2.5 MG/3 ML PRE-MIX VIAL INH SCH ×2 (07:01→20:26)
[2021-09-30] MEDS: RT--FLUTICASONE/SALMETEROL 232-14 (AIRDUO RespiCLICK) IH SCH ×2 (07:03→20:26)
[2021-09-30] MEDS: UMECLIDINIUM BROMIDE (INCRUSE ELLIPTA) 7'S IH SCH (07:03)
[2021-09-30 07:33] VITALS: BP 106/55
[2021-09-30] MEDS: CLOPIDOGREL 75 MG (PLAVIX) TABLET PO SCH (08:23)
[2021-09-30] MEDS: LORATADINE (CLARITIN) 10 MG TAB PO SCH (08:23)
[2021-09-30] MEDS: SPIRONOLACTONE 25 MG (ALDACTONE) TAB PO SCH (08:23)
[2021-09-30] MEDS: KCL 20 MEQ TAB (K-DUR) PO SCH ×2 (08:23→17:35)
[2021-09-30] MEDS: MONTELUKAST 10 MG (SINGULAIR) TAB PO SCH (08:23)
[2021-09-30] MEDS: FERROUS SULF 325 MG (IRON) TAB PO SCH (08:23)
[2021-09-30] MEDS: ASPIRIN E.C. 81 MG (ECOTRIN) TAB PO SCH (08:23)
[2021-09-30] MEDS: buPROPion SR 150 MG (WELLBUTRIN SR) TAB PO SCH (08:23)
[2021-09-30] MEDS: LACTOBACILLUS ACIDOPHILUS (PROBIOTIC) CAPSULE PO SCH ×3 (08:23→17:35)
[2021-09-30] MEDS: DOCUSATE SODIUM 100 MG (COLACE) CAP PO SCH (08:35)
[2021-09-30] MEDS: FLUTICASONE NASAL SPRAY (FLONASE) 16 GM BTL NS SCH (08:35)
[2021-09-30] MEDS: polyethylene glycoL POWDER 17 GM (MIRALAX) PACK PO SCH (08:36)
[2021-09-30] MEDS: SENNA W/DOCUSATE (SENOKOT S) TABLET PO SCH (08:36)
--- NOTE | 2021-09-30 08:37 | PM&R Progress Note ---
Subjective HPI/CC On Admission Date Seen by Provider: Sep 30, 2021 Time Seen by Provider: 12:30 Subjective/Events-last exam 09/30/2021: Patient doing very well No pain is reported No falls No dysphagia 09/29/2021: Patient doing well No concerns Transferring well Eating very slowly and doing well without aspiration Lungs remain clear 09/28/2021: Patient much improved No more dysphagia but she does eat a modified diet and she eats slowly No pain is reported Lungs are clear Completed prednisone 09/27/2021: Patient doing well Able to walk more with assistance Right-sided weakness is much improved Able to eat and drink 09/26/2021: Pt is doing dramatically better Walking a little bit with assistance now Right sided weakness is improved Able to feed herself with the right hand 09/25/2021: Pt is doing well Down to one person assist No pain is reported No falls Checked meds and labs Lungs are now clear today 09/24/2021: Pt is doing a lot better Transferring better Overall feels like she is improving Lungs are less wheezy Changed her off IV steroids and on Prednisone 09/23/2021: Patient doing well Wheezing still present IV steroids will be changed tomorrow Check meds and labs No falls 09/22/2021: Patient doing well Wheezes only subtle at the end expiratory phase Feels like she is breathing better No falls No pain Regaining function pretty well 09/21/2021: This is a combined late entry note mistakenly missed creating note from 09/20/2021 so this will include 09/20 and 09/21 Patient was seen on 09/20/2021 and noted wheezing so initiated Solu-Medrol and nebulizer treatments Pt is doing a lot better Small amount of steroids given IV, has really cleared her lungs up Maintain on oxygen of 3L Checked meds and labs Feels like she is progressing 09/19/2021: Pt is doing pretty well Having a lot of loose stools so we will hold laxatives Transferring fair Echocardiogram from [facility] in chart for Dr. 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 Dysphasia tolerating the mechanical soft and nectar thick liquids Review of Systems General: Fatigue, Malaise Objective Exam Vital Signs Vital Signs Date Time Temp Pulse Resp B/P (MAP) Pulse Ox O2 Delivery O2 Flow Rate FiO2 09/30/21 21:00 Nasal Cannula 2.00 09/30/21 20:41 37.1 89 20 111/54 (73 96 09/27/21 02:21 28 Capillary Refill : General Appearance: No Apparent Distress, WD/WN, Anxious, Chronically ill HEENT: PERRL/EOMI, Normal ENT Inspection, Pharynx Normal Neck: Full Range of Motion, Normal Inspection, Non Tender, Supple, Carotid Bruit Respiratory: Chest Non Tender, Lungs Clear, Normal Breath Sounds, No Accessory Muscle Use, No Respiratory Distress, Accessory Muscle Use Cardiovascular: Regular Rate, Rhythm, No Edema, No Gallop, No JVD, No Murmur, Normal Peripheral Pulses Gastrointestinal: Normal Bowel Sounds, No Organomegaly, No Pulsatile Mass, Non Tender, Soft Back: Normal Inspection, No CVA Tenderness, No Vertebral Tenderness Extremity: Normal Capillary Refill, Normal Inspection, Normal Range of Motion, Non Tender, No Calf Tenderness, No Pedal Edema Neurologic/Psychiatric: Alert, Oriented x3, Normal Mood/Affect, manager mutual fund II-XII Norm as Tested, Abnormal Gait, Facial Droop (Right-sided), Motor Weakness (Right- sided) Skin: Normal Color, Warm/Dry Lymphatic: No Adenopathy Results/Procedures Lab Patient resulted labs reviewed. FIM Transfers Therapy Code Descriptions/Definitions Functional [place] Measure: 0=Not Assessed/NA 4=Minimal Assistance 1=Total Assistance 5=Supervision or Setup 2=Maximal Assistance 6=Modified [place] 3=Moderate Assistance 7=Complete IndependenceSCALE: Activities may be completed with or without assistive devices. 7-Iupjnfndas-fkgfzbj completes the activity by him/herself with no assistance from a helper. 5-Set-up or Clean-up Assistance-helper sets up or cleans up; patient completes activity. [place] assists only prior to or following the activity. 4-Supervision or Touching Assistance-helper provides verbal cues and/or touching/steadying and/or contact guard assistance as patient completes activity. Assistance may be provided throughout the activity or intermittently. 3-Partial/Moderate Assistance-helper does LESS THAN HALF the effort. [place] lifts, holds or supports trunk or limbs, but provides less than half the effort. 2-Substantial/Maximal Assistance-helper does MORE THAN HALF the effort. [place] lifts or holds trunk or limbs and provides more than half the effort. 4-Phjyblobs-jjmpjt does ALL the effort. Patient does none of the effort to complete the activity. Or, the assistance of 2 or more helpers is required for the patient to complete the activity. If activity was not attempted, code reason: 7-Patient Refused. 9-Not Applicable-not attempted and the patient did not perform the activity before the current illness, exacerbation or injury. 10-Not Attempted due to Environmental Limitations-(lack of equipment, weather restraints, etc.). 88-Not Attempted due to Medical Conditions or Safety Concerns. Roll Left to Right (QC): 6 Sit to Lying (QC): 6 Sit to Stand (QC): 6 Chair/Wse-dv-Ufotp Xfer(QC): 4 Car Transfer (QC): 2 Gait Training Does the Patient Walk?: Yes Distance: 30'x2, 20' Walk 10 feet (QC): 4 Walk 50 ft with 2 Turns(QC): 4 Walk 150 ft (QC): 88 Walking 10ft/uneven surface-QC: 88 Gait Persons Needed: 1 Gait Assistive Device: Walker Standard Wheelchair Training Does the Pt Use a Wheelchair?: Yes Distance: 120'x2 Wheel 50 ft with 2 turns (QC): 6 Wheel 150 ft (QC): 6 Type of Wheelchair: Manual Stair Training 1 Step (curb) (QC): 88 4 Steps (QC): 88 12 Steps (QC): 88 Balance Picking up an Object (QC): 88 ADL-Treatment Eating (QC): 6 Oral Hygiene (QC): 6 Shower/Bathe Self (QC): 5 Upper Body Dressing (QC): 5 Lower Body Dressing (QC): 4 On/Off Footwear (QC): 5 Toileting Hygiene (QC): 4 Toilet Transfer (QC): 4 Assessment/Plan Assessment and Plan Assess & Plan/Chief Complaint Assessment: CVA Right-sided facial droop Right-sided weakness Acute exacerbation of COPD placed on IV steroids on 09/20/2021 now completed treatment 09/28/2021 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 Peripheral vascular disease Obesity BMI 29 Plan: Inpatient rehab protocol Cardiology consult Nebulizers Oxygen supplementation 09/19/2021: Oxygen supplementation Nebulizers Supportive care 09/20/2021, 09/21/2021: Place patient on IV steroids 40 mg IV every 12 hours Patient much improved Continue breathing treatments 09/22/2021: Continue IV steroids Monitor closely 09/23/2021: Supportive care 09/24/2021: Improved lungs Continue therapy 09/25/2021: Wean off prednisone Supportive care 09/26/2021: Wean down off prednisone Dramatic improvement now walking with assistance 09/27/2021: Wean down steroids Continue breathing treatments 09/28/2021: Discontinue steroids 09/29/2021: Discontinue steroids yesterday Monitor closely 09/30/2021: Monitor for dysphagia (1) Chronic systolic heart failure Status: Chronic Assessment & Plan: She may have some slight component of chronic heart failure with reduced ejection fraction contributing to her shortness of breath. She is on losartan I added spironolactone. I do not think she is a good candidate for beta-jcarlos due to her severe obstructive airways disease with ongoing wheezing. She would like to follow-up with someone in [place] since this is closer to her home. I asked her to check with friends and family to see if they have any recommendations for a specific tube filler. (2) Cardiomyopathy Assessment & Plan: She had an echocardiogram at an outside hospital that showed mild to moderate left ventricular systolic dysfunction with an ejection fraction of 40-45%. Exact etiology unclear and I do not know if this is a new finding in this patient. She was placed on losartan at the outside facility. As above, I added spironolactone. Her ejection fraction is above the cutoff for recommending a prophylactic defibrillator. She will need to have her guideline directed medical therapy maximized following discharge. (3) Primary hypertension Assessment & Plan: Her blood pressure improved since adding spironolactone. If her blood pressure remains elevated, then I would maximize her losartan as opposed to adding other agents. (4) Mixed hyperlipidemia Assessment & Plan: Continue statin medication. (5) Elevated brain natriuretic peptide (BNP) level Assessment & Plan: Her BNP level wasmildly elevated. Her echocardiogram from the outside facility showed mild-moderate left ventricular systolic dysfunction with an estimated ejection fraction of 40-45% with no significant valvular disease. Her pulmonary artery pressure was 30-35 mmHg. This echo was performed on 09/16. However, her chest x-ray from our hospital does not show any significant pulmonary edema. We will proceed as above. (6) Chronic obstructive pulmonary disease Assessment & Plan: I suspect this is the primary cause of her chronic dyspnea. FLORES LUGO DO Sep 30, 2021 08:37
[2021-09-30 20:41] VITALS: BP 111/54
[2021-10-01] MEDS: SENNA W/DOCUSATE (SENOKOT S) TABLET PO SCH ×3 (01:15→21:00)
[2021-10-01] MEDS: FERROUS SULF 325 MG (IRON) TAB PO SCH ×3 (01:15→20:57)
[2021-10-01] MEDS: FAMOTIDINE 20 MG (PEPCID) TABLET PO SCH ×2 (01:15→20:57)
[2021-10-01] MEDS: LOSARTAN 100 MG (COZAAR) TABLET PO SCH ×2 (01:15→20:57)
[2021-10-01] MEDS: LORATADINE (CLARITIN) 10 MG TAB PO SCH ×3 (01:16→20:57)
[2021-10-01] MEDS: polyethylene glycoL POWDER 17 GM (MIRALAX) PACK PO SCH ×3 (01:30→21:00)
[2021-10-01] MEDS: DOCUSATE SODIUM 100 MG (COLACE) CAP PO SCH ×3 (01:30→21:00)
--- NOTE | 2021-10-01 06:55 | PM&R Progress Note ---
Subjective HPI/CC On Admission Date Seen by Provider: Oct 01, 2021 Time Seen by Provider: 09:30 Subjective/Events-last exam 10/01/2021: Pt is dramatically improved Speech therapy is very pleased with her progress without any dysphasia Checked meds and labs 09/30/2021: Patient doing very well No pain is reported No falls No dysphagia 09/29/2021: Patient doing well No concerns Transferring well Eating very slowly and doing well without aspiration Lungs remain clear 09/28/2021: Patient much improved No more dysphagia but she does eat a modified diet and she eats slowly No pain is reported Lungs are clear Completed prednisone 09/27/2021: Patient doing well Able to walk more with assistance Right-sided weakness is much improved Able to eat and drink 09/26/2021: Pt is doing dramatically better Walking a little bit with assistance now Right sided weakness is improved Able to feed herself with the right hand 09/25/2021: Pt is doing well Down to one person assist No pain is reported No falls Checked meds and labs Lungs are now clear today 09/24/2021: Pt is doing a lot better Transferring better Overall feels like she is improving Lungs are less wheezy Changed her off IV steroids and on Prednisone 09/23/2021: Patient doing well Wheezing still present IV steroids will be changed tomorrow Check meds and labs No falls 09/22/2021: Patient doing well Wheezes only subtle at the end expiratory phase Feels like she is breathing better No falls No pain Regaining function pretty well 09/21/2021: This is a combined late entry note mistakenly missed creating note from 09/20/2021 so this will include 09/20 and 09/21 Patient was seen on 09/20/2021 and noted wheezing so initiated Solu-Medrol and nebulizer treatments Pt is doing a lot better Small amount of steroids given IV, has really cleared her lungs up Maintain on oxygen of 3L Checked meds and labs Feels like she is progressing 09/19/2021: Pt is doing pretty well Having a lot of loose stools so we will hold laxatives Transferring fair Echocardiogram from [facility] in chart for Dr. 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 Dysphasia tolerating the mechanical soft and nectar thick liquids Review of Systems General: Fatigue, Malaise HEENT: Dysphasia Neurological: Weakness, Incoordination, Change in speech Objective Exam Vital Signs Vital Signs Date Time Temp Pulse Resp B/P (MAP) Pulse Ox O2 Delivery O2 Flow Rate FiO2 10/01/21 21:00 Nasal Cannula 2.00 10/01/21 20:00 36.8 92 20 109/65 (80) 96 09/27/21 02:21 28 Capillary Refill : General Appearance: No Apparent Distress, WD/WN, Anxious, Chronically ill HEENT: PERRL/EOMI, Normal ENT Inspection, Pharynx Normal Neck: Full Range of Motion, Normal Inspection, Non Tender, Supple, Carotid Bruit Respiratory: Chest Non Tender, Lungs Clear, Normal Breath Sounds, No Accessory Muscle Use, No Respiratory Distress, Accessory Muscle Use Cardiovascular: Regular Rate, Rhythm, No Edema, No Gallop, No JVD, No Murmur, Normal Peripheral Pulses Gastrointestinal: Normal Bowel Sounds, No Organomegaly, No Pulsatile Mass, Non Tender, Soft Back: Normal Inspection, No CVA Tenderness, No Vertebral Tenderness Extremity: Normal Capillary Refill, Normal Inspection, Normal Range of Motion, Non Tender, No Calf Tenderness, No Pedal Edema Neurologic/Psychiatric: Alert, Oriented x3, Normal Mood/Affect, cash management coordinator II-XII Norm as Tested, Abnormal Gait, Facial Droop (Right-sided), Motor Weakness (Right- sided) Skin: Normal Color, Warm/Dry Lymphatic: No Adenopathy Results/Procedures Lab Laboratory Tests 10/01/21 06:57 Patient resulted labs reviewed. FIM Transfers Therapy Code Descriptions/Definitions Functional [place] Measure: 0=Not Assessed/NA 4=Minimal Assistance 1=Total Assistance 5=Supervision or Setup 2=Maximal Assistance 6=Modified [place] 3=Moderate Assistance 7=Complete IndependenceSCALE: Activities may be completed with or without assistive devices. 5-Hzkrgjgaqy-hiaohty completes the activity by him/herself with no assistance from a helper. 5-Set-up or Clean-up Assistance-helper sets up or cleans up; patient completes activity. [place] assists only prior to or following the activity. 4-Supervision or Touching Assistance-helper provides verbal cues and/or touching/steadying and/or contact guard assistance as patient completes activity. Assistance may be provided throughout the activity or intermittently. 3-Partial/Moderate Assistance-helper does LESS THAN HALF the effort. [place] lifts, holds or supports trunk or limbs, but provides less than half the effort. 2-Substantial/Maximal Assistance-helper does MORE THAN HALF the effort. [place] lifts or holds trunk or limbs and provides more than half the effort. 8-Cjtdbzdzx-hfjdsl does ALL the effort. Patient does none of the effort to complete the activity. Or, the assistance of 2 or more helpers is required for the patient to complete the activity. If activity was not attempted, code reason: 7-Patient Refused. 9-Not Applicable-not attempted and the patient did not perform the activity before the current illness, exacerbation or injury. 10-Not Attempted due to Environmental Limitations-(lack of equipment, weather restraints, etc.). 88-Not Attempted due to Medical Conditions or Safety Concerns. Roll Left to Right (QC): 6 Sit to Lying (QC): 6 Sit to Stand (QC): 6 Chair/Llz-kb-Bfhxq Xfer(QC): 4 Car Transfer (QC): 2 Gait Training Does the Patient Walk?: Yes Distance: 30'x2, 20' Walk 10 feet (QC): 4 Walk 50 ft with 2 Turns(QC): 4 Walk 150 ft (QC): 88 Walking 10ft/uneven surface-QC: 88 Gait Persons Needed: 1 Gait Assistive Device: Walker Standard Wheelchair Training Does the Pt Use a Wheelchair?: Yes Distance: 120'x2 Wheel 50 ft with 2 turns (QC): 6 Wheel 150 ft (QC): 6 Type of Wheelchair: Manual Stair Training 1 Step (curb) (QC): 88 4 Steps (QC): 88 12 Steps (QC): 88 Balance Picking up an Object (QC): 88 ADL-Treatment Eating (QC): 6 Oral Hygiene (QC): 6 Shower/Bathe Self (QC): 5 Upper Body Dressing (QC): 5 Lower Body Dressing (QC): 4 On/Off Footwear (QC): 5 Toileting Hygiene (QC): 4 Toilet Transfer (QC): 4 Assessment/Plan Assessment and Plan Assess & Plan/Chief Complaint Assessment: CVA Right-sided facial droop Right-sided weakness Acute exacerbation of COPD placed on IV steroids on 09/20/2021 now completed treatment 09/28/2021 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 Peripheral vascular disease Obesity BMI 29 Plan: Inpatient rehab protocol Cardiology consult Nebulizers Oxygen supplementation 09/19/2021: Oxygen supplementation Nebulizers Supportive care 09/20/2021, 09/21/2021: Place patient on IV steroids 40 mg IV every 12 hours Patient much improved Continue breathing treatments 09/22/2021: Continue IV steroids Monitor closely 09/23/2021: Supportive care 09/24/2021: Improved lungs Continue therapy 09/25/2021: Wean off prednisone Supportive care 09/26/2021: Wean down off prednisone Dramatic improvement now walking with assistance 09/27/2021: Wean down steroids Continue breathing treatments 09/28/2021: Discontinue steroids 09/29/2021: Discontinue steroids yesterday Monitor closely 09/30/2021: Monitor for dysphagia 10/01/2021: Supportive care (1) Chronic systolic heart failure Status: Chronic Assessment & Plan: She may have some slight component of chronic heart failure with reduced ejection fraction contributing to her shortness of breath. She is on losartan I added spironolactone. I do not think she is a good candidate for beta-jcarlos due to her severe obstructive airways disease with ongoing wheezing. She would like to follow-up with someone in [place] since this is closer to her home. I asked her to check with friends and family to see if they have any recommendations for a specific seed potato arranger. (2) Cardiomyopathy Assessment & Plan: She had an echocardiogram at an outside hospital that showed mild to moderate left ventricular systolic dysfunction with an ejection fraction of 40-45%. Exact etiology unclear and I do not know if this is a new finding in this patient. She was placed on losartan at the outside facility. As above, I added spironolactone. Her ejection fraction is above the cutoff for recommending a prophylactic defibrillator. She will need to have her guideline directed medical therapy maximized following discharge. (3) Primary hypertension Assessment & Plan: Her blood pressure improved since adding spironolactone. If her blood pressure remains elevated, then I would maximize her losartan as opposed to adding other agents. (4) Mixed hyperlipidemia Assessment & Plan: Continue statin medication. (5) Elevated brain natriuretic peptide (BNP) level Assessment & Plan: Her BNP level wasmildly elevated. Her echocardiogram from the outside facility showed mild-moderate left ventricular systolic dysfunction with an estimated ejection fraction of 40-45% with no significant valvular disease. Her pulmonary artery pressure was 30-35 mmHg. This echo was performed on 09/16. However, her chest x-ray from our hospital does not show any significant pulmonary edema. We will proceed as above. (6) Chronic obstructive pulmonary disease Assessment & Plan: I suspect this is the primary cause of her chronic dyspnea. FLORES LUGO DO Oct 01, 2021 06:55
[2021-10-01 07:15] LABS: BASOPHILS # (AUTO) 0.1 10^3/uL (0.0-0.1); BASOPHILS % (AUTO) 1 % (0-10); EOSINOPHILS # (AUTO) 0.4 10^3/uL (0.0-0.3); EOSINOPHILS % (AUTO) 3 % (0-10); HEMATOCRIT 37 % (35-52); HEMOGLOBIN 11.9 g/dL (11.5-16.0); LYMPHOCYTES # (AUTO) 0.9 10^3/uL (1.0-4.0); LYMPHOCYTES % (AUTO) 8 % (12-44); MEAN CORPUSCULAR HEMOGLOBIN 30 pg (25-34); MEAN CORPUSCULAR HGB CONC 32 g/dL (32-36); MEAN CORPUSCULAR VOLUME 94 fL (80-99); MEAN PLATELET VOLUME 9.5 fL (9.0-12.2); MONOCYTES # (AUTO) 0.7 10^3/uL (0.0-1.0); MONOCYTES % (AUTO) 6 % (0-12); NEUTROPHILS # (AUTO) 8.9 10^3/uL (1.8-7.8); NEUTROPHILS % (AUTO) 79 % (42-75); PLATELET COUNT 239 10^3/uL (130-400); WHITE BLOOD COUNT 11.2 10^3/uL (4.3-11.0)
[2021-10-01] MEDS: RT--FLUTICASONE/SALMETEROL 232-14 (AIRDUO RespiCLICK) IH SCH ×2 (07:24→19:31)
[2021-10-01] MEDS: UMECLIDINIUM BROMIDE (INCRUSE ELLIPTA) 7'S IH SCH (07:25)
[2021-10-01] MEDS: RT-ALBUTEROL SULF 2.5 MG/3 ML PRE-MIX VIAL INH SCH ×2 (07:25→19:31)
[2021-10-01 07:31] LABS: ALBUMIN 3.4 GM/DL (3.2-4.5)
[2021-10-01 07:33] LABS: CALCIUM 9.1 MG/DL (8.5-10.1)
[2021-10-01 07:34] LABS: TOTAL PROTEIN 5.8 GM/DL (6.4-8.2)
[2021-10-01 07:36] LABS: BILIRUBIN,TOTAL 0.6 MG/DL (0.1-1.0)
[2021-10-01 07:38] LABS: CREATININE SERUM 0.85 MG/DL (0.60-1.30)
[2021-10-01 08:00] VITALS: BP 97/53
[2021-10-01] MEDS: buPROPion SR 150 MG (WELLBUTRIN SR) TAB PO SCH (08:04)
[2021-10-01] MEDS: LACTOBACILLUS ACIDOPHILUS (PROBIOTIC) CAPSULE PO SCH ×3 (08:04→18:17)
[2021-10-01] MEDS: SPIRONOLACTONE 25 MG (ALDACTONE) TAB PO SCH (08:05)
[2021-10-01] MEDS: ASPIRIN E.C. 81 MG (ECOTRIN) TAB PO SCH (08:05)
[2021-10-01] MEDS: FLUTICASONE NASAL SPRAY (FLONASE) 16 GM BTL NS SCH (08:05)
[2021-10-01] MEDS: CLOPIDOGREL 75 MG (PLAVIX) TABLET PO SCH (08:05)
[2021-10-01] MEDS: MONTELUKAST 10 MG (SINGULAIR) TAB PO SCH (08:05)
[2021-10-01] MEDS: KCL 20 MEQ TAB (K-DUR) PO SCH ×2 (08:05→18:17)
--- NOTE | 2021-10-01 09:50 | Physical Therapy Daily Note ---
PT Daily Note-Current Subjective Patient in WC pre tx, agrees to PT, voices no complaints of pain. Appearance Patient in in room post tx. with nurse call, phone, tray Mental Status Patient Orientation: Person, Place, Situation Transfers SCALE: Activities may be completed with or without assistive devices. 9-Nqlgxgbcok-ppfovbh completes the activity by him/herself with no assistance f rom a helper. 5-Set-up or Clean-up Assistance-helper sets up or cleans up; patient completes activity. [place] assists only prior to or following the activity. 4-Supervision or Touching Assistance-helper provides verbal cues and/or touching/steadying and/or contact guard assistance as patient completes activity. Assistance may be provided throughout the activity or intermittently. 3-Partial/Moderate Assistance-helper does LESS THAN HALF the effort. [place] lifts, holds or supports trunk or limbs, but provides less than half the effort. 2-Substantial/Maximal Assistance-helper does MORE THAN HALF the effort. [place] lifts or holds trunk or limbs and provides more than half the effort. 9-Dgbtfouhe-ilyvyn does ALL the effort. Patient does none of the effort to complete the activity. Or, the assistance of 2 or more helpers is required for the patient to complete the activity. If activity was not attempted, code reason: 7-Patient Refused. 9-Not Applicable-not attempted and the patient did not perform the activity before the current illness, exacerbation or injury. 10-Not Attempted due to Environmental Limitations-(lack of equipment, weather restraints, etc.). 88-Not Attempted due to Medical Conditions or Safety Concerns. Roll Left & Right (QC): 6 Sit to Lying (QC): 6 Lying to Sitting/Side of Bed(Q: 6 Sit to Stand (QC): 4 Chair/Xrf-lu-Jtrrq Xfer(QC): 4 Toilet Transfer (QC): 4 Car Transfer (QC): 4 Patient performs rolling and supine <-> sit with independence, sit <-> stand and transfers with SBA, car transfer SBA. Patient has some difficulty with car transfer but can do it without assist but needs occasional cues for positioning, she has some difficulty with sit to supine also but can go it without assist or cues. Weight Bearing Non Weight Bearing Full Weight Bearing Gait Training Distance: 15' Walk 10 feet (QC): 4 Walk 50 ft with 2 Turns(QC): 88 Walk 150 ft (QC): 88 Walking 10ft/uneven surface-QC: 88 Gait Persons Needed: 1 Gait Assistive Device: FWW Patient can ambulate 15' with a rolling walker with SBA, she cannot ambulate over an uneven surface because she has poor foot clearance and uncoordinated hops Wheelchair Training Does the Pt Use a Wheelchair?: Yes Wheel 50 ft with 2 turns (QC): 6 Wheel 150 ft (QC): 6 Type of Wheelchair: Manual Patient can propel a manual WC 150' with independence, she does propel very slow Stair Training 1 Step (curb) (QC): 88 4 Steps (QC): 88 12 Steps (QC): 88 Balance Picking up an Object (QC): 4 (SBA using a box hinge and lock attacher) Treatments bed mobility and transfers, ambulation, WC mobility Assessment Current Status: Poor Progress slow progress overall, needs somebody with her for transfers and ambulation PT Short Term Goals Short Term Goals Time Frame: Sep 25, 2021 Roll Left & Right: 3 (Fer) Sit to lyin (Fer) Lying to sitting on side of be: 3 ([place]) Sit to stand: 3 (Fer) Chair/plr-gl-dafze transfer: 3 (modA) Walk 10 feet: 3 (Fer) PT Hall Director Goals Care Home Goals PT Hall Director Goals Time Frame: Oct 09, 2021 Roll Left & Right (QC): 4 Sit to Lying (QC): 4 Lying-Sitting on Side/Bed(QC): 4 Sit to Stand (QC): 4 Chair/Pld-cg-Bypfy Xfer(QC): 3 Toilet Transfer (QC): 3 Car Transfer (QC): 3 Does the Patient Walk: Yes Walk 10 feet (QC): 3 Walk 50ft with 2 Turns (QC): 3 Walk 150 ft (QC): 88 Walking 10ft on Uneven Surface: 3 1 Step (curb) (QC): 3 4 Steps (QC): 88 12 Steps (QC): 88 Picking up an Object (QC): 3 Wheel 50 feet with 2 turns (QC: 4 Wheel 150 feet: 4 PT Plan Problem List Problem List: Activity Tolerance, Functional Strength, Safety, Balance, Gait, Transfer, Bed Mobility, ROM Treatment/Plan Treatment Plan: Continue Plan of Care Treatment Plan: Bed Mobility, Education, Functional Activity Nik, Functional Strength, Group Therapy, Gait, Safety, Therapeutic Exercise, Transfers Treatment Duration: Oct 09, 2021 Frequency: At least 5 of 7 days/Wk (IRF) Estimated Hrs Per Day: 1.5 hours per day Patient and/or Family Agrees t: Yes Safety Risks/Education Patient Education: Gait Training, Transfer Techniques, Reviewed Precautions, Correct Positioning, W/C Management, Safety Issues Teaching Recipient: Patient Teaching Methods: Demonstration, Discussion Response to Teaching: Reinforcement Needed Time/GCodes Time In: 929 Time Out: 944 Total Billed Treatment Time: 15 Total Billed Treatment 1 visit FA 15' FRANKY HOFF PT Oct 01, 2021 09:50
--- NOTE | 2021-10-01 09:59 | Physical Therapy Daily Note ---
PT Daily Note-Current Subjective Pt sitting in recliner in room upon arrival. Pt agrees to PT. Pain Location: No Pain Reported Mental Status Patient Orientation: Person, Place, Situation Attachments: Oxygen (2L) Transfers SCALE: Activities may be completed with or without assistive devices. 6-Vzmvrgsbna-yvhsiaq completes the activity by him/herself with no assistance from a helper. 5-Set-up or Clean-up Assistance-helper sets up or cleans up; patient completes activity. [place] assists only prior to or following the activity. 4-Supervision or Touching Assistance-helper provides verbal cues and/or touching/steadying and/or contact guard assistance as patient completes activity. Assistance may be provided throughout the activity or intermittently. 3-Partial/Moderate Assistance-helper does LESS THAN HALF the effort. [place] lifts, holds or supports trunk or limbs, but provides less than half the effort. 2-Substantial/Maximal Assistance-helper does MORE THAN HALF the effort. [place] lifts or holds trunk or limbs and provides more than half the effort. 0-Wbhecvgdr-gewkgo does ALL the effort. Patient does none of the effort to complete the activity. Or, the assistance of 2 or more helpers is required for the patient to complete the activity. If activity was not attempted, code reason: 7-Patient Refused. 9-Not Applicable-not attempted and the patient did not perform the activity before the current illness, exacerbation or injury. 10-Not Attempted due to Environmental Limitations-(lack of equipment, weather restraints, etc.). 88-Not Attempted due to Medical Conditions or Safety Concerns. Sit to Stand (QC): 5 Toilet Transfer (QC): 5 Weight Bearing Non Weight Bearing Full Weight Bearing Gait Training Does the Patient Walk?: Yes Distance: 30' x3 Walk 10 feet (QC): 4 Gait Persons Needed: 1 Gait Assistive Device: FWW Wheelchair Training Does the Pt Use a Wheelchair?: Yes Wheel 50 ft with 2 turns (QC): 4 Wheel 150 ft (QC): 4 Type of Wheelchair: Manual Occasional assist with veering to R side. Treatments TF to standing amb. to BR. Pt is able to complete pericare. Pt sits in WC to rest then propels WCH in hallway. Pt takes RB before amb. in Therapy Gym. RB after each amb. Pt propels WCH in hallway and back to room. TF back to recliner to rest with all needs met, call light in hand. Assessment Current Status: Good Progress Pt fatigues easily, needing RB to recover. VC for veering slightly to R side while propelling WCH and walking. PT Short Term Goals Short Term Goals Time Frame: Sep 25, 2021 Roll Left & Right: 3 (Fer) Sit to lyin (Fer) Lying to sitting on side of be: 3 ([place]) Sit to stand: 3 (Fer) Chair/auk-va-kqpek transfer: 3 (modA) Walk 10 feet: 3 (Fer) PT Chcf Goals Chcf Goals PT Petal Shaper Hand Goals Time Frame: Oct 09, 2021 Roll Left & Right (QC): 4 Sit to Lying (QC): 4 Lying-Sitting on Side/Bed(QC): 4 Sit to Stand (QC): 4 Chair/Att-hi-Bcpso Xfer(QC): 3 Toilet Transfer (QC): 3 Car Transfer (QC): 3 Does the Patient Walk: Yes Walk 10 feet (QC): 3 Walk 50ft with 2 Turns (QC): 3 Walk 150 ft (QC): 88 Walking 10ft on Uneven Surface: 3 1 Step (curb) (QC): 3 4 Steps (QC): 88 12 Steps (QC): 88 Picking up an Object (QC): 3 Wheel 50 feet with 2 turns (QC: 4 Wheel 150 feet: 4 PT Plan Problem List Problem List: Activity Tolerance, Gait Treatment/Plan Treatment Plan: Continue Plan of Care Treatment Plan: Bed Mobility, Education, Functional Activity Nik, Functional Strength, Group Therapy, Gait, Safety, Therapeutic Exercise, Transfers Treatment Duration: Oct 09, 2021 Frequency: At least 5 of 7 days/Wk (IRF) Estimated Hrs Per Day: 1.5 hours per day Patient and/or Family Agrees t: Yes Safety Risks/Education Patient Education: Gait Training, Correct Positioning, W/C Management, Safety I ssues Teaching Recipient: Patient Teaching Methods: Discussion Response to Teaching: Verbalize Understanding Time/GCodes Time In: 800 Time Out: 900 Total Billed Treatment Time: 60 Total Billed Treatment 1, FA (15m), WCH (20m) & GT x2 (25m) ROBBIN SALAZAR NURSE EMERGENCY ROOM Oct 01, 2021 09:59
--- NOTE | 2021-10-01 12:21 | Speech Therapy Daily Note ---
Speech Daily Progress Note Subjective Date Seen by Provider: Oct 01, 2021 Time Seen by Provider: 10:00 The patient as seated upright in her recliner upon entrance by the clinician into the patient's room. The patient greeted the clinician and was agreeable to participation in the cognitive linguistic and dysphagia treatment session. Objective - Orientation: The patient was independently oriented to self, location, month, day of week, date, and year. - Functional Memory: The patient was able to recall the events of the day, as well as, safe swallowing strategies, independently. - Oral Motor Exercises: The patient demonstrated oral motor exercises with high accuracy and direct clinician modeling. The patient completed ten repetitions of each exercise. Assessment Assessment Current Status: Good Progress Treatment Plan Continue Plan of Care Speech Short Term Goals Short Term Goals Short Term Goals 1. The patient and staff will demonstrate safe swallowing practices and strategies with 90% accuracy. 2. The patient will demonstrate and recall intelligibility strategies with 90% accuracy with mild clinician cueing. Speech Jail Goals [employer] Route Mail Driver Goals 1. The patient will tolerate the least restricted diet without s/s of suspected aspiration with 90% accuracy. 2. The patient will demonstrate increased cognitive linguistic skills for safe return to the least restrictive environment. Speech-Plan Treatment Plan Speech Therapy Treatment Plan: Continue Plan of Care Treatment Duration: Oct 09, 2021 Frequency: 3 times per week (Three to five times per week.) Estimated Hrs Per Day: .5 hour per day Rehab Potential: Fair Safety Risks/Education Teaching Recipient: Patient Teaching Methods: Discussion Response to Teaching: Reinforcement Needed Education Topics Provided: Safe Swallowing Strategies, Plan of Care Time Speech Therapy Time In: 10:00 Speech Therapy Time Out: 10:30 Total Billed Time: 30 Billed Treatment Time 1DEB DYST No LOY, ELIZABETH ST Oct 01, 2021 12:21
--- NOTE | 2021-10-01 13:05 | Occupational Ther Daily Note ---
OT Current Status-Daily Note Subjective Pt alert, sitting in recliner. Pt c/o fatigue. Pt agrees to therapy. Mental Status/Objective Patient Orientation: Person, Place, Time, Situation ADL-Treatment Pt agrees to shower. Independent with oral care. Supervision hike pants during toileting, independent with hygiene while sitting on toilet. Pt ambulated into shower with CGA using FWW. CGA to transfer into shower. Set up to complete shower while sitting on shower bench using grabbars and HH shower, standing stabilizing self with grabbars to cleanse buttocks(verbal cues to sit when finished for safety). After set up, pt able to complete upper body dressing and footwear. Pt threads clothing over feet then SBA while stabilizing with FWW to hike pants over hips. Pt utilized sock aide to don compression stockings, with min A. After therapy, pt sitting in recliner with call light/phone in reach. All needs met in room. Therapy Code Descriptions/Definitions Functional [place] Measure: 0=Not Assessed/NA 4=Minimal Assistance 1=Total Assistance 5=Supervision or Setup 2=Maximal Assistance 6=Modified [place] 3=Moderate Assistance 7=Complete IndependenceSCALE: Activities may be completed with or without assistive devices. 0-Anmdiqqgib-srlmtey completes the activity by him/herself with no assistance from a helper. 5-Set-up or Clean-up Assistance-helper sets up or cleans up; patient completes activity. [place] assists only prior to or following the activity. 4-Supervision or Touching Assistance-helper provides verbal cues and/or touching/steadying and/or contact guard assistance as patient completes activity. Assistance may be provided throughout the activity or intermittently. 3-Partial/Moderate Assistance-helper does LESS THAN HALF the effort. [place] lifts, holds or supports trunk or limbs, but provides less than half the effort. 2-Substantial/Maximal Assistance-helper does MORE THAN HALF the effort. [place] lifts or holds trunk or limbs and provides more than half the effort. 8-Mxspgcccb-ophsyz does ALL the effort. Patient does none of the effort to complete the activity. Or, the assistance of 2 or more helpers is required for the patient to complete the activity. If activity was not attempted, code reason: 7-Patient Refused. 9-Not Applicable-not attempted and the patient did not perform the activity before the current illness, exacerbation or injury. 10-Not Attempted due to Environmental Limitations-(lack of equipment, weather restraints, etc.). 88-Not Attempted due to Medical Conditions or Safety Concerns. Oral Hygiene (QC): 6 Shower/Bathe Self (QC): 4 Upper Body Dressing (QC): 5 Lower Body Dressing (QC): 4 On/Off Footwear: 3 Toileting Hygiene (QC): 4 Toilet Transfer (QC): 4 OT Short Term Goals Short Term Goals Time Frame: Sep 28, 2021 Eatin Oral hygiene: 4 Toileting hygiene: 2 Shower/bathe self: 2 Upper body dressin Lower body dressin Putting on/taking off footwear: 2 OT [employer] Principal Goals [employer] Goals Time Frame: Oct 16, 2021 Eating (QC): 5 Oral Hygiene (QC): 5 Toileting Hygiene (QC): 3 (min) Shower/Bathe Self (QC): 3 (min) Upper Body Dressing (QC): 4 Lower Body Dressing (QC): 3 (min) On/Off Footwear (QC): 3 (min) 1=Demonstrate adherence to instructed precautions during ADL tasks. 2=Patient will verbalize/demonstrate understanding of assistive devices/modific ations for ADL. 3=Patient will improve strength/tolerance for activity to enable patient to perform ADL's. OT Education/Plan Problem List/Assessment Assessment: Decreased Activ Tolerance, Impaired Self-Care Skills Discharge Recommendations Plan/Recommendations: Continue POC Treatment Plan/Plan of Care Patient would benefit from OT for education, treatment and training to promote independence in ADL's, mobility, safety and/or upper extremity function for ADL's. Plan of Care: ADL Retraining, Functional Mobility, Group Exercise/Act as Ind, UE Funct Exercise/Act, UE Neuromus Re-Ed/Coord, W/C Management Training Treatment Duration: Oct 16, 2021 Frequency: At least 5 of 7 days/Wk (IRF) Estimated Hrs Per Day: 1.5 hours per day Rehab Potential: Fair Time/GCodes Start Time: 10:45 Stop Time: 12:00 Total Time Billed (hr/min): 75 Billed Treatment Time 1 visit-ADL 5 (75 min) JUSTIN ROGERS Oct 01, 2021 13:05
--- NOTE | 2021-10-01 15:11 | Physical Therapy Daily Note ---
PT Daily Note-Current Subjective Pt sitting in recliner upon arrival. Pt agrees to PT. Pain Location: No Pain Reported Mental Status Patient Orientation: Person, Place Attachments: Oxygen (2L during tx, O2 monitored at rest to determine if pt can be weaned off) Transfers SCALE: Activities may be completed with or without assistive devices. 0-Zqsvcvzfyg-njqjpxj completes the activity by him/herself with no assistance from a helper. 5-Set-up or Clean-up Assistance-helper sets up or cleans up; patient completes activity. [place] assists only prior to or following the activity. 4-Supervision or Touching Assistance-helper provides verbal cues and/or touching/steadying and/or contact guard assistance as patient completes activity. Assistance may be provided throughout the activity or intermittently. 3-Partial/Moderate Assistance-helper does LESS THAN HALF the effort. [place] lifts, holds or supports trunk or limbs, but provides less than half the effort. 2-Substantial/Maximal Assistance-helper does MORE THAN HALF the effort. [place] lifts or holds trunk or limbs and provides more than half the effort. 7-Vwbryvprw-tupknc does ALL the effort. Patient does none of the effort to complete the activity. Or, the assistance of 2 or more helpers is required for the patient to complete the activity. If activity was not attempted, code reason: 7-Patient Refused. 9-Not Applicable-not attempted and the patient did not perform the activity before the current illness, exacerbation or injury. 10-Not Attempted due to Environmental Limitations-(lack of equipment, weather restraints, etc.). 88-Not Attempted due to Medical Conditions or Safety Concerns. Sit to Stand (QC): 4 Weight Bearing Non Weight Bearing Full Weight Bearing Gait Training Does the Patient Walk?: Yes Distance: 75' Walk 10 feet (QC): 4 Gait Persons Needed: 1 Gait Assistive Device: FWW Wheelchair Training Does the Pt Use a Wheelchair?: Yes Wheel 50 ft with 2 turns (QC): 4 Wheel 150 ft (QC): 4 Type of Wheelchair: Manual Treatments TF to standing, amb. in hallway then rest in [facility]. Pt propels WCH in hallway and returns to room. TF to recliner to rest, all needs met, call light in hand. Assessment Current Status: Good Progress Pt is weaning down on O2, only using during Supine or exertion activities. Pt demonstrates R side weakness, seen w/WCH mobility and amb. PT Short Term Goals Short Term Goals Time Frame: Sep 25, 2021 Roll Left & Right: 3 (Fer) Sit to lyin (Fer) Lying to sitting on side of be: 3 ([place]) Sit to stand: 3 (Fer) Chair/ojn-ov-gyxjb transfer: 3 (modA) Walk 10 feet: 3 (Fer) PT Automotive Worker Foreman Goals Retirement Goals PT Automotive Worker Foreman Goals Time Frame: Oct 09, 2021 Roll Left & Right (QC): 4 Sit to Lying (QC): 4 Lying-Sitting on Side/Bed(QC): 4 Sit to Stand (QC): 4 Chair/Xdn-fp-Gkjwq Xfer(QC): 3 Toilet Transfer (QC): 3 Car Transfer (QC): 3 Does the Patient Walk: Yes Walk 10 feet (QC): 3 Walk 50ft with 2 Turns (QC): 3 Walk 150 ft (QC): 88 Walking 10ft on Uneven Surface: 3 1 Step (curb) (QC): 3 4 Steps (QC): 88 12 Steps (QC): 88 Picking up an Object (QC): 3 Wheel 50 feet with 2 turns (QC: 4 Wheel 150 feet: 4 PT Plan Problem List Problem List: Activity Tolerance, Gait Treatment/Plan Treatment Plan: Continue Plan of Care Treatment Plan: Bed Mobility, Education, Functional Activity Nik, Functional Strength, Group Therapy, Gait, Safety, Therapeutic Exercise, Transfers Treatment Duration: Oct 09, 2021 Frequency: At least 5 of 7 days/Wk (IRF) Estimated Hrs Per Day: 1.5 hours per day Patient and/or Family Agrees t: Yes Safety Risks/Education Patient Education: Gait Training, Transfer Techniques, Correct Positioning, W/C Management Teaching Recipient: Patient Teaching Methods: Discussion Response to Teaching: Verbalize Understanding Time/GCodes Time In: 1425 Time Out: 1455 Total Billed Treatment Time: 30 Total Billed Treatment 1, (15m) & [facility] (15m) ROBBIN SALAZAR AIRCRAFT DISPATCHER Oct 01, 2021 15:11
[2021-10-01 20:00] VITALS: BP 109/65
--- NOTE | 2021-10-02 06:45 | PM&R Progress Note ---
Subjective HPI/CC On Admission Date Seen by Provider: Oct 02, 2021 Time Seen by Provider: 09:00 Subjective/Events-last exam 10/02/2021: Pt is doing very well today No dysphasia Cognition improved Overall navigating very well 10/01/2021: Pt is dramatically improved Speech therapy is very pleased with her progress without any dysphasia Checked meds and labs 09/30/2021: Patient doing very well No pain is reported No falls No dysphagia 09/29/2021: Patient doing well No concerns Transferring well Eating very slowly and doing well without aspiration Lungs remain clear 09/28/2021: Patient much improved No more dysphagia but she does eat a modified diet and she eats slowly No pain is reported Lungs are clear Completed prednisone 09/27/2021: Patient doing well Able to walk more with assistance Right-sided weakness is much improved Able to eat and drink 09/26/2021: Pt is doing dramatically better Walking a little bit with assistance now Right sided weakness is improved Able to feed herself with the right hand 09/25/2021: Pt is doing well Down to one person assist No pain is reported No falls Checked meds and labs Lungs are now clear today 09/24/2021: Pt is doing a lot better Transferring better Overall feels like she is improving Lungs are less wheezy Changed her off IV steroids and on Prednisone 09/23/2021: Patient doing well Wheezing still present IV steroids will be changed tomorrow Check meds and labs No falls 09/22/2021: Patient doing well Wheezes only subtle at the end expiratory phase Feels like she is breathing better No falls No pain Regaining function pretty well 09/21/2021: This is a combined late entry note mistakenly missed creating note from 09/20/2021 so this will include 09/20 and 09/21 Patient was seen on 09/20/2021 and noted wheezing so initiated Solu-Medrol and nebulizer treatments Pt is doing a lot better Small amount of steroids given IV, has really cleared her lungs up Maintain on oxygen of 3L Checked meds and labs Feels like she is progressing 09/19/2021: Pt is doing pretty well Having a lot of loose stools so we will hold laxatives Transferring fair Echocardiogram from [facility] in chart for Dr. 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 Dysphasia tolerating the mechanical soft and nectar thick liquids Review of Systems General: Fatigue, Malaise HEENT: Dysphasia Neurological: Weakness, Incoordination Objective Exam Vital Signs Vital Signs Date Time Temp Pulse Resp B/P (MAP) Pulse Ox O2 Delivery O2 Flow Rate FiO2 10/02/21 21:15 94 Nasal Cannula 2.00 10/02/21 19:27 37.2 94 20 106/69 (81) 09/27/21 02:21 28 Capillary Refill : General Appearance: No Apparent Distress, WD/WN, Anxious, Chronically ill HEENT: PERRL/EOMI, Normal ENT Inspection, Pharynx Normal Neck: Full Range of Motion, Normal Inspection, Non Tender, Supple, Carotid Bruit Respiratory: Chest Non Tender, Lungs Clear, Normal Breath Sounds, No Accessory Muscle Use, No Respiratory Distress, Accessory Muscle Use Cardiovascular: Regular Rate, Rhythm, No Edema, No Gallop, No JVD, No Murmur, Normal Peripheral Pulses Gastrointestinal: Normal Bowel Sounds, No Organomegaly, No Pulsatile Mass, Non Tender, Soft Back: Normal Inspection, No CVA Tenderness, No Vertebral Tenderness Extremity: Normal Capillary Refill, Normal Inspection, Normal Range of Motion, Non Tender, No Calf Tenderness, No Pedal Edema Neurologic/Psychiatric: Alert, Oriented x3, Normal Mood/Affect, glue machine operator II-XII Norm as Tested, Abnormal Gait, Facial Droop (Right-sided), Motor Weakness (Right- sided) Skin: Normal Color, Warm/Dry Lymphatic: No Adenopathy Results/Procedures Lab Patient resulted labs reviewed. FIM Transfers Therapy Code Descriptions/Definitions Functional [place] Measure: 0=Not Assessed/NA 4=Minimal Assistance 1=Total Assistance 5=Supervision or Setup 2=Maximal Assistance 6=Modified [place] 3=Moderate Assistance 7=Complete IndependenceSCALE: Activities may be completed with or without assistive devices. 6-Iyhnxrbpjh-iqltmht completes the activity by him/herself with no assistance from a helper. 5-Set-up or Clean-up Assistance-helper sets up or cleans up; patient completes activity. [place] assists only prior to or following the activity. 4-Supervision or Touching Assistance-helper provides verbal cues and/or touching/steadying and/or contact guard assistance as patient completes activity. Assistance may be provided throughout the activity or intermittently. 3-Partial/Moderate Assistance-helper does LESS THAN HALF the effort. [place] lifts, holds or supports trunk or limbs, but provides less than half the effort. 2-Substantial/Maximal Assistance-helper does MORE THAN HALF the effort. [place] lifts or holds trunk or limbs and provides more than half the effort. 0-Ieadvyqhj-rdtwtc does ALL the effort. Patient does none of the effort to c omplete the activity. Or, the assistance of 2 or more helpers is required for the patient to complete the activity. If activity was not attempted, code reason: 7-Patient Refused. 9-Not Applicable-not attempted and the patient did not perform the activity before the current illness, exacerbation or injury. 10-Not Attempted due to Environmental Limitations-(lack of equipment, weather restraints, etc.). 88-Not Attempted due to Medical Conditions or Safety Concerns. Roll Left to Right (QC): 6 Sit to Lying (QC): 6 Sit to Stand (QC): 4 Chair/Zbz-ux-Qijxz Xfer(QC): 4 Car Transfer (QC): 4 Gait Training Does the Patient Walk?: Yes Distance: 75' Walk 10 feet (QC): 4 Walk 50 ft with 2 Turns(QC): 88 Walk 150 ft (QC): 88 Walking 10ft/uneven surface-QC: 88 Gait Persons Needed: 1 Gait Assistive Device: FWW Wheelchair Training Does the Pt Use a Wheelchair?: Yes Distance: 120'x2 Wheel 50 ft with 2 turns (QC): 4 Wheel 150 ft (QC): 4 Type of Wheelchair: Manual Stair Training 1 Step (curb) (QC): 88 4 Steps (QC): 88 12 Steps (QC): 88 Balance Picking up an Object (QC): 4 (SBA using a beach attendant) ADL-Treatment Eating (QC): 6 Oral Hygiene (QC): 6 Shower/Bathe Self (QC): 4 Upper Body Dressing (QC): 5 Lower Body Dressing (QC): 4 On/Off Footwear (QC): 3 Toileting Hygiene (QC): 4 Toilet Transfer (QC): 4 Assessment/Plan Assessment and Plan Assess & Plan/Chief Complaint Assessment: CVA Right-sided facial droop Right-sided weakness Acute exacerbation of COPD placed on IV steroids on 09/20/2021 now completed treatment 09/28/2021 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 Peripheral vascular disease Obesity BMI 29 Plan: Inpatient rehab protocol Cardiology consult Nebulizers Oxygen supplementation 09/19/2021: Oxygen supplementation Nebulizers Supportive care 09/20/2021, 09/21/2021: Place patient on IV steroids 40 mg IV every 12 hours Patient much improved Continue breathing treatments 09/22/2021: Continue IV steroids Monitor closely 09/23/2021: Supportive care 09/24/2021: Improved lungs Continue therapy 09/25/2021: Wean off prednisone Supportive care 09/26/2021: Wean down off prednisone Dramatic improvement now walking with assistance 09/27/2021: Wean down steroids Continue breathing treatments 09/28/2021: Discontinue steroids 09/29/2021: Discontinue steroids yesterday Monitor closely 09/30/2021: Monitor for dysphagia 10/01/2021: Supportive care 10/02/2021: Supportive care (1) Chronic systolic heart failure Status: Chronic Assessment & Plan: She may have some slight component of chronic heart failure with reduced ejection fraction contributing to her shortness of breath. She is on losartan I added spironolactone. I do not think she is a good candidate for beta-jcarlos due to her severe obstructive airways disease with ongoing wheezing. She would like to follow-up with someone in [place] since this is closer to her home. I asked her to check with friends and family to see if they have any recommendations for a specific risk assessment analyst. (2) Cardiomyopathy Assessment & Plan: She had an echocardiogram at an outside hospital that showed mild to moderate left ventricular systolic dysfunction with an ejection fraction of 40-45%. Exact etiology unclear and I do not know if this is a new finding in this patient. She was placed on losartan at the outside facility. As above, I added spironolactone. Her ejection fraction is above the cutoff for recommending a prophylactic defibrillator. She will need to have her guideline directed medical therapy maximized following discharge. (3) Primary hypertension Assessment & Plan: Her blood pressure improved since adding spironolactone. If her blood pressure remains elevated, then I would maximize her losartan as opposed to adding other agents. (4) Mixed hyperlipidemia Assessment & Plan: Continue statin medication. (5) Elevated brain natriuretic peptide (BNP) level Assessment & Plan: Her BNP level wasmildly elevated. Her echocardiogram from the outside facility showed mild-moderate left ventricular systolic dysfunction with an estimated ejection fraction of 40-45% with no significant valvular disease. Her pulmonary artery pressure was 30-35 mmHg. This echo was performed on 09/16. However, her chest x-ray from our hospital does not show any significant pulmonary edema. We will proceed as above. (6) Chronic obstructive pulmonary disease Assessment & Plan: I suspect this is the primary cause of her chronic dyspnea. FLORES LUGO DO Oct 02, 2021 06:45
[2021-10-02 07:35] VITALS: BP 110/54
[2021-10-02] MEDS: RT-ALBUTEROL SULF 2.5 MG/3 ML PRE-MIX VIAL INH SCH ×2 (07:45→21:15)
[2021-10-02] MEDS: UMECLIDINIUM BROMIDE (INCRUSE ELLIPTA) 7'S IH SCH (07:45)
[2021-10-02] MEDS: RT--FLUTICASONE/SALMETEROL 232-14 (AIRDUO RespiCLICK) IH SCH ×2 (07:45→21:15)
--- NOTE | 2021-10-02 07:54 | Occupational Ther Daily Note ---
OT Current Status-Daily Note Subjective Pt alert, sitting in recliner. Pt agrees to therapy. No c/o pain. Mental Status/Objective Patient Orientation: Person, Place, Time, Situation ADL-Treatment Pt independent with eating. Discussed home environment with pt. Bathroom has narrow doorway, FWW will be how pt will be able to access bathroom. Walk-in shower, has tub seat to sit on, towel bar is what is used for grabbars. Pt demonstrates using grabbars for stabilization only not as full wt support. Pt states that does the cooking at home. Educated pt on having sitting areas throughout home so when pt is tired and needs a place to sit while ambulating from point A to point B she will be able to sit quickly. Therapy Code Descriptions/Definitions Functional [place] Measure: 0=Not Assessed/NA 4=Minimal Assistance 1=Total Assistance 5=Supervision or Setup 2=Maximal Assistance 6=Modified [place] 3=Moderate Assistance 7=Complete IndependenceSCALE: Activities may be completed with or without assistive devices. 7-Ixusterffm-gqpiklu completes the activity by him/herself with no assistance from a helper. 5-Set-up or Clean-up Assistance-helper sets up or cleans up; patient completes activity. [place] assists only prior to or following the activity. 4-Supervision or Touching Assistance-helper provides verbal cues and/or touching/steadying and/or contact guard assistance as patient completes activity. Assistance may be provided throughout the activity or intermittently. 3-Partial/Moderate Assistance-helper does LESS THAN HALF the effort. [place] lifts, holds or supports trunk or limbs, but provides less than half the effort. 2-Substantial/Maximal Assistance-helper does MORE THAN HALF the effort. [place] lifts or holds trunk or limbs and provides more than half the effort. 4-Kqjcnchzp-uaqcev does ALL the effort. Patient does none of the effort to complete the activity. Or, the assistance of 2 or more helpers is required for the patient to complete the activity. If activity was not attempted, code reason: 7-Patient Refused. 9-Not Applicable-not attempted and the patient did not perform the activity before the current illness, exacerbation or injury. 10-Not Attempted due to Environmental Limitations-(lack of equipment, weather restraints, etc.). 88-Not Attempted due to Medical Conditions or Safety Concerns. Eating (QC): 6 Other Treatment Pt is demonstrating increase strength and AROM of R UE. Pt able to complete shldr elev/dep, scapular pro/ret, elbow flex/ext, forearm sup/pron, horizontal shlr abd/add 1 set 10 reps with recovery breaks due to increased fatigue. After session, pt sitting in recliner with call light/phone in reach. All needs met in room. OT Short Term Goals Short Term Goals Time Frame: Sep 28, 2021 Eatin Oral hygiene: 4 Toileting hygiene: 2 Shower/bathe self: 2 Upper body dressin Lower body dressin Putting on/taking off footwear: 2 OT Work And Family Life Consultant Goals Work And Family Life Consultant Goals Time Frame: Oct 16, 2021 Eating (QC): 5 Oral Hygiene (QC): 5 Toileting Hygiene (QC): 3 (min) Shower/Bathe Self (QC): 3 (min) Upper Body Dressing (QC): 4 Lower Body Dressing (QC): 3 (min) On/Off Footwear (QC): 3 (min) 1=Demonstrate adherence to instructed precautions during ADL tasks. 2=Patient will verbalize/demonstrate understanding of assistive devices/modifica tions for ADL. 3=Patient will improve strength/tolerance for activity to enable patient to perform ADL's. OT Education/Plan Problem List/Assessment Assessment: Decreased Activ Tolerance, Decreased UE Strength, Impaired Self- Care Skills Discharge Recommendations Plan/Recommendations: Continue POC Treatment Plan/Plan of Care Patient would benefit from OT for education, treatment and training to promote independence in ADL's, mobility, safety and/or upper extremity function for ADL's. Plan of Care: ADL Retraining, Functional Mobility, Group Exercise/Act as Ind, UE Funct Exercise/Act, UE Neuromus Re-Ed/Coord, W/C Management Training Treatment Duration: Oct 16, 2021 Frequency: At least 5 of 7 days/Wk (IRF) Estimated Hrs Per Day: 1.5 hours per day Rehab Potential: Fair Time/GCodes Start Time: 07:00 Stop Time: 08:00 Total Time Billed (hr/min): 60 Billed Treatment Time 1 visit-ADL 4 (60 min) JUSTIN ROGERS Oct 02, 2021 07:54
[2021-10-02] MEDS: buPROPion SR 150 MG (WELLBUTRIN SR) TAB PO SCH (08:07)
[2021-10-02] MEDS: FERROUS SULF 325 MG (IRON) TAB PO SCH ×2 (08:07→20:05)
[2021-10-02] MEDS: LORATADINE (CLARITIN) 10 MG TAB PO SCH ×2 (08:07→20:05)
[2021-10-02] MEDS: MONTELUKAST 10 MG (SINGULAIR) TAB PO SCH (08:07)
[2021-10-02] MEDS: KCL 20 MEQ TAB (K-DUR) PO SCH ×2 (08:07→17:44)
[2021-10-02] MEDS: ASPIRIN E.C. 81 MG (ECOTRIN) TAB PO SCH (08:07)
[2021-10-02] MEDS: SPIRONOLACTONE 25 MG (ALDACTONE) TAB PO SCH (08:07)
[2021-10-02] MEDS: LACTOBACILLUS ACIDOPHILUS (PROBIOTIC) CAPSULE PO SCH ×3 (08:07→17:44)
[2021-10-02] MEDS: CLOPIDOGREL 75 MG (PLAVIX) TABLET PO SCH (08:07)
[2021-10-02] MEDS: SENNA W/DOCUSATE (SENOKOT S) TABLET PO SCH ×2 (08:07→20:19)
[2021-10-02] MEDS: DOCUSATE SODIUM 100 MG (COLACE) CAP PO SCH ×2 (08:09→20:18)
[2021-10-02] MEDS: FLUTICASONE NASAL SPRAY (FLONASE) 16 GM BTL NS SCH (08:13)
[2021-10-02] MEDS: polyethylene glycoL POWDER 17 GM (MIRALAX) PACK PO SCH ×2 (08:22→20:18)
--- NOTE | 2021-10-02 10:38 | Physical Therapy Daily Note ---
PT Daily Note-Current Subjective Pt sitting in recliner upon arrival. Pt agrees to PT. Pt is resting in room w/o O2 at this time and O2 is 94%. Pain Location: No Pain Reported Mental Status Patient Orientation: Person, Place, Situation Attachments: Oxygen Transfers SCALE: Activities may be completed with or without assistive devices. 2-Yxaoifhwov-imgsfed completes the activity by him/herself with no assistance from a helper. 5-Set-up or Clean-up Assistance-helper sets up or cleans up; patient completes activity. [place] assists only prior to or following the activity. 4-Supervision or Touching Assistance-helper provides verbal cues and/or touching/steadying and/or contact guard assistance as patient completes activity. Assistance may be provided throughout the activity or intermittently. 3-Partial/Moderate Assistance-helper does LESS THAN HALF the effort. [place] lifts, holds or supports trunk or limbs, but provides less than half the effort. 2-Substantial/Maximal Assistance-helper does MORE THAN HALF the effort. [place] lifts or holds trunk or limbs and provides more than half the effort. 4-Oluhnhmbt-wfxrwr does ALL the effort. Patient does none of the effort to complete the activity. Or, the assistance of 2 or more helpers is required for the patient to complete the activity. If activity was not attempted, code reason: 7-Patient Refused. 9-Not Applicable-not attempted and the patient did not perform the activity before the current illness, exacerbation or injury. 10-Not Attempted due to Environmental Limitations-(lack of equipment, weather restraints, etc.). 88-Not Attempted due to Medical Conditions or Safety Concerns. Sit to Stand (QC): 5 Weight Bearing Non Weight Bearing Full Weight Bearing Gait Training Does the Patient Walk?: Yes Distance: 50', 60', 30' Walk 10 feet (QC): 5 Walk 50 ft with 2 Turns(QC): 5 Gait Persons Needed: 1 Gait Assistive Device: FWW Pt fatigues easily but is slow increasing activity tolerance. Wheelchair Training Does the Pt Use a Wheelchair?: Yes Wheel 50 ft with 2 turns (QC): 5 Wheel 150 ft (QC): 5 Type of Wheelchair: Manual Exercises NuStep Minutes: 10 NuStep Workload: 3 Treatments TF to standing and amb. in hallway, taking RB as needed. O2 monitored throughout tx as pt is being to wean off O2. Pt uses NuStep for 10m at [facility] 3. After short RB, pt TF to [facility] and propels [facility] in hallway. Pt returns to room to rest. OT arriving shortly for brushing teeth. All needs met, call light in hand. Assessment Current Status: Good Progress O2 starts at 94% in recliner, dropping to at most 87% but quickly recovers with RB. Pt is able to complete tx w/o O2 today. PT Short Term Goals Short Term Goals Time Frame: Sep 25, 2021 Roll Left & Right: 3 (Fer) Sit to lyin (Fer) Lying to sitting on side of be: 3 (Uriah) Sit to stand: 3 (Fer) Chair/hza-na-gdmai transfer: 3 (modA) Walk 10 feet: 3 (Fer) PT Client Resolution Specialist Goals Client Resolution Specialist Goals PT Client Resolution Specialist Goals Time Frame: Oct 09, 2021 Roll Left & Right (QC): 4 Sit to Lying (QC): 4 Lying-Sitting on Side/Bed(QC): 4 Sit to Stand (QC): 4 Chair/Vtg-bb-Izhug Xfer(QC): 3 Toilet Transfer (QC): 3 Car Transfer (QC): 3 Does the Patient Walk: Yes Walk 10 feet (QC): 3 Walk 50ft with 2 Turns (QC): 3 Walk 150 ft (QC): 88 Walking 10ft on Uneven Surface: 3 1 Step (curb) (QC): 3 4 Steps (QC): 88 12 Steps (QC): 88 Picking up an Object (QC): 3 Wheel 50 feet with 2 turns (QC: 4 Wheel 150 feet: 4 PT Plan Problem List Problem List: Activity Tolerance, Gait Treatment/Plan Treatment Plan: Continue Plan of Care Treatment Plan: Bed Mobility, Education, Functional Activity Nik, Functional Strength, Group Therapy, Gait, Safety, Therapeutic Exercise, Transfers Treatment Duration: Oct 09, 2021 Frequency: At least 5 of 7 days/Wk (IRF) Estimated Hrs Per Day: 1.5 hours per day Patient and/or Family Agrees t: Yes Safety Risks/Education Patient Education: Gait Training, Correct Positioning Teaching Recipient: Patient Teaching Methods: Discussion Response to Teaching: Verbalize Understanding Time/GCodes Time In: 930 Time Out: 1030 Total Billed Treatment Time: 60 Total Billed Treatment 1, GT x2 (30m), EX (15m) & [facility]CH (15m) ROBBIN SALAZAR FILBERT GROWER Oct 02, 2021 10:38
--- NOTE | 2021-10-02 10:43 | Speech Therapy Daily Note ---
Speech Daily Progress Note Subjective Date Seen by Provider: Oct 02, 2021 Time Seen by Provider: 09:00 The patient was seated upright in her recliner, awake and alert upon entrance to her room by the clinician. The patient greeted the clinician appropriately and was agreeable to participation in the cognitive linguistic treatment session. Objective - Orientation: The patient remains oriented to month, day of the week, date, year, and location (independently). - Dysphagia: The patient and clinician discussed the patient's current diet level consistency (dysphagia three with thin liquids) and her comfort of increasing her diet consistency to a regular diet. The patient stated she believed she would be comfortable and denied s/s of suspected aspiration with PO intake. The clinician provided the patient with two saltine crackers and thin liquid via straw. The patient consumed both crackers and intermittent straw drinks of water without difficulty and without the presence of s/s of suspected aspiration. Following a review of safety swallowing procedures, the clinician agreed an upgrade to a regular diet consistency would be appropriate. If the patient experiences increased difficulty with mastication or reduced PO intake with the increased diet consistency, the clinician recommended a return to a dysphagia three diet consistency. - The patient participated in a structured conversation with the clinician. The patient's intelligibility remained at 100% in known and unknown structured and word-finding difficulties were not experienced. Assessment Assessment Current Status: Good Progress Treatment Plan Continue Plan of Care Speech Short Term Goals Short Term Goals Short Term Goals 1. The patient and staff will demonstrate safe swallowing practices and strategies with 90% accuracy. 2. The patient will demonstrate and recall intelligibility strategies with 90% accuracy with mild clinician cueing. Speech Shelter Goals Shelter Goals 1. The patient will tolerate the least restricted diet without s/s of suspected aspiration with 90% accuracy. 2. The patient will demonstrate increased cognitive linguistic skills for safe return to the least restrictive environment. Speech-Plan Treatment Plan Speech Therapy Treatment Plan: Continue Plan of Care Treatment Duration: Oct 09, 2021 Frequency: 3 times per week (Three to five times per week.) Estimated Hrs Per Day: .5 hour per day Rehab Potential: Fair Pt/Family Agrees to Plan: Yes Safety Risks/Education Teaching Recipient: Patient Teaching Methods: Discussion Response to Teaching: Verbalize Understanding Education Topics Provided: Safe Swallowing Strategies, Speech Pathology Plan of Care Time Speech Therapy Time In: 09:00 Speech Therapy Time Out: 09:30 Total Billed Time: 30 Billed Treatment Time 1, HAI BOYD [facility] Oct 02, 2021 10:43
--- NOTE | 2021-10-02 11:05 | Occupational Ther Daily Note ---
OT Current Status-Daily Note Subjective Pt alert, sitting in w/c. BURRELL took over care from AMBULANCE ASSISTANT. Pt agrees to therapy. Mental Status/Objective Patient Orientation: Person, Place, Time, Situation Attachments: Oxygen (2L) ADL-Treatment Independent with oral care. Pt able to doff/don regular socks by self after set up. Pt has been working on donning compression stockings with sock aide. Pt continues to require assistance to apply stockings onto sock aide then pt is able to complete pulling stocking onto foot then adjust sock appropriately. After session, pt sitting in recliner with call light/phone in reach. All needs met in room. Therapy Code Descriptions/Definitions Functional [place] Measure: 0=Not Assessed/NA 4=Minimal Assistance 1=Total Assistance 5=Supervision or Setup 2=Maximal Assistance 6=Modified [place] 3=Moderate Assistance 7=Complete IndependenceSCALE: Activities may be completed with or without assistive devices. 5-Znzuawbwxg-oxrjbxl completes the activity by him/herself with no assistance from a helper. 5-Set-up or Clean-up Assistance-helper sets up or cleans up; patient completes activity. [place] assists only prior to or following the activity. 4-Supervision or Touching Assistance-helper provides verbal cues and/or touching/steadying and/or contact guard assistance as patient completes activity. Assistance may be provided throughout the activity or intermittently. 3-Partial/Moderate Assistance-helper does LESS THAN HALF the effort. [place] lifts, holds or supports trunk or limbs, but provides less than half the effort. 2-Substantial/Maximal Assistance-helper does MORE THAN HALF the effort. [place] lifts or holds trunk or limbs and provides more than half the effort. 4-Rkmdnusfg-lacfyq does ALL the effort. Patient does none of the effort to complete the activity. Or, the assistance of 2 or more helpers is required for the patient to complete the activity. If activity was not attempted, code reason: 7-Patient Refused. 9-Not Applicable-not attempted and the patient did not perform the activity before the current illness, exacerbation or injury. 10-Not Attempted due to Environmental Limitations-(lack of equipment, weather restraints, etc.). 88-Not Attempted due to Medical Conditions or Safety Concerns. Oral Hygiene (QC): 6 On/Off Footwear: 3 OT Short Term Goals Short Term Goals Time Frame: Sep 28, 2021 Eatin Oral hygiene: 4 Toileting hygiene: 2 Shower/bathe self: 2 Upper body dressin Lower body dressin Putting on/taking off footwear: 2 OT Director [employer] Strategic Publisher Sales Goals Director [employer] Strategic [employer]isher Sales Goals Time Frame: Oct 16, 2021 Eating (QC): 5 Oral Hygiene (QC): 5 Toileting Hygiene (QC): 3 (min) Shower/Bathe Self (QC): 3 (min) Upper Body Dressing (QC): 4 Lower Body Dressing (QC): 3 (min) On/Off Footwear (QC): 3 (min) 1=Demonstrate adherence to instructed precautions during ADL tasks. 2=Patient will verbalize/demonstrate understanding of assistive devices/mod ifications for ADL. 3=Patient will improve strength/tolerance for activity to enable patient to perform ADL's. OT Education/Plan Problem List/Assessment Assessment: Decreased Activ Tolerance, Decreased UE Strength, Impaired Self- Care Skills, Restricted Funct UE ROM Discharge Recommendations Plan/Recommendations: Continue POC Treatment Plan/Plan of Care Patient would benefit from OT for education, treatment and training to promote independence in ADL's, mobility, safety and/or upper extremity function for ADL's. Plan of Care: ADL Retraining, Functional Mobility, Group Exercise/Act as Ind, UE Funct Exercise/Act, UE Neuromus Re-Ed/Coord, W/C Management Training Treatment Duration: Oct 16, 2021 Frequency: At least 5 of 7 days/Wk (IRF) Estimated Hrs Per Day: 1.5 hours per day Rehab Potential: Fair Time/GCodes Start Time: 10:30 Stop Time: 10:50 Total Time Billed (hr/min): 20 Billed Treatment Time 1 visit-ADL 1 (20 min) JUSTIN ROGERS Oct 02, 2021 11:05
--- NOTE | 2021-10-02 14:52 | Physical Therapy Daily Note ---
PT Daily Note-Current Subjective Pt sitting in recliner upon arrival. Pt agrees to PT. Pain Location: No Pain Reported Mental Status Patient Orientation: Person, Place, Situation Attachments: Oxygen (Pt is using when laying down at this time) Transfers SCALE: Activities may be completed with or without assistive devices. 0-Ibpwgkfaqb-ftoqrwt completes the activity by him/herself with no assistance from a helper. 5-Set-up or Clean-up Assistance-helper sets up or cleans up; patient completes activity. [place] assists only prior to or following the activity. 4-Supervision or Touching Assistance-helper provides verbal cues and/or touching/steadying and/or contact guard assistance as patient completes activity. Assistance may be provided throughout the activity or intermittently. 3-Partial/Moderate Assistance-helper does LESS THAN HALF the effort. [place] lifts, holds or supports trunk or limbs, but provides less than half the effort. 2-Substantial/Maximal Assistance-helper does MORE THAN HALF the effort. [place] lifts or holds trunk or limbs and provides more than half the effort. 8-Ppirsitjy-ugzhas does ALL the effort. Patient does none of the effort to complete the activity. Or, the assistance of 2 or more helpers is required for the patient to complete the activity. If activity was not attempted, code reason: 7-Patient Refused. 9-Not Applicable-not attempted and the patient did not perform the activity before the current illness, exacerbation or injury. 10-Not Attempted due to Environmental Limitations-(lack of equipment, weather restraints, etc.). 88-Not Attempted due to Medical Conditions or Safety Concerns. Weight Bearing Non Weight Bearing Full Weight Bearing Exercises Supine Ex: Ankle pumps, Quad Set, Glut sets, Heel Slides, Short Arc Quads, Straight leg raise, Hip abd/add Supine Reps: 10 Treatments SECTION BEAMER issues written HEP for Supine & Seated EX. Pt completes Supine Ex with a couple short RB. All needs met, call light in hand. Assessment Current Status: Good Progress Pt is fatigued this afternoon. PT Short Term Goals Short Term Goals Time Frame: Sep 25, 2021 Roll Left & Right: 3 (Fer) Sit to lyin (Fer) Lying to sitting on side of be: 3 (Uriah) Sit to stand: 3 (Fer) Chair/vdm-br-aosnp transfer: 3 (modA) Walk 10 feet: 3 (Fer) PT Warm In Goals Mcc Goals PT Mcc Goals Time Frame: Oct 09, 2021 Roll Left & Right (QC): 4 Sit to Lying (QC): 4 Lying-Sitting on Side/Bed(QC): 4 Sit to Stand (QC): 4 Chair/Uqh-bz-Sapsm Xfer(QC): 3 Toilet Transfer (QC): 3 Car Transfer (QC): 3 Does the Patient Walk: Yes Walk 10 feet (QC): 3 Walk 50ft with 2 Turns (QC): 3 Walk 150 ft (QC): 88 Walking 10ft on Uneven Surface: 3 1 Step (curb) (QC): 3 4 Steps (QC): 88 12 Steps (QC): 88 Picking up an Object (QC): 3 Wheel 50 feet with 2 turns (QC: 4 Wheel 150 feet: 4 PT Plan Problem List Problem List: Activity Tolerance Treatment/Plan Treatment Plan: Continue Plan of Care Treatment Plan: Bed Mobility, Education, Functional Activity Nik, Functional Strength, Group Therapy, Gait, Safety, Therapeutic Exercise, Transfers Treatment Duration: Oct 09, 2021 Frequency: At least 5 of 7 days/Wk (IRF) Estimated Hrs Per Day: 1.5 hours per day Patient and/or Family Agrees t: Yes Safety Risks/Education Patient Education: Issued Written HEP, Correct Positioning Teaching Recipient: Patient Teaching Methods: Discussion Response to Teaching: Verbalize Understanding Time/GCodes Time In: 1400 Time Out: 1420 Total Billed Treatment Time: 20 Total Billed Treatment 1, EX (20m) ROBBIN SALAZAR SECTION BEAMER Oct 02, 2021 14:52
[2021-10-02 19:27] VITALS: BP 106/69
[2021-10-02] MEDS: FAMOTIDINE 20 MG (PEPCID) TABLET PO SCH (20:05)
[2021-10-02] MEDS: LOSARTAN 100 MG (COZAAR) TABLET PO SCH (20:05)
--- NOTE | 2021-10-03 05:41 | PM&R Progress Note ---
Subjective HPI/CC On Admission Date Seen by Provider: Oct 03, 2021 Time Seen by Provider: 09:30 Subjective/Events-last exam 10/03/2021: Patient doing very well Cognition improved Walking well with therapy Discharge planned next week 10/02/2021: Pt is doing very well today No dysphasia Cognition improved Overall navigating very well 10/01/2021: Pt is dramatically improved Speech therapy is very pleased with her progress without any dysphasia Checked meds and labs 09/30/2021: Patient doing very well No pain is reported No falls No dysphagia 09/29/2021: Patient doing well No concerns Transferring well Eating very slowly and doing well without aspiration Lungs remain clear 09/28/2021: Patient much improved No more dysphagia but she does eat a modified diet and she eats slowly No pain is reported Lungs are clear Completed prednisone 09/27/2021: Patient doing well Able to walk more with assistance Right-sided weakness is much improved Able to eat and drink 09/26/2021: Pt is doing dramatically better Walking a little bit with assistance now Right sided weakness is improved Able to feed herself with the right hand 09/25/2021: Pt is doing well Down to one person assist No pain is reported No falls Checked meds and labs Lungs are now clear today 09/24/2021: Pt is doing a lot better Transferring better Overall feels like she is improving Lungs are less wheezy Changed her off IV steroids and on Prednisone 09/23/2021: Patient doing well Wheezing still present IV steroids will be changed tomorrow Check meds and labs No falls 09/22/2021: Patient doing well Wheezes only subtle at the end expiratory phase Feels like she is breathing better No falls No pain Regaining function pretty well 09/21/2021: This is a combined late entry note mistakenly missed creating note from 09/20/2021 so this will include 09/20 and 09/21 Patient was seen on 09/20/2021 and noted wheezing so initiated Solu-Medrol and nebulizer treatments Pt is doing a lot better Small amount of steroids given IV, has really cleared her lungs up Maintain on oxygen of 3L Checked meds and labs Feels like she is progressing 09/19/2021: Pt is doing pretty well Having a lot of loose stools so we will hold laxatives Transferring fair Echocardiogram from [facility] in chart for Dr. 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 Dysphasia tolerating the mechanical soft and nectar thick liquids Review of Systems General: Fatigue, Malaise HEENT: Dysphasia Neurological: Weakness, Incoordination Objective Exam Vital Signs Vital Signs Date Time Temp Pulse Resp B/P (MAP) Pulse Ox O2 Delivery O2 Flow Rate FiO2 10/03/21 23:12 36.4 76 90 10/03/21 20:55 Nasal Cannula 2.00 10/03/21 20:24 18 122/74 (90) Capillary Refill : General Appearance: No Apparent Distress, WD/WN, Anxious, Chronically ill HEENT: PERRL/EOMI, Normal ENT Inspection, Pharynx Normal Neck: Full Range of Motion, Normal Inspection, Non Tender, Supple, Carotid Bruit Respiratory: Chest Non Tender, Lungs Clear, Normal Breath Sounds, No Accessory Muscle Use, No Respiratory Distress, Accessory Muscle Use Cardiovascular: Regular Rate, Rhythm, No Edema, No Gallop, No JVD, No Murmur, Normal Peripheral Pulses Gastrointestinal: Normal Bowel Sounds, No Organomegaly, No Pulsatile Mass, Non Tender, Soft Back: Normal Inspection, No CVA Tenderness, No Vertebral Tenderness Extremity: Normal Capillary Refill, Normal Inspection, Normal Range of Motion, Non Tender, No Calf Tenderness, No Pedal Edema Neurologic/Psychiatric: Alert, Oriented x3, Normal Mood/Affect, procurement agent II-XII Norm as Tested, Abnormal Gait, Facial Droop (Right-sided), Motor Weakness (Right- sided) Skin: Normal Color, Warm/Dry Lymphatic: No Adenopathy Results/Procedures Lab Patient resulted labs reviewed. FIM Transfers Therapy Code Descriptions/Definitions Functional [place] Measure: 0=Not Assessed/NA 4=Minimal Assistance 1=Total Assistance 5=Supervision or Setup 2=Maximal Assistance 6=Modified [place] 3=Moderate Assistance 7=Complete IndependenceSCALE: Activities may be completed with or without assistive devices. 3-Qngalferuc-uzcbcft completes the activity by him/herself with no assistance from a helper. 5-Set-up or Clean-up Assistance-helper sets up or cleans up; patient completes activity. [place] assists only prior to or following the activity. 4-Supervision or Touching Assistance-helper provides verbal cues and/or touching/steadying and/or contact guard assistance as patient completes activity. Assistance may be provided throughout the activity or intermittently. 3-Partial/Moderate Assistance-helper does LESS THAN HALF the effort. [place] lifts, holds or supports trunk or limbs, but provides less than half the effort. 2-Substantial/Maximal Assistance-helper does MORE THAN HALF the effort. [place] lifts or holds trunk or limbs and provides more than half the effort. 4-Nbhjtgbzx-nlpztg does ALL the effort. Patient does none of the effort to complete the activity. Or, the assistance of 2 or more helpers is required for the patient to complete the activity. If activity was not attempted, code reason: 7-Patient Refused. 9-Not Applicable-not attempted and the patient did not perform the activity before the current illness, exacerbation or injury. 10-Not Attempted due to Environmental Limitations-(lack of equipment, weather restraints, etc.). 88-Not Attempted due to Medical Conditions or Safety Concerns. Roll Left to Right (QC): 6 Sit to Lying (QC): 6 Sit to Stand (QC): 5 Chair/Hga-mo-Gfkof Xfer(QC): 4 Car Transfer (QC): 4 Gait Training Does the Patient Walk?: Yes Distance: 50', 60', 30' Walk 10 feet (QC): 5 Walk 50 ft with 2 Turns(QC): 5 Walk 150 ft (QC): 88 Walking 10ft/uneven surface-QC: 88 Gait Persons Needed: 1 Gait Assistive Device: FWW Wheelchair Training Does the Pt Use a Wheelchair?: Yes Distance: 120'x2 Wheel 50 ft with 2 turns (QC): 5 Wheel 150 ft (QC): 5 Type of Wheelchair: Manual Stair Training 1 Step (curb) (QC): 88 4 Steps (QC): 88 12 Steps (QC): 88 Balance Picking up an Object (QC): 4 (SBA using a inside b2b sales) ADL-Treatment Eating (QC): 6 Oral Hygiene (QC): 6 Shower/Bathe Self (QC): 4 Upper Body Dressing (QC): 5 Lower Body Dressing (QC): 4 On/Off Footwear (QC): 3 Toileting Hygiene (QC): 4 Toilet Transfer (QC): 4 Assessment/Plan Assessment and Plan Assess & Plan/Chief Complaint Assessment: CVA Right-sided facial droop Right-sided weakness Acute exacerbation of COPD placed on IV steroids on 09/20/2021 now completed treatment 09/28/2021 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 Peripheral vascular disease Obesity BMI 29 Plan: Inpatient rehab protocol Cardiology consult Nebulizers Oxygen supplementation 09/19/2021: Oxygen supplementation Nebulizers Supportive care 09/20/2021, 09/21/2021: Place patient on IV steroids 40 mg IV every 12 hours Patient much improved Continue breathing treatments 09/22/2021: Continue IV steroids Monitor closely 09/23/2021: Supportive care 09/24/2021: Improved lungs Continue therapy 09/25/2021: Wean off prednisone Supportive care 09/26/2021: Wean down off prednisone Dramatic improvement now walking with assistance 09/27/2021: Wean down steroids Continue breathing treatments 09/28/2021: Discontinue steroids 09/29/2021: Discontinue steroids yesterday Monitor closely 09/30/2021: Monitor for dysphagia 10/01/2021: Supportive care 10/02/2021: Supportive care 10/03/2021: Dramatic improvement Discharge plan next week (1) Chronic systolic heart failure Status: Chronic Assessment & Plan: She may have some slight component of chronic heart failure with reduced ejection fraction contributing to her shortness of breath. She is on losartan I added spironolactone. I do not think she is a good candidate for beta-jcarlos due to her severe obstructive airways disease with ongoing wheezing. She would like to follow-up with someone in [place] since this is closer to her home. I asked her to check with friends and family to see if they have any recommendations for a specific pyrometer temperature regulator. (2) Cardiomyopathy Assessment & Plan: She had an echocardiogram at an outside hospital that showed mild to moderate left ventricular systolic dysfunction with an ejection fraction of 40-45%. Exact etiology unclear and I do not know if this is a new finding in this patient. She was placed on losartan at the outside facility. As above, I added spironolactone. Her ejection fraction is above the cutoff for recommending a prophylactic defibrillator. She will need to have her guideline directed medical therapy maximized following discharge. (3) Primary hypertension Assessment & Plan: Her blood pressure improved since adding spironolactone. If her blood pressure remains elevated, then I would maximize her losartan as opposed to adding other agents. (4) Mixed hyperlipidemia Assessment & Plan: Continue statin medication. (5) Elevated brain natriuretic peptide (BNP) level Assessment & Plan: Her BNP level wasmildly elevated. Her echocardiogram from the outside facility showed mild-moderate left ventricular systolic dysfunction with an estimated ejection fraction of 40-45% with no significant valvular disease. Her pulmonary artery pressure was 30-35 mmHg. This echo was performed on 09/16. However, her chest x-ray from our hospital does not show any significant pulmonary edema. We will proceed as above. (6) Chronic obstructive pulmonary disease Assessment & Plan: I suspect this is the primary cause of her chronic dyspnea. FLORES LUGO DO Oct 03, 2021 05:41
[2021-10-03] MEDS: RT-ALBUTEROL SULF 2.5 MG/3 ML PRE-MIX VIAL INH SCH ×2 (07:01→20:45)
[2021-10-03] MEDS: RT--FLUTICASONE/SALMETEROL 232-14 (AIRDUO RespiCLICK) IH SCH ×2 (07:01→20:44)
[2021-10-03] MEDS: UMECLIDINIUM BROMIDE (INCRUSE ELLIPTA) 7'S IH SCH (07:01)
[2021-10-03 07:29] VITALS: BP 96/50
[2021-10-03] MEDS: polyethylene glycoL POWDER 17 GM (MIRALAX) PACK PO SCH ×2 (08:04→20:37)
[2021-10-03] MEDS: DOCUSATE SODIUM 100 MG (COLACE) CAP PO SCH ×2 (08:04→20:37)
[2021-10-03] MEDS: SENNA W/DOCUSATE (SENOKOT S) TABLET PO SCH ×2 (08:05→20:37)
[2021-10-03 08:49] VITALS: BP 101/64
[2021-10-03] MEDS: ASPIRIN E.C. 81 MG (ECOTRIN) TAB PO SCH (08:53)
[2021-10-03] MEDS: LACTOBACILLUS ACIDOPHILUS (PROBIOTIC) CAPSULE PO SCH ×3 (08:53→18:17)
[2021-10-03] MEDS: KCL 20 MEQ TAB (K-DUR) PO SCH ×2 (08:53→18:17)
[2021-10-03] MEDS: MONTELUKAST 10 MG (SINGULAIR) TAB PO SCH (08:53)
[2021-10-03] MEDS: buPROPion SR 150 MG (WELLBUTRIN SR) TAB PO SCH (08:53)
[2021-10-03] MEDS: CLOPIDOGREL 75 MG (PLAVIX) TABLET PO SCH (08:53)
[2021-10-03] MEDS: LORATADINE (CLARITIN) 10 MG TAB PO SCH ×2 (08:53→20:37)
[2021-10-03] MEDS: SPIRONOLACTONE 25 MG (ALDACTONE) TAB PO SCH (08:53)
[2021-10-03] MEDS: FERROUS SULF 325 MG (IRON) TAB PO SCH ×2 (08:53→20:37)
[2021-10-03] MEDS: FLUTICASONE NASAL SPRAY (FLONASE) 16 GM BTL NS SCH (08:54)
--- NOTE | 2021-10-03 08:58 | Occupational Ther Daily Note ---
OT Current Status-Daily Note Subjective Pt alert, sitting in recliner. Pt agrees to therapy. No c/o pain at this time. Mental Status/Objective Patient Orientation: Person, Place, Time, Situation ADL-Treatment Independent eating. Independent oral care sitting at sink. Independent showering sitting on shower bench entire time using grabbars and hand held shower. Set up for upper body dressing. Set up for footwear when wearing regular socks and shoes. SBA for lower body dressing when standing to hike pants, pt threads feet independently. SBA for manipulating clothing, independent for hygiene sitting on toilet. Pt is progressing well with skills and R UE AROM/strength. Pt continues to work through fatigue and requires recovery breaks. Pt O2 levels during tasks remaining at 90% and above. After session, pt sitting in recliner with call light/phone in reach. Nrsg in room. All needs met. Therapy Code Descriptions/Definitions Functional [place] Measure: 0=Not Assessed/NA 4=Minimal Assistance 1=Total Assistance 5=Supervision or Setup 2=Maximal Assistance 6=Modified [place] 3=Moderate Assistance 7=Complete IndependenceSCALE: Activities may be completed with or without assistive devices. 6-Xjfsxhdvzy-vzvtmek completes the activity by him/herself with no assistance from a helper. 5-Set-up or Clean-up Assistance-helper sets up or cleans up; patient completes activity. [place] assists only prior to or following the activity. 4-Supervision or Touching Assistance-helper provides verbal cues and/or touching/steadying and/or contact guard assistance as patient completes activity. Assistance may be provided throughout the activity or intermittently. 3-Partial/Moderate Assistance-helper does LESS THAN HALF the effort. [place] lifts, holds or supports trunk or limbs, but provides less than half the effort. 2-Substantial/Maximal Assistance-helper does MORE THAN HALF the effort. [place] lifts or holds trunk or limbs and provides more than half the effort. 8-Mqmlsplos-cxzxtq does ALL the effort. Patient does none of the effort to complete the activity. Or, the assistance of 2 or more helpers is required for the patient to complete the activity. If activity was not attempted, code reason: 7-Patient Refused. 9-Not Applicable-not attempted and the patient did not perform the activity before the current illness, exacerbation or injury. 10-Not Attempted due to Environmental Limitations-(lack of equipment, weather restraints, etc.). 88-Not Attempted due to Medical Conditions or Safety Concerns. Eating (QC): 6 Oral Hygiene (QC): 6 Shower/Bathe Self (QC): 6 Upper Body Dressing (QC): 5 Lower Body Dressing (QC): 4 On/Off Footwear: 5 Toileting Hygiene (QC): 4 Toilet Transfer (QC): 5 OT Short Term Goals Short Term Goals Time Frame: Sep 28, 2021 Eatin Oral hygiene: 4 Toileting hygiene: 2 Shower/bathe self: 2 Upper body dressin Lower body dressin Putting on/taking off footwear: 2 OT Epilepsy Physician Goals Shelter Goals Time Frame: Oct 16, 2021 Eating (QC): 5 Oral Hygiene (QC): 5 Toileting Hygiene (QC): 3 (min) Shower/Bathe Self (QC): 3 (min) Upper Body Dressing (QC): 4 Lower Body Dressing (QC): 3 (min) On/Off Footwear (QC): 3 (min) 1=Demonstrate adherence to instructed precautions during ADL tasks. 2=Patient will verbalize/demonstrate understanding of assistive d evices/modifications for ADL. 3=Patient will improve strength/tolerance for activity to enable patient to perform ADL's. OT Education/Plan Problem List/Assessment Assessment: Decreased Activ Tolerance, Decreased UE Strength, Impaired Self- Care Skills Discharge Recommendations Plan/Recommendations: Continue POC Treatment Plan/Plan of Care Patient would benefit from OT for education, treatment and training to promote independence in ADL's, mobility, safety and/or upper extremity function for ADL's. Plan of Care: ADL Retraining, Functional Mobility, Group Exercise/Act as Ind, UE Funct Exercise/Act, UE Neuromus Re-Ed/Coord, W/C Management Training Treatment Duration: Oct 16, 2021 Frequency: At least 5 of 7 days/Wk (IRF) Estimated Hrs Per Day: 1.5 hours per day Rehab Potential: Fair Time/GCodes Start Time: 07:30 Stop Time: 09:00 Total Time Billed (hr/min): 90 Billed Treatment Time 1 visit ADL 6 (90 min) JUSTIN ROGERS Oct 03, 2021 08:58
--- NOTE | 2021-10-03 09:37 | Speech Therapy Daily Note ---
Speech Daily Progress Note Subjective Date Seen by Provider: Oct 03, 2021 Time Seen by Provider: 09:00 The patient was seated upright in her recliner, awake and alert upon entrance by the clinician. The patient greeted the clinician appropriately and was agreeable to participation in the cognitive linguistic and dysphagia treatment session. Objective - Dysphagia: The patient continues to report and display tolerance of her current diet consistency (regular with thin liquids). The patient independently sipped on thin liquids via straw throughout the treatment session. Overt s/s of suspected aspiration were not demonstrated with straw drinks. The patient reported her medication (pills) are "sometimes ground and sometimes not." The patient reported increased comfort and ease when medication is crushed. The clinician discussed the medications with the patient identifying some medications may be unable to be crushed for administration. The clinician will follow up with the RN and request when possible having medication crushed and placed in a puree for administration. The patient was encouraged to follow up with her pharmacist at discharge to inquire which medications can be crushed at home. - Orientation: The patient remains independently oriented to self, location, cit y, month, day of week, date, and year. - Memory: Internal memory strategies were discussed and practiced on this date including association, visualization, and repetition. The patient was able to recall three of five words immediately and five and five words immediately with a category cue provided. Following a five minute delay and with the use of association and repetition, the patient was able to independently recall five of five single words. Assessment Assessment Current Status: Good Progress Treatment Plan Continue Plan of Care Speech Short Term Goals Short Term Goals Short Term Goals 1. The patient and staff will demonstrate safe swallowing practices and strategies with 90% accuracy. 2. The patient will demonstrate and recall intelligibility strategies with 90% accuracy with mild clinician cueing. Speech Chcf Goals Chief Fundraising Officer Goals 1. The patient will tolerate the least restricted diet without s/s of suspected aspiration with 90% accuracy. 2. The patient will demonstrate increased cognitive linguistic skills for safe return to the least restrictive environment. Speech-Plan Treatment Plan Speech Therapy Treatment Plan: Continue Plan of Care Treatment Duration: Oct 09, 2021 Frequency: 3 times per week (Three to five times per week.) Estimated Hrs Per Day: .5 hour per day Rehab Potential: Fair Safety Risks/Education Teaching Recipient: Patient Teaching Methods: Demonstration, Discussion Response to Teaching: Verbalize Understanding, Return Demonstration, Reinforcement Needed Education Topics Provided: Internal Memory Strategies Time Speech Therapy Time In: 09:00 Speech Therapy Time Out: 09:30 Total Billed Time: 30 Billed Treatment Time 1, DEB, SAGAR Paz Oct 03, 2021 09:37
--- NOTE | 2021-10-03 11:00 | Physical Therapy Daily Note ---
PT Daily Note-Current Subjective Pt. agrees to Rx. States she doesnt know when she might discharge but feels she has made progress. No c/o pain this date ,but does c/o fatigue and the need to rest during Rx kristopher gait. Pain Location: No Pain Reported Mental Status Patient Orientation: Normal For Age Transfers SCALE: Activities may be completed with or without assistive devices. 9-Lwvisebokj-smxzfgd completes the activity by him/herself with no assistance from a helper. 5-Set-up or Clean-up Assistance-helper sets up or cleans up; patient completes activity. [place] assists only prior to or following the activity. 4-Supervision or Touching Assistance-helper provides verbal cues and/or touching/steadying and/or contact guard assistance as patient completes activity. Assistance may be provided throughout the activity or intermittently. 3-Partial/Moderate Assistance-helper does LESS THAN HALF the effort. [place] lifts, holds or supports trunk or limbs, but provides less than half the effort. 2-Substantial/Maximal Assistance-helper does MORE THAN HALF the effort. [place] lifts or holds trunk or limbs and provides more than half the effort. 9-Nrusshbji-iotzpk does ALL the effort. Patient does none of the effort to complete the activity. Or, the assistance of 2 or more helpers is required for the patient to complete the activity. If activity was not attempted, code reason: 7-Patient Refused. 9-Not Applicable-not attempted and the patient did not perform the activity before the current illness, exacerbation or injury. 10-Not Attempted due to Environmental Limitations-(lack of equipment, weather restraints, etc.). 88-Not Attempted due to Medical Conditions or Safety Concerns. Sit to Stand (QC): 6 Chair/Wou-nh-Nilsn Xfer(QC): 4 while walking and approaching chair or bed pt. is awkward and needs instruction about position and safest, most efficient way to approach, causing her to nearly sit in arm of chair or have to back up a significant distance Weight Bearing Non Weight Bearing Full Weight Bearing Gait Training Does the Patient Walk?: Yes Walk 10 feet (QC): 4 Walk 50 ft with 2 Turns(QC): 4 Gait Persons Needed: 1 Gait Assistive Device: FWW 50ftx2 75 ft x 1, 30 ft x1, FWW, CGA, pt. with one episode of instability at left knee, pt. looks down at floor most of the time and bears significant amt wt on FWW, fairly equal step length Exercises Supine Ex: Bridging, Heel Slides Supine Reps: 5 Seated Therapy Exercises: Ankle pumps, Sit to stand, Long arc quads, Hip flexion, Hip abd/add Seated Reps: 15 NuStep Minutes: 10 NuStep Workload: 2 Assessment Current Status: Good Progress O2 sats monitored throughout Rx with lowest at 89% briefly , quickly recovering to >90% PT Short Term Goals Short Term Goals Time Frame: Sep 25, 2021 Roll Left & Right: 3 (Fer) Sit to lyin (Fer) Lying to sitting on side of be: 3 (Uriah) Sit to stand: 3 (Fer) Chair/icj-ny-rydiz transfer: 3 (modA) Walk 10 feet: 3 (Fer) PT Costumer Goals Costumer Goals PT Costumer Goals Time Frame: Oct 09, 2021 Roll Left & Right (QC): 4 Sit to Lying (QC): 4 Lying-Sitting on Side/Bed(QC): 4 Sit to Stand (QC): 4 Chair/Uwj-sz-Lvxcw Xfer(QC): 3 Toilet Transfer (QC): 3 Car Transfer (QC): 3 Does the Patient Walk: Yes Walk 10 feet (QC): 3 Walk 50ft with 2 Turns (QC): 3 Walk 150 ft (QC): 88 Walking 10ft on Uneven Surface: 3 1 Step (curb) (QC): 3 4 Steps (QC): 88 12 Steps (QC): 88 Picking up an Object (QC): 3 Wheel 50 feet with 2 turns (QC: 4 Wheel 150 feet: 4 PT Plan Treatment/Plan Treatment Plan: Continue Plan of Care Treatment Plan: Bed Mobility, Education, Functional Activity Nik, Functional Strength, Group Therapy, Gait, Safety, Therapeutic Exercise, Transfers Treatment Duration: Oct 09, 2021 Frequency: At least 5 of 7 days/Wk (IRF) Estimated Hrs Per Day: 1.5 hours per day Patient and/or Family Agrees t: Yes Safety Risks/Education Patient Education: Gait Training, Transfer Techniques, Correct Positioning, Disease Process, Safety Issues Teaching Recipient: Patient Teaching Methods: Demonstration, Discussion Response to Teaching: Verbalize Understanding, Return Demonstration, Reinforc ement Needed Time/GCodes Time In: 1000 Time Out: 1100 Total Billed Treatment Time: 60 Total Billed Treatment 1,GT30m,EX30m RORY RICHARDSON PTA Oct 03, 2021 11:00
[2021-10-03] MEDS: guaiFENesin/CODEINE (ROBITUSSIN AC) 10ML UDC PO PRN (18:26)
[2021-10-03 20:24] VITALS: BP 122/74
[2021-10-03] MEDS: LOSARTAN 100 MG (COZAAR) TABLET PO SCH (20:37)
[2021-10-03] MEDS: FAMOTIDINE 20 MG (PEPCID) TABLET PO SCH (20:37)
[2021-10-03 23:12] VITALS: BP_SYST 122; BP_SYST 128; BP_DIAS 65; BP_DIAS 74
--- NOTE | 2021-10-04 06:22 | PM&R Progress Note ---
Subjective HPI/CC On Admission Date Seen by Provider: Oct 04, 2021 Time Seen by Provider: 12:15 Subjective/Events-last exam 10/04/2021: Patient has no complaints Discharge plan next week Ambulation is much improved No falls Adjusting blood pressure due to hypotension 10/03/2021: Patient doing very well Cognition improved Walking well with therapy Discharge planned next week 10/02/2021: Pt is doing very well today No dysphasia Cognition improved Overall navigating very well 10/01/2021: Pt is dramatically improved Speech therapy is very pleased with her progress without any dysphasia Checked meds and labs 09/30/2021: Patient doing very well No pain is reported No falls No dysphagia 09/29/2021: Patient doing well No concerns Transferring well Eating very slowly and doing well without aspiration Lungs remain clear 09/28/2021: Patient much improved No more dysphagia but she does eat a modified diet and she eats slowly No pain is reported Lungs are clear Completed prednisone 09/27/2021: Patient doing well Able to walk more with assistance Right-sided weakness is much improved Able to eat and drink 09/26/2021: Pt is doing dramatically better Walking a little bit with assistance now Right sided weakness is improved Able to feed herself with the right hand 09/25/2021: Pt is doing well Down to one person assist No pain is reported No falls Checked meds and labs Lungs are now clear today 09/24/2021: Pt is doing a lot better Transferring better Overall feels like she is improving Lungs are less wheezy Changed her off IV steroids and on Prednisone 09/23/2021: Patient doing well Wheezing still present IV steroids will be changed tomorrow Check meds and labs No falls 09/22/2021: Patient doing well Wheezes only subtle at the end expiratory phase Feels like she is breathing better No falls No pain Regaining function pretty well 09/21/2021: This is a combined late entry note mistakenly missed creating note from 09/20/2021 so this will include 09/20 and 09/21 Patient was seen on 09/20/2021 and noted wheezing so initiated Solu-Medrol and nebulizer treatments Pt is doing a lot better Small amount of steroids given IV, has really cleared her lungs up Maintain on oxygen of 3L Checked meds and labs Feels like she is progressing 09/19/2021: Pt is doing pretty well Having a lot of loose stools so we will hold laxatives Transferring fair Echocardiogram from [facility] in chart for Dr. 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 Dysphasia tolerating the mechanical soft and nectar thick liquids Review of Systems General: Fatigue, Malaise Objective Exam Vital Signs Vital Signs Date Time Temp Pulse Resp B/P (MAP) Pulse Ox O2 Delivery O2 Flow Rate FiO2 10/04/21 20:47 Nasal Cannula 2.00 10/04/21 19:55 37.0 89 18 114/55 (74) 92 Capillary Refill : General Appearance: No Apparent Distress, WD/WN, Anxious, Chronically ill HEENT: PERRL/EOMI, Normal ENT Inspection, Pharynx Normal Neck: Full Range of Motion, Normal Inspection, Non Tender, Supple, Carotid Bruit Respiratory: Chest Non Tender, Lungs Clear, Normal Breath Sounds, No Accessory Muscle Use, No Respiratory Distress, Accessory Muscle Use Cardiovascular: Regular Rate, Rhythm, No Edema, No Gallop, No JVD, No Murmur, Normal Peripheral Pulses Gastrointestinal: Normal Bowel Sounds, No Organomegaly, No Pulsatile Mass, Non Tender, Soft Back: Normal Inspection, No CVA Tenderness, No Vertebral Tenderness Extremity: Normal Capillary Refill, Normal Inspection, Normal Range of Motion, Non Tender, No Calf Tenderness, No Pedal Edema Neurologic/Psychiatric: Alert, Oriented x3, Normal Mood/Affect, ceo II-XII Norm as Tested, Abnormal Gait, Facial Droop (Right-sided), Motor Weakness (Right- sided) Skin: Normal Color, Warm/Dry Lymphatic: No Adenopathy Results/Procedures Lab Patient resulted labs reviewed. FIM Transfers Therapy Code Descriptions/Definitions Functional [place] Measure: 0=Not Assessed/NA 4=Minimal Assistance 1=Total Assistance 5=Supervision or Setup 2=Maximal Assistance 6=Modified [place] 3=Moderate Assistance 7=Complete IndependenceSCALE: Activities may be completed with or without assistive devices. 4-Zlkhmietdz-kblyntd completes the activity by him/herself with no assistance from a helper. 5-Set-up or Clean-up Assistance-helper sets up or cleans up; patient completes activity. [place] assists only prior to or following the activity. 4-Supervision or Touching Assistance-helper provides verbal cues and/or touching/steadying and/or contact guard assistance as patient completes activity. Assistance may be provided throughout the activity or intermittently. 3-Partial/Moderate Assistance-helper does LESS THAN HALF the effort. [place] lifts, holds or supports trunk or limbs, but provides less than half the effort. 2-Substantial/Maximal Assistance-helper does MORE THAN HALF the effort. [place] lifts or holds trunk or limbs and provides more than half the effort. 1-Mbvxvxodz-execfk does ALL the effort. Patient does none of the effort to co mplete the activity. Or, the assistance of 2 or more helpers is required for the patient to complete the activity. If activity was not attempted, code reason: 7-Patient Refused. 9-Not Applicable-not attempted and the patient did not perform the activity before the current illness, exacerbation or injury. 10-Not Attempted due to Environmental Limitations-(lack of equipment, weather restraints, etc.). 88-Not Attempted due to Medical Conditions or Safety Concerns. Roll Left to Right (QC): 6 Sit to Lying (QC): 6 Sit to Stand (QC): 6 Chair/Xdu-lb-Uadkz Xfer(QC): 4 Car Transfer (QC): 4 Gait Training Does the Patient Walk?: Yes Distance: 50', 60', 30' Walk 10 feet (QC): 4 Walk 50 ft with 2 Turns(QC): 4 Walk 150 ft (QC): 88 Walking 10ft/uneven surface-QC: 88 Gait Persons Needed: 1 Gait Assistive Device: FWW Wheelchair Training Does the Pt Use a Wheelchair?: Yes Distance: 120'x2 Wheel 50 ft with 2 turns (QC): 5 Wheel 150 ft (QC): 5 Type of Wheelchair: Manual Stair Training 1 Step (curb) (QC): 88 4 Steps (QC): 88 12 Steps (QC): 88 Balance Picking up an Object (QC): 4 (SBA using a pump runner) ADL-Treatment Eating (QC): 6 Oral Hygiene (QC): 6 Shower/Bathe Self (QC): 6 Upper Body Dressing (QC): 5 Lower Body Dressing (QC): 4 On/Off Footwear (QC): 5 Toileting Hygiene (QC): 4 Toilet Transfer (QC): 5 Assessment/Plan Assessment and Plan Assess & Plan/Chief Complaint Assessment: CVA Right-sided facial droop Right-sided weakness Acute exacerbation of COPD placed on IV steroids on 09/20/2021 now completed treatment 09/28/2021 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 Peripheral vascular disease Obesity BMI 29 Hypertension requiring adjustment of blood pressure medications 10/04/2021 Plan: Inpatient rehab protocol Cardiology consult Nebulizers Oxygen supplementation 09/19/2021: Oxygen supplementation Nebulizers Supportive care 09/20/2021, 09/21/2021: Place patient on IV steroids 40 mg IV every 12 hours Patient much improved Continue breathing treatments 09/22/2021: Continue IV steroids Monitor closely 09/23/2021: Supportive care 09/24/2021: Improved lungs Continue therapy 09/25/2021: Wean off prednisone Supportive care 09/26/2021: Wean down off prednisone Dramatic improvement now walking with assistance 09/27/2021: Wean down steroids Continue breathing treatments 09/28/2021: Discontinue steroids 09/29/2021: Discontinue steroids yesterday Monitor closely 09/30/2021: Monitor for dysphagia 10/01/2021: Supportive care 10/02/2021: Supportive care 10/03/2021: Dramatic improvement Discharge plan next week 10/04/2021: Supportive care Decrease blood pressure medication doses (1) Chronic systolic heart failure Status: Chronic Assessment & Plan: She may have some slight component of chronic heart failure with reduced ejection fraction contributing to her shortness of breath. She is on losartan I added spironolactone. I do not think she is a good candidate for beta-jcarlos due to her severe obstructive airways disease with ongoing wheezing. She would like to follow-up with someone in [place] since this is closer to her home. 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 (2) Cardiomyopathy Assessment & Plan: She had an echocardiogram at an outside hospital that showed mild to moderate left ventricular systolic dysfunction with an ejection fraction of 40-45%. Exact etiology unclear and I do not know if this is a new finding in this patient. She was placed on losartan at the outside facility. As above, I added spironolactone. Her ejection fraction is above the cutoff for recommending a prophylactic defibrillator. She will need to have her guideline directed medical therapy maximized following discharge. (3) Primary hypertension Assessment & Plan: Her blood pressure improved since adding spironolactone. If her blood pressure remains elevated, then I would maximize her losartan as opposed to adding other agents. (4) Mixed hyperlipidemia Assessment & Plan: Continue statin medication. (5) Elevated brain natriuretic peptide (BNP) level Assessment & Plan: Her BNP level wasmildly elevated. Her echocardiogram from the outside facility showed mild-moderate left ventricular systolic dysfunction with an estimated ejection fraction of 40-45% with no significant valvular disease. Her pulmonary artery pressure was 30-35 mmHg. This echo was performed on 09/16. However, her chest x-ray from our hospital does not show any significant pulmonary edema. We will proceed as above. (6) Chronic obstructive pulmonary disease Assessment & Plan: I suspect this is the primary cause of her chronic dyspnea. FLORES LUGO DO Oct 04, 2021 06:22
[2021-10-04] MEDS: RT-ALBUTEROL SULF 2.5 MG/3 ML PRE-MIX VIAL INH SCH ×2 (06:53→22:27)
[2021-10-04] MEDS: UMECLIDINIUM BROMIDE (INCRUSE ELLIPTA) 7'S IH SCH (06:54)
[2021-10-04] MEDS: RT--FLUTICASONE/SALMETEROL 232-14 (AIRDUO RespiCLICK) IH SCH ×2 (06:54→22:27)
[2021-10-04 08:00] VITALS: BP 113/53
[2021-10-04] MEDS: SENNA W/DOCUSATE (SENOKOT S) TABLET PO SCH ×2 (08:48→20:47)
[2021-10-04] MEDS: LORATADINE (CLARITIN) 10 MG TAB PO SCH ×2 (08:48→20:43)
[2021-10-04] MEDS: DOCUSATE SODIUM 100 MG (COLACE) CAP PO SCH ×2 (08:48→20:46)
[2021-10-04] MEDS: LACTOBACILLUS ACIDOPHILUS (PROBIOTIC) CAPSULE PO SCH ×3 (08:48→17:24)
[2021-10-04] MEDS: MONTELUKAST 10 MG (SINGULAIR) TAB PO SCH (08:48)
[2021-10-04] MEDS: buPROPion SR 150 MG (WELLBUTRIN SR) TAB PO SCH (08:48)
[2021-10-04] MEDS: KCL 20 MEQ TAB (K-DUR) PO SCH ×2 (08:48→17:25)
[2021-10-04] MEDS: SPIRONOLACTONE 25 MG (ALDACTONE) TAB PO SCH (08:48)
[2021-10-04] MEDS: FERROUS SULF 325 MG (IRON) TAB PO SCH ×2 (08:48→20:43)
[2021-10-04] MEDS: CLOPIDOGREL 75 MG (PLAVIX) TABLET PO SCH (08:49)
[2021-10-04] MEDS: ASPIRIN E.C. 81 MG (ECOTRIN) TAB PO SCH (08:49)
--- NOTE | 2021-10-04 08:51 | Occupational Ther Daily Note ---
OT Current Status-Daily Note Subjective Pt alert, sitting in recliner. Pt agrees to therapy. No c/o pain. Mental Status/Objective Patient Orientation: Person, Place, Time, Situation ADL-Treatment Pt declines shower and changing clothing. Pt agrees to oral care and footwear. Pt ambulates using FWW to bathroom with SBA. Sitting at sink, pt completes oral care independent. Pt then requests to use toilet. Independent with toilet transfer and independent for clothing manipulation and hygiene sitting on toilet. Pt uses bath wipes to cleanse hands. Pt ambulated to recliner to don compression stockings and shoes, requiring only 1 cue to don R stocking. Increased time required to don stockings due to fatigue and requiring recovery breaks. Pt then ambulated using FWW to closet. Pt stood at closet to hang clothing and fold socks, close SBA. Pt's knees 'melted' several times during task and pt was able to use FWW to keep legs straight, but fatigued quickly. No LOB during any tasks. After session, pt sitting in recliner with call light/phone in reach. All needs met in room. Therapy Code Descriptions/Definitions Functional [place] Measure: 0=Not Assessed/NA 4=Minimal Assistance 1=Total Assistance 5=Supervision or Setup 2=Maximal Assistance 6=Modified [place] 3=Moderate Assistance 7=Complete IndependenceSCALE: Activities may be completed with or without assistive devices. 1-Syxjoyizmc-evoculp completes the activity by him/herself with no assistance from a helper. 5-Set-up or Clean-up Assistance-helper sets up or cleans up; patient completes activity. [place] assists only prior to or following the activity. 4-Supervision or Touching Assistance-helper provides verbal cues and/or touching /steadying and/or contact guard assistance as patient completes activity. Assistance may be provided throughout the activity or intermittently. 3-Partial/Moderate Assistance-helper does LESS THAN HALF the effort. [place] lifts, holds or supports trunk or limbs, but provides less than half the effort. 2-Substantial/Maximal Assistance-helper does MORE THAN HALF the effort. [place] lifts or holds trunk or limbs and provides more than half the effort. 3-Uhiygvahe-tkbwwq does ALL the effort. Patient does none of the effort to complete the activity. Or, the assistance of 2 or more helpers is required for the patient to complete the activity. If activity was not attempted, code reason: 7-Patient Refused. 9-Not Applicable-not attempted and the patient did not perform the activity before the current illness, exacerbation or injury. 10-Not Attempted due to Environmental Limitations-(lack of equipment, weather restraints, etc.). 88-Not Attempted due to Medical Conditions or Safety Concerns. Eating (QC): 6 Oral Hygiene (QC): 6 On/Off Footwear: 4 (1 verbal cue and set up) Toileting Hygiene (QC): 6 Toilet Transfer (QC): 6 OT Short Term Goals Short Term Goals Time Frame: Sep 28, 2021 Eatin Oral hygiene: 4 Toileting hygiene: 2 Shower/bathe self: 2 Upper body dressin Lower body dressin Putting on/taking off footwear: 2 OT Heading Up Machine Operator Goals Jail Goals Time Frame: Oct 16, 2021 Eating (QC): 5 Oral Hygiene (QC): 5 Toileting Hygiene (QC): 3 (min) Shower/Bathe Self (QC): 3 (min) Upper Body Dressing (QC): 4 Lower Body Dressing (QC): 3 (min) On/Off Footwear (QC): 3 (min) 1=Demonstrate adherence to instructed precautions during ADL tasks. 2=Patient will verbalize/demonstrate understanding of assistive devices/modifications for ADL. 3=Patient will improve strength/tolerance for activity to enable patient to perform ADL's. OT Education/Plan Problem List/Assessment Assessment: Decreased Activ Tolerance, Impaired Self-Care Skills Discharge Recommendations Plan/Recommendations: Continue POC Treatment Plan/Plan of Care Patient would benefit from OT for education, treatment and training to promote independence in ADL's, mobility, safety and/or upper extremity function for ADL's. Plan of Care: ADL Retraining, Functional Mobility, Group Exercise/Act as Ind, UE Funct Exercise/Act, UE Neuromus Re-Ed/Coord, W/C Management Training Treatment Duration: Oct 16, 2021 Frequency: At least 5 of 7 days/Wk (IRF) Estimated Hrs Per Day: 1.5 hours per day Rehab Potential: Fair Time/GCodes Start Time: 07:30 Stop Time: 08:45 Total Time Billed (hr/min): 75 Billed Treatment Time 1 visit-ADL 4 (65 min) FA 1 (10 min) JUSTIN ROGERS Oct 04, 2021 08:51
[2021-10-04] MEDS: FLUTICASONE NASAL SPRAY (FLONASE) 16 GM BTL NS SCH (08:54)
[2021-10-04] MEDS: polyethylene glycoL POWDER 17 GM (MIRALAX) PACK PO SCH ×2 (08:58→19:39)
--- NOTE | 2021-10-04 11:01 | Physical Therapy Daily Note ---
PT Daily Note-Current Subjective Pt. agrees to Rx. States she is feeling a little worried about going home/discharge. Pain Location: No Pain Reported Mental Status Patient Orientation: Normal For Age Transfers SCALE: Activities may be completed with or without assistive devices. 8-Rprfyxghct-srtaxxz completes the activity by him/herself with no assistance from a helper. 5-Set-up or Clean-up Assistance-helper sets up or cleans up; patient completes activity. [place] assists only prior to or following the activity. 4-Supervision or Touching Assistance-helper provides verbal cues and/or touching/steadying and/or contact guard assistance as patient completes activity. Assistance may be provided throughout the activity or intermittently. 3-Partial/Moderate Assistance-helper does LESS THAN HALF the effort. [place] lifts, holds or supports trunk or limbs, but provides less than half the effort. 2-Substantial/Maximal Assistance-helper does MORE THAN HALF the effort. [place] lifts or holds trunk or limbs and provides more than half the effort. 6-Smdwdyhfs-ijmqsx does ALL the effort. Patient does none of the effort to complete the activity. Or, the assistance of 2 or more helpers is required for the patient to complete the activity. If activity was not attempted, code reason: 7-Patient Refused. 9-Not Applicable-not attempted and the patient did not perform the activity before the current illness, exacerbation or injury. 10-Not Attempted due to Environmental Limitations-(lack of equipment, weather restraints, etc.). 88-Not Attempted due to Medical Conditions or Safety Concerns. Roll Left & Right (QC): 6 Sit to Lying (QC): 6 Lying to Sitting/Side of Bed(Q: 6 Sit to Stand (QC): 6 Chair/Aun-yw-Anceq Xfer(QC): 4 Toilet Transfer (QC): 6 more work this date on approach to chair and positioning in safe way, reaching back for arms on chairs etc Weight Bearing Non Weight Bearing Full Weight Bearing Gait Training Does the Patient Walk?: Yes Walk 10 feet (QC): 4 Walk 50 ft with 2 Turns(QC): 4 Gait Persons Needed: 1 Gait Assistive Device: FWW 80ftx2, 50ftx3, FWW, cues for looking up as pt. is head down most of the time, and needs directed to turn etc. conts with shot step length, more equal with cues Stair Training Stair Training: Handrails/: 2 handrails #of Steps: 4 4 Steps (QC): 4 Stairs: Pattern: Step to this exerted pt. very much but O2 sats remained at 92% on rm air but pt. was very dyspneic and needed a significant period of rest afterward. CGA as well as cues for sequence needed Exercises Seated Therapy Exercises: Ankle pumps, Sit to stand, Long arc quads, Hip flexion Seated Reps: 12 NuStep Minutes: 10 NuStep Workload: 2 Treatments toileted with SBA Assessment Current Status: Good Progress fatigues and requires rest breaks, progressing well but needs CGA to supervision for safe gait and funct mob PT Short Term Goals Short Term Goals Time Frame: Sep 25, 2021 Roll Left & Right: 3 (Fer) Sit to lyin (Fer) Lying to sitting on side of be: 3 ([place]) Sit to stand: 3 (Fer) Chair/irj-zq-lbtfc transfer: 3 (modA) Walk 10 feet: 3 (Fer) PT Warp Tying Machine Knotter Goals Jail Goals PT Warp Tying Machine Knotter Goals Time Frame: Oct 09, 2021 Roll Left & Right (QC): 4 Sit to Lying (QC): 4 Lying-Sitting on Side/Bed(QC): 4 Sit to Stand (QC): 4 Chair/Xme-yj-Gukrf Xfer(QC): 3 Toilet Transfer (QC): 3 Car Transfer (QC): 3 Does the Patient Walk: Yes Walk 10 feet (QC): 3 Walk 50ft with 2 Turns (QC): 3 Walk 150 ft (QC): 88 Walking 10ft on Uneven Surface: 3 1 Step (curb) (QC): 3 4 Steps (QC): 88 12 Steps (QC): 88 Picking up an Object (QC): 3 Wheel 50 feet with 2 turns (QC: 4 Wheel 150 feet: 4 PT Plan Treatment/Plan Treatment Plan: Continue Plan of Care Treatment Plan: Bed Mobility, Education, Functional Activity Nik, Functional Strength, Group Therapy, Gait, Safety, Therapeutic Exercise, Transfers Treatment Duration: Oct 09, 2021 Frequency: At least 5 of 7 days/Wk (IRF) Estimated Hrs Per Day: 1.5 hours per day Patient and/or Family Agrees t: Yes Safety Risks/Education Patient Education: Gait Training, Transfer Techniques, Steps, Correct Positioning, Disease Process, Safety Issues Teaching Recipient: Patient Teaching Methods: Demonstration, Discussion Response to Teaching: Verbalize Understanding, Return Demonstration, Reinforcement Needed Time/GCodes Time In: 1000 Time Out: 1100 Total Billed Treatment Time: 60 Total Billed Treatment 1,GT20m,FA25m,EX15m RORY RICHARDSON CANAL EQUIPMENT MECHANIC Oct 04, 2021 11:01
--- NOTE | 2021-10-04 11:04 | Speech Therapy Daily Note ---
Speech Daily Progress Note Subjective Date Seen by Provider: Oct 04, 2021 Time Seen by Provider: 09:15 The patient was seated upright in her recliner, awake and alert upon entrance to the patient's room by the clinician. The patient greeted the clinician appropriately and was agreeable to participation in the cognitive treatment session. Objective - Orientation: The patient remained independently oriented to self, location, city, month, day of week, date, and year. - Delayed Recall: The patient was able to recall five single words following a five minute delay, independently. - Repetition: The patient was able to repeat extended phrases with 100% accuracy, independently. - Confrontational Naming: The patient was able to name three black and white photographs with 100% accuracy, independently. - Serial Seven Subtraction: The patient displayed moderate difficulty with the subtraction task regardless of paper and pencil being provided. Maximum verbal prompting was provided by the clinician for limited accuracy. - Swallowing Strategies: The patient discussed and reviewed swallowing strategies on this date. The patient continues to deny s/s of suspected aspiration with her current PO intake (regular consistency diet with thin liquids). Assessment Assessment Current Status: Good Progress Treatment Plan Continue Plan of Care Speech Short Term Goals Short Term Goals Short Term Goals 1. The patient and staff will demonstrate safe swallowing practices and strategies with 90% accuracy. 2. The patient will demonstrate and recall intelligibility strategies with 90% accuracy with mild clinician cueing. Speech [facility] Goals Personal Secretary Goals 1. The patient will tolerate the least restricted diet without s/s of suspected aspiration with 90% accuracy. 2. The patient will demonstrate increased cognitive linguistic skills for safe return to the least restrictive environment. Speech-Plan Treatment Plan Speech Therapy Treatment Plan: Continue Plan of Care Treatment Duration: Oct 09, 2021 Frequency: 3 times per week (Three to five times per week.) Estimated Hrs Per Day: .5 hour per day Rehab Potential: Fair Safety Risks/Education Teaching Recipient: Patient Teaching Methods: Discussion Response to Teaching: Verbalize Understanding, Reinforcement Needed Education Topics Provided: Safe Swallowing Strategies Time Speech Therapy Time In: 09:15 Speech Therapy Time Out: 09:45 Total Billed Time: 30 Billed Treatment Time 1DEB DYST No LOY, ELIZABETH ST Oct 04, 2021 11:04
--- NOTE | 2021-10-04 12:02 | Physical Therapy Daily Note ---
PT Daily Note-Current Subjective Pt. agrees to Rx. Pain Location: No Pain Reported Mental Status Patient Orientation: Normal For Age Transfers SCALE: Activities may be completed with or without assistive devices. 9-Wqmjqgomxz-eamokdm completes the activity by him/herself with no assistance from a helper. 5-Set-up or Clean-up Assistance-helper sets up or cleans up; patient completes activity. [place] assists only prior to or following the activity. 4-Supervision or Touching Assistance-helper provides verbal cues and/or touching/steadying and/or contact guard assistance as patient completes activity. Assistance may be provided throughout the activity or intermittently. 3-Partial/Moderate Assistance-helper does LESS THAN HALF the effort. [place] lifts, holds or supports trunk or limbs, but provides less than half the effort. 2-Substantial/Maximal Assistance-helper does MORE THAN HALF the effort. [place] lifts or holds trunk or limbs and provides more than half the effort. 2-Nggblmeqb-asjlnp does ALL the effort. Patient does none of the effort to complete the activity. Or, the assistance of 2 or more helpers is required for the patient to complete the activity. If activity was not attempted, code reason: 7-Patient Refused. 9-Not Applicable-not attempted and the patient did not perform the activity before the current illness, exacerbation or injury. 10-Not Attempted due to Environmental Limitations-(lack of equipment, weather restraints, etc.). 88-Not Attempted due to Medical Conditions or Safety Concerns. sit to stand SBA Weight Bearing Non Weight Bearing Full Weight Bearing Exercises Supine Ex: Bridging, Ankle pumps, Quad Set, Glut sets, Lower trunk rotation, Heel Slides, Short Arc Quads, Scooting (up in recliner in hooklying x2), Straight leg raise (assisted ), Hip abd/add Supine Reps: 20 Treatments supine LE ex with rest breaks, tactile and verbal cuing Assessment Current Status: Good Progress pt. is fatigued but shows overall improvement PT Short Term Goals Short Term Goals Time Frame: Sep 25, 2021 Roll Left & Right: 3 (Fer) Sit to lyin (Fer) Lying to sitting on side of be: 3 (Uriah) Sit to stand: 3 (Fer) Chair/hix-lc-kmbjf transfer: 3 (modA) Walk 10 feet: 3 (Fer) PT Chcf Goals Chcf Goals PT Electrical Manufacturing Technician Goals Time Frame: Oct 09, 2021 Roll Left & Right (QC): 4 Sit to Lying (QC): 4 Lying-Sitting on Side/Bed(QC): 4 Sit to Stand (QC): 4 Chair/Tzv-td-Ockvu Xfer(QC): 3 Toilet Transfer (QC): 3 Car Transfer (QC): 3 Does the Patient Walk: Yes Walk 10 feet (QC): 3 Walk 50ft with 2 Turns (QC): 3 Walk 150 ft (QC): 88 Walking 10ft on Uneven Surface: 3 1 Step (curb) (QC): 3 4 Steps (QC): 88 12 Steps (QC): 88 Picking up an Object (QC): 3 Wheel 50 feet with 2 turns (QC: 4 Wheel 150 feet: 4 PT Plan Treatment/Plan Treatment Plan: Continue Plan of Care Treatment Plan: Bed Mobility, Education, Functional Activity Nik, Functional Strength, Group Therapy, Gait, Safety, Therapeutic Exercise, Transfers Treatment Duration: Oct 09, 2021 Frequency: At least 5 of 7 days/Wk (IRF) Estimated Hrs Per Day: 1.5 hours per day Patient and/or Family Agrees t: Yes Safety Risks/Education Patient Education: Correct Positioning Teaching Recipient: Patient Teaching Methods: Discussion Response to Teaching: Verbalize Understanding, Return Demonstration, Reinforcem ent Needed Time/GCodes Time In: 1145 Time Out: 1200 Total Billed Treatment Time: 15 Total Billed Treatment 1,EX15m RORY RICHARDSON PTA Oct 04, 2021 12:02
[2021-10-04 19:55] VITALS: BP 114/55
[2021-10-04] MEDS: FAMOTIDINE 20 MG (PEPCID) TABLET PO SCH (20:43)
[2021-10-04] MEDS: LOSARTAN 100 MG (COZAAR) TABLET PO SCH (20:43)
--- NOTE | 2021-10-05 06:24 | PM&R Progress Note ---
Subjective HPI/CC On Admission Date Seen by Provider: Oct 05, 2021 Time Seen by Provider: 11:30 Subjective/Events-last exam 10/05/2021: Patient doing really well Requiring oxygen today Uses oxygen as needed at home at night Lungs are clear No pain reported 10/04/2021: Patient has no complaints Discharge plan next week Ambulation is much improved No falls Adjusting blood pressure due to hypotension 10/03/2021: Patient doing very well Cognition improved Walking well with therapy Discharge planned next week 10/02/2021: Pt is doing very well today No dysphasia Cognition improved Overall navigating very well 10/01/2021: Pt is dramatically improved Speech therapy is very pleased with her progress without any dysphasia Checked meds and labs 09/30/2021: Patient doing very well No pain is reported No falls No dysphagia 09/29/2021: Patient doing well No concerns Transferring well Eating very slowly and doing well without aspiration Lungs remain clear 09/28/2021: Patient much improved No more dysphagia but she does eat a modified diet and she eats slowly No pain is reported Lungs are clear Completed prednisone 09/27/2021: Patient doing well Able to walk more with assistance Right-sided weakness is much improved Able to eat and drink 09/26/2021: Pt is doing dramatically better Walking a little bit with assistance now Right sided weakness is improved Able to feed herself with the right hand 09/25/2021: Pt is doing well Down to one person assist No pain is reported No falls Checked meds and labs Lungs are now clear today 09/24/2021: Pt is doing a lot better Transferring better Overall feels like she is improving Lungs are less wheezy Changed her off IV steroids and on Prednisone 09/23/2021: Patient doing well Wheezing still present IV steroids will be changed tomorrow Check meds and labs No falls 09/22/2021: Patient doing well Wheezes only subtle at the end expiratory phase Feels like she is breathing better No falls No pain Regaining function pretty well 09/21/2021: This is a combined late entry note mistakenly missed creating note from 09/20/2021 so this will include 09/20 and 09/21 Patient was seen on 09/20/2021 and noted wheezing so initiated Solu-Medrol and nebulizer treatments Pt is doing a lot better Small amount of steroids given IV, has really cleared her lungs up Maintain on oxygen of 3L Checked meds and labs Feels like she is progressing 09/19/2021: Pt is doing pretty well Having a lot of loose stools so we will hold laxatives Transferring fair Echocardiogram from [facility] in chart for Dr. 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 Dysphasia tolerating the mechanical soft and nectar thick liquids Review of Systems General: Fatigue, Malaise Pulmonary: Dyspnea Objective Exam Vital Signs Vital Signs Date Time Temp Pulse Resp B/P (MAP) Pulse Ox O2 Delivery O2 Flow Rate FiO2 10/05/21 20:46 94 Room Air 10/05/21 19:56 36.0 93 18 105/52 (69) 10/05/21 09:09 2.00 Capillary Refill : General Appearance: No Apparent Distress, WD/WN, Anxious, Chronically ill HEENT: PERRL/EOMI, Normal ENT Inspection, Pharynx Normal Neck: Full Range of Motion, Normal Inspection, Non Tender, Supple, Carotid Bruit Respiratory: Chest Non Tender, Lungs Clear, Normal Breath Sounds, No Accessory Muscle Use, No Respiratory Distress, Accessory Muscle Use Cardiovascular: Regular Rate, Rhythm, No Edema, No Gallop, No JVD, No Murmur, Normal Peripheral Pulses Gastrointestinal: Normal Bowel Sounds, No Organomegaly, No Pulsatile Mass, Non Tender, Soft Back: Normal Inspection, No CVA Tenderness, No Vertebral Tenderness Extremity: Normal Capillary Refill, Normal Inspection, Normal Range of Motion, Non Tender, No Calf Tenderness, No Pedal Edema Neurologic/Psychiatric: Alert, Oriented x3, Normal Mood/Affect, mixer and scaler II-XII Norm as Tested, Abnormal Gait, Facial Droop, Motor Weakness Skin: Normal Color, Warm/Dry Lymphatic: No Adenopathy Results/Procedures Lab Patient resulted labs reviewed. FIM Transfers Therapy Code Descriptions/Definitions Functional [place] Measure: 0=Not Assessed/NA 4=Minimal Assistance 1=Total Assistance 5=Supervision or Setup 2=Maximal Assistance 6=Modified [place] 3=Moderate Assistance 7=Complete IndependenceSCALE: Activities may be completed with or without assistive devices. 1-Zlfeybgtwx-obtpdpu completes the activity by him/herself with no assistance from a helper. 5-Set-up or Clean-up Assistance-helper sets up or cleans up; patient completes activity. [place] assists only prior to or following the activity. 4-Supervision or Touching Assistance-helper provides verbal cues and/or touching/steadying and/or contact guard assistance as patient completes activity. Assistance may be provided throughout the activity or intermittently. 3-Partial/Moderate Assistance-helper does LESS THAN HALF the effort. [place] lifts, holds or supports trunk or limbs, but provides less than half the effort. 2-Substantial/Maximal Assistance-helper does MORE THAN HALF the effort. [place] lifts or holds trunk or limbs and provides more than half the effort. 5-Pyjouxbbd-grbova does ALL the effort. Patient does none of the effort to complete the activity. Or, the assistance of 2 or more helpers is required for the patient to complete the activity. If activity was not attempted, code reason: 7-Patient Refused. 9-Not Applicable-not attempted and the patient did not perform the activity before the current illness, exacerbation or injury. 10-Not Attempted due to Environmental Limitations-(lack of equipment, weather restraints, etc.). 88-Not Attempted due to Medical Conditions or Safety Concerns. Roll Left to Right (QC): 6 Sit to Lying (QC): 6 Sit to Stand (QC): 6 Chair/Zth-vs-Brvgm Xfer(QC): 4 Car Transfer (QC): 4 Gait Training Does the Patient Walk?: Yes Distance: 50', 60', 30' Walk 10 feet (QC): 4 Walk 50 ft with 2 Turns(QC): 4 Walk 150 ft (QC): 88 Walking 10ft/uneven surface-QC: 88 Gait Persons Needed: 1 Gait Assistive Device: FWW Wheelchair Training Does the Pt Use a Wheelchair?: Yes Distance: 120'x2 Wheel 50 ft with 2 turns (QC): 5 Wheel 150 ft (QC): 5 Type of Wheelchair: Manual Stair Training Stair Training: Handrails/: 2 handrails #of Steps: 4 1 Step (curb) (QC): 88 4 Steps (QC): 4 12 Steps (QC): 88 Stairs: Pattern: Step to Balance Picking up an Object (QC): 4 (SBA using a collections curator) ADL-Treatment Eating (QC): 6 Oral Hygiene (QC): 6 Shower/Bathe Self (QC): 6 Upper Body Dressing (QC): 5 Lower Body Dressing (QC): 4 On/Off Footwear (QC): 4 (1 verbal cue and set up) Toileting Hygiene (QC): 6 Toilet Transfer (QC): 6 Assessment/Plan Assessment and Plan Assess & Plan/Chief Complaint Assessment: CVA Right-sided facial droop Right-sided weakness Acute exacerbation of COPD placed on IV steroids on 09/20/2021 now completed treatment 09/28/2021 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 Peripheral vascular disease Obesity BMI 29 Hypertension requiring adjustment of blood pressure medications 10/04/2021 Plan: Inpatient rehab protocol Cardiology consult Nebulizers Oxygen supplementation 09/19/2021: Oxygen supplementation Nebulizers Supportive care 09/20/2021, 09/21/2021: Place patient on IV steroids 40 mg IV every 12 hours Patient much improved Continue breathing treatments 09/22/2021: Continue IV steroids Monitor closely 09/23/2021: Supportive care 09/24/2021: Improved lungs Continue therapy 09/25/2021: Wean off prednisone Supportive care 09/26/2021: Wean down off prednisone Dramatic improvement now walking with assistance 09/27/2021: Wean down steroids Continue breathing treatments 09/28/2021: Discontinue steroids 09/29/2021: Discontinue steroids yesterday Monitor closely 09/30/2021: Monitor for dysphagia 10/01/2021: Supportive care 10/02/2021: Supportive care 10/03/2021: Dramatic improvement Discharge plan next week 10/04/2021: Supportive care Decrease blood pressure medication doses 10/05/2021: Oxygen supplementation as needed (1) Chronic systolic heart failure Status: Chronic Assessment & Plan: She may have some slight component of chronic heart failure with reduced ejection fraction contributing to her shortness of breath. She is on losartan I added spironolactone. I do not think she is a good candidate for beta-jcarlos due to her severe obstructive airways disease with ongoing wheezing. She would like to follow-up with someone in [place] since this is closer to her home. I asked her to check with friends and family to see if they have any recommendations for a specific communication consultant. (2) Cardiomyopathy Assessment & Plan: She had an echocardiogram at an outside hospital that showed mild to moderate left ventricular systolic dysfunction with an ejection fraction of 40-45%. Exact etiology unclear and I do not know if this is a new finding in this patient. She was placed on losartan at the outside facility. As above, I added spironolactone. Her ejection fraction is above the cutoff for rec ommending a prophylactic defibrillator. She will need to have her guideline directed medical therapy maximized following discharge. (3) Primary hypertension Assessment & Plan: Her blood pressure improved since adding spironolactone. If her blood pressure remains elevated, then I would maximize her losartan as opposed to adding other agents. (4) Mixed hyperlipidemia Assessment & Plan: Continue statin medication. (5) Elevated brain natriuretic peptide (BNP) level Assessment & Plan: Her BNP level wasmildly elevated. Her echocardiogram from the outside facility showed mild-moderate left ventricular systolic dysfunction with an estimated ejection fraction of 40-45% with no significant valvular disease. Her pulmonary artery pressure was 30-35 mmHg. This echo was performed on 09/16. However, her chest x-ray from our hospital does not show any significant pulmonary edema. We will proceed as above. (6) Chronic obstructive pulmonary disease Assessment & Plan: I suspect this is the primary cause of her chronic dyspnea. FLORES LUGO DO Oct 05, 2021 06:24
[2021-10-05 07:30] VITALS: BP 116/56
--- NOTE | 2021-10-05 07:55 | Occupational Ther Daily Note ---
OT Current Status-Daily Note Subjective Pt alert, sitting in recliner. Pt agrees to therapy. No c/o pain. Pt has increased need for O2 during sessions and small circular area on dorsal of R foot, reported to nrsg. Mental Status/Objective Patient Orientation: Person, Place, Time, Situation Attachments: Oxygen (2L) ADL-Treatment Independent with eating. Pt agrees to shower. Independent with oral care sitting at sink. Pt retrieved clothing from parking enforcement manager room using FWW. Pt fatigues quickly and education on how and when to gather clothing at home for energy conservation was discussed. Pt transported clothing to bathroom using FWW, supervision for safety. Pt ambulated to toilet using FWW, transferred using grabbars, manipulated clothing and completed hygiene independently. Pt required set up for shower then completed shower using grabbars, shower bench and hand held shower. Independent with upper body dressing. Due to increased fatigue and SOA assist given to dress lower body clothing. After session, pt sitting in recliner with call light/phone in reach. All needs met in room. Therapy Code Descriptions/Definitions Functional [place] Measure: 0=Not Assessed/NA 4=Minimal Assistance 1=Total Assistance 5=Supervision or Setup 2=Maximal Assistance 6=Modified [place] 3=Moderate Assistance 7=Complete IndependenceSCALE: Activities may be completed with or without assistive devices. 7-Myoeyssfrf-jsiuipu completes the activity by him/herself with no assistance from a helper. 5-Set-up or Clean-up Assistance-helper sets up or cleans up; patient completes activity. [place] assists only prior to or following the activity. 4-Supervision or Touching Assistance-helper provides verbal cues and/or touching/steadying and/or contact guard assistance as patient completes activity. Assistance may be provided throughout the activity or intermittently. 3-Partial/Moderate Assistance-helper does LESS THAN HALF the effort. [place] lifts, holds or supports trunk or limbs, but provides less than half the effort. 2-Substantial/Maximal Assistance-helper does MORE THAN HALF the effort. [place] lifts or holds trunk or limbs and provides more than half the effort. 7-Ilwmlftdv-rqmsnr does ALL the effort. Patient does none of the effort to complete the activity. Or, the assistance of 2 or more helpers is required for the patient to complete the activity. If activity was not attempted, code reason: 7-Patient Refused. 9-Not Applicable-not attempted and the patient did not perform the activity before the current illness, exacerbation or injury. 10-Not Attempted due to Environmental Limitations-(lack of equipment, weather restraints, etc.). 88-Not Attempted due to Medical Conditions or Safety Concerns. Eating (QC): 6 Oral Hygiene (QC): 6 Shower/Bathe Self (QC): 5 Upper Body Dressing (QC): 5 (Supervision to gather clothing then dressed by self.) Toileting Hygiene (QC): 6 Toilet Transfer (QC): 6 OT Short Term Goals Short Term Goals Time Frame: Sep 28, 2021 Eatin Oral hygiene: 4 Toileting hygiene: 2 Shower/bathe self: 2 Upper body dressin Lower body dressin Putting on/taking off footwear: 2 OT Acds Block 1 Operator Goals Halfway Goals Time Frame: Oct 16, 2021 Eating (QC): 5 Oral Hygiene (QC): 5 Toileting Hygiene (QC): 3 (min) Shower/Bathe Self (QC): 3 (min) Upper Body Dressing (QC): 4 Lower Body Dressing (QC): 3 (min) On/Off Footwear (QC): 3 (min) 1=Demonstrate adherence to instructed precautions during ADL tasks. 2=Patient will verbalize/demonstrate understanding of assistive devices/modifications for ADL. 3=Patient will improve strength/tolerance for activity to enable patient to perform ADL's. OT Education/Plan Problem List/Assessment Assessment: Decreased Activ Tolerance, Impaired Self-Care Skills Discharge Recommendations Plan/Recommendations: Continue POC Treatment Plan/Plan of Care Patient would benefit from OT for education, treatment and training to promote independence in ADL's, mobility, safety and/or upper extremity function for ADL's. Plan of Care: ADL Retraining, Functional Mobility, Group Exercise/Act as Ind, UE Funct Exercise/Act, UE Neuromus Re-Ed/Coord, W/C Management Training Treatment Duration: Oct 16, 2021 Frequency: At least 5 of 7 days/Wk (IRF) Estimated Hrs Per Day: 1.5 hours per day Rehab Potential: Fair Time/GCodes Start Time: 07:30 Stop Time: 08:45 Total Time Billed (hr/min): 75 Billed Treatment Time 1 visit-ADL 5 (75 min) JUSTIN ROGERS Oct 05, 2021 07:55
[2021-10-05] MEDS: ASPIRIN E.C. 81 MG (ECOTRIN) TAB PO SCH (08:06)
[2021-10-05] MEDS: LACTOBACILLUS ACIDOPHILUS (PROBIOTIC) CAPSULE PO SCH ×3 (08:06→17:13)
[2021-10-05] MEDS: LORATADINE (CLARITIN) 10 MG TAB PO SCH ×2 (08:07→20:05)
[2021-10-05] MEDS: MONTELUKAST 10 MG (SINGULAIR) TAB PO SCH (08:07)
[2021-10-05] MEDS: FLUTICASONE NASAL SPRAY (FLONASE) 16 GM BTL NS SCH (08:07)
[2021-10-05] MEDS: KCL 20 MEQ TAB (K-DUR) PO SCH ×2 (08:07→17:13)
[2021-10-05] MEDS: FERROUS SULF 325 MG (IRON) TAB PO SCH ×2 (08:07→20:05)
[2021-10-05] MEDS: CLOPIDOGREL 75 MG (PLAVIX) TABLET PO SCH (08:07)
[2021-10-05] MEDS: buPROPion SR 150 MG (WELLBUTRIN SR) TAB PO SCH (08:07)
[2021-10-05] MEDS: SPIRONOLACTONE 25 MG (ALDACTONE) TAB PO SCH (08:07)
[2021-10-05] MEDS: DOCUSATE SODIUM 100 MG (COLACE) CAP PO SCH ×2 (08:08→19:23)
[2021-10-05] MEDS: polyethylene glycoL POWDER 17 GM (MIRALAX) PACK PO SCH ×2 (08:08→19:23)
[2021-10-05] MEDS: SENNA W/DOCUSATE (SENOKOT S) TABLET PO SCH ×2 (08:08→19:23)
[2021-10-05] MEDS: RT-ALBUTEROL SULF 2.5 MG/3 ML PRE-MIX VIAL INH SCH ×2 (08:50→20:45)
[2021-10-05] MEDS: UMECLIDINIUM BROMIDE (INCRUSE ELLIPTA) 7'S IH SCH (08:51)
[2021-10-05] MEDS: RT--FLUTICASONE/SALMETEROL 232-14 (AIRDUO RespiCLICK) IH SCH ×2 (08:51→20:45)
--- NOTE | 2021-10-05 09:46 | Speech Therapy Daily Note ---
Speech Daily Progress Note Subjective Date Seen by Provider: Oct 05, 2021 Time Seen by Provider: 09:00 The patient was seated upright in her recliner, awake and alert upon entrance to the room by the clinician. The patient greeted the clinician and was agreeable to participation in the cognitive treatment session. The patient does report increased fatigue on this date secondary to recent completion of a shower with occupational therapy. Objective - Orientation: The patient remains independently oriented to self, location, month, day of week, date and year. - Functional Calendar Use: The patient was provided multiple calendars representing different months and dates. The patient was asked questions specific to each calendar. The patient displayed 100% accuracy, independently, with the task. - Word Finding: The patient was provided a specific category and asked to provide an item which belongs into the category and begins with a specific letter. The patient displayed 92% accuracy with mild clinician verbal cueing. - Dysphagia: The patient and clinician reviewed the patient's safe swallowing strategies and recent PO intake. Per patient, she did experience one episode of coughing following a combined bite of pancake and scrambled eggs. The clinician suspects the mixed consistency resulted in poor lingual and oral coordination and control, allowing pieces of the bolus to transfer into the pharyngeal space prematurely. The clinician recommended the patient not mix items on her tray and attempt to eat each consistency in isolation. The patient agreed to this recommendation and verbalized comprehension. Assessment Assessment Current Status: Good Progress Treatment Plan Continue Plan of Care Speech Short Term Goals Short Term Goals Short Term Goals 1. The patient and staff will demonstrate safe swallowing practices and strategies with 90% accuracy. 2. The patient will demonstrate and recall intelligibility strategies with 90% accuracy with mild clinician cueing. Speech Tong Setter Goals Tong Setter Goals 1. The patient will tolerate the least restricted diet without s/s of suspected aspiration with 90% accuracy. 2. The patient will demonstrate increased cognitive linguistic skills for safe return to the least restrictive environment. Speech-Plan Treatment Plan Speech Therapy Treatment Plan: Continue Plan of Care Treatment Duration: Oct 09, 2021 Frequency: 3 times per week (Three to five times per week.) Estimated Hrs Per Day: .5 hour per day Rehab Potential: Fair Pt/Family Agrees to Plan: Yes Safety Risks/Education Teaching Recipient: Patient Teaching Methods: Discussion Response to Teaching: Verbalize Understanding, Reinforcement Needed Education Topics Provided: Safe Swallowing Strategies Time Speech Therapy Time In: 09:00 Speech Therapy Time Out: 09:30 Total Billed Time: 30 Billed Treatment Time 1, DEB, SAGAR Paz Oct 05, 2021 09:46
--- NOTE | 2021-10-05 11:04 | Physical Therapy Daily Note ---
PT Daily Note-Current Subjective Pt. agrees to Rx but states she wants to use O2 today. "I use it at home when I feel a little short of air" Pain Location: No Pain Reported Mental Status Patient Orientation: Normal For Age Attachments: Oxygen (2L) Transfers SCALE: Activities may be completed with or without assistive devices. 8-Qvfvnrokla-pcaviar completes the activity by him/herself with no assistance from a helper. 5-Set-up or Clean-up Assistance-helper sets up or cleans up; patient completes activity. [place] assists only prior to or following the activity. 4-Supervision or Touching Assistance-helper provides verbal cues and/or touching/steadying and/or contact guard assistance as patient completes activity . Assistance may be provided throughout the activity or intermittently. 3-Partial/Moderate Assistance-helper does LESS THAN HALF the effort. [place] lifts, holds or supports trunk or limbs, but provides less than half the effort. 2-Substantial/Maximal Assistance-helper does MORE THAN HALF the effort. [place] lifts or holds trunk or limbs and provides more than half the effort. 0-Gipcabglg-djrssf does ALL the effort. Patient does none of the effort to complete the activity. Or, the assistance of 2 or more helpers is required for the patient to complete the activity. If activity was not attempted, code reason: 7-Patient Refused. 9-Not Applicable-not attempted and the patient did not perform the activity before the current illness, exacerbation or injury. 10-Not Attempted due to Environmental Limitations-(lack of equipment, weather restraints, etc.). 88-Not Attempted due to Medical Conditions or Safety Concerns. Sit to Stand (QC): 6 Chair/Nmd-jk-Lkubb Xfer(QC): 6 Toilet Transfer (QC): 6 Weight Bearing Non Weight Bearing Full Weight Bearing Gait Training Does the Patient Walk?: Yes Walk 10 feet (QC): 4 Walk 50 ft with 2 Turns(QC): 4 Walk 150 ft (QC): 4 Gait Persons Needed: 1 Gait Assistive Device: FWW Exercises Seated Therapy Exercises: Ankle pumps, Sit to stand, Long arc quads, Hip flexion, Hip abd/add Seated Reps: 12 NuStep Minutes: 10 NuStep Workload: 2 Treatments toileteed managing TRF, pants up down and and cleaning indep Assessment Current Status: Good Progress PT Short Term Goals Short Term Goals Time Frame: Sep 25, 2021 Roll Left & Right: 3 (Fer) Sit to lyin (Fer) Lying to sitting on side of be: 3 (Uriah) Sit to stand: 3 (Fer) Chair/lqn-dt-bvqsf transfer: 3 (modA) Walk 10 feet: 3 (Fer) PT Pattern Chain Maker Supervisor Goals Pattern Chain Maker Supervisor Goals PT Pattern Chain Maker Supervisor Goals Time Frame: Oct 09, 2021 Roll Left & Right (QC): 4 Sit to Lying (QC): 4 Lying-Sitting on Side/Bed(QC): 4 Sit to Stand (QC): 4 Chair/Kop-mc-Pcqia Xfer(QC): 3 Toilet Transfer (QC): 3 Car Transfer (QC): 3 Does the Patient Walk: Yes Walk 10 feet (QC): 3 Walk 50ft with 2 Turns (QC): 3 Walk 150 ft (QC): 88 Walking 10ft on Uneven Surface: 3 1 Step (curb) (QC): 3 4 Steps (QC): 88 12 Steps (QC): 88 Picking up an Object (QC): 3 Wheel 50 feet with 2 turns (QC: 4 Wheel 150 feet: 4 PT Plan Treatment/Plan Treatment Plan: Continue Plan of Care Treatment Plan: Bed Mobility, Education, Functional Activity Nik, Functional Strength, Group Therapy, Gait, Safety, Therapeutic Exercise, Transfers Treatment Duration: Oct 09, 2021 Frequency: At least 5 of 7 days/Wk (IRF) Estimated Hrs Per Day: 1.5 hours per day Patient and/or Family Agrees t: Yes Safety Risks/Education Patient Education: Gait Training, Transfer Techniques, Correct Positioning, Safety Issues Teaching Recipient: Patient Teaching Methods: Demonstration, Discussion Response to Teaching: Verbalize Understanding, Return Demonstration, Reinforcement Needed Time/GCodes Time In: 1000 Time Out: 1100 Total Billed Treatment Time: 60 Total Billed Treatment 1,GT25m,EX15m,FA20m RORY RICHARDSON PTA Oct 05, 2021 11:04
--- NOTE | 2021-10-05 12:02 | Physical Therapy Daily Note ---
PT Daily Note-Current Subjective Agrees to Ex in room. Pain Location: No Pain Reported Mental Status Patient Orientation: Normal For Age Attachments: Oxygen Transfers SCALE: Activities may be completed with or without assistive devices. 3-Htqkqdsspe-evevrnt completes the activity by him/herself with no assistance from a helper. 5-Set-up or Clean-up Assistance-helper sets up or cleans up; patient completes activity. [place] assists only prior to or following the activity. 4-Supervision or Touching Assistance-helper provides verbal cues and/or touching/steadying and/or contact guard assistance as patient completes activity. Assistance may be provided throughout the activity or intermittently. 3-Partial/Moderate Assistance-helper does LESS THAN HALF the effort. [place] lifts, holds or supports trunk or limbs, but provides less than half the effort. 2-Substantial/Maximal Assistance-helper does MORE THAN HALF the effort. [place] lifts or holds trunk or limbs and provides more than half the effort. 7-Nvbhvpqzq-xomaav does ALL the effort. Patient does none of the effort to complete the activity. Or, the assistance of 2 or more helpers is required for the patient to complete the activity. If activity was not attempted, code reason: 7-Patient Refused. 9-Not Applicable-not attempted and the patient did not perform the activity before the current illness, exacerbation or injury. 10-Not Attempted due to Environmental Limitations-(lack of equipment, weather restraints, etc.). 88-Not Attempted due to Medical Conditions or Safety Concerns. scoots self up in recliner indep Weight Bearing Non Weight Bearing Full Weight Bearing Exercises Supine Ex: Bridging, Ankle pumps, Quad Set, Glut sets, Heel Slides, Short Arc Quads, Scooting, Straight leg raise, Hip abd/add Supine Reps: 15 Treatments LE ex in supine, left with pillows for positioning, call bryant and blanket etc Assessment Current Status: Good Progress PT Short Term Goals Short Term Goals Time Frame: Sep 25, 2021 Roll Left & Right: 3 (Fer) Sit to lyin (Fer) Lying to sitting on side of be: 3 (Uriah) Sit to stand: 3 (Fer) Chair/hds-fr-aphru transfer: 3 (modA) Walk 10 feet: 3 (Fer) PT In Home Caregiver Goals Usp Goals PT In Home Caregiver Goals Time Frame: Oct 09, 2021 Roll Left & Right (QC): 4 Sit to Lying (QC): 4 Lying-Sitting on Side/Bed(QC): 4 Sit to Stand (QC): 4 Chair/Xqi-ee-Jdjmw Xfer(QC): 3 Toilet Transfer (QC): 3 Car Transfer (QC): 3 Does the Patient Walk: Yes Walk 10 feet (QC): 3 Walk 50ft with 2 Turns (QC): 3 Walk 150 ft (QC): 88 Walking 10ft on Uneven Surface: 3 1 Step (curb) (QC): 3 4 Steps (QC): 88 12 Steps (QC): 88 Picking up an Object (QC): 3 Wheel 50 feet with 2 turns (QC: 4 Wheel 150 feet: 4 PT Plan Treatment/Plan Treatment Plan: Continue Plan of Care Treatment Plan: Bed Mobility, Education, Functional Activity Nik, Functional Strength, Group Therapy, Gait, Safety, Therapeutic Exercise, Transfers Treatment Duration: Oct 09, 2021 Frequency: At least 5 of 7 days/Wk (IRF) Estimated Hrs Per Day: 1.5 hours per day Patient and/or Family Agrees t: Yes Safety Risks/Education Patient Education: Correct Positioning Response to Teaching: Reinforcement Needed Time/GCodes Time In: 1145 Time Out: 1200 Total Billed Treatment Time: 15 Total Billed Treatment 1,EX15m RORY RICHARDSON PTA Oct 05, 2021 12:02
[2021-10-05 19:56] VITALS: BP 105/52
[2021-10-05] MEDS: FAMOTIDINE 20 MG (PEPCID) TABLET PO SCH (20:05)
[2021-10-05] MEDS: LOSARTAN 100 MG (COZAAR) TABLET PO SCH (20:06)
--- NOTE | 2021-10-06 06:02 | PM&R Progress Note ---
Subjective HPI/CC On Admission Date Seen by Provider: Oct 06, 2021 Time Seen by Provider: 12:30 Subjective/Events-last exam 10/06/2021: Supportive care continues Shortness of breath continues Patient has been on steroids a lot Maintain on oxygen Right hand improved 10/05/2021: Patient doing really well Requiring oxygen today Uses oxygen as needed at home at night Lungs are clear No pain reported 10/04/2021: Patient has no complaints Discharge plan next week Ambulation is much improved No falls Adjusting blood pressure due to hypotension 10/03/2021: Patient doing very well Cognition improved Walking well with therapy Discharge planned next week 10/02/2021: Pt is doing very well today No dysphasia Cognition improved Overall navigating very well 10/01/2021: Pt is dramatically improved Speech therapy is very pleased with her progress without any dysphasia Checked meds and labs 09/30/2021: Patient doing very well No pain is reported No falls No dysphagia 09/29/2021: Patient doing well No concerns Transferring well Eating very slowly and doing well without aspiration Lungs remain clear 09/28/2021: Patient much improved No more dysphagia but she does eat a modified diet and she eats slowly No pain is reported Lungs are clear Completed prednisone 09/27/2021: Patient doing well Able to walk more with assistance Right-sided weakness is much improved Able to eat and drink 09/26/2021: Pt is doing dramatically better Walking a little bit with assistance now Right sided weakness is improved Able to feed herself with the right hand 09/25/2021: Pt is doing well Down to one person assist No pain is reported No falls Checked meds and labs Lungs are now clear today 09/24/2021: Pt is doing a lot better Transferring better Overall feels like she is improving Lungs are less wheezy Changed her off IV steroids and on Prednisone 09/23/2021: Patient doing well Wheezing still present IV steroids will be changed tomorrow Check meds and labs No falls 09/22/2021: Patient doing well Wheezes only subtle at the end expiratory phase Feels like she is breathing better No falls No pain Regaining function pretty well 09/21/2021: This is a combined late entry note mistakenly missed creating note from 2021 so this will include 09/20 and 09/21 Patient was seen on 09/20/2021 and noted wheezing so initiated Solu-Medrol and nebulizer treatments Pt is doing a lot better Small amount of steroids given IV, has really cleared her lungs up Maintain on oxygen of 3L Checked meds and labs Feels like she is progressing 09/19/2021: Pt is doing pretty well Having a lot of loose stools so we will hold laxatives Transferring fair [facility]ocardiogram from [facility] in chart for Dr. 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 Dysphasia tolerating the mechanical soft and nectar thick liquids Review of Systems Pulmonary: Dyspnea, Cough Neurological: Weakness, Incoordination Objective Exam Vital Signs Vital Signs Date Time Temp Pulse Resp B/P (MAP) Pulse Ox O2 Delivery O2 Flow Rate FiO2 10/07/21 06:17 36.4 81 95 10/06/21 21:15 Nasal Cannula 2.00 10/06/21 20:04 18 114/69 (84) Capillary Refill : General Appearance: No Apparent Distress, WD/WN, Anxious, Chronically ill HEENT: PERRL/EOMI, Normal ENT Inspection, Pharynx Normal Neck: Full Range of Motion, Normal Inspection, Non Tender, Supple, Carotid Bruit Respiratory: Chest Non Tender, Lungs Clear, Normal Breath Sounds, No Accessory Muscle Use, No Respiratory Distress, Accessory Muscle Use Cardiovascular: Regular Rate, Rhythm, No Edema, No Gallop, No JVD, No Murmur, Normal Peripheral Pulses Gastrointestinal: Normal Bowel Sounds, No Organomegaly, No Pulsatile Mass, Non Tender, Soft Back: Normal Inspection, No CVA Tenderness, No Vertebral Tenderness Extremity: Normal Capillary Refill, Normal Inspection, Normal Range of Motion, Non Tender, No Calf Tenderness, No Pedal Edema Neurologic/Psychiatric: Alert, Oriented x3, Normal Mood/Affect, dress fitter II-XII Norm as Tested, Abnormal Gait, Facial Droop, Motor Weakness Skin: Normal Color, Warm/Dry Lymphatic: No Adenopathy Results/Procedures Lab Patient resulted labs reviewed. FIM Transfers Therapy Code Descriptions/Definitions Functional [place] Measure: 0=Not Assessed/NA 4=Minimal Assistance 1=Total Assistance 5=Supervision or Setup 2=Maximal Assistance 6=Modified [place] 3=Moderate Assistance 7=Complete IndependenceSCALE: Activities may be completed with or without assistive devices. 5-Hpcknncwjf-wpyjbdc completes the activity by him/herself with no assistance from a helper. 5-Set-up or Clean-up Assistance-helper sets up or cleans up; patient completes activity. [place] assists only prior to or following the activity. 4-Supervision or Touching Assistance-helper provides verbal cues and/or touching/steadying and/or contact guard assistance as patient completes activity. Assistance may be provided throughout the activity or intermittently. 3-Partial/Moderate Assistance-helper does LESS THAN HALF the effort. [place] lifts, holds or supports trunk or limbs, but provides less than half the effort. 2-Substantial/Maximal Assistance-helper does MORE THAN HALF the effort. [place] lifts or holds trunk or limbs and provides more than half the effort. 4-Ibfsujcfu-mxlivb does ALL the effort. Patient does none of the effort to complete the activity. Or, the assistance of 2 or more helpers is required for the patient to complete the activity. If activity was not attempted, code reason: 7-Patient Refused. 9-Not Applicable-not attempted and the patient did not perform the activity before the current illness, exacerbation or injury. 10-Not Attempted due to Environmental Limitations-(lack of equipment, weather restraints, etc.). 88-Not Attempted due to Medical Conditions or Safety Concerns. Roll Left to Right (QC): 6 Sit to Lying (QC): 6 Sit to Stand (QC): 6 Chair/Ibz-yt-Aslbc Xfer(QC): 6 Car Transfer (QC): 4 Gait Training Does the Patient Walk?: Yes Distance: 50', 60', 30' Walk 10 feet (QC): 4 Walk 50 ft with 2 Turns(QC): 4 Walk 150 ft (QC): 4 Walking 10ft/uneven surface-QC: 88 Gait Persons Needed: 1 Gait Assistive Device: FWW Wheelchair Training Does the Pt Use a Wheelchair?: Yes Distance: 120'x2 Wheel 50 ft with 2 turns (QC): 5 Wheel 150 ft (QC): 5 Type of Wheelchair: Manual Stair Training Stair Training: Handrails/: 2 handrails #of Steps: 4 1 Step (curb) (QC): 88 4 Steps (QC): 4 12 Steps (QC): 88 Stairs: Pattern: Step to Balance Picking up an Object (QC): 4 (SBA using a soda fountain operator) ADL-Treatment Eating (QC): 6 Oral Hygiene (QC): 6 Shower/Bathe Self (QC): 5 Upper Body Dressing (QC): 5 (Supervision to gather clothing then dressed by self.) Lower Body Dressing (QC): 4 On/Off Footwear (QC): 4 (1 verbal cue and set up) Toileting Hygiene (QC): 6 Toilet Transfer (QC): 6 Assessment/Plan Assessment and Plan Assess & Plan/Chief Complaint Assessment: CVA Right-sided facial droop Right-sided weakness Acute exacerbation of COPD placed on IV steroids on 09/20/2021 now completed treatment 09/28/2021 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 Peripheral vascular disease Obesity BMI 29 Hypertension requiring adjustment of blood pressure medications 10/04/2021 Plan: Inpatient rehab protocol Cardiology consult Nebulizers Oxygen supplementation 09/19/2021: Oxygen supplementation Nebulizers Supportive care 09/20/2021, 09/21/2021: Place patient on IV steroids 40 mg IV every 12 hours Patient much improved Continue breathing treatments 09/22/2021: Continue IV steroids Monitor closely 09/23/2021: Supportive care 09/24/2021: Improved lungs Continue therapy 09/25/2021: Wean off prednisone Supportive care 09/26/2021: Wean down off prednisone Dramatic improvement now walking with assistance 09/27/2021: Wean down steroids Continue breathing treatments 09/28/2021: Discontinue steroids 09/29/2021: Discontinue steroids yesterday Monitor closely 09/30/2021: Monitor for dysphagia 10/01/2021: Supportive care 10/02/2021: Supportive care 10/03/2021: Dramatic improvement Discharge plan next week 10/04/2021: Supportive care Decrease blood pressure medication doses 10/05/2021: Oxygen supplementation as needed 10/06/2021: Oxygen supplementation Monitor lung function (1) Chronic systolic heart failure Status: Chronic Assessment & Plan: She may have some slight component of chronic heart failure with reduced ejection fraction contributing to her shortness of breath. She is on losartan I added spironolactone. I do not think she is a good candidate for beta-jcarlos due to her severe obstructive airways disease with ongoing wheezin g. She would like to follow-up with someone in [place] since this is closer to her home. I asked her to check with friends and family to see if they have any recommendations for a specific systems development manager. (2) Cardiomyopathy Assessment & Plan: She had an echocardiogram at an outside hospital that showed mild to moderate left ventricular systolic dysfunction with an ejection fraction of 40-45%. Exact etiology unclear and I do not know if this is a new finding in this patient. She was placed on losartan at the outside facility. As above, I added spironolactone. Her ejection fraction is above the cutoff for recommending a prophylactic defibrillator. She will need to have her guideline directed medical therapy maximized following discharge. (3) Primary hypertension Assessment & Plan: Her blood pressure improved since adding spironolactone. If her blood pressure remains elevated, then I would maximize her losartan as opposed to adding other agents. (4) Mixed hyperlipidemia Assessment & Plan: Continue statin medication. (5) Elevated brain natriuretic peptide (BNP) level Assessment & Plan: Her BNP level wasmildly elevated. Her echocardiogram from the outside facility showed mild-moderate left ventricular systolic dysfunction with an estimated ejection fraction of 40-45% with no significant valvular disease. Her pulmonary artery pressure was 30-35 mmHg. This echo was performed on 09/16. However, her chest x-ray from our hospital does not show any significant pulmonary edema. We will proceed as above. (6) Chronic obstructive pulmonary disease Assessment & Plan: I suspect this is the primary cause of her chronic dyspnea. FLORES LUGO DO Oct 06, 2021 06:02
[2021-10-06 07:30] VITALS: BP 100/63
[2021-10-06] MEDS: SENNA W/DOCUSATE (SENOKOT S) TABLET PO SCH ×2 (08:12→19:21)
[2021-10-06] MEDS: FERROUS SULF 325 MG (IRON) TAB PO SCH ×2 (08:12→20:28)
[2021-10-06] MEDS: KCL 20 MEQ TAB (K-DUR) PO SCH ×2 (08:12→17:08)
[2021-10-06] MEDS: buPROPion SR 150 MG (WELLBUTRIN SR) TAB PO SCH (08:12)
[2021-10-06] MEDS: DOCUSATE SODIUM 100 MG (COLACE) CAP PO SCH ×2 (08:12→19:21)
[2021-10-06] MEDS: LORATADINE (CLARITIN) 10 MG TAB PO SCH ×2 (08:12→20:28)
[2021-10-06] MEDS: ASPIRIN E.C. 81 MG (ECOTRIN) TAB PO SCH (08:12)
[2021-10-06] MEDS: LACTOBACILLUS ACIDOPHILUS (PROBIOTIC) CAPSULE PO SCH ×3 (08:12→17:08)
[2021-10-06] MEDS: MONTELUKAST 10 MG (SINGULAIR) TAB PO SCH (08:13)
[2021-10-06] MEDS: SPIRONOLACTONE 25 MG (ALDACTONE) TAB PO SCH (08:13)
[2021-10-06] MEDS: UMECLIDINIUM BROMIDE (INCRUSE ELLIPTA) 7'S IH SCH (08:15)
[2021-10-06] MEDS: FLUTICASONE NASAL SPRAY (FLONASE) 16 GM BTL NS SCH (08:15)
[2021-10-06] MEDS: RT--FLUTICASONE/SALMETEROL 232-14 (AIRDUO RespiCLICK) IH SCH ×2 (08:15→21:14)
[2021-10-06] MEDS: RT-ALBUTEROL SULF 2.5 MG/3 ML PRE-MIX VIAL INH SCH ×2 (08:15→21:14)
[2021-10-06] MEDS: polyethylene glycoL POWDER 17 GM (MIRALAX) PACK PO SCH ×3 (08:16→19:21)
--- NOTE | 2021-10-06 12:17 | Physical Therapy Daily Note ---
PT Daily Note-Current Subjective Pt sitting in recliner upon arrival. Pt agrees to PT. Mental Status Patient Orientation: Person, Place, Situation Attachments: Oxygen Transfers SCALE: Activities may be completed with or without assistive devices. 5-Qmisnkgzpy-zqlcuwv completes the activity by him/herself with no assistance from a helper. 5-Set-up or Clean-up Assistance-helper sets up or cleans up; patient completes activity. [place] assists only prior to or following the activity. 4-Supervision or Touching Assistance-helper provides verbal cues and/or touching/steadying and/or contact guard assistance as patient completes activity. Assistance may be provided throughout the activity or intermittently. 3-Partial/Moderate Assistance-helper does LESS THAN HALF the effort. [place] lifts, holds or supports trunk or limbs, but provides less than half the effort. 2-Substantial/Maximal Assistance-helper does MORE THAN HALF the effort. [place] lifts or holds trunk or limbs and provides more than half the effort. 3-Fnhkurmbl-patdbv does ALL the effort. Patient does none of the effort to complete the activity. Or, the assistance of 2 or more helpers is required for the patient to complete the activity. If activity was not attempted, code reason: 7-Patient Refused. 9-Not Applicable-not attempted and the patient did not perform the activity before the current illness, exacerbation or injury. 10-Not Attempted due to Environmental Limitations-(lack of equipment, weather restraints, etc.). 88-Not Attempted due to Medical Conditions or Safety Concerns. Sit to Stand (QC): 5 Weight Bearing Non Weight Bearing Full Weight Bearing Gait Training Does the Patient Walk?: Yes Distance: 60' x2 Walk 10 feet (QC): 5 Walk 50 ft with 2 Turns(QC): 5 Gait Persons Needed: 1 Gait Assistive Device: FWW Treatments TF to standing and amb. in hallway. Pt takes standing RB before amb. back to room. Pt takes sitting RB and returns to recliner. Pt is SOA upon return and O2 checked (90%). All needs met, call light in hand & Nurse present at end of tx. Assessment Current Status: Fair Progress Pt demonstrates more fatigue today. PT Short Term Goals Short Term Goals Time Frame: Sep 25, 2021 Roll Left & Right: 3 (Fer) Sit to lyin (Fer) Lying to sitting on side of be: 3 (Uriah) Sit to stand: 3 (Fer) Chair/jao-pm-crxzm transfer: 3 (modA) Walk 10 feet: 3 (Fer) PT Half-Way Goals Half-Way Goals PT Half-Way Goals Time Frame: Oct 09, 2021 Roll Left & Right (QC): 4 Sit to Lying (QC): 4 Lying-Sitting on Side/Bed(QC): 4 Sit to Stand (QC): 4 Chair/Iaz-hf-Bbubp Xfer(QC): 3 Toilet Transfer (QC): 3 Car Transfer (QC): 3 Does the Patient Walk: Yes Walk 10 feet (QC): 3 Walk 50ft with 2 Turns (QC): 3 Walk 150 ft (QC): 88 Walking 10ft on Uneven Surface: 3 1 Step (curb) (QC): 3 4 Steps (QC): 88 12 Steps (QC): 88 Picking up an Object (QC): 3 Wheel 50 feet with 2 turns (QC: 4 Wheel 150 feet: 4 PT Plan Problem List Problem List: Activity Tolerance Treatment/Plan Treatment Plan: Continue Plan of Care Treatment Plan: Bed Mobility, Education, Functional Activity Nik, Functional Strength, Group Therapy, Gait, Safety, Therapeutic Exercise, Transfers Treatment Duration: Oct 09, 2021 Frequency: At least 5 of 7 days/Wk (IRF) Estimated Hrs Per Day: 1.5 hours per day Patient and/or Family Agrees t: Yes Time/GCodes Time In: 1100 Time Out: 1120 Total Billed Treatment Time: 20 Total Billed Treatment 1, GT (20m) ROBBIN SALAZAR MANAGER [employer]POR[employer] STRATEGY Oct 06, 2021 12:17
[2021-10-06 20:04] VITALS: BP 114/69
[2021-10-06] MEDS: FAMOTIDINE 20 MG (PEPCID) TABLET PO SCH (20:29)
[2021-10-06] MEDS: LOSARTAN 100 MG (COZAAR) TABLET PO SCH (20:29)
[2021-10-07 06:17] VITALS: BP 114/69
[2021-10-07] MEDS ORDERED: RT-ALBUTEROL SULF 2.5 MG/3 ML PRE-MIX VIAL INH PRN (06:30)
[2021-10-07 07:30] VITALS: BP 104/51
--- NOTE | 2021-10-07 07:34 | PM&R Progress Note ---
Subjective HPI/CC On Admission Date Seen by Provider: Oct 07, 2021 Time Seen by Provider: 12:15 Subjective/Events-last exam 10/07/2021: Supportive care is helping No oxygen use right now Shortness of breath at times 10/06/2021: Supportive care continues Shortness of breath continues Patient has been on steroids a lot Maintain on oxygen Right hand improved 10/05/2021: Patient doing really well Requiring oxygen today Uses oxygen as needed at home at night Lungs are clear No pain reported 10/04/2021: Patient has no complaints Discharge plan next week Ambulation is much improved No falls Adjusting blood pressure due to hypotension 10/03/2021: Patient doing very well Cognition improved Walking well with therapy Discharge planned next week 10/02/2021: Pt is doing very well today No dysphasia Cognition improved Overall navigating very well 10/01/2021: Pt is dramatically improved Speech therapy is very pleased with her progress without any dysphasia Checked meds and labs 09/30/2021: Patient doing very well No pain is reported No falls No dysphagia 09/29/2021: Patient doing well No concerns Transferring well Eating very slowly and doing well without aspiration Lungs remain clear 09/28/2021: Patient much improved No more dysphagia but she does eat a modified diet and she eats slowly No pain is reported Lungs are clear Completed prednisone 09/27/2021: Patient doing well Able to walk more with assistance Right-sided weakness is much improved Able to eat and drink 09/26/2021: Pt is doing dramatically better Walking a little bit with assistance now Right sided weakness is improved Able to feed herself with the right hand 09/25/2021: Pt is doing well Down to one person assist No pain is reported No falls Checked meds and labs Lungs are now clear today 09/24/2021: Pt is doing a lot better Transferring better Overall feels like she is improving Lungs are less wheezy Changed her off IV steroids and on Prednisone 09/23/2021: Patient doing well Wheezing still present IV steroids will be changed tomorrow Check meds and labs No falls 09/22/2021: Patient doing well Wheezes only subtle at the end expiratory phase Feels like she is breathing better No falls No pain Regaining function pretty well 09/21/2021: This is a combined late entry note mistakenly missed creating note from 09/20/2021 so this will include 09/20 and 09/21 Patient was seen on 09/20/2021 and noted wheezing so initiated Solu-Medrol and nebulizer treatments Pt is doing a lot better Small amount of steroids given IV, has really cleared her lungs up Maintain on oxygen of 3L Checked meds and labs Feels like she is progressing 09/19/2021: Pt is doing pretty well Having a lot of loose stools so we will hold laxatives Transferring fair Echocardiogram from [facility] in chart for Dr. 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 Dysphasia tolerating the mechanical soft and nectar thick liquids Review of Systems General: Fatigue, Malaise Objective Exam Vital Signs Vital Signs Date Time Temp Pulse Resp B/P (MAP) Pulse Ox O2 Delivery O2 Flow Rate FiO2 10/07/21 08:33 Room Air 10/07/21 08:20 2.00 10/07/21 07:30 36.4 76 18 104/51 (68) 97 Capillary Refill : General Appearance: No Apparent Distress, WD/WN, Anxious, Chronically ill HEENT: PERRL/EOMI, Normal ENT Inspection, Pharynx Normal Neck: Full Range of Motion, Normal Inspection, Non Tender, Supple, Carotid Bruit Respiratory: Chest Non Tender, Lungs Clear, Normal Breath Sounds, No Accessory Muscle Use, No Respiratory Distress, Accessory Muscle Use Cardiovascular: Regular Rate, Rhythm, No Edema, No Gallop, No JVD, No Murmur, Normal Peripheral Pulses Gastrointestinal: Normal Bowel Sounds, No Organomegaly, No Pulsatile Mass, Non Tender, Soft Back: Normal Inspection, No CVA Tenderness, No Vertebral Tenderness Extremity: Normal Capillary Refill, Normal Inspection, Normal Range of Motion, Non Tender, No Calf Tenderness, No Pedal Edema Neurologic/Psychiatric: Alert, Oriented x3, Normal Mood/Affect, household appliance mechanic II-XII Norm as Tested, Abnormal Gait, Facial Droop, Motor Weakness Skin: Normal Color, Warm/Dry Lymphatic: No Adenopathy Results/Procedures Lab Patient resulted labs reviewed. FIM Transfers Therapy Code Descriptions/Definitions Functional [place] Measure: 0=Not Assessed/NA 4=Minimal Assistance 1=Total Assistance 5=Supervision or Setup 2=Maximal Assistance 6=Modified [place] 3=Moderate Assistance 7=Complete IndependenceSCALE: Activities may be completed with or without assistive devices. 9-Bzagpczsam-oplnenx completes the activity by him/herself with no assistance from a helper. 5-Set-up or Clean-up Assistance-helper sets up or cleans up; patient completes activity. [place] assists only prior to or following the activity. 4-Supervision or Touching Assistance-helper provides verbal cues and/or touching/steadying and/or contact guard assistance as patient completes activity. Assistance may be provided throughout the activity or intermittently. 3-Partial/Moderate Assistance-helper does LESS THAN HALF the effort. [place] lifts, holds or supports trunk or limbs, but provides less than half the effort. 2-Substantial/Maximal Assistance-helper does MORE THAN HALF the effort. [place] lifts or holds trunk or limbs and provides more than half the effort. 3-Aofqwcity-kcaxiy does ALL the effort. Patient does none of the effort to complete the activity. Or, the assistance of 2 or more helpers is required for the patient to complete the activity. If activity was not attempted, code reason: 7-Patient Refused. 9-Not Applicable-not attempted and the patient did not perform the activity before the current illness, exacerbation or injury. 10-Not Attempted due to Environmental Limitations-(lack of equipment, weather restraints, etc.). 88-Not Attempted due to Medical Conditions or Safety Concerns. Roll Left to Right (QC): 6 Sit to Lying (QC): 6 Sit to Stand (QC): 5 Chair/Pcb-cm-Lwcqy Xfer(QC): 6 Car Transfer (QC): 4 Gait Training Does the Patient Walk?: Yes Distance: 60' x2 Walk 10 feet (QC): 5 Walk 50 ft with 2 Turns(QC): 5 Walk 150 ft (QC): 4 Walking 10ft/uneven surface-QC: 88 Gait Persons Needed: 1 Gait Assistive Device: FWW Wheelchair Training Does the Pt Use a Wheelchair?: Yes Distance: 120'x2 Wheel 50 ft with 2 turns (QC): 5 Wheel 150 ft (QC): 5 Type of Wheelchair: Manual Stair Training Stair Training: Handrails/: 2 handrails #of Steps: 4 1 Step (curb) (QC): 88 4 Steps (QC): 4 12 Steps (QC): 88 Stairs: Pattern: Step to Balance Picking up an Object (QC): 4 (SBA using a customer response representative) ADL-Treatment Eating (QC): 6 Oral Hygiene (QC): 6 Shower/Bathe Self (QC): 5 Upper Body Dressing (QC): 5 (Supervision to gather clothing then dressed by self.) Lower Body Dressing (QC): 4 On/Off Footwear (QC): 4 (1 verbal cue and set up) Toileting Hygiene (QC): 6 Toilet Transfer (QC): 6 Assessment/Plan Assessment and Plan Assess & Plan/Chief Complaint Assessment: CVA Right-sided facial droop Right-sided weakness Acute exacerbation of COPD placed on IV steroids on 09/20/2021 now completed treatment 09/28/2021 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 Peripheral vascular disease Obesity BMI 29 Hypertension requiring adjustment of blood pressure medications 10/04/2021 Plan: Inpatient rehab protocol Cardiology consult Nebulizers Oxygen supplementation 09/19/2021: Oxygen supplementation Nebulizers Supportive care 09/20/2021, 09/21/2021: Place patient on IV steroids 40 mg IV every 12 hours Patient much improved Continue breathing treatments 09/22/2021: Continue IV steroids Monitor closely 09/23/2021: Supportive care 09/24/2021: Improved lungs Continue therapy 09/25/2021: Wean off prednisone Supportive care 09/26/2021: Wean down off prednisone Dramatic improvement now walking with assistance 09/27/2021: Wean down steroids Continue breathing treatments 09/28/2021: Discontinue steroids 09/29/2021: Discontinue steroids yesterday Monitor closely 09/30/2021: Monitor for dysphagia 10/01/2021: Supportive care 10/02/2021: Supportive care 10/03/2021: Dramatic improvement Discharge plan next week 10/04/2021: Supportive care Decrease blood pressure medication doses 10/05/2021: Oxygen supplementation as needed 10/06/2021: Oxygen supplementation Monitor lung function 10/07/21: Monitor closely O2 (1) Chronic systolic heart failure Status: Chronic Assessment & Plan: She may have some slight component of chronic heart failure with reduced ejection fraction contributing to her shortness of breath. She is on losartan I added spironolactone. I do not think she is a good candidate for beta-jcarlos due to her severe obstructive airways disease with ongoing wheezing. She would like to follow-up with someone in [place] since this is closer to her home. I asked her to check with friends and family to see if they have any recommendations for a specific outsole molder. (2) Cardiomyopathy Assessment & Plan: She had an echocardiogram at an outside hospital that showed mild to moderate left ventricular systolic dysfunction with an ejection fraction of 40-45%. Exact etiology unclear and I do not know if this is a new finding in this patient. She was placed on losartan at the outside facility. As above, I added spironolactone. Her ejection fraction is above the cutoff for recommending a prophylactic defibrillator. She will need to have her guideline directed medical therapy maximized following discharge. (3) Primary hypertension Assessment & Plan: Her blood pressure improved since adding spironolactone. If her blood pressure remains elevated, then I would maximize her losartan as opposed to adding other agents. (4) Mixed hyperlipidemia Assessment & Plan: Continue statin medication. (5) Elevated brain natriuretic peptide (BNP) level Assessment & Plan: Her BNP level wasmildly elevated. Her echocardiogram from the outside facility showed mild-moderate left ventricular systolic dysfunction with an estimated ejection fraction of 40-45% with no significant valvular disease. Her pulmonary artery pressure was 30-35 mmHg. This echo was performed on 09/16. However, her chest x-ray from our hospital does not show any significant pulmonary edema. We will proceed as above. (6) Chronic obstructive pulmonary disease Assessment & Plan: I suspect this is the primary cause of her chronic dyspnea. FLORES LUGO DO Oct 07, 2021 07:34
[2021-10-07] MEDS: SENNA W/DOCUSATE (SENOKOT S) TABLET PO SCH ×2 (08:19→21:06)
[2021-10-07] MEDS: SPIRONOLACTONE 25 MG (ALDACTONE) TAB PO SCH (08:19)
[2021-10-07] MEDS: LORATADINE (CLARITIN) 10 MG TAB PO SCH ×2 (08:19→21:05)
[2021-10-07] MEDS: buPROPion SR 150 MG (WELLBUTRIN SR) TAB PO SCH (08:19)
[2021-10-07] MEDS: FERROUS SULF 325 MG (IRON) TAB PO SCH ×2 (08:19→21:05)
[2021-10-07] MEDS: UMECLIDINIUM BROMIDE (INCRUSE ELLIPTA) 7'S IH SCH (08:20)
[2021-10-07] MEDS: RT--FLUTICASONE/SALMETEROL 232-14 (AIRDUO RespiCLICK) IH SCH ×2 (08:20→20:56)
[2021-10-07] MEDS: LACTOBACILLUS ACIDOPHILUS (PROBIOTIC) CAPSULE PO SCH ×3 (08:20→17:33)
[2021-10-07] MEDS: FLUTICASONE NASAL SPRAY (FLONASE) 16 GM BTL NS SCH (08:21)
[2021-10-07] MEDS: ASPIRIN E.C. 81 MG (ECOTRIN) TAB PO SCH (08:21)
[2021-10-07] MEDS: KCL 20 MEQ TAB (K-DUR) PO SCH ×2 (08:21→17:33)
[2021-10-07] MEDS: MONTELUKAST 10 MG (SINGULAIR) TAB PO SCH (08:21)
[2021-10-07] MEDS: DOCUSATE SODIUM 100 MG (COLACE) CAP PO SCH ×2 (08:21→21:05)
[2021-10-07] MEDS: polyethylene glycoL POWDER 17 GM (MIRALAX) PACK PO SCH ×2 (08:23→21:06)
[2021-10-07 19:40] VITALS: BP 105/65
[2021-10-07] MEDS: FAMOTIDINE 20 MG (PEPCID) TABLET PO SCH (21:05)
[2021-10-07] MEDS: LOSARTAN 100 MG (COZAAR) TABLET PO SCH (21:05)
--- NOTE | 2021-10-08 05:38 | PM&R Progress Note ---
Subjective HPI/CC On Admission Date Seen by Provider: Oct 08, 2021 Time Seen by Provider: 10:30 Subjective/Events-last exam 10/08/2021: Pt doing pretty well Requiring O2 today No pain Putting on her shoe at this current time 10/07/2021: Supportive care is helping No oxygen use right now Shortness of breath at times 10/06/2021: Supportive care continues Shortness of breath continues Patient has been on steroids a lot Maintain on oxygen Right hand improved 10/05/2021: Patient doing really well Requiring oxygen today Uses oxygen as needed at home at night Lungs are clear No pain reported 10/04/2021: Patient has no complaints Discharge plan next week Ambulation is much improved No falls Adjusting blood pressure due to hypotension 10/03/2021: Patient doing very well Cognition improved Walking well with therapy Discharge planned next week 10/02/2021: Pt is doing very well today No dysphasia Cognition improved Overall navigating very well 10/01/2021: Pt is dramatically improved Speech therapy is very pleased with her progress without any dysphasia Checked meds and labs 09/30/2021: Patient doing very well No pain is reported No falls No dysphagia 09/29/2021: Patient doing well No concerns Transferring well Eating very slowly and doing well without aspiration Lungs remain clear 09/28/2021: Patient much improved No more dysphagia but she does eat a modified diet and she eats slowly No pain is reported Lungs are clear Completed prednisone 09/27/2021: Patient doing well Able to walk more with assistance Right-sided weakness is much improved Able to eat and drink 09/26/2021: Pt is doing dramatically better Walking a little bit with assistance now Right sided weakness is improved Able to feed herself with the right hand 09/25/2021: Pt is doing well Down to one person assist No pain is reported No falls Checked meds and labs Lungs are now clear today 09/24/2021: Pt is doing a lot better Transferring better Overall feels like she is improving Lungs are less wheezy Changed her off IV steroids and on Prednisone 09/23/2021: Patient doing well Wheezing still present IV steroids will be changed tomorrow Check meds and labs No falls 09/22/2021: Patient doing well Wheezes only subtle at the end expiratory phase Feels like she is breathing better No falls No pain Regaining function pretty well 09/21/2021: This is a combined late entry note mistakenly missed creating note from 09/20/19 22 so this will include 09/20 and 09/21 Patient was seen on 09/20/2021 and noted wheezing so initiated Solu-Medrol and nebulizer treatments Pt is doing a lot better Small amount of steroids given IV, has really cleared her lungs up Maintain on oxygen of 3L Checked meds and labs Feels like she is progressing 09/19/2021: Pt is doing pretty well Having a lot of loose stools so we will hold laxatives Transferring fair Echocardiogram from [facility] in chart for Dr. 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 Dysphasia tolerating the mechanical soft and nectar thick liquids Review of Systems General: Fatigue, Malaise Neurological: Weakness, Incoordination Objective Exam Vital Signs Vital Signs Date Time Temp Pulse Resp B/P (MAP) Pulse Ox O2 Delivery O2 Flow Rate FiO2 10/08/21 20:43 97 Nasal Cannula 2.00 10/08/21 19:46 35.8 82 18 102/56 (71) Capillary Refill : General Appearance: No Apparent Distress, WD/WN, Anxious, Chronically ill HEENT: PERRL/EOMI, Normal ENT Inspection, Pharynx Normal Neck: Full Range of Motion, Normal Inspection, Non Tender, Supple, Carotid Bruit Respiratory: Chest Non Tender, Lungs Clear, Normal Breath Sounds, No Accessory Muscle Use, No Respiratory Distress, Accessory Muscle Use Cardiovascular: Regular Rate, Rhythm, No Edema, No Gallop, No JVD, No Murmur, Normal Peripheral Pulses Gastrointestinal: Normal Bowel Sounds, No Organomegaly, No Pulsatile Mass, Non Tender, Soft Back: Normal Inspection, No CVA Tenderness, No Vertebral Tenderness Extremity: Normal Capillary Refill, Normal Inspection, Normal Range of Motion, Non Tender, No Calf Tenderness, No Pedal Edema Neurologic/Psychiatric: Alert, Oriented x3, Normal Mood/Affect, research and development engineer II-XII Norm as Tested, Abnormal Gait, Facial Droop, Motor Weakness Skin: Normal Color, Warm/Dry Lymphatic: No Adenopathy Results/Procedures Lab Laboratory Tests 10/08/21 05:25 Patient resulted labs reviewed. FIM Transfers Therapy Code Descriptions/Definitions Functional [place] Measure: 0=Not Assessed/NA 4=Minimal Assistance 1=Total Assistance 5=Supervision or Setup 2=Maximal Assistance 6=Modified [place] 3=Moderate Assistance 7=Complete IndependenceSCALE: Activities may be completed with or without assistive devices. 2-Imzlmzbttv-kzwtldo completes the activity by him/herself with no assistance from a helper. 5-Set-up or Clean-up Assistance-helper sets up or cleans up; patient completes activity. [place] assists only prior to or following the activity. 4-Supervision or Touching Assistance-helper provides verbal cues and/or touching/steadying and/or contact guard assistance as patient completes acti vity. Assistance may be provided throughout the activity or intermittently. 3-Partial/Moderate Assistance-helper does LESS THAN HALF the effort. [place] lifts, holds or supports trunk or limbs, but provides less than half the effort. 2-Substantial/Maximal Assistance-helper does MORE THAN HALF the effort. [place] lifts or holds trunk or limbs and provides more than half the effort. 4-Hvdywovtk-bpfkdq does ALL the effort. Patient does none of the effort to complete the activity. Or, the assistance of 2 or more helpers is required for the patient to complete the activity. If activity was not attempted, code reason: 7-Patient Refused. 9-Not Applicable-not attempted and the patient did not perform the activity before the current illness, exacerbation or injury. 10-Not Attempted due to Environmental Limitations-(lack of equipment, weather restraints, etc.). 88-Not Attempted due to Medical Conditions or Safety Concerns. Roll Left to Right (QC): 6 Sit to Lying (QC): 6 Sit to Stand (QC): 5 Chair/Rfl-si-Mbkgy Xfer(QC): 6 Car Transfer (QC): 4 Gait Training Does the Patient Walk?: Yes Distance: 60' x2 Walk 10 feet (QC): 5 Walk 50 ft with 2 Turns(QC): 5 Walk 150 ft (QC): 4 Walking 10ft/uneven surface-QC: 88 Gait Persons Needed: 1 Gait Assistive Device: FWW Wheelchair Training Does the Pt Use a Wheelchair?: Yes Distance: 120'x2 Wheel 50 ft with 2 turns (QC): 5 Wheel 150 ft (QC): 5 Type of Wheelchair: Manual Stair Training Stair Training: Handrails/: 2 handrails #of Steps: 4 1 Step (curb) (QC): 88 4 Steps (QC): 4 12 Steps (QC): 88 Stairs: Pattern: Step to Balance Picking up an Object (QC): 4 (SBA using a volunteer fire fighter) ADL-Treatment Eating (QC): 6 Oral Hygiene (QC): 6 Shower/Bathe Self (QC): 5 Upper Body Dressing (QC): 5 (Supervision to gather clothing then dressed by self.) Lower Body Dressing (QC): 4 On/Off Footwear (QC): 4 (1 verbal cue and set up) Toileting Hygiene (QC): 6 Toilet Transfer (QC): 6 Assessment/Plan Assessment and Plan Assess & Plan/Chief Complaint Assessment: CVA Right-sided facial droop Right-sided weakness Acute exacerbation of COPD placed on IV steroids on 09/20/2021 now completed treatment 09/28/2021 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 Peripheral vascular disease Obesity BMI 29 Hypertension requiring adjustment of blood pressure medications 10/04/2021 Plan: Inpatient rehab protocol Cardiology consult Nebulizers Oxygen supplementation 09/19/2021: Oxygen supplementation Nebulizers Supportive care 09/20/2021, 09/21/2021: Place patient on IV steroids 40 mg IV every 12 hours Patient much improved Continue breathing treatments 09/22/2021: Continue IV steroids Monitor closely 09/23/2021: Supportive care 09/24/2021: Improved lungs Continue therapy 09/25/2021: Wean off prednisone Supportive care 09/26/2021: Wean down off prednisone Dramatic improvement now walking with assistance 09/27/2021: Wean down steroids Continue breathing treatments 09/28/2021: Discontinue steroids 09/29/2021: Discontinue steroids yesterday Monitor closely 09/30/2021: Monitor for dysphagia 10/01/2021: Supportive care 10/02/2021: Supportive care 10/03/2021: Dramatic improvement Discharge plan next week 10/04/2021: Supportive care Decrease blood pressure medication doses 10/05/2021: Oxygen supplementation as needed 10/06/2021: Oxygen supplementation Monitor lung function 10/07/21: Monitor closely O2 10/08/2021: Increase ADLs Oxygen (1) Chronic systolic heart failure Status: Chronic Assessment & Plan: She may have some slight component of chronic heart failure with reduced ejection fraction contributing to her shortness of breath. She is on losartan I added spironolactone. I do not think she is a good candidate for beta-jcarlos due to her severe obstructive airways disease with ongoing wheezing. She would like to follow-up with someone in [place] since this is closer to her home. I asked her to check with friends and family to see if they have any recommendations for a specific boy's adviser. (2) Cardiomyopathy Assessment & Plan: She had an echocardiogram at an outside hospital that showed mild to moderate left ventricular systolic dysfunction with an ejection fraction of 40-45%. Exact etiology unclear and I do not know if this is a new finding in this patient. She was placed on losartan at the outside facility. As above, I added spironolactone. Her ejection fraction is above the cutoff for recommending a prophylactic defibrillator. She will need to have her guideline directed medical therapy maximized following discharge. (3) Primary hypertension Assessment & Plan: Her blood pressure improved since adding spironolactone. If her blood pressure remains elevated, then I would maximize her losartan as opposed to adding other agents. (4) Mixed hyperlipidemia Assessment & Plan: Continue statin medication. (5) Elevated brain natriuretic peptide (BNP) level Assessment & Plan: Her BNP level wasmildly elevated. Her echocardiogram from the outside facility showed mild-moderate left ventricular systolic dysfunction with an estimated ejection fraction of 40-45% with no significant valvular disease. Her pulmonary artery pressure was 30-35 mmHg. This echo was performed on 09/16. However, her chest x-ray from our hospital does not show any significant pulmonary edema. We will proceed as above. (6) Chronic obstructive pulmonary disease Assessment & Plan: I suspect this is the primary cause of her chronic dyspnea. FLORES LUGO DO Oct 08, 2021 05:38
[2021-10-08 06:35] LABS: EOSINOPHILS # (AUTO) 0.4 10^3/uL (0.0-0.3); MEAN CORPUSCULAR HEMOGLOBIN 30 pg (25-34); MEAN PLATELET VOLUME 9.5 fL (9.0-12.2); NEUTROPHILS % (AUTO) 71 % (42-75)
[2021-10-08 06:37] LABS: BASOPHILS # (AUTO) 0.1 10^3/uL (0.0-0.1); BASOPHILS % (AUTO) 1 % (0-10); EOSINOPHILS % (AUTO) 6 % (0-10); HEMATOCRIT 34 % (35-52); HEMOGLOBIN 10.7 g/dL (11.5-16.0); LYMPHOCYTES % (AUTO) 13 % (12-44); MEAN CORPUSCULAR HGB CONC 32 g/dL (32-36); MEAN CORPUSCULAR VOLUME 94 fL (80-99); MONOCYTES # (AUTO) 0.6 10^3/uL (0.0-1.0); MONOCYTES % (AUTO) 8 % (0-12); NEUTROPHILS # (AUTO) 5.2 10^3/uL (1.8-7.8); PLATELET COUNT 251 10^3/uL (130-400); WHITE BLOOD COUNT 7.3 10^3/uL (4.3-11.0)
[2021-10-08 06:58] LABS: ALBUMIN 3.1 GM/DL (3.2-4.5); POTASSIUM 4.2 MMOL/L (3.6-5.0)
[2021-10-08] MEDS: RT--FLUTICASONE/SALMETEROL 232-14 (AIRDUO RespiCLICK) IH SCH ×2 (06:58→20:42)
[2021-10-08 06:59] LABS: CALCIUM 9.5 MG/DL (8.5-10.1)
[2021-10-08 07:01] LABS: TOTAL PROTEIN 5.6 GM/DL (6.4-8.2)
[2021-10-08 07:03] LABS: BILIRUBIN,TOTAL 0.4 MG/DL (0.1-1.0)
[2021-10-08 07:04] LABS: CREATININE SERUM 0.85 MG/DL (0.60-1.30)
[2021-10-08 07:28] VITALS: BP 103/50
[2021-10-08] MEDS: SPIRONOLACTONE 25 MG (ALDACTONE) TAB PO SCH (08:18)
[2021-10-08] MEDS: LORATADINE (CLARITIN) 10 MG TAB PO SCH ×2 (08:18→20:16)
[2021-10-08] MEDS: ASPIRIN E.C. 81 MG (ECOTRIN) TAB PO SCH (08:18)
[2021-10-08] MEDS: FERROUS SULF 325 MG (IRON) TAB PO SCH ×2 (08:18→20:16)
[2021-10-08] MEDS: buPROPion SR 150 MG (WELLBUTRIN SR) TAB PO SCH (08:19)
[2021-10-08] MEDS: MONTELUKAST 10 MG (SINGULAIR) TAB PO SCH (08:19)
[2021-10-08] MEDS: KCL 20 MEQ TAB (K-DUR) PO SCH ×2 (08:20→17:08)
[2021-10-08] MEDS: LACTOBACILLUS ACIDOPHILUS (PROBIOTIC) CAPSULE PO SCH ×3 (08:20→17:08)
[2021-10-08] MEDS: FLUTICASONE NASAL SPRAY (FLONASE) 16 GM BTL NS SCH (08:21)
[2021-10-08] MEDS: DOCUSATE SODIUM 100 MG (COLACE) CAP PO SCH ×2 (08:34→20:16)
[2021-10-08] MEDS: polyethylene glycoL POWDER 17 GM (MIRALAX) PACK PO SCH ×2 (08:34→20:17)
[2021-10-08] MEDS: SENNA W/DOCUSATE (SENOKOT S) TABLET PO SCH ×2 (08:35→20:17)
--- NOTE | 2021-10-08 08:51 | Occupational Ther Daily Note ---
OT Current Status-Daily Note Subjective Pt alert, sitting in recliner. Pt agrees to therapy. No c/o pain. Mental Status/Objective Patient Orientation: Person, Place, Time, Situation Attachments: Oxygen (2L) ADL-Treatment Independent with eating. Pt agrees to shower. Independent with oral care sitting at sink. Pt retrieved clothing from lace finisher room using FWW. Pt transported clothing to bathroom using FWW, supervision for safety. Pt ambulated to toilet using FWW, transferred using grabbars, manipulated clothing and completed hygiene independently. Pt independent with shower completing using grabbars, shower bench and hand held shower. Independent with upper body dressing. Independent with lower body dressing. Independent with footwear. Pt takes increased time due to taking energy conservation breaks throughout session to decrease fatigue. After session, pt sitting in recliner with call light/phone in reach. All needs met in room. Therapy Code Descriptions/Definitions Functional [place] Measure: 0=Not Assessed/NA 4=Minimal Assistance 1=Total Assistance 5=Supervision or Setup 2=Maximal Assistance 6=Modified [place] 3=Moderate Assistance 7=Complete IndependenceSCALE: Activities may be completed with or without assistive devices. 0-Gmhctuhtde-dkoonho completes the activity by him/herself with no assistance from a helper. 5-Set-up or Clean-up Assistance-helper sets up or cleans up; patient completes activity. [place] assists only prior to or following the activity. 4-Supervision or Touching Assistance-helper provides verbal cues and/or touching/steadying and/or contact guard assistance as patient completes activity. Assistance may be provided throughout the activity or intermittently. 3-Partial/Moderate Assistance-helper does LESS THAN HALF the effort. [place] lifts, holds or supports trunk or limbs, but provides less than half the effort. 2-Substantial/Maximal Assistance-helper does MORE THAN HALF the effort. [place] lifts or holds trunk or limbs and provides more than half the effort. 3-Xeamsquhq-urppuw does ALL the effort. Patient does none of the effort to complete the activity. Or, the assistance of 2 or more helpers is required for the patient to complete the activity. If activity was not attempted, code reason: 7-Patient Refused. 9-Not Applicable-not attempted and the patient did not perform the activity before the current illness, exacerbation or injury. 10-Not Attempted due to Environmental Limitations-(lack of equipment, weather restraints, etc.). 88-Not Attempted due to Medical Conditions or Safety Concerns. Eating (QC): 6 Oral Hygiene (QC): 6 Shower/Bathe Self (QC): 6 Upper Body Dressing (QC): 6 Lower Body Dressing (QC): 6 On/Off Footwear: 6 Toileting Hygiene (QC): 6 Toilet Transfer (QC): 6 OT Short Term Goals Short Term Goals Time Frame: Sep 28, 2021 Eatin Oral hygiene: 4 Toileting hygiene: 2 Shower/bathe self: 2 Upper body dressin Lower body dressin Putting on/taking off footwear: 2 OT Custodial Goals Custodial Goals Time Frame: Oct 16, 2021 Eating (QC): 5 (met) Oral Hygiene (QC): 5 (met) Toileting Hygiene (QC): 3 (min-met) Shower/Bathe Self (QC): 3 (minmet) Upper Body Dressing (QC): 4 (met) Lower Body Dressing (QC): 3 (minmet) On/Off Footwear (QC): 3 (minmet) 1=Demonstrate adherence to instructed precautions during ADL tasks. 2=Patient will verbalize/demonstrate understanding of assistive devices/modifications for ADL. 3=Patient will improve strength/tolerance for activity to enable patient to perform ADL's. OT Education/Plan Problem List/Assessment Assessment: Decreased Activ Tolerance, Impaired Self-Care Skills Discharge Recommendations Plan/Recommendations: Continue POC Treatment Plan/Plan of Care Patient would benefit from OT for education, treatment and training to promote independence in ADL's, mobility, safety and/or upper extremity function for ADL's. Plan of Care: ADL Retraining, Functional Mobility, Group Exercise/Act as Ind, UE Funct Exercise/Act, UE Neuromus Re-Ed/Coord, W/C Management Training Treatment Duration: Oct 16, 2021 Frequency: At least 5 of 7 days/Wk (IRF) Estimated Hrs Per Day: 1.5 hours per day Rehab Potential: Fair Time/GCodes Start Time: 07:30 Stop Time: 08:45 Total Time Billed (hr/min): 75 Billed Treatment Time 1 visit-ADL 5 (75 min) JUSTIN ROGERS Oct 08, 2021 08:51
[2021-10-08] MEDS: UMECLIDINIUM BROMIDE (INCRUSE ELLIPTA) 7'S IH SCH (09:12)
--- NOTE | 2021-10-08 10:32 | Speech Therapy Daily Note ---
Speech Daily Progress Note Subjective Date Seen by Provider: Oct 08, 2021 Time Seen by Provider: 09:00 The patient was seated upright in her recliner upon entrance to the room by the clinician. The patient greeted the clinician appropriately and was agreeable to participation in the cognitive linguistic treatment session. Objective - Orientation: The patient remains independently oriented to self, location, mo nth, day of week, date and year. - Oral Motor Exercises: The patient completed labial protrusion and retraction exercises with high accuracy, ten repetitions of each, and direct clinician modeling. - Word-Finding Exercises: The patient was provided a specific letter and asked to provide a word that began with the letter and "fit" into the category provided. The patient displayed 100% accuracy with this task with mild clinician verbal cueing. - Delayed Recall: The patient was read a short paragraph aloud from the clinician and asked one questions regarding the paragraph immediately following. The patient displayed 90% accuracy with the task with mild clinician verbal cueing. - Safe Swallowing Strategies: Safe swallowing strategies were reviewed, as well as, the patient's current oropharyngeal swallowing function. The patient denied challenges or concerns with her swallowing function and denied the presence of s/s of suspected aspiration with current PO intake. Assessment Assessment Current Status: Good Progress Treatment Plan Continue Plan of Care Speech Short Term Goals Short Term Goals Short Term Goals 1. The patient and staff will demonstrate safe swallowing practices and strategies with 90% accuracy. 2. The patient will demonstrate and recall intelligibility strategies with 90% accuracy with mild clinician cueing. Speech Log [place] Goals Shelter Goals 1. The patient will tolerate the least restricted diet without s/s of suspected aspiration with 90% accuracy. 2. The patient will demonstrate increased cognitive linguistic skills for safe return to the least restrictive environment. Speech-Plan Treatment Plan Speech Therapy Treatment Plan: Continue Plan of Care Treatment Duration: Oct 09, 2021 Frequency: 3 times per week (Three to five times per week.) Estimated Hrs Per Day: .5 hour per day Rehab Potential: Fair Pt/Family Agrees to Plan: Yes Safety Risks/Education Teaching Recipient: Patient Teaching Methods: Discussion Response to Teaching: Verbalize Understanding Education Topics Provided: Plan of Care Time Speech Therapy Time In: 09:00 Speech Therapy Time Out: 09:30 Total Billed Time: 30 Billed Treatment Time 1, DEB, SAGAR MITCHELL Oct 08, 2021 10:32
--- NOTE | 2021-10-08 12:11 | Physical Therapy Daily Note ---
PT Daily Note-Current Subjective Pt sitting in reclienr upon arrival. Pt agrees to PT. FRONT END SOFTWARE ENGINEER will monitor O2 for need of O2 during tx. Mental Status Patient Orientation: Person, Place, Situation Attachments: Oxygen (2L when laying down or a lot of exertion) Transfers SCALE: Activities may be completed with or without assistive devices. 5-Gbbghzdvat-qofgjwg completes the activity by him/herself with no assistance from a helper. 5-Set-up or Clean-up Assistance-helper sets up or cleans up; patient completes activity. [place] assists only prior to or following the activity. 4-Supervision or Touching Assistance-helper provides verbal cues and/or touching/steadying and/or contact guard assistance as patient completes activity. Assistance may be provided throughout the activity or intermittently. 3-Partial/Moderate Assistance-helper does LESS THAN HALF the effort. [place] lifts, holds or supports trunk or limbs, but provides less than half the effort. 2-Substantial/Maximal Assistance-helper does MORE THAN HALF the effort. [place] lifts or holds trunk or limbs and provides more than half the effort. 7-Fyjwprqgm-msnolo does ALL the effort. Patient does none of the effort to complete the activity. Or, the assistance of 2 or more helpers is required for the patient to complete the activity. If activity was not attempted, code reason: 7-Patient Refused. 9-Not Applicable-not attempted and the patient did not perform the activity before the current illness, exacerbation or injury. 10-Not Attempted due to Environmental Limitations-(lack of equipment, weather restraints, etc.). 88-Not Attempted due to Medical Conditions or Safety Concerns. Sit to Stand (QC): 5 Car Transfer (QC): 3 Weight Bearing Non Weight Bearing Full Weight Bearing Gait Training Does the Patient Walk?: Yes Distance: 75', 80', 80' Walk 10 feet (QC): 5 Walk 50 ft with 2 Turns(QC): 5 Gait Persons Needed: 1 Gait Assistive Device: FWW Treatments ([id number]) TF to standing and amb. in hallway, taking RB as needed. Pt completes car transfer with VC and Mod A from FRONT END SOFTWARE ENGINEER to lift B LE into car. Pt amb. in hallway and returns to room to rest in recliner w/all needs met, call light in hand O2 was monitored throughout tx. ([id number]) FRONT END SOFTWARE ENGINEER and pt discuss Pursed Lip breathing and why since pt has improved that she still needs O2 w/exertion and laying down. All needs met, call light in hand. Assessment Current Status: Good Progress Pt is gaining mobility and able to tolerate short bursts of Ex w/o O2 but needs for extended walking and laying down. PT Short Term Goals Short Term Goals Time Frame: Sep 25, 2021 Roll Left & Right: 3 (Fer) Sit to lyin (Fer) Lying to sitting on side of be: 3 ([place]) Sit to stand: 3 (Fer) Chair/oax-cb-fguqo transfer: 3 (modA) Walk 10 feet: 3 (Fer) PT Penitentiary Goals Penitentiary Goals PT Penitentiary Goals Time Frame: Oct 09, 2021 Roll Left & Right (QC): 4 Sit to Lying (QC): 4 Lying-Sitting on Side/Bed(QC): 4 Sit to Stand (QC): 4 Chair/Xoy-da-Kxtqt Xfer(QC): 3 Toilet Transfer (QC): 3 Car Transfer (QC): 3 Does the Patient Walk: Yes Walk 10 feet (QC): 3 Walk 50ft with 2 Turns (QC): 3 Walk 150 ft (QC): 88 Walking 10ft on Uneven Surface: 3 1 Step (curb) (QC): 3 4 Steps (QC): 88 12 Steps (QC): 88 Picking up an Object (QC): 3 Wheel 50 feet with 2 turns (QC: 4 Wheel 150 feet: 4 PT Plan Problem List Problem List: Activity Tolerance Treatment/Plan Treatment Plan: Continue Plan of Care Treatment Plan: Bed Mobility, Education, Functional Activity Nik, Functional Strength, Group Therapy, Gait, Safety, Therapeutic Exercise, Transfers Treatment Duration: Oct 09, 2021 Frequency: At least 5 of 7 days/Wk (IRF) Estimated Hrs Per Day: 1.5 hours per day Patient and/or Family Agrees t: Yes Safety Risks/Education Patient Education: Disease Process, Safety Issues Teaching Recipient: Patient Teaching Methods: Discussion Response to Teaching: Verbalize Understanding Time/GCodes Time In: 1100 Time Out: 1200 Total Billed Treatment Time: 60 Total Billed Treatment ([id number]) 1, GT x2 (30m) & FA x2 (30m) ([id number]) 1, FA (15m) ROBBIN SALAZAR FRONT END SOFTWARE ENGINEER Oct 08, 2021 12:11
[2021-10-08 19:46] VITALS: BP 102/56
[2021-10-08] MEDS: LOSARTAN 100 MG (COZAAR) TABLET PO SCH (20:16)
[2021-10-08] MEDS: FAMOTIDINE 20 MG (PEPCID) TABLET PO SCH (20:16)
--- NOTE | 2021-10-09 06:15 | PM&R Progress Note ---
Subjective HPI/CC On Admission Date Seen by Provider: Oct 09, 2021 Time Seen by Provider: 08:45 Subjective/Events-last exam 10/09/2021: Pt doing really well Prepared for discharge tomorrow Goes to [facility] in [place] Follow-up appt's will be made 10/08/2021: Pt doing pretty well Requiring O2 today No pain Putting on her shoe at this current time 10/07/2021: Supportive care is helping No oxygen use right now Shortness of breath at times 10/06/2021: Supportive care continues Shortness of breath continues Patient has been on steroids a lot Maintain on oxygen Right hand improved 10/05/2021: Patient doing really well Requiring oxygen today Uses oxygen as needed at home at night Lungs are clear No pain reported 10/04/2021: Patient has no complaints Discharge plan next week Ambulation is much improved No falls Adjusting blood pressure due to hypotension 10/03/2021: Patient doing very well Cognition improved Walking well with therapy Discharge planned next week 10/02/2021: Pt is doing very well today No dysphasia Cognition improved Overall navigating very well 10/01/2021: Pt is dramatically improved Speech therapy is very pleased with her progress without any dysphasia Checked meds and labs 09/30/2021: Patient doing very well No pain is reported No falls No dysphagia 09/29/2021: Patient doing well No concerns Transferring well Eating very slowly and doing well without aspiration Lungs remain clear 09/28/2021: Patient much improved No more dysphagia but she does eat a modified diet and she eats slowly No pain is reported Lungs are clear Completed prednisone 09/27/2021: Patient doing well Able to walk more with assistance Right-sided weakness is much improved Able to eat and drink 09/26/2021: Pt is doing dramatically better Walking a little bit with assistance now Right sided weakness is improved Able to feed herself with the right hand 09/25/2021: Pt is doing well Down to one person assist No pain is reported No falls Checked meds and labs Lungs are now clear today 09/24/2021: Pt is doing a lot better Transferring better Overall feels like she is improving Lungs are less wheezy Changed her off IV steroids and on Prednisone 09/23/2021: Patient doing well Wheezing still present IV steroids will be changed tomorrow Check meds and labs No falls 09/22/2021: Patient doing well Wheezes only subtle at the end expiratory phase Feels like she is breathing better No falls No pain Regaining function pretty well 09/21/2021: This is a combined late entry note mistakenly missed creating note from 09/20/2021 so this will include 09/20 and 09/21 Patient was seen on 09/20/2021 and noted wheezing so initiated Solu-Medrol and nebulizer treatments Pt is doing a lot better Small amount of steroids given IV, has really cleared her lungs up Maintain on oxygen of 3L Checked meds and labs Feels like she is progressing 09/19/2021: Pt is doing pretty well Having a lot of loose stools so we will hold laxatives Transferring fair [facility]ogram from [facility] in chart for Dr. 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 Dysphasia tolerating the mechanical soft and nectar thick liquids Review of Systems General: Fatigue, Malaise Objective Exam Vital Signs Vital Signs Date Time Temp Pulse Resp B/P (MAP) Pulse Ox O2 Delivery O2 Flow Rate FiO2 10/09/21 21:38 95 Nasal Cannula 2.00 10/09/21 20:00 36.0 78 16 112/57 (75) Capillary Refill : General Appearance: No Apparent Distress, WD/WN, Anxious, Chronically ill HEENT: PERRL/EOMI, Normal ENT Inspection, Pharynx Normal Neck: Full Range of Motion, Normal Inspection, Non Tender, Supple, Carotid Bruit Respiratory: Chest Non Tender, Lungs Clear, Normal Breath Sounds, No Accessory Muscle Use, No Respiratory Distress, Accessory Muscle Use Cardiovascular: Regular Rate, Rhythm, No Edema, No Gallop, No JVD, No Murmur, Normal Peripheral Pulses Gastrointestinal: Normal Bowel Sounds, No Organomegaly, No Pulsatile Mass, Non Tender, Soft Back: Normal Inspection, No CVA Tenderness, No Vertebral Tenderness Extremity: Normal Capillary Refill, Normal Inspection, Normal Range of Motion, Non Tender, No Calf Tenderness, No Pedal Edema Neurologic/Psychiatric: Alert, Oriented x3, Normal Mood/Affect, batt packer II-XII Norm as Tested, Abnormal Gait, Facial Droop, Motor Weakness Skin: Normal Color, Warm/Dry Lymphatic: No Adenopathy Results/Procedures Lab Patient resulted labs reviewed. FIM Transfers Therapy Code Descriptions/Definitions Functional [place] Measure: 0=Not Assessed/NA 4=Minimal Assistance 1=Total Assistance 5=Supervision or Setup 2=Maximal Assistance 6=Modified [place] 3=Moderate Assistance 7=Complete IndependenceSCALE: Activities may be completed with or without assistive devices. 7-Efcfgnpmyq-hzcilch completes the activity by him/herself with no assistance from a helper. 5-Set-up or Clean-up Assistance-helper sets up or cleans up; patient completes activity. [place] assists only prior to or following the activity. 4-Supervision or Touching Assistance-helper provides verbal cues and/or touching/steadying and/or contact guard assistance as patient completes activity. Assistance may be provided throughout the activity or intermittently. 3-Partial/Moderate Assistance-helper does LESS THAN HALF the effort. [place] lifts, holds or supports trunk or limbs, but provides less than half the effort. 2-Substantial/Maximal Assistance-helper does MORE THAN HALF the effort. [place] lifts or holds trunk or limbs and provides more than half the effort. 7-Joljcjofw-bopplb does ALL the effort. Patient does none of the effort to complete the activity. Or, the assistance of 2 or more helpers is required for the patient to complete the activity. If activity was not attempted, code reason: 7-Patient Refused. 9-Not Applicable-not attempted and the patient did not perform the activity before the current illness, exacerbation or injury. 10-Not Attempted due to Environmental Limitations-(lack of equipment, weather restraints, etc.). 88-Not Attempted due to Medical Conditions or Safety Concerns. Roll Left to Right (QC): 6 Sit to Lying (QC): 6 Sit to Stand (QC): 5 Chair/Oph-ra-Pdnhm Xfer(QC): 6 Car Transfer (QC): 3 Gait Training Does the Patient Walk?: Yes Distance: 75', 80', 80' Walk 10 feet (QC): 5 Walk 50 ft with 2 Turns(QC): 5 Walk 150 ft (QC): 4 Walking 10ft/uneven surface-QC: 88 Gait Persons Needed: 1 Gait Assistive Device: FWW Wheelchair Training Does the Pt Use a Wheelchair?: Yes Distance: 120'x2 Wheel 50 ft with 2 turns (QC): 5 Wheel 150 ft (QC): 5 Type of Wheelchair: Manual Stair Training Stair Training: Handrails/: 2 handrails #of Steps: 4 1 Step (curb) (QC): 88 4 Steps (QC): 4 12 Steps (QC): 88 Stairs: Pattern: Step to Balance Picking up an Object (QC): 4 (SBA using a dial marker) ADL-Treatment Eating (QC): 6 Oral Hygiene (QC): 6 Shower/Bathe Self (QC): 6 Upper Body Dressing (QC): 6 Lower Body Dressing (QC): 6 On/Off Footwear (QC): 6 Toileting Hygiene (QC): 6 Toilet Transfer (QC): 6 Assessment/Plan Assessment and Plan Assess & Plan/Chief Complaint Assessment: CVA Right-sided facial droop Right-sided weakness Acute exacerbation of COPD placed on IV steroids on 09/20/2021 now completed treatment 09/28/2021 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 Peripheral vascular disease Obesity BMI 29 Hypertension requiring adjustment of blood pressure medications 10/04/2021 Plan: Inpatient rehab protocol Cardiology consult Nebulizers Oxygen supplementation 09/19/2021: Oxygen supplementation Nebulizers Supportive care 09/20/2021, 09/21/2021: Place patient on IV steroids 40 mg IV every 12 hours Patient much improved Continue breathing treatments 09/22/2021: Continue IV steroids Monitor closely 09/23/2021: Supportive care 09/24/2021: Improved lungs Continue therapy 09/25/2021: Wean off prednisone Supportive care 09/26/2021: Wean down off prednisone Dramatic improvement now walking with assistance 09/27/2021: Wean down steroids Continue breathing treatments 09/28/2021: Discontinue steroids 09/29/2021: Discontinue steroids yesterday Monitor closely 09/30/2021: Monitor for dysphagia 10/01/2021: Supportive care 10/02/2021: Supportive care 10/03/2021: Dramatic improvement Discharge plan next week 10/04/2021: Supportive care Decrease blood pressure medication doses 10/05/2021: Oxygen supplementation as needed 10/06/2021: Oxygen supplementation Monitor lung function 10/07/21: Monitor closely O2 10/08/2021: Increase ADLs Oxygen 10/09/2021: Discharge home tomorrow (1) Chronic systolic heart failure Status: Chronic Assessment & Plan: She may have some slight component of chronic heart failure with reduced ejection fraction contributing to her shortness of breath. She is on losartan I added spironolactone. I do not think she is a good candidate for beta-jcarlos due to her severe obstructive airways disease with ongoing wheezing. She would like to follow-up with someone in [place] since this is closer to her home. I asked her to check with friends and family to see if they have any recommendations for a specific mortar maker. (2) Cardiomyopathy Assessment & Plan: She had an echocardiogram at an outside hospital that showed mild to moderate left ventricular systolic dysfunction with an ejection fraction of 40-45%. Exact etiology unclear and I do not know if this is a new finding in this patient. She was placed on losartan at the outside facility. As above, I added spironolactone. Her ejection fraction is above the cutoff for recommending a prophylactic defibrillator. She will need to have her guideline directed medical therapy maximized following discharge. (3) Primary hypertension Assessment & Plan: Her blood pressure improved since adding spironolactone. If her blood pressure remains elevated, then I would maximize her losartan as opposed to adding other agents. (4) Mixed hyperlipidemia Assessment & Plan: Continue statin medication. (5) Elevated brain natriuretic peptide (BNP) level Assessment & Plan: Her BNP level wasmildly elevated. Her echocardiogram from the outside facility showed mild-moderate left ventricular systolic dysfunction with an estimated ejection fraction of 40-45% with no significant valvular disease. Her pulmonary artery pressure was 30-35 mmHg. This echo was performed on 09/16. However, her chest x-ray from our hospital does not show any significant pulmonary edema. We will proceed as above. (6) Chronic obstructive pulmonary disease Assessment & Plan: I suspect this is the primary cause of her chronic dyspnea. Qualifiers: Qualified Codes: J44.9 - Chronic obstructive pulmonary disease, unspecified FLORES LUGO DO Oct 09, 2021 06:15
--- NOTE | 2021-10-09 07:31 | Occupational Ther Daily Note ---
OT Current Status-Daily Note Subjective Pt alert, sitting in recliner. Pt agrees to therapy. No c/o pain. Mental Status/Objective Patient Orientation: Person, Place, Time, Situation Attachments: Oxygen (2L) ADL-Treatment Pt independent with eating. Pt agrees to shower. Pt able to retrieve clothing from drawer using FWW, independently. Sitting at sink, pt completes oral care independently. Independent with toilet transfer and toileting. Pt then ambulated to shower and transferred into shower independently using FWW, g rabbars and shower bench. Using grabbars, shower bench and hand held shower, pt completes shower independently. Independent with upper/lower body dressing and footwear. Pt fatigues quickly and requires frequent breaks. After session, pt sitting in recliner with call light/phone in reach. All needs met in room. Therapy Code Descriptions/Definitions Functional [place] Measure: 0=Not Assessed/NA 4=Minimal Assistance 1=Total Assistance 5=Supervision or Setup 2=Maximal Assistance 6=Modified [place] 3=Moderate Assistance 7=Complete IndependenceSCALE: Activities may be completed with or without assistive devices. 6-Salhftnpcr-dqucymd completes the activity by him/herself with no assistance from a helper. 5-Set-up or Clean-up Assistance-helper sets up or cleans up; patient completes activity. [place] assists only prior to or following the activity. 4-Supervision or Touching Assistance-helper provides verbal cues and/or touching/steadying and/or contact guard assistance as patient completes activity. Assistance may be provided throughout the activity or intermittently. 3-Partial/Moderate Assistance-helper does LESS THAN HALF the effort. [place] lifts, holds or supports trunk or limbs, but provides less than half the effort. 2-Substantial/Maximal Assistance-helper does MORE THAN HALF the effort. [place] lifts or holds trunk or limbs and provides more than half the effort. 2-Tnavhuhsx-fhjbmb does ALL the effort. Patient does none of the effort to complete the activity. Or, the assistance of 2 or more helpers is required for the patient to complete the activity. If activity was not attempted, code reason: 7-Patient Refused. 9-Not Applicable-not attempted and the patient did not perform the activity before the current illness, exacerbation or injury. 10-Not Attempted due to Environmental Limitations-(lack of equipment, weather restraints, etc.). 88-Not Attempted due to Medical Conditions or Safety Concerns. Eating (QC): 6 Oral Hygiene (QC): 6 Shower/Bathe Self (QC): 6 Upper Body Dressing (QC): 6 Lower Body Dressing (QC): 6 On/Off Footwear: 6 Toileting Hygiene (QC): 6 Toilet Transfer (QC): 6 OT Short Term Goals Short Term Goals Time Frame: Sep 28, 2021 Eatin Oral hygiene: 4 Toileting hygiene: 2 Shower/bathe self: 2 Upper body dressin Lower body dressin Putting on/taking off footwear: 2 OT Detention Goals Assistant Chief Engineer Goals Time Frame: Oct 16, 2021 Eating (QC): 5 (met) Oral Hygiene (QC): 5 (met) Toileting Hygiene (QC): 3 (min-met) Shower/Bathe Self (QC): 3 (minmet) Upper Body Dressing (QC): 4 (met) Lower Body Dressing (QC): 3 (minmet) On/Off Footwear (QC): 3 (minmet) 1=Demonstrate adherence to instructed precautions during ADL tasks. 2=Patient will verbalize/demonstrate understanding of assistive devices/m odifications for ADL. 3=Patient will improve strength/tolerance for activity to enable patient to perform ADL's. OT Education/Plan Problem List/Assessment Assessment: Decreased Activ Tolerance, Impaired Self-Care Skills Discharge Recommendations Plan/Recommendations: Continue POC Treatment Plan/Plan of Care Patient would benefit from OT for education, treatment and training to promote independence in ADL's, mobility, safety and/or upper extremity function for ADL's. Plan of Care: ADL Retraining, Functional Mobility, Group Exercise/Act as Ind, UE Funct Exercise/Act, UE Neuromus Re-Ed/Coord, W/C Management Training Treatment Duration: Oct 16, 2021 Frequency: At least 5 of 7 days/Wk (IRF) Estimated Hrs Per Day: 1.5 hours per day Rehab Potential: Fair Time/GCodes Start Time: 07:15 Stop Time: 08:30 Total Time Billed (hr/min): 75 Billed Treatment Time 1 visit-ADL 5 (75 min) JUSTIN ROGERS Oct 09, 2021 07:31
[2021-10-09 07:33] VITALS: BP 109/56
[2021-10-09] MEDS: ASPIRIN E.C. 81 MG (ECOTRIN) TAB PO SCH (08:26)
[2021-10-09] MEDS: FERROUS SULF 325 MG (IRON) TAB PO SCH ×2 (08:26→20:22)
[2021-10-09] MEDS: LORATADINE (CLARITIN) 10 MG TAB PO SCH ×2 (08:26→20:22)
[2021-10-09] MEDS: MONTELUKAST 10 MG (SINGULAIR) TAB PO SCH (08:26)
[2021-10-09] MEDS: KCL 20 MEQ TAB (K-DUR) PO SCH ×2 (08:26→17:13)
[2021-10-09] MEDS: LACTOBACILLUS ACIDOPHILUS (PROBIOTIC) CAPSULE PO SCH ×3 (08:27→17:13)
[2021-10-09] MEDS: buPROPion SR 150 MG (WELLBUTRIN SR) TAB PO SCH (08:27)
[2021-10-09] MEDS: SPIRONOLACTONE 25 MG (ALDACTONE) TAB PO SCH (08:27)
[2021-10-09] MEDS: FLUTICASONE NASAL SPRAY (FLONASE) 16 GM BTL NS SCH (08:28)
[2021-10-09] MEDS: DOCUSATE SODIUM 100 MG (COLACE) CAP PO SCH ×2 (08:31→20:23)
[2021-10-09] MEDS: polyethylene glycoL POWDER 17 GM (MIRALAX) PACK PO SCH ×2 (08:31→20:22)
[2021-10-09] MEDS: SENNA W/DOCUSATE (SENOKOT S) TABLET PO SCH ×2 (08:31→20:23)
[2021-10-09] MEDS: UMECLIDINIUM BROMIDE (INCRUSE ELLIPTA) 7'S IH SCH (08:52)
[2021-10-09] MEDS: RT--FLUTICASONE/SALMETEROL 232-14 (AIRDUO RespiCLICK) IH SCH ×2 (08:52→21:38)
--- NOTE | 2021-10-09 10:01 | Speech Therapy Daily Note ---
Speech Daily Progress Note Subjective Date Seen by Provider: Oct 09, 2021 Time Seen by Provider: 09:30 The patient was seated upright in her recliner, awake and alert upon entrance to the room. The patient greeted the clinician appropriately and was agreeable to participation in the cognitive linguistic and dysphagia treatment session. Objective - Orientation: The patient remains 100% oriented (independently) to self, location, month, day of week, date, and year. - Safe Swallowing Strategies: Safe swallowing strategies were discussed and reviewed extensively with the patient throughout the treatment session. The patient displays high accuracy and reports tolerance of her current diet consistency without s/s of suspected aspiration. - Exercise Review: The clinician reviewed physical therapy exercises and oral motor exercises with the patient. The patient displayed high accuracy and completed each exercise with mild verbal prompting from the clinician. Expression of Ideas/Wants: Exhibits (3) Understanding Verbal Content: Usually Understands (3) Brief Interview-Mental Status: Yes Repetition of Three Words: Three (3) Temporal Orientation: Year: Correct (3) Temporal Orientation: Month: Accurate within 5 days(2) Temporal Orientation: Day: Correct (1) Recall : Wear to say "Sock": Yes, no cue required (2) Recall : Color: Yes, no cue required (2) Recall : Bed: Yes, no cue required (2) Memory/Recall Ability: Current season, That he or she is in a hsp/hsp unit, staff names Assessment Assessment Current Status: Excellent Progress Treatment Plan Continue Plan of Care Speech Short Term Goals Short Term Goals Short Term Goals 1. The patient and staff will demonstrate safe swallowing practices and strategies with 90% accuracy. 2. The patient will demonstrate and recall intelligibility strategies with 90% accuracy with mild clinician cueing. Speech Hearing Care Practitioner Goals Retirement Goals 1. The patient will tolerate the least restricted diet without s/s of suspected aspiration with 90% accuracy. 2. The patient will demonstrate increased cognitive linguistic skills for safe return to the least restrictive environment. Speech-Plan Treatment Plan Speech Therapy Treatment Plan: Continue Plan of Care Treatment Duration: Oct 09, 2021 Frequency: 3 times per week (Three to five times per week.) Estimated Hrs Per Day: .5 hour per day Rehab Potential: Fair Pt/Family Agrees to Plan: Yes Safety Risks/Education Teaching Recipient: Patient Teaching Methods: Discussion Response to Teaching: Verbalize Understanding Education Topics Provided: Review of Physical Therapy and Speech Pathology Exercises Time Speech Therapy Time In: :30 Speech Therapy Time Out: 10:00 Total Billed Time: 30 Billed Treatment Time 1, DEB, SAGAR Paz Oct 09, 2021 10:01
--- NOTE | 2021-10-09 12:08 | Physical Therapy Daily Note ---
PT Daily Note-Current Subjective Pt sitting in recliner with Sp present upon arrival. Pt agrees to PT. Pain Location: No Pain Reported Mental Status Patient Orientation: Person, Place, Time, Situation Transfers SCALE: Activities may be completed with or without assistive devices. 1-Rslkxwsodn-pxojoug completes the activity by him/herself with no assistance from a helper. 5-Set-up or Clean-up Assistance-helper sets up or cleans up; patient completes activity. [place] assists only prior to or following the activity. 4-Supervision or Touching Assistance-helper provides verbal cues and/or touching/steadying and/or contact guard assistance as patient completes activity. Assistance may be provided throughout the activity or intermittently. 3-Partial/Moderate Assistance-helper does LESS THAN HALF the effort. [place] lifts, holds or supports trunk or limbs, but provides less than half the effort. 2-Substantial/Maximal Assistance-helper does MORE THAN HALF the effort. [place] lifts or holds trunk or limbs and provides more than half the effort. 5-Auheesyku-wyttco does ALL the effort. Patient does none of the effort to complete the activity. Or, the assistance of 2 or more helpers is required for the patient to complete the activity. If activity was not attempted, code reason: 7-Patient Refused. 9-Not Applicable-not attempted and the patient did not perform the activity before the current illness, exacerbation or injury. 10-Not Attempted due to Environmental Limitations-(lack of equipment, weather restraints, etc.). 88-Not Attempted due to Medical Conditions or Safety Concerns. Roll Left & Right (QC): 6 Sit to Lying (QC): 6 Lying to Sitting/Side of Bed(Q: 6 Sit to Stand (QC): 6 Chair/Dvi-lq-Vajiw Xfer(QC): 6 Toilet Transfer (QC): 6 Car Transfer (QC): 6 Weight Bearing Full Weight Bearing Full Weight Bearing Gait Training Does the Patient Walk?: Yes Distance: 100' Walk 10 feet (QC): 6 Walk 50 ft with 2 Turns(QC): 6 Walk 150 ft (QC): 6 Walking 10ft/uneven surface-QC: 5 Gait Persons Needed: 0 Gait Assistive Device: FWW Wheelchair Training Does the Pt Use a Wheelchair?: No Stair Training 1 Step (curb) (QC): 5 4 Steps (QC): 7 12 Steps (QC): 7 Stairs: Pattern: Step to Pt reports only having 1 step to get to ramp for home and only completes 1 step. Balance Picking up an Object (QC): 6 Treatments ([id number]) Pt finishes on BSC then PRECISION INSTRUMENT AND TOOL MAKER completes QC scoring items listed above with pt. Sp is given instruction during QC items pt performs. Pt returns to r oom at end of tx to rest in recliner. All needs met, call light in hand. ([id number]) Pt wanted to go over process for d/c and what to expect as pt is a little nervous. PRECISION INSTRUMENT AND TOOL MAKER reassures pt of progress and improvement seen while on ARU. All needs met, call light in hand. Assessment Current Status: Good Progress Pt fatigues needing occasional RB. For extended amb. or exertion, pt needs O2 to stay above 90%. PT Short Term Goals Short Term Goals Time Frame: Sep 25, 2021 Roll Left & Right: 3 (Fer) Sit to lyin (Fer) Lying to sitting on side of be: 3 (Uriah) Sit to stand: 3 (Fer) Chair/vou-xb-swken transfer: 3 (modA) Walk 10 feet: 3 (Fer) PT Xerox Machine Assembler Goals Retirement Goals PT Xerox Machine Assembler Goals Time Frame: Oct 09, 2021 Roll Left & Right (QC): 4 Sit to Lying (QC): 4 Lying-Sitting on Side/Bed(QC): 4 Sit to Stand (QC): 4 Chair/Rlf-yu-Pfjtr Xfer(QC): 3 Toilet Transfer (QC): 3 Car Transfer (QC): 3 Does the Patient Walk: Yes Walk 10 feet (QC): 3 Walk 50ft with 2 Turns (QC): 3 Walk 150 ft (QC): 88 Walking 10ft on Uneven Surface: 3 1 Step (curb) (QC): 3 4 Steps (QC): 88 12 Steps (QC): 88 Picking up an Object (QC): 3 Wheel 50 feet with 2 turns (QC: 4 Wheel 150 feet: 4 PT Plan Problem List Problem List: Activity Tolerance Treatment/Plan Treatment Plan: Continue Plan of Care Treatment Plan: Bed Mobility, Education, Functional Activity Nik, Functional Strength, Group Therapy, Gait, Safety, Therapeutic Exercise, Transfers Treatment Duration: Oct 09, 2021 Frequency: At least 5 of 7 days/Wk (IRF) Estimated Hrs Per Day: 1.5 hours per day Patient and/or Family Agrees t: Yes Safety Risks/Education Patient Education: Steps, Correct Positioning Teaching Recipient: Patient Teaching Methods: Discussion Response to Teaching: Verbalize Understanding Time/GCodes Time In: 1000 Time Out: 1100 Total Billed Treatment Time: 60 Total Billed Treatment ([id number]) 1, FA x3 (40m) & GT (20m) ([id number]) 1, FA (15m) ROBBIN SALAZAR PTA Oct 09, 2021 12:08
[2021-10-09 20:00] VITALS: BP 112/57
[2021-10-09] MEDS ORDERED: FAMO20TA5 PO (20:14)
[2021-10-09] MEDS ORDERED: LOSA100T57 PO (20:14)
[2021-10-09] MEDS ORDERED: FERR325T18 PO (20:14)
[2021-10-09] MEDS ORDERED: LORA10TA7 PO (20:14)
[2021-10-09] MEDS ORDERED: BUPR150T9 PO (20:14)
[2021-10-09] MEDS ORDERED: FLUT9.9S NSEACH (20:14)
[2021-10-09] MEDS ORDERED: ATOR40TA PO (20:14)
[2021-10-09] MEDS ORDERED: IPRA3AMP31 IH (20:14)
[2021-10-09] MEDS ORDERED: ALBU1.25 INH (20:14)
[2021-10-09] MEDS ORDERED: POTA10TA37 PO (20:14)
[2021-10-09] MEDS ORDERED: FLUT1BLS3 IH (20:14)
[2021-10-09] MEDS ORDERED: ESCI20TA39 PO (20:14)
[2021-10-09] MEDS ORDERED: ALPR.25T PO (20:14)
[2021-10-09] MEDS ORDERED: BUDE0.5A7 NEB (20:14)
[2021-10-09] MEDS ORDERED: SPIR25TA5 PO (20:14)
[2021-10-09] MEDS ORDERED: MONT-40 PO (20:14)
[2021-10-09] MEDS ORDERED: HYDR25TA4 PO (20:14)
[2021-10-09] MEDS ORDERED: ASPI-1238 PO (20:14)
[2021-10-09] MEDS: FAMOTIDINE 20 MG (PEPCID) TABLET PO SCH (20:22)
[2021-10-09] MEDS: LOSARTAN 100 MG (COZAAR) TABLET PO SCH (20:22)
[2021-10-10] MEDS: RT--FLUTICASONE/SALMETEROL 232-14 (AIRDUO RespiCLICK) IH SCH (07:45)
[2021-10-10] MEDS: UMECLIDINIUM BROMIDE (INCRUSE ELLIPTA) 7'S IH SCH (07:45)
[2021-10-10] MEDS: SPIRONOLACTONE 25 MG (ALDACTONE) TAB PO SCH (07:56)
[2021-10-10] MEDS: MONTELUKAST 10 MG (SINGULAIR) TAB PO SCH (07:56)
[2021-10-10] MEDS: LACTOBACILLUS ACIDOPHILUS (PROBIOTIC) CAPSULE PO SCH (07:57)
[2021-10-10] MEDS: buPROPion SR 150 MG (WELLBUTRIN SR) TAB PO SCH (07:57)
[2021-10-10] MEDS: KCL 20 MEQ TAB (K-DUR) PO SCH (07:57)
[2021-10-10] MEDS: ASPIRIN E.C. 81 MG (ECOTRIN) TAB PO SCH (07:58)
[2021-10-10] MEDS: LORATADINE (CLARITIN) 10 MG TAB PO SCH (07:58)
[2021-10-10] MEDS: FERROUS SULF 325 MG (IRON) TAB PO SCH (07:58)
[2021-10-10 09:00] VITALS: BP 113/59
[2021-10-10] MEDS: DOCUSATE SODIUM 100 MG (COLACE) CAP PO SCH (09:01)
[2021-10-10] MEDS: polyethylene glycoL POWDER 17 GM (MIRALAX) PACK PO SCH (09:01)
[2021-10-10] MEDS: SENNA W/DOCUSATE (SENOKOT S) TABLET PO SCH (09:01)
--- NOTE | 2021-10-10 10:02 | Therapy Team Discharge Summary ---
Therapy Discharge Summary Discharge Recommendations Date of Discharge Physical Therapy Roll Left to Right (QC): 6 Sit to Lying (QC): 6 Lying to Sitting/Side of Bed(Q: 6 Sit to Stand (QC): 6 Chair/Hgy-hh-Juqvm Xfer(QC): 6 Toilet Transfer (QC): 5 Car Transfer (QC): 6 Does the Patient Walk: Yes Mode of Locomotion: Wheelchair Anticipated Mode of Locomotion: Both Walk 10 feet (QC): 6 Walk 50 ft with 2 Turns(QC): 6 Walk 150 ft (QC): 6 Walking 10ft on uneven surface: 5 Distance: 3' Gait Assistive Device: FWW Does the Pt Use a Wheelchair: Yes Wheelchair Distance: 120'x2 Wheel 50 ft with 2 turns (QC): 5 Wheel 150 ft (QC): 5 Type of Wheelchair: Manual #of Steps: 4 1 Step (curb) (QC): 5 4 Steps (QC): 7 12 Steps (QC): 7 Balance Sitting Static: Fair Balance Sitting Dynamic: Fair Balance-Standing Static: Poor Picking up an Object (QC): 6 Occupational Therapy Decreased Activ Tolerance, Impaired Self-Care Skills Eating (QC): 6 Oral Hygiene (QC): 6 Shower/Bathe Self (QC): 6 Upper Body Dressing (QC): 6 Lower Body Dressing (QC): 6 On/Off Footwear (QC): 6 Toileting Hygiene (QC): 6 Speech-Language Pathology Expression of Ideas/Wants: Exhibits (3) Understanding Verbal Content: Usually Understands (3) Brief Interview-Mental Status: Yes Repetition of Three Words: Three (3) Temporal Orientation: Year: Correct (3) Temporal Orientation: Month: Accurate within 5 days(2) Temporal Orientation: Day: Correct (1) Recall : Wear to say "Sock": Yes, no cue required (2) Recall : Color: Yes, no cue required (2) Recall : Bed: Yes, no cue required (2) Memory/Recall Ability: Current season, That he or she is in a hsp/hsp unit, staff names The patient was admitted to the acute rehabilitation unit following a stroke. The patient has displayed excellent motivation and participation in the skilled speech pathology tasks. The patient has demonstrated excellent improvement and has met all goals placed upon admission. PT Er Registrar Goals Er Registrar Goals PT Er Registrar Goals Time Frame: Oct 09, 2021 Roll Left to Right (QC): 4 Sit to Lying (QC): 4 Lying-Sitting on Side/Bed(QC): 4 Sit to Stand (QC): 4 Chair/Dvc-km-Gvzgd Xfer(QC): 3 Car Transfer (QC): 3 Does the Patient Walk: Yes Walk 10 feet (QC): 3 Walk 10ft-Uneven Surface(QC): 3 Walk 50ft with 2 Turns (QC): 3 Walk 150 ft (QC): 88 Wheel 50 feet with 2 turns (QC: 4 1 Step (curb) (QC): 3 4 Steps (QC): 88 12 Steps (QC): 88 Picking up an Object (QC): 3 OT Residential Goals Residential Goals Time Frame: Oct 16, 2021 Eating (FIM): 6 Eating (QC): 5 (met) Oral Hygiene (QC): 5 (met) Shower/Bathe Self (QC): 3 (minmet) Upper Body Dressing (QC): 4 (met) Lower Body Dressing (QC): 3 (minmet) On/Off Footwear (QC): 3 (minmet) Toileting(FIM): 6 Toileting Hygiene (QC): 3 (min-met) Toilet/Commode Transfer (QC): 3 1=Demonstrate adherence to instructed precautions during ADL tasks. 2=Patient will verbalize/demonstrate understanding of assistive devices/modifications for ADL. 3=Patient will improve strength/tolerance for activity to enable patient to perform ADL's. Speech Residential Goals Residential Goals 1. The patient will tolerate the least restricted diet without s/s of suspected aspiration with 90% accuracy. MET 2. The patient will demonstrate increased cognitive linguistic skills for safe return to the least restrictive environment. MET SAGAR RANDOLPH Oct 10, 2021 10:02
--- NOTE | 2021-10-10 11:11 | Discharge Summary ---
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 Peripheral vascular disease Obesity BMI 29 Hypertension requiring adjustment of blood pressure medications 10/04/2021 Plan: Inpatient rehab protocol Cardiology consult Nebulizers Oxygen supplementation 09/19/2021: Oxygen supplementation Nebulizers Supportive care 09/20/2021, 09/21/2021: Place patient on IV steroids 40 mg IV every 12 hours Patient much improved Continue breathing treatments 09/22/2021: Continue IV steroids Monitor closely 09/23/2021: Supportive care 09/24/2021: Improved lungs Continue therapy 09/25/2021: Wean off prednisone Supportive care 09/26/2021: Wean down off prednisone Dramatic improvement now walking with assistance 09/27/2021: Wean down steroids Continue breathing treatments 09/28/2021: Discontinue steroids 09/29/2021: Discontinue steroids yesterday Monitor closely 09/30/2021: Monitor for dysphagia 10/01/2021: Supportive care 10/02/2021: Supportive care 10/03/2021: Dramatic improvement Discharge plan next week 10/04/2021: Supportive care Decrease blood pressure medication doses 10/05/2021: Oxygen supplementation as needed 10/06/2021: Oxygen supplementation Monitor lung function 10/07/21: Monitor closely O2 10/08/2021: Increase ADLs Oxygen 10/09/2021: Discharge home tomorrow (1) Chronic systolic heart failure Status: Chronic Assessment & Plan: She may have some slight component of chronic heart failure with reduced ejection fraction contributing to her shortness of breath. She is on losartan I added spironolactone. I do not think she is a good candidate for beta-jcarlos due to her severe obstructive airways disease with ongoing wheezing. She would like to follow-up with someone in [place] since this is closer to her home. 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 (2) Cardiomyopathy Assessment & Plan: She had an echocardiogram at an outside hospital that showed mild to moderate left ventricular systolic dysfunction with an ejection fraction of 40-45%. Exact etiology unclear and I do not know if this is a new finding in this patient. She was placed on losartan at the outside facility. As above, I added spironolactone. Her ejection fraction is above the cutoff for recommending a prophylactic defibrillator. She will need to have her guideline directed medical therapy maximized following discharge. (3) Primary hypertension Assessment & Plan: Her blood pressure improved since adding spironolactone. If her blood pressure remains elevated, then I would maximize her losartan as opposed to adding other agents. (4) Mixed hyperlipidemia Assessment & Plan: Continue statin medication. (5) Elevated brain natriuretic peptide (BNP) level Assessment & Plan: Her BNP level wasmildly elevated. Her echocardiogram from the outside facility showed mild-moderate left ventricular systolic dysfunction with an estimated ejection fraction of 40-45% with no significant valvular disease. Her pulmonary artery pressure was 30-35 mmHg. This echo was performed on 09/16. However, her chest x-ray from our hospital does not show any significant pulmonary edema. We will proceed as above. (6) Chronic obstructive pulmonary disease Assessment & Plan: I suspect this is the primary cause of her chronic dyspnea. Qualifiers: Qualified Codes: J44.9 - Chronic obstructive pulmonary disease, unspecified Discharge Summary Discharge Physical Examination Allergies: Coded Allergies: No Known Drug Allergies (Unverified , 11/08/15) Vitals & I&Os Vital Signs Date Time Temp Pulse Resp B/P (MAP) Pulse Ox O2 Delivery O2 Flow Rate FiO2 10/10/21 09:00 36.4 83 16 113/59 (77) 95 Nasal Cannula 1.50 General Appearance: Alert, Oriented X3, Cooperative Respiratory: Clear to Auscultation Cardiovascular: Regular Rate Neuro: Normal Gait, Normal Speech, Strength at 5/5 X4 Ext Psych/Mental Status: Mental Status NL Hospital Course Was the Problem List Reviewed?: Yes Pt had a lengthy hospital course of 23 days after she was admitted with a CVA with Right Sided Weakness and Facial Droop and Dysphasia. She worked very hard with Therapy, including Speech Therapy. She was able to advance her diet. She regained function in her right arm and right hand. She was able to obtain independent ADL's in order to return home. She had an exacerbation of COPD that was managed with IV steroids then oral steroids with nebulizer treatments so she was deemed stable for discharge. Labs (last 24 hrs) Laboratory Tests 09/18/21 14:18: White Blood Count 11.9H, Red Blood Count 4.81, Hemoglobin 14.1, Hematocrit 45, Mean Corpuscular Volume 94, Mean Corpuscular Hemoglobin 29, Mean Corpuscular Hemoglobin Concent 31L, Red Cell Distribution Width 12.7, Platelet Count 305, Mean Platelet Volume 9.7, Immature Granulocyte % (Auto) 1, Neutrophils (%) (Auto) 93H, Lymphocytes (%) (Auto) 2L, Monocytes (%) (Auto) 3, Eosinophils (%) (Auto) 0, Basophils (%) (Auto) 0, Neutrophils # (Auto) 11.1H, Lymphocytes # (Aut o) 0.3L, Monocytes # (Auto) 0.4, Eosinophils # (Auto) 0.0, Basophils # (Auto) 0.0, Immature Granulocyte # (Auto) 0.2H, Neutrophils % (Manual) 90, Lymphocytes % (Manual) 3, Monocytes % (Manual) 4, Band Neutrophils 1, Atypical Lymphocytes 2, Blood Morphology Comment NORMAL, Sodium Level 139, Potassium Level 4.3, Chloride Level 102, Carbon Dioxide Level 28, Anion Gap 9, Blood Urea Nitrogen 28H, Creatinine 0.80, Estimat Glomerular Filtration Rate 74, BUN/Creatinine Ratio 35, Glucose Level 101, Calcium Level 9.1, Corrected Calcium 9.2, Total Bilirubin 0.4, Aspartate Amino Transf (AST/SGOT) 23, Alanine Aminotransferase (ALT/SGPT) 23, Alkaline Phosphatase 63, B-Type Natriuretic Peptide 150.3H, Total Protein 6.9, Albumin 3.9, Procalcitonin 0.02 09/18/21 14:19: Blood Gas Puncture Site R RAD, Blood Gas Patient Temperature 36.8, Arterial Blood pH 7.42, Arterial Blood Partial Pressure CO2 42, Arterial Blood Partial Pr essure O2 53L, Arterial Blood HCO3 27, Arterial Blood Total CO2 28.2, Arterial Blood Oxygen Saturation 90L, Arterial Blood Base Excess 2.7H, Caden Test YES- POS, Blood Gas Ventilator Setting NO, Blood Gas Inspired Oxygen RA 09/19/21 05:33: White Blood Count 10.4, Red Blood Count 4.40, Hemoglobin 13.1, Hematocrit 42, Mean Corpuscular Volume 94, Mean Corpuscular Hemoglobin 30, Mean Corpuscular Hemoglobin Concent 32, Red Cell Distribution Width 12.5, Platelet Count 232, Mean Platelet Volume 9.5, Immature Granulocyte % (Auto) 1, Neutrophils (%) (Auto) 79H, Lymphocytes (%) (Auto) 9L, Monocytes (%) (Auto) 10, Eosinophils (%) (Auto) 0, Basophils (%) (Auto) 0, Neutrophils # (Auto) 8.3H, Lymphocytes # (Auto) 1.0, Monocytes # (Auto) 1.1H, Eosinophils # (Auto) 0.0, Basophils # (Auto) 0.0, Immature Granulocyte # (Auto) 0.1, Sodium Level 140, Potassium Level 4.0, Chloride Level 104, Carbon Dioxide Level 27, Anion Gap 9, Blood Urea Nitrogen 27H, Creatinine 0.86, Estimat Glomerular Filtration Rate 68, BUN/Creatinine Ratio 31, Glucose Level 86, Calcium Level 8.6, Corrected Calcium 9.2, Total Bilirubin 0.4, Aspartate Amino Transf (AST/SGOT) 24, Alanine Aminotransferase (ALT/SGPT) 22, Alkaline Phosphatase 58, Total Protein 6.0L, Albumin 3.3 09/20/21 05:10: Sodium Level 136, Potassium Level 4.1, Chloride Level 102, Carbon Dioxide Level 26, Anion Gap 8, Blood Urea Nitrogen 24H, Creatinine 0.76, Estimat Glomerular Filtration Rate 79, BUN/Creatinine Ratio 32, Glucose Level 76, Calcium Level 8.4L 09/24/21 05:45: White Blood Count 16.0H, Red Blood Count 4.51, Hemoglobin 13.4, Hematocrit 42, Mean Corpuscular Volume 94, Mean Corpuscular Hemoglobin 30, Mean Corpuscular Hemoglobin Concent 32, Red Cell Distribution Width 12.7, Platelet Count 277, Mean Platelet Volume 9.8, Immature Granulocyte % (Auto) 5, Neutrophils (%) (Auto) 76H, Lymphocytes (%) (Auto) 10L, Monocytes (%) (Auto) 9, Eosinophils (%) (Auto) 0, Basophils (%) (Auto) 0, Neutrophils # (Auto) 12.2H, Lymphocytes # ( Auto) 1.5, Monocytes # (Auto) 1.4H, Eosinophils # (Auto) 0.0, Basophils # (Auto) 0.1, Immature Granulocyte # (Auto) 0.8H, Neutrophils % (Manual) 72, Lymphocytes % (Manual) 13, Monocytes % (Manual) 9, Metamyelocytes % 1, Band Neutrophils 5, Blood Morphology Comment NORMAL, Sodium Level 134L, Potassium Level 4.8, Chloride Level 97L, Carbon Dioxide Level 29, Anion Gap 8, Blood Urea Nitrogen 36H, Creatinine 0.91, Estimat Glomerular Filtration Rate 63, BUN/Creatinine Ratio 40, Glucose Level 95, Calcium Level 9.2, Corrected Calcium 9.8, Total Bilirubin 0.6, Aspartate Amino Transf (AST/SGOT) 21, Alanine Aminotransferase (ALT/SGPT) 52, Alkaline Phosphatase 56, Total Protein 5.9L, Albumin 3.3 10/01/21 06:57: White Blood Count 11.2H, Red Blood Count 3.95, Hemoglobin 11.9, Hematocrit 37, Mean Corpuscular Volume 94, Mean Corpuscular Hemoglobin 30, Mean Corpuscular Hemoglobin Concent 32, Red Cell Distribution Width 12.9, Platelet Count 239, Mean Platelet Volume 9.5, Immature Granulocyte % (Auto) 3, Neutrophils (%) (Auto) 79H, Lymphocytes (%) (Auto) 8L, Monocytes (%) (Auto) 6, Eosinophils (%) (Auto) 3, Basophils (%) (Auto) 1, Neutrophils # (Auto) 8.9H, Lymphocytes # (Auto) 0.9L, Monocytes # (Auto) 0.7, Eosinophils # (Auto) 0.4H, Basophils # (Auto) 0.1, Immature Granulocyte # (Auto) 0.3H, Sodium Level 132L, Potassium Level 4.0, Chloride Level 97L, Carbon Dioxide Level 26, Anion Gap 9, Blood Urea Nitrogen 22H, Creatinine 0.85, Estimat Glomerular Filtration Rate 69, BUN/Creatinine Ratio 26, Glucose Level 94, Calcium Level 9.1, Corrected Calcium 9.6, Total Bilirubin 0.6, Aspartate Amino Transf (AST/SGOT) 25, Alanine Aminotransferase (ALT/SGPT) 39, Alkaline Phosphatase 55, Total Protein 5.8L, Albumin 3.4 10/08/21 05:25: White Blood Count 7.3, Red Blood Count 3.60L, Hemoglobin 10.7L, Hematocrit 34L, Mean Corpuscular Volume 94, Mean Corpuscular Hemoglobin 30, Mean Corpuscular Hemoglobin Concent 32, Red Cell Distribution Width 13.0, Platelet Count 251, Mean Platelet Volume 9.5, Immature Granulocyte % (Auto) 2, Neutrophils (%) (Auto) 71, Lymphocytes (%) (Auto) 13, Monocytes (%) (Auto) 8, Eosinophils (%) (A uto) 6, Basophils (%) (Auto) 1, Neutrophils # (Auto) 5.2, Lymphocytes # (Auto) 1.0, Monocytes # (Auto) 0.6, Eosinophils # (Auto) 0.4H, Basophils # (Auto) 0.1, Immature Granulocyte # (Auto) 0.2H, Sodium Level 133L, Potassium Level 4.2, Chloride Level 98, Carbon Dioxide Level 25, Anion Gap 10, Blood Urea Nitrogen 16, Creatinine 0.85, Estimat Glomerular Filtration Rate 69, BUN/Creatinine Ratio 19, Glucose Level 87, Calcium Level 9.5, Corrected Calcium 10.2H, Total Bilirubin 0.4, Aspartate Amino Transf (AST/SGOT) 20, Alanine Aminotransferase (ALT/SGPT) 34, Alkaline Phosphatase 56, Total Protein 5.6L, Albumin 3.1L, Percent Immature Platelet Fraction 2.1 Pending Labs Laboratory Tests 09/18/21 14:18: White Blood Count 11.9, Red Blood Count 4.81, Hemoglobin 14.1, Hematocrit 45, Mean Corpuscular Volume 94, Mean Corpuscular Hemoglobin 29, Mean Corpuscular Hemoglobin Concent 31, Red Cell Distribution Width 12.7, Platelet Count 305, Mean Platelet Volume 9.7, Immature Granulocyte % (Auto) 1, Neutrophils (%) (Auto) 93, Lymphocytes (%) (Auto) 2, Monocytes (%) (Auto) 3, Eosinophils (%) (Auto) 0, Basophils (%) (Auto) 0, Neutrophils # (Auto) 11.1, Lymphocytes # (Auto) 0.3, Monocytes # (Auto) 0.4, Eosinophils # (Auto) 0.0, Basophils # (Auto) 0.0, Immature Granulocyte # (Auto) 0.2, Neutrophils % (Manual) 90, Lymphocytes % (Manual) 3, Monocytes % (Manual) 4, Band Neutrophils 1, Atypical Lymphocytes 2, Blood Morphology Comment NORMAL, Sodium Level 139, Potassium Level 4.3, Chloride Level 102, Carbon Dioxide Level 28, Anion Gap 9, Blood Urea Nitrogen 28, Creatinine 0.80, Estimat Glomerular Filtration Rate 74, BUN/Creatinine Ratio 35, Glucose Level 101, Calcium Level 9.1, Corrected Calcium 9.2, Total Bilirubin 0.4, Aspartate Amino Transf (AST/SGOT) 23, Alanine Aminotransferase (ALT/SGPT) 23, Alkaline Phosphatase 63, B-Type Natriuretic Peptide 150.3, Total Protein 6.9, Albumin 3.9, Procalcitonin 0.02 09/18/21 14:19: Blood Gas Puncture Site R RAD, Blood Gas Patient Temperature 36.8, Arterial Blood pH 7.42, Arterial Blood Partial Pressure CO2 42, Arterial Blood Partial Pressure O2 53, Arterial Blood HCO3 27, Arterial Blood Total CO2 28.2, Arterial Blood Oxygen Saturation 90, Arterial Blood Base Excess 2.7, Caden Test YES-POS, Blood Gas Ventilator Setting NO, Blood Gas Inspired Oxygen RA 09/19/21 05:33: White Blood Count 10.4, Red Blood Count 4.40, Hemoglobin 13.1, Hematocrit 42, Mean Corpuscular Volume 94, Mean Corpuscular Hemoglobin 30, Mean Corpuscular Hemoglobin Concent 32, Red Cell Distribution Width 12.5, Platelet Count 232, Mean Platelet Volume 9.5, Immature Granulocyte % (Auto) 1, Neutrophils (%) (Auto) 79, Lymphocytes (%) (Auto) 9, Monocytes (%) (Auto) 10, Eosinophils (%) (Auto) 0, Basophils (%) (Auto) 0, Neutrophils # (Auto) 8.3, Lymphocytes # (Auto) 1.0, Monocytes # (Auto) 1.1, Eosinophils # (Auto) 0.0, Basophils # (Auto) 0.0, Immature Granulocyte # (Auto) 0.1, Sodium Level 140, Potassium Level 4.0, Chloride Level 104, Carbon Dioxide Level 27, Anion Gap 9, Blood Urea Nitrogen 27, Creatinine 0.86, Estimat Glomerular Filtration Rate 68, BUN/Creatinine Ratio 31, Glucose Level 86, Calcium Level 8.6, Corrected Calcium 9.2, Total Bilirubin 0.4, Aspartate Amino Transf (AST/SGOT) 24, Alanine Aminotransferase (ALT/SGPT) 22, Alkaline Phosphatase 58, Total Protein 6.0, Albumin 3.3 09/20/21 05:10: Sodium Level 136, Potassium Level 4.1, Chloride Level 102, Carbon Dioxide Level 26, Anion Gap 8, Blood Urea Nitrogen 24, Creatinine 0.76, Estimat Glomerular Filtration Rate 79, BUN/Creatinine Ratio 32, Glucose Level 76, Calcium Level 8.4 09/24/21 05:45: White Blood Count 16.0, Red Blood Count 4.51, Hemoglobin 13.4, Hematocrit 42, Mean Corpuscular Volume 94, Mean Corpuscular Hemoglobin 30, Mean Corpuscular Hemoglobin Concent 32, Red Cell Distribution Width 12.7, Platelet Count 277, Mean Platelet Volume 9.8, Immature Granulocyte % (Auto) 5, Neutrophils (%) (Auto) 76, Lymphocytes (%) (Auto) 10, Monocytes (%) (Auto) 9, Eosinophils (%) (A uto) 0, Basophils (%) (Auto) 0, Neutrophils # (Auto) 12.2, Lymphocytes # (Auto) 1.5, Monocytes # (Auto) 1.4, Eosinophils # (Auto) 0.0, Basophils # (Auto) 0.1, Immature Granulocyte # (Auto) 0.8, Neutrophils % (Manual) 72, Lymphocytes % (Manual) 13, Monocytes % (Manual) 9, Metamyelocytes % 1, Band Neutrophils 5, Blood Morphology Comment NORMAL, Sodium Level 134, Potassium Level 4.8, Chloride Level 97, Carbon Dioxide Level 29, Anion Gap 8, Blood Urea Nitrogen 36, Creatinine 0.91, Estimat Glomerular Filtration Rate 63, BUN/Creatinine Ratio 40, Glucose Level 95, Calcium Level 9.2, Corrected Calcium 9.8, Total Bilirubin 0.6, Aspartate Amino Transf (AST/SGOT) 21, Alanine Aminotransferase (ALT/SGPT) 52, Alkaline Phosphatase 56, Total Protein 5.9, Albumin 3.3 10/01/21 06:57: White Blood Count 11.2, Red Blood Count 3.95, Hemoglobin 11.9, Hematocrit 37, Mean Corpuscular Volume 94, Mean Corpuscular Hemoglobin 30, Mean Corpuscular Hemoglobin Concent 32, Red Cell Distribution Width 12.9, Platelet Count 239, Mean Platelet Volume 9.5, Immature Granulocyte % (Auto) 3, Neutrophils (%) (Auto) 79, Lymphocytes (%) (Auto) 8, Monocytes (%) (Auto) 6, Eosinophils (%) (Auto) 3, Basophils (%) (Auto) 1, Neutrophils # (Auto) 8.9, Lymphocytes # (Auto) 0.9, Monocytes # (Auto) 0.7, Eosinophils # (Auto) 0.4, Basophils # (Auto) 0.1, Immature Granulocyte # (Auto) 0.3, Sodium Level 132, Potassium Level 4.0, Chloride Level 97, Carbon Dioxide Level 26, Anion Gap 9, Blood Urea Nitrogen 22, Creatinine 0.85, Estimat Glomerular Filtration Rate 69, BUN/Creatinine Ratio 26, Glucose Level 94, Calcium Level 9.1, Corrected Calcium 9.6, Total Bilirubin 0.6, Aspartate Amino Transf (AST/SGOT) 25, Alanine Aminotransferase (ALT/SGPT) 39, Alkaline Phosphatase 55, Total Protein 5.8, Albumin 3.4 10/08/21 05:25: White Blood Count 7.3, Red Blood Count 3.60, Hemoglobin 10.7, Hematocrit 34, Mean Corpuscular Volume 94, Mean Corpuscular Hemoglobin 30, Mean Corpuscular Hemoglobin Concent 32, Red Cell Distribution Width 13.0, Platelet Count 251, Mean Platelet Volume 9.5, Immature Granulocyte % (Auto) 2, Neutrophils (%) (Auto) 71, Lymphocytes (%) (Auto) 13, Monocytes (%) (Auto) 8, Eosinophils (%) (Auto) 6, Basophils (%) (Auto) 1, Neutrophils # (Auto) 5.2, Lymphocytes # (Auto) 1.0, Monocytes # (Auto) 0.6, Eosinophils # (Auto) 0.4, Basophils # (Auto) 0.1, Immature Granulocyte # (Auto) 0.2, Sodium Level 133, Potassium Level 4.2, Chloride Level 98, Carbon Dioxide Level 25, Anion Gap 10, Blood Urea Nitrogen 16, Creatinine 0.85, Estimat Glomerular Filtration Rate 69, BUN/Creatinine Ratio 19, Glucose Level 87, Calcium Level 9.5, Corrected Calcium 10.2, Total Bilirubin 0.4, Aspartate Amino Transf (AST/SGOT) 20, Alanine Aminotransferase (ALT/SGPT) 34, Alkaline Phosphatase 56, Total Protein 5.6, Albumin 3.1, Percent Immature Platelet Fraction 2.1 Discharge Home Medications: Active Scripts Active Montelukast Sodium 10 Mg Tablet 10 Mg PO DAILY Hydrochlorothiazide 25 Mg Tablet 12.5 Mg PO DAILY Xanax Tablet (Alprazolam) 0.25 Mg Tab 0.25 Mg PO Q8H PRN Aspirin EC (Aspirin) 81 Mg Tablet.dr 81 Mg PO DAILY Spironolactone 25 Mg Tablet 25 Mg PO DAILY Losartan Potassium 100 Mg Tablet 25 Mg PO HS Lipitor (Atorvastatin Calcium) 40 Mg Tablet 40 Mg PO HS Loratadine 10 Mg Tablet 10 Mg PO BID Potassium Chloride 10 Meq Tab.er.prt 20 Meq PO BID WITH MEALS TAKES 2 (10MEQ) TABS Iprat-Albut 0.5-3(2.5) mg/3 ml (Ipratropium/Albuterol Sulfate) 3 Ml Ampul.neb 3 Ml IH Q6H PRN Trelegy Ellipta 100-62.5-25 (Fluticasone/Umeclidin/Vilanter) 1 Each Blst.w.dev 1 Each IH DAILY Flonase Allergy Relief (Fluticasone Propionate) 9.9 Ml [place].susp 2 [place] NSEACH DAILY Ferrous Sulfate 325 Mg Tablet 325 Mg PO BID Famotidine 20 Mg Tablet 20 Mg PO BID Escitalopram Oxalate 20 Mg Tablet 20 Mg PO DAILY Pulmicort (Budesonide) 0.5 Mg/2 Ml Ampul.neb 0.5 Mg NEB BID Albuterol Sulfate 1.25 Mg/3 Ml Vial.neb 1.25 Mg INH QID Wellbutrin Sr (Bupropion HCl) 150 Mg Tablet.er 150 Mg PO DAILY Reported Anecream5 (Lidocaine) 15 Gm Cream..g. 1 Applic TP Q8H PRN APPLY TO FEET Benzonatate 200 Mg Capsule 200 Mg PO TID PRN Proair Hfa (Albuterol Sulfate) 1 Puff Puff 2 Puff IH Q4H PRN Tylenol Extra Strength (Acetaminophen) 500 Mg Tablet 500 Mg PO Q4H PRN Instructions to patient/family Please see electronic discharge instructions given to patient. Diagnosis/Problems Diagnosis/Problems (1) Chronic systolic heart failure Status: Chronic Assessment & Plan: She may have some slight component of chronic heart failure with reduced ejection fraction contributing to her shortness of breath. She is on losartan I added spironolactone. I do not think she is a good candidate for beta-jcarlos due to her severe obstructive airways disease with ongoing wheezing. She would like to follow-up with someone in [place] since this is closer to her home. 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 (2) Cardiomyopathy Assessment & Plan: She had an echocardiogram at an outside hospital that showed mild to moderate left ventricular systolic dysfunction with an ejection fraction of 40-45%. Exact etiology unclear and I do not know if this is a new finding in this patient. She was placed on losartan at the outside facility. As above, I added spironolactone. Her ejection fraction is above the cutoff for recommending a prophylactic defibrillator. She will need to have her guideline directed medical therapy maximized following discharge. (3) Primary hypertension Assessment & Plan: Her blood pressure improved since adding spironolactone. If her blood pressure remains elevated, then I would maximize her losartan as opposed to adding other agents. (4) Mixed hyperlipidemia Assessment & Plan: Continue statin medication. (5) Elevated brain natriuretic peptide (BNP) level Assessment & Plan: Her BNP level wasmildly elevated. Her echocardiogram from the outside facility showed mild-moderate left ventricular systolic dysfunction with an estimated ejection fraction of 40-45% with no significant valvular disease. Her pulmonary artery pressure was 30-35 mmHg. This echo was performed on 09/16. However, her chest x-ray from our hospital does not show any significant pulmonary edema. We will proceed as above. (6) Chronic obstructive pulmonary disease Assessment & Plan: I suspect this is the primary cause of her chronic dyspnea. Qualifiers: Qualified Codes: J44.9 - Chronic obstructive pulmonary disease, unspecified FLORES LUGO DO Oct 10, 2021 11:11
--- NOTE | 2021-10-10 11:56 | Therapy Team Discharge Summary ---
Therapy Discharge Summary Discharge Recommendations Date of Discharge 10/10/21 Therapy D/C Recommendations: Occupational Therapy Home Care Physical Therapy Roll Left to Right (QC): 6 Sit to Lying (QC): 6 Lying to Sitting/Side of Bed(Q: 6 Sit to Stand (QC): 6 Chair/Ggx-er-Zbphx Xfer(QC): 6 Toilet Transfer (QC): 5 Car Transfer (QC): 6 Does the Patient Walk: Yes Mode of Locomotion: Wheelchair Anticipated Mode of Locomotion: Both Walk 10 feet (QC): 6 Walk 50 ft with 2 Turns(QC): 6 Walk 150 ft (QC): 6 Walking 10ft on uneven surface: 5 Distance: 3' Gait Assistive Device: FWW Does the Pt Use a Wheelchair: Yes Wheelchair Distance: 120'x2 Wheel 50 ft with 2 turns (QC): 5 Wheel 150 ft (QC): 5 Type of Wheelchair: Manual #of Steps: 4 1 Step (curb) (QC): 5 4 Steps (QC): 7 12 Steps (QC): 7 Balance Sitting Static: Fair Balance Sitting Dynamic: Fair Balance-Standing Static: Poor Picking up an Object (QC): 6 Occupational Therapy Pt arrived to ARU with CVA. At evaluation, pt was dependent for footwear, toileting, lower body dressing, max a for bathing, and mod a for eating, oral care, and upper body dressing. While on rehab, OT focused on improving UE ROM, strength, endurance, balance, activity tolerance, derek techniques, safety, compensatory/adaptive techniques, and cognition/executive functioning in order t o improve safety and independence in adls and functional transfers. 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 Pt is now indep with all adls. Pt will be discharging from this facility today and will be discharged from OT. Decreased Activ Tolerance, Impaired Self-Care Skills Eating (QC): 6 Oral Hygiene (QC): 6 Shower/Bathe Self (QC): 6 Upper Body Dressing (QC): 6 Lower Body Dressing (QC): 6 On/Off Footwear (QC): 6 Toileting Hygiene (QC): 6 PT [facility] Goals [facility] Goals PT [facility] Goals Time Frame: Oct 09, 2021 Roll Left to Right (QC): 4 Sit to Lying (QC): 4 Lying-Sitting on Side/Bed(QC): 4 Sit to Stand (QC): 4 Chair/Wwy-qq-Mkzpu Xfer(QC): 3 Car Transfer (QC): 3 Does the Patient Walk: Yes Walk 10 feet (QC): 3 Walk 10ft-Uneven Surface(QC): 3 Walk 50ft with 2 Turns (QC): 3 Walk 150 ft (QC): 88 Wheel 50 feet with 2 turns (QC: 4 1 Step (curb) (QC): 3 4 Steps (QC): 88 12 Steps (QC): 88 Picking up an Object (QC): 3 OT [facility] Goals [facility] Goals Time Frame: Oct 16, 2021 Eating (FIM): 6 Eating (QC): 5 (met) Oral Hygiene (QC): 5 (met) Shower/Bathe Self (QC): 3 (met) Upper Body Dressing (QC): 4 (met) Lower Body Dressing (QC): 3 (met) On/Off Footwear (QC): 3 (met) Toileting(FIM): 6 Toileting Hygiene (QC): 3 (met) Toilet/Commode Transfer (QC): 3 (met) 1=Demonstrate adherence to instructed precautions during ADL tasks. 2=Patient will verbalize/demonstrate understanding of assistive devices/modifications for ADL. 3=Patient will improve strength/tolerance for activity to enable patient to perform ADL's. Speech [facility] Goals [facility] Goals 1. The patient will tolerate the least restricted diet without s/s of suspected aspiration with 90% accuracy. MET 2. The patient will demonstrate increased cognitive linguistic skills for safe return to the least restrictive environment. MET Fe Card OT Oct 10, 2021 11:56
--- NOTE | 2021-10-10 13:08 | Therapy Team Discharge Summary ---
Therapy Discharge Summary Discharge Recommendations Date of Discharge Therapy D/C Recommendations: Occupational Therapy Home Care Physical Therapy Patient came to rehab following a CVA. Upon evaluation patient performs rolling with mod assist, supine <-> sit mod assist, transfers max assist, car transfer max assist, ambulate 3' in the parallel bars with mod assist, and propel a manual WC 120' with min assist. Patient has been performing bed mobility and transfer training, balance and endurance training ,functional strengthening, stair training, gait training, and education. 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 Now, patient performs bed mobility and transfers with independence, car transfer independent, ambulates 100' with a rolling walker (including 50' with at least 2 turns of 90 degrees but needs setup to ambulate 10' over an uneven surface), can go up and down 1 step with setup, and can tow picker an object from the floor with independence. Patient is discharging from this facility today and will be discharged from PT at this time. Roll Left to Right (QC): 6 Sit to Lying (QC): 6 Lying to Sitting/Side of Bed(Q: 6 Sit to Stand (QC): 6 Chair/Byw-wl-Mtshy Xfer(QC): 6 Toilet Transfer (QC): 5 Car Transfer (QC): 6 Does the Patient Walk: Yes Mode of Locomotion: Wheelchair Anticipated Mode of Locomotion: Both Walk 10 feet (QC): 6 Walk 50 ft with 2 Turns(QC): 6 Walk 150 ft (QC): 6 Walking 10ft on uneven surface: 5 Distance: 3' Gait Assistive Device: FWW Does the Pt Use a Wheelchair: Yes Wheelchair Distance: 120'x2 Wheel 50 ft with 2 turns (QC): 5 Wheel 150 ft (QC): 5 Type of Wheelchair: Manual #of Steps: 4 1 Step (curb) (QC): 5 4 Steps (QC): 7 12 Steps (QC): 7 Balance Sitting Static: Fair Balance Sitting Dynamic: Fair Balance-Standing Static: Poor Picking up an Object (QC): 6 Occupational Therapy Decreased Activ Tolerance, Impaired Self-Care Skills Eating (QC): 6 Oral Hygiene (QC): 6 Shower/Bathe Self (QC): 6 Upper Body Dressing (QC): 6 Lower Body Dressing (QC): 6 On/Off Footwear (QC): 6 Toileting Hygiene (QC): 6 PT [facility] Goals [facility] Goals 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 Goals Time Frame: Oct 09, 2021 Roll Left to Right (QC): 4 Sit to Lying (QC): 4 Lying-Sitting on Side/Bed(QC): 4 Sit to Stand (QC): 4 Chair/Nfi-kx-Flnst Xfer(QC): 3 Car Transfer (QC): 3 Does the Patient Walk: Yes Walk 10 feet (QC): 3 Walk 10ft-Uneven Surface(QC): 3 Walk 50ft with 2 Turns (QC): 3 Walk 150 ft (QC): 88 Wheel 50 feet with 2 turns (QC: 4 1 Step (curb) (QC): 3 4 Steps (QC): 88 12 Steps (QC): 88 Picking up an Object (QC): 3 OT [facility] 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 2=Patient will verbalize/demonstrate understanding of assistive devices/modifications for ADL. 3=Patient will improve strength/tolerance for activity to enable patient to perform ADL's. Speech Tabulating Machine Mechanic Goals Tabulating Machine Mechanic Goals 1. The patient will tolerate the least restricted diet without s/s of suspected aspiration with 90% accuracy. MET 2. The patient will demonstrate increased cognitive linguistic skills for safe return to the least restrictive environment. MET FRANKY HOFF PT Oct 10, 2021 13:08
== END 2021-10-10 11:30 | disposition home or self-care (01) | DRG 57 ==
PROVIDERS: ADMIT Internal Medicine; ATTEND Internal Medicine
DX: I69.351 Hemiplegia and hemiparesis following cerebral infarction affecting right dominant side (principal); I13.0 Hypertensive heart and chronic kidney disease with heart failure and stage 1 through stage 4 chronic kidney disease, or unspecified chronic kidney disease; I50.22 Chronic systolic (congestive) heart failure; I42.9 Cardiomyopathy, unspecified; J44.1 Chronic obstructive pulmonary disease with (acute) exacerbation; I69.322 Dysarthria following cerebral infarction; R13.10 Dysphagia, unspecified; I69.391 Dysphagia following cerebral infarction; I69.392 Facial weakness following cerebral infarction; R09.02 Hypoxemia; I95.9 Hypotension, unspecified; I25.10 Atherosclerotic heart disease of native coronary artery without angina pectoris; E78.00 Pure hypercholesterolemia, unspecified; E78.2 Mixed hyperlipidemia; K21.9 Gastro-esophageal reflux disease without esophagitis; M19.91 Primary osteoarthritis, unspecified site; F32.A Depression, unspecified; F41.9 Anxiety disorder, unspecified; I73.9 Peripheral vascular disease, unspecified; H54.3 Unqualified visual loss, both eyes; Z99.81 Dependence on supplemental oxygen; Z87.891 Personal history of nicotine dependence; E66.9 Obesity, unspecified; Z68.29 Body mass index [BMI] 29.0-29.9, adult; Z79.82 Long term (current) use of aspirin
CPT/HCPCS: 36415; 36600; 71045; 74230; 80048; 80053; 82805; 83880; 84145; 85007; 85025; 85027; 93005; 94640; 94664; 94760